=== PATIENT | female | born 1985 | race Caucasian/White ===

== ENCOUNTER → 2016-12-28 | Outpatient (CLI) | payer OTHER ==
[2014-03-21 19:59] VITALS: BP 148/82
[~2016-12-28] MED LIST: HYDR200T PO; LEVO125T5 PO
--- NOTE | 2016-12-28 12:32 | KCIC ---
PROCEDURE MRI lumbar spine without contrast. HISTORY Low back pain for 2 weeks. No known injury. Pain and numbness left hip and thigh. TECHNIQUE Sagittal T1, sagittal T2, sagittal STIR, axial T1, and axial T2 sequences are provided. COMPARISON None. FINDINGS There is no malalignment. There is no marrow edema. There is no worrisome marrow lesion. There is disc desiccation from L3-L4 through L5-S1. Disc height is maintained. The conus medullaris is normal in signal intensity and in position. Subcutaneous edema is noted. The numbering system assumes 5 lumbar type vertebral bodies. Findings by individual level are as follows: L1-L2, L2-L3: There is no canal or foraminal compromise. L3-L4: There is a mild disc bulge with central annular fissure and shallow central protrusion. Protrusion measures about 11 millimeters at its base and 2 millimeters in height. There is mild facet and ligamentum flavum hypertrophy. There is no significant canal stenosis, midline AP diameter of the thecal sac 10 millimeters. There is no foraminal narrowing. L4-L5: There is a mild diffuse disc bulge and shallow central protrusion, 10 millimeters at its base and 2 millimeters in height. There is mild facet and ligamentum flavum hypertrophy. There is minimal right foraminal narrowing. Midline AP diameter of the thecal sac is 11 millimeters. L5-S1: There is a minimal disc bulge. There is a central/left central broad-based protrusion, 16 millimeters at its base and 4 millimeters in height. This minimally contacts the left S1 nerve root and minimally narrows the left lateral recess. There is facet hypertrophy. There is no foraminal compromise. IMPRESSION Mild degenerative disc disease with protrusions from L3-L4 through L5-S1. Mild facet hypertrophy also noted at these levels. There is no high-grade canal or foraminal compromise. Left lateral recess narrowing at L5-S1, could explain a left S1 radiculopathy. Electronically signed by: Ha Stephenson MD (Dec 28, 2016 12:30:32)
== END | disposition home or self-care (01) ==
LOC: KCIC MRI 09:54
PROVIDERS: ATTEND Nurse Practitioner Family
DX: M54.16 Radiculopathy, lumbar region (principal); M51.37 Other intervertebral disc degeneration, lumbosacral region; M51.36 Other intervertebral disc degeneration, lumbar region
CPT/HCPCS: 72148

== ENCOUNTER → 2017-01-09 | Outpatient (CLI) | payer OTHER ==
[2014-03-21 19:59] VITALS: BP 148/82
[~2017-01-09] MED LIST changes: +DIPH25CA58 PO; +HYDR-971 PO; +IBUP-1027 PO; +IOHEXOL 180 MG/ML 10 ML VIAL. ONE; +METH-37 PO; +PROP40TA PO; +methylPREDNISolone ACETATE 40 MG/ML VIAL. ONE; +methylPREDNISolone ACETATE 80 MG/ML VIAL. ONE
--- NOTE | 2017-01-10 08:06 | PAIN ---
DATE OF SERVICE: 01/09/2017 INITIAL CONSULTATION FOR PAIN CLINIC CHIEF COMPLAINT: Low back and left lower extremity pain. HISTORY OF PRESENT ILLNESS: This is a 31-year-old female who presents with a history of pain since 12/06/2016, came on suddenly, but not as a result of any specific injury or accident that she is aware of, significant pain across the low back into the left hip and gluteus into the left lateral and anterior thigh, posterior thigh on the left side radiating into the leg and into the lower leg occasionally, mostly into the thigh itself. The patient reports that it has been much worse with standing and walking. 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 The patient has had physical therapy since November to the present time, is still undergoing this, doing therapy at home as well as with the therapist, which has helped the pain, but only to a moderate extent. The patient reports she is taking Pickett, ibuprofen and Robaxin, all of which do help, but again only by 20-30% as well. The patient reports that the pain is stabbing and throbbing, is radiating to the left leg, changes during the day, worse with activity, standing and walking, better with sitting or lying down, but does awaken her from sleep at least twice a night, does not affect her bowel or bladder control, but does affect her ability to walk. She is not using any assistive devices. The patient rates her disability rating from 0-10, 10 being the worst, as a 5 with family and home responsibilities, 6 with recreation and social activity and sexual behavior, 7 with occupation and 3 with self-care and 2 with life support activities. The patient reports no loss of motor function in the lower extremities, but significant fatigability with activity, standing, even walking more than about 5 minutes. PAST MEDICAL HISTORY: Significant for hypertension, cigarette smoking, quit 2 months ago, previous half a pack a day history for 7 years, history of Berkley's thyroiditis, arthritis. PREVIOUS SURGERIES: Include cholecystectomy in 2011 and sinus surgeries x 3 in the past. CURRENT MEDICATIONS: Include diphenhydramine, propranolol, hydrocodone, Robaxin and ibuprofen. ALLERGIES: THE PATIENT IS ALLERGIC TO VANCOMYCIN AND ZOSYN, WHICH CAUSES CUTANEOUS PERIPHERAL FLUSHING. FAMILY HISTORY: Significant for hypertension, diabetes, arthritis, ankylosing spondylitis, gout, cancers and heart disease. 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 REVIEW OF SYSTEMS: Positive for those items mentioned in the history of present illness. All systems reviewed and otherwise negative. It is complete, full and well documented on the patient's chart. PHYSICAL EXAMINATION: VITAL SIGNS: Today, the patient's blood pressure is 144/100, pulse 87, respirations 16, temperature is 97.9 degrees Fahrenheit. Height is 5 feet 11 inches, weight is 263 pounds. GENERAL: The patient is awake, alert, oriented, appropriate, has a very pleasant demeanor. HEENT: Shows normocephalic, atraumatic. Extraocular movements are intact and symmetrical. Oral cavity, mucous membranes are moist and pink. Dentition is intact. NECK: Shows anterior throat supple without palpable lymphadenopathy noted. Swallow reflex is symmetrical. CHEST: Shows normal on inspection. Breath sounds clear to auscultation bilaterally. HEART: Shows S1 and S2 clear. No murmurs are auscultated. ABDOMEN: Obese, soft, nontender, nondistended. No palpable organomegaly is noted. No rebound or guarding demonstrated. MUSCULOSKELETAL: The patient's back shows spine grossly in the midline. Neck shows full rotational motion of the cervical spine without difficulty or tenderness including extension and flexion, normal appearing thoracic kyphosis and lumbar lordotic curvature. The patient has some tattooing in the low back. No other scars, bruises, lesions or rashes are noted. Lumbar paraspinous musculature shows symmetrical on inspection with palpation, is mildly tender to moderately tender in the inferior aspect of the lumbar paraspinous muscles, nontender in the upper distribution. Muscle girth is firm and normal on palpation, somewhat tense in the low lumbar distribution bilaterally. No tenderness over the spinous processes. No tenderness over the sacrum or sacroiliac regions. The patient shows good rotational motion of the lumbar spine, both laterally greater than 10 degrees right and left as well as extension greater than 10 degrees, forward flexion at 45 degrees without exacerbation of pain. Lower extremities show deep tendon reflexes at 2+ in the patellar, 1+ tendo-calcaneus tendons, are equal. Motor exam is strong with 5/5 dorsiflexion, extension, quadriceps and hamstring flexion. Peripheral pulses are 2+ in the posterior tibial and dorsalis pedis pulses. No peripheral edema is noted. No clubbing, no cyanosis. Lower extremities are warm and dry to touch, equal in color and appearance. The patient's straight leg raise is noted to be positive on the left, only mildly at about 45 degrees into the left posterior thigh and lateral thigh, which is relieved with knee flexion, right side is negative. Gaenslen's and John's maneuvers are grossly negative bilaterally. The patient is able to stand, stand on her toes without significant difficulty or loss of balance, walks with a normal appearing gait for short distance in the office not using any assistive devices such as canes or walkers to ambulate. IMPRESSION: 1. This is a 31-year-old female with approximate 1 month history of increasing pain in the low back, left lower extremity in a radicular fashion. 2. MRI scan of the lumbar spine showing mild degenerative disk disease with protrusions from L3-L4 through L5-S1 with lateral recess narrowing on the left at L5-S1 with contact to the S1 nerve root and minimal narrowing of the left lateral recess also at L4-L5 showing disk bulge and shallow central protrusion. 3. Hypertension. 4. Arthritis. PLAN: Options were discussed with the patient including conservative medical managements, physical therapy continuation and interventional techniques. She would like to pursue interventional techniques. We discussed a lumbar epidural steroid injection using description as well as anatomical models to describe the procedure. Risks were then discussed including, but not limited to bleeding, infection, possibility of epidural hematoma, subsequent neurological compromise, dural puncture, headaches, spinal cord and/or nerve damage, side effects of steroid medication and poor results regarding pain control. The patient understands and wishes to proceed. The patient will return to clinic in approximately 2 weeks for followup, was counseled as to return appointment, activity level and side effects to be aware of. DIAGNOSIS: Lumbar radiculopathy with lumbar degenerative disk disease. PROCEDURE: Lumbar epidural steroid injection in a translaminar approach at the L5-S1 level using C-arm fluoroscopic guidance under sterile prep and drape using local anesthetic. MEDICATIONS INJECTED: 120 mg Depo-Medrol plus 10 mL preservative-free normal saline and 2 mL Isovue for contrast. CONDITION AT DISCHARGE: Stable. The patient tolerated the procedure well, had no complications. AKSHAT GARNER MD DR: ARELI/francois JOB#: [id number] / [id number]
== END | disposition home or self-care (01) ==
LOC: PNCL 08:09
PROVIDERS: ATTEND Anesthesiology
DX: M51.16 Intervertebral disc disorders with radiculopathy, lumbar region (principal); M19.90 Unspecified osteoarthritis, unspecified site; I10 Essential (primary) hypertension
CPT/HCPCS: 62323; J1030; J1040

== ENCOUNTER → 2017-01-13 | Outpatient (CLI) | payer OTHER ==
[2014-03-21 19:59] VITALS: BP 148/82
[~2017-01-13] MED LIST changes: -IOHEXOL 180 MG/ML 10 ML VIAL. ONE; -methylPREDNISolone ACETATE 40 MG/ML VIAL. ONE; -methylPREDNISolone ACETATE 80 MG/ML VIAL. ONE
--- NOTE | 2017-01-18 08:17 | PATHOLOGY ---
CYTOPATHOLOGY REPORT CLINICAL HISTORY: R31.9-Hematuria. SPECIMEN(S) RECEIVED: A.Urine, NOS FINAL DIAGNOSIS: Urine, ThinPrep: - No malignant cells identified. - Few urothelial cells, numerous squamous epithelial cells, few inflammatory cells, and yeast/fungal organisms morphologically consistent with Mireya species identified. (JPM:mgr; d/t: 01/17/17) PATHOLOGIST: Phoenix Burnette M.D. REPORT ELECTRONICALLY SIGNED BY: Phoenix Burnette M.D. DATE/TIME: 01/18/2017 08:17 GROSS PATHOLOGY: A. Urine, NOS: The specimen is submitted fixed, labeled "Susie Rodríguez". Received by the Cytology Department is 50 mL of clear yellow fluid. One ThinPrep slide was prepared. (clt 01.16.2017) FRONT COUNTER CLERK(S): ROBBY Sams(ASCP), IAC INITIAL CPT CODE(S): A; 83998 Professional services performed by [facility] [place] [address] Technical services performed by [facility] at [address] [place] [address], [place] [address]. PATIENT: SUSIE RODRÍGUEZ /AGE: 6 1985 (Age: 31) SEX: F PATIENT #: [id number] ALT CASE #: SPECIMEN COLLECTION DATE: 01/13/2017 SPECIMEN RECEIVED DATE: 01/16/[address] [facility] [address] [place] [address], [address] [place] [address] PHONE: [phone] DIRECTOR: Trip Krishna M.D. * * * END OF REPORT * * *
== END | disposition home or self-care (01) ==
LOC: SPEC 16:05
PROVIDERS: ATTEND Urology
DX: N39.0 Urinary tract infection, site not specified (principal)
CPT/HCPCS: 87086

== ENCOUNTER → 2017-01-23 | Outpatient (CLI) | payer OTHER ==
[2014-03-21 19:59] VITALS: BP 148/82
[~2017-01-23] MED LIST changes: +IOHEXOL 180 MG/ML 10 ML VIAL. ONE; +methylPREDNISolone ACETATE 40 MG/ML VIAL. ONE; +methylPREDNISolone ACETATE 80 MG/ML VIAL. ONE
--- NOTE | 2017-01-24 11:48 | PN ---
DATE: 01/23/2017 PROGRESS NOTE FOR PAIN CLINIC DIAGNOSES: Lumbar radiculopathy, lumbar degenerative disease and lumbar spondylosis. HISTORY OF PRESENT ILLNESS: This patient is a 31-year-old female who returns for followup status post lumbar epidural steroid injection x 1. The patient reports about 50-60%, improvement overall in her low back and left lower extremity pain. The patient reports the pain is from 2 to 7 on a scale of 10; 7 with activity, walking, standing, but much better with sitting or lying down. She can increase her activity to moderate extent, it is better at night. The patient reports pain still on aching, burning sensation that is changed somewhat in the burning quality in the left leg for which is aching and sharp, has now less sharp but with some burning and radiating pain. The patient reports no new motor or sensory deficits, no new bowel or bladder incontinence or other complaints. PHYSICAL EXAMINATION: VITAL SIGNS: Blood pressure 133/90, pulse is 77, respirations are 16, temperature is 98.1 degrees Fahrenheit, height 5 foot 11 inches, weight is 264 pounds. GENERAL: The patient is awake, alert, orient, appropriate. Very pleasant demeanor. HEENT: Normocephalic, atraumatic. Extraocular movements are intact and symmetrical. Oral cavity shows mucous membranes moist and pink. Dentition is intact. NECK: Shows anterior throat supple without palpable lymphadenopathy noted. Swallow reflex is symmetrical. CHEST: Shows normal on inspection. Breath sounds are clear to auscultation bilaterally. HEART: Shows S1 and S2 clear. No murmurs are auscultated. ABDOMEN: Soft, obese, nontender, nondistended. No palpable organomegaly is noted. No rebound or guarding demonstrated. BACK: Shows spine grossly in the midline. Normal appearing thoracic kyphosis and lumbar lordotic curvature. Lumbar paraspinous musculature shows symmetry. Inspection with palpation shows some moderate tenderness with palpation but only in the lower lumbar distribution and only diffusely bilaterally, but symmetrical muscle girth is normal and firm without atrophy, hypertrophy. No tenderness with rotation and motion of her lumbar spine, both laterally as well as extension and flexion. No tenderness over the sacrum and sacroiliac regions. Her lower extremities show deep tendon reflexes at 2+ in the patellar and 1+ in the tendo calcaneus tendons. Motor exam is 5/5 dorsiflexion, extension, quadriceps, and hamstring flexion equal bilaterally. Options were discussed with the patient. The patient's old chart was reviewed and her current medication regimen updated. Current review of systems updated to date as well. We will proceed with a second lumbar epidural steroid injection today with fluoroscopic guidance. Risks were again discussed including, but not limited to bleeding, infection, possibility of epidural hematoma and subsequent neurological compromise, dural puncture, headaches and/or nerve damage, side effects of steroid medication and poor results regarding pain control. The patient understands and wishes to proceed. The patient will return to clinic in approximately 2 weeks for followup, was counseled on return appointment, activity level and side effects to be aware of. DIAGNOSES: Lumbar radiculopathy, lumbar degenerative disk disease, lumbar spondylosis. PROCEDURES: Lumbar epidural steroid injection in translaminar approach at the L5-S1 level using C-arm fluoroscopic guidance under sterile prep and drape using local anesthetic. MEDICATIONS INJECTED: 120 mg of Depo-Medrol plus 10 mL of preservative free normal saline and 2 mL Isovue for contrast. CONDITION AT DISCHARGE: Stable. The patient tolerated procedure well, had no complications. AKSHAT GARNER MD DR: ARELI/francois JOB#: [id number] / [id number]
== END | disposition home or self-care (01) ==
LOC: PNCL 12:39
PROVIDERS: ATTEND Anesthesiology
DX: M51.16 Intervertebral disc disorders with radiculopathy, lumbar region (principal); M47.26 Other spondylosis with radiculopathy, lumbar region
CPT/HCPCS: 62323; J1030; J1040

== ENCOUNTER 2017-02-20 06:45 | Day surgery (SDC) | payer OTHER ==
--- NOTE | 2017-02-19 12:13 | HP ---
ADMIT DATE: 02/20/2017 SURGICAL HISTORY AND PHYSICAL The patient is coming in this month on the for operation. This will be her H and P. CHIEF COMPLAINT: Hematuria and bladder lesion. HISTORY OF PRESENT ILLNESS: The patient is a very pleasant 31-year-old white female with history of microhematuria, who was found to have an area of patchy erythema in the dome of the bladder. The remainder of the urinary tract is within normal limits. I have discussed with the patient the options, alternatives, benefits, risks and possible complications of cystoscopy with bladder biopsy. The patient understands this and does wish to proceed ahead with operation. PAST MEDICAL HISTORY: Significant for Berkley's thyroiditis, polycystic ovary, left breast lump in the past, thyroid disease, vitamin D deficiency, insulin resistance, mixed hyperlipidemia, arthralgias, ____, migraine headaches, autoimmune thyroiditis. MEDICATIONS: Fioricet, Imitrex, Treximet, propranolol, gabapentin, thyroid, Excedrin p.r.n. ALLERGIES: THE PATIENT WITH ALLERGY TO ZOSYN AND VANCOMYCIN SHE HAD RED MAN SYNDROME. REVIEW OF SYSTEMS: The patient is feeling well. PHYSICAL EXAMINATION: GENERAL: The patient is a well-developed, well-nourished white female in no acute distress. HEENT: Normocephalic, atraumatic. CHEST: Clear to auscultation. CARDIOVASCULAR: Regular rate and rhythm. ABDOMEN: Soft, no CVA tenderness. EXTREMITIES: Without clubbing, cyanosis or edema. NEUROLOGIC: Grossly intact. ASSESSMENT: Bladder lesion and history of microhematuria. PLAN: I discussed with the patient the options, alternatives, benefits, risks and possible complications of cystoscopy with bladder biopsy. She understands this and does wish to proceed ahead with operation. We will, therefore, proceed accordingly on 02/20/2017. CHERYL SHAH MD DR: CHINTAN/francois JOB#: [id number] / [id number]
[~2017-02-20] VITALS: Ht 177.8 cm; Wt 119.9 kg
[~2017-02-20 06:45] MED LIST changes: -IOHEXOL 180 MG/ML 10 ML VIAL. ONE; +METF500T9 PO; +PHEN37.568 PO; +THYR60TA2 PO; -methylPREDNISolone ACETATE 40 MG/ML VIAL. ONE; -methylPREDNISolone ACETATE 80 MG/ML VIAL. ONE
[2017-02-20] MEDS ORDERED: HYDROmorphone 2 MG/ML VIAL IV PRN (07:00)
[2017-02-20] MEDS ORDERED: PROCHLORPERAZINE 10 MG/2 ML VIAL. IV PRN (07:00)
[2017-02-20] MEDS ORDERED: MORPHINE SULFATE 2 MG/ML DISP.SYRIN. IV PRN (07:00)
[2017-02-20] MEDS ORDERED: ONDANSETRON PF 4 MG/2 ML VIAL. IV PRN (07:00)
[2017-02-20] MEDS ORDERED: fentaNYL PF VIAL 100 MCG/2 ML VIAL IV PRN ×2 (07:00)
[2017-02-20] MEDS ORDERED: LIDOCAINE 1% 1 ML SYRINGE. ID PRN (07:00)
[2017-02-20] MEDS ORDERED: IV RINGERS,LACTATED 1000ML 1,000 ML IV SCH (07:00)
[2017-02-20] MEDS ORDERED: L-NO1TBD5 PO (07:05)
[2017-02-20 07:27] LABS: BASO # 0.1 x10^3/uL (0.0-0.2); BASO % 1 % (0-3); EOS % 4 % (0-3); HEMATOCRIT 39.2 % (36.0-47.0); HEMOGLOBIN 13.3 g/dL (12.0-15.5); LYMPH # 3.6 x10^3/uL (1.0-4.8); LYMPH % 44 % (24-48); MEAN CORPUSCULAR HEMOGLOBIN 30 pg (25-35); MEAN CORPUSCULAR HGB CONC 34 g/dL (31-37); MEAN CORPUSCULAR VOLUME 87 fL (79-100); MONO % 7 % (0-9); NEUT % 44 % (31-73); PLATELET COUNT 309 x10^3/uL (140-400); RED CELL DISTRIBUTION WIDTH 13.4 % (11.5-14.5); WHITE BLOOD COUNT 8.2 x10^3/uL (4.0-11.0)
[2017-02-20 07:27] LABS: NEG OBC UR NEG; POS OBC UR POS
[2017-02-20] MEDS ORDERED: LIDOCAINE 2% JELLY 6ML IN APPLICATOR. ONE (07:31)
[2017-02-20 07:42] LABS: CALCIUM 8.4 mg/dL (8.5-10.1); CREATININE 0.8 mg/dL (0.6-1.0); GFR 84.2; POTASSIUM 3.8 mmol/L (3.5-5.1)
[2017-02-20] MEDS ORDERED: LIDOCAINE 2% PF Vial for OR 5 ML VIAL. ONE (07:45)
[2017-02-20] MEDS ORDERED: fentaNYL PF VIAL 100 MCG/2 ML VIAL ONE (07:45)
[2017-02-20] MEDS ORDERED: PROPOFOL 20 ML IV ONE (07:45)
[2017-02-20] MEDS ORDERED: DEXAMETHASONE SOD PHOS 20 MG/5 ML VIAL. ONE (07:45)
[2017-02-20] MEDS ORDERED: ONDANSETRON PF 4 MG/2 ML VIAL. ONE (07:45)
[2017-02-20 07:46] LABS: ALBUMIN 3.2 g/dL (3.4-5.0); ALBUMIN/GLOBULIN RATIO 0.8 (1.0-1.7); TOTAL BILIRUBIN 0.3 mg/dL (0.2-1.0); TOTAL PROTEIN 7.2 g/dL (6.4-8.2)
[2017-02-20] MEDS ORDERED: SUCCINYLCHOLINE 200 MG/10 ML VIAL. ONE (07:48)
[2017-02-20] MEDS ORDERED: KETOROLAC 30 MG/ML INJ FOR OR. INJ ONE (08:24)
--- NOTE | 2017-02-20 08:52 | DISCH ---
DISCHARGE INSTRUCTIONS Condition on Discharge Condition on Discharge: Stable Activity After Discharge Activity Instructions for Disc: Avoid exertion Diet after Discharge Diet after Discharge: Regular Contacting the DR. after DC Call your doctor for: If your condition worsens Follow-Up Follow up with: Follow up Dr. Sinclair next week CHERYL SINCLAIR MD February 20, 2017 08:52
--- NOTE | 2017-02-20 08:54 | PDOC4 ---
Operative Note Operative Note pre-op dx-microhematuria procedure-cystoscopy, bladder biopsy surgeon-huong judd-general Pt. to PACU in stable condition CHERYL SHAH MD February 20, 2017 08:54
[2017-02-20] MEDS ORDERED: PHEN100T82 PO (09:15)
[2017-02-20] MEDS ORDERED: CIPR500T94 PO (09:16)
[2017-02-20] MEDS ORDERED: HYDROcodone/APAP 5/325MG 1 TAB TABLET ONE (09:28)
[2017-02-20] MEDS ORDERED: HYDROcodone/APAP 5/325MG 1 TAB TABLET PO PRN (09:30)
[2017-02-20 09:40] VITALS: BP 127/82
--- NOTE | 2017-02-20 10:27 | OP ---
DATE OF SURGERY: 02/20/2017 OPERATION: Cystoscopy with bladder biopsy. SURGEON: Cheryl Sinclair M.D. ANESTHESIA: General. PREOPERATIVE DIAGNOSIS: Microhematuria. POSTOPERATIVE DIAGNOSIS: Microhematuria. INDICATIONS: The patient is a very pleasant 31-year-old white female with history of microhematuria. The patient had CT urogram, which showed no upper tract stones or lesions. The patient had a cystoscopy, which showed just one area of erythema in the posterior dome of the bladder. No other lesions were noted. I discussed with the patient the options, alternatives, benefits, risks and possible complications of cystoscopy with possible bladder biopsy. She understands this and does wish to proceed with the operation. DESCRIPTION OF PROCEDURE: After obtaining informed consent, the patient was taken to the operating room. After an excellent general anesthetic, the patient was placed in a dorsal lithotomy position. The groin was prepped and draped in sterile fashion. The patient was preloaded with IV antibiotics. Panendoscopy and cystoscopy then performed with the 30 and 70-degree lens and the 21-Cambodian cystoscope sheath. Bladder was entered and inspected. Both ureteral orifices were identified and found to be grossly patent with clear efflux of urine. Bladder wall appeared smooth. There was just one mucosal lesion identified in the posterior wall of the bladder superior to the left hemitrigone measuring approximately 2 mm in diameter and just a reddish mucosal lesion, possibly consistent with just a mucosal hemangioma. No other lesions were identified in the bladder. Bladder washing was obtained and sent for cytologic analysis. Following this, the mucosal lesion in the left posterior wall of the bladder was then biopsied with the Wappler biopsy forceps and the biopsy is sent for pathologic analysis. The biopsy site was then lightly fulgurated with a fine tip Bugbee electrode under direct vision. Hemostasis was checked and found to be excellent. Bladder wall was completely intact at the end of the procedure. Both ureteral orifices were identified and intact at the end of the procedure. Following this, bladder was then drained, cystoscope withdrawn from the patient. The patient tolerated the procedure very well, was taken to recovery room in stable condition. CHERYL SINCLAIR MD DR: CHINTAN/francois JOB#: [id number] / [id number]
--- NOTE | 2017-02-21 13:44 | PATHOLOGY ---
CYTOPATHOLOGY REPORT CLINICAL HISTORY: Micro hematuria See also [id number] SPECIMEN(S) RECEIVED: A.Washing, Bladder FINAL DIAGNOSIS: Bladder washing, Thinprep: - No malignant cells identified. - Squamous epithelial cells and few reactive urothelial cells identified. (JPM:; d/t: 02/21/17) PATHOLOGIST: Phoenix Burnette M.D. REPORT ELECTRONICALLY SIGNED BY: Phoenix Burnette M.D. DATE/TIME: 02/21/2017 13:27 GROSS PATHOLOGY: A. Washing, Bladder: The specimen is submitted unfixed, labeled "Susie Rodríguez". Received by the Cytology Department is 40 mL of clear yellow fluid. One ThinPrep slide was prepared. (mm 02.20.2017) ORTHOPEDIC PHYSICIAN(S): ROBBY Michaels(ASCP) INITIAL CPT CODE(S): A; 51932 Professional services performed by [facility] [place] [address] Technical services performed by [facility] at [address] [place] [address], [address] [address]. PATIENT: SUSIE RODRÍGUEZ /AGE: 6 1985 (Age: 31) SEX: F PATIENT #: [id number] ALT CASE #: SPECIMEN COLLECTION DATE: 02/20/2017 SPECIMEN RECEIVED DATE: 02/20/[address] [facility] [address] [place] [address], [address] [place] [address] PHONE: [phone] DIRECTOR: Trip Krishna M.D. * * * END OF REPORT * * *
--- NOTE | 2017-02-21 13:49 | PATHOLOGY ---
PATHOLOGY REPORT * * * * * * * * FINAL DIAGNOSIS: Bladder biopsy: - Congestion, slight chronic inflammation, and focal reactive urothelial atypia. COMMENT: There is no evidence of malignancy. REPORT ELECTRONICALLY SIGNED BY: Phoenix Burnette M.D. DATE/TIME: 02/21/2017 13:33 * * * * * * * * GROSS PATHOLOGY: Received in formalin labeled "Susie Rodríguez, bladder biopsy," is a segment of finney soft tissue measuring 0.3 cm in maximum dimension. The specimen is submitted entirely in cassette A1. (CAA; 02/20/2017) INITIAL CPT CODE(S): A; 06068 Professional services performed [place] [address] Technical services performed by [facility] at [address] [place] [address], [place] [address]. SPECIMEN(S) RECEIVED: A.Bladder biopsy CLINICAL HISTORY: Microhematuria PATIENT: SUSIE RODRÍGUEZ /AGE: 6 1985 (Age: 31) PATIENT #: [id number] ALT CASE #: SPECIMEN COLLECTION DATE: 02/20/2017 SPECIMEN RECEIVED DATE: 02/20/2017 [facility] - [address] [place] [address] - PHONE: [phone] * * * END OF REPORT * * *
== END 2017-02-20 09:59 | disposition home or self-care (01) ==
LOC: SURG 06:45
PROVIDERS: ATTEND Urology
DX: N32.9 Bladder disorder, unspecified (principal); E78.00 Pure hypercholesterolemia, unspecified; E66.9 Obesity, unspecified; Z90.49 Acquired absence of other specified parts of digestive tract; Z86.14 Personal history of Methicillin resistant Staphylococcus aureus infection; Z87.39 Personal history of other diseases of the musculoskeletal system and connective tissue
CPT/HCPCS: 36415; 52204; 80053; 81025; 85027; J0330; J1100; J1956; J2405; J2704; J3010; J1885

== ENCOUNTER 2017-03-01 14:53 | Emergency (ER) | payer OTHER ==
[~2017-03-01] VITALS: Ht 177.8 cm; Wt 119.7 kg
[~2017-03-01 14:53] MED LIST changes: +CIPR500T94 PO; +L-NO1TBD5 PO; +PHEN100T82 PO; -PHEN37.568 PO; +PHEN37.598 PO
[2017-03-01] MEDS ORDERED: fentaNYL PF VIAL 100 MCG/2 ML VIAL IV ONE ×2 (15:30→19:15)
[2017-03-01] MEDS ORDERED: ONDANSETRON PF 4 MG/2 ML VIAL. IV ONE (15:30)
[2017-03-01] MEDS ORDERED: IOHEXOL 300 MG/ML 75 ML VIAL IV ONE (15:45)
[2017-03-01] MEDS ORDERED: CONTRAST GIVEN MC PRN (15:45)
--- NOTE | 2017-03-01 16:17 | PHYS DOC ---
Past Medical History Past Medical History: Arthritis, Hypothyroid, Other Additional Past Medical Histor: PCOS, MRSA in sinus Past Surgical History: Cholecystectomy, Other Additional Past Surgical Histo: sinus surgery, bladder biobsy and cystoscopy Alcohol Use: None Drug Use: None Adult General Chief Complaint Chief Complaint: ABDOMINAL PAIN HPI HPI Patient is a 31 year old female who presents with epigastric and left upper quadrant pain for the past 3 days. Patient states that she's been unable to keep any food down and has nauseous and vomiting multiple times over the past 3 days. Patient states she had her gallbladder removed. Patient denies any diarrhea. Patient denies any shortness of breath or chest pain. Patient denies any fevers. Pertinent exam findings: Positive tenderness to palpation the epigastric and left upper quadrant ED course: Patient was seen and examined in the emergency room a CBC, CMP, lipase, UA, urine , CT abdomen and pelvis were ordered 1800: Discussed abnormal lab results the patient in regards to her liver enzymes and the CT scan findings of a fatty liver and recommended she follow up with her doctor to have her liver enzymes repeated within the next week. Patient states she feels much better and would like to go home. Her nausea and vomiting have resolved. Patient understands the need to follow-up and have repeat blood work. Pertinent results: Elevated liver enzymes CT the abdomen and pelvis no acute abnormalities fatty infiltrate of the liver MDM: After reviewing the chart, CC/HPI/PMH, physical exam, [lab results], [ radiological results], do not believe the patient has intra-abdominal emergency warranting further workup and/or admission at this time. Discussed the abnormal CT findings in regards to the fatty liver and the elevated liver enzymes with the patient and recommended she follow up with her PCP for repeat liver enzymes and further evaluation the liver. Patient on reexamination states she feels much better and her nausea and vomiting have resolved. Patient went to go home. Patient is stable for discharge. Additional verbal discharge instructions were provided to the patient and that if symptoms get worse or any new symptoms arise that are worrisome to the patient she is to return to the emergency room immediately Review of Systems Review of Systems GEN: Denies fevers, chills, sweats HEENT: Denies blurred vision, sore throat CV: Denies chest pain RESP: Denies shortness of air, cough GI: n/v, positive epigastric and left upper quadrant pain NEURO: Denies confusion, dizziness MSK: Denies weakness, joint pain/swelling Current Medications Current Medications Current Medications Medications (Trade) Dose Ordered Sig/Lee Start Time Stop Time Status Last Admin Dose Admin Fentanyl Citrate (Fentanyl 2ml Vial) 50 mcg 1X ONCE 03/01/17 15:30 03/01/17 15:31 DC 03/01/17 15:47 50 MCG Info (Do NOT chart on this entry -- for MONITORING) 1 each PRN DAILY PRN 03/01/17 15:45 03/03/17 15:44 Iohexol (Omnipaque 300 Mg/ml) 75 ml 1X ONCE 03/01/17 15:45 03/01/17 15:46 DC 03/01/17 15:45 75 ML Ondansetron HCl (Zofran) 4 mg 1X ONCE 03/01/17 15:30 03/01/17 15:31 DC 03/01/17 15:44 4 MG Allergies Allergies Allergies Coded Allergies Type Severity Reaction Last Updated Verified piperacillin Allergy Intermediate 02/20/17 No tazobactam Allergy Intermediate 02/20/17 No vancomycin Allergy Intermediate 02/20/17 No Physical Exam Physical Exam GEN.: No apparent distress. Alert and oriented. HEENT: Head is normocephalic, atraumatic NECK: Supple. LUNGS: CTAB. HEART: RRR, S1, S2 present. Peripheral pulses intact ABDOMEN: Soft, positive tenderness to palpation epigastric and left upper quadrant. Positive bowel sounds. EXTREMITIES: Without any cyanosis. NEUROLOGIC: Normal speech, normal tone PSYCHIATRIC: Normal affect, normal mood. SKIN: No ulcerations Current Patient Data Vital Signs Vital Signs Date Time Temp Pulse Resp B/P (MAP) Pulse Ox O2 Delivery O2 Flow Rate FiO2 03/01/17 16:45 80 19 121/62 (81) 94 Room Air 03/01/17 15:16 98.4 98.4 Lab Values Laboratory Tests Test 03/01/17 15:05 03/01/17 15:53 03/01/17 16:10 Urine Collection Type Unknown Urine Color Bonnie Urine Clarity Clear Urine pH 5.5 Urine Specific [place] 1.025 Urine Protein 100 mg/dL (NEG-TRACE) Urine Glucose (UA) Negative mg/dL (NEG) Urine Ketones (Stick) Trace mg/dL (NEG) Urine Blood Large (NEG) Urine Nitrite Negative (NEG) Urine Bilirubin Negative (NEG) Urine Urobilinogen Dipstick 0.2 mg/dL (0.2 mg/dL) Urine Leukocyte Esterase Negative (NEG) Urine RBC Occ /HPF (0-2) Urine WBC 5-10 /HPF (0-4) Urine Squamous Epithelial Cells Few /LPF Urine Bacteria Few /HPF (0-FEW) Urine Mucus Mod /LPF Urine Yeast Present /HPF POC Urine HCG, Qualitative Hcg negative (Negative) White Blood Count 9.3 x10^3/uL (4.0-11.0) Red Blood Count 4.71 x10^6/uL (3.50-5.40) Hemoglobin 14.2 g/dL (12.0-15.5) Hematocrit 40.8 % (36.0-47.0) Mean Corpuscular Volume 87 fL (79-100) Mean Corpuscular Hemoglobin 30 pg (25-35) Mean Corpuscular Hemoglobin Concent 35 g/dL (31-37) Red Cell Distribution Width 13.3 % (11.5-14.5) Platelet Count 287 x10^3/uL (140-400) Neutrophils (%) (Auto) 56 % (31-73) Lymphocytes (%) (Auto) 36 % (24-48) Monocytes (%) (Auto) 6 % (0-9) Eosinophils (%) (Auto) 2 % (0-3) Basophils (%) (Auto) 1 % (0-3) Neutrophils # (Auto) 5.2 x10^3uL (1.8-7.7) Lymphocytes # (Auto) 3.3 x10^3/uL (1.0-4.8) Monocytes # (Auto) 0.5 x10^3/uL (0.0-1.1) Eosinophils # (Auto) 0.1 x10^3/uL (0.0-0.7) Basophils # (Auto) 0.1 x10^3/uL (0.0-0.2) Sodium Level 140 mmol/L (136-145) Potassium Level 3.6 mmol/L (3.5-5.1) Chloride Level 104 mmol/L (98-107) Carbon Dioxide Level 22 mmol/L (21-32) Anion Gap 14 (6-14) Blood Urea Nitrogen 7 mg/dL (7-20) Creatinine 0.8 mg/dL (0.6-1.0) Estimated GFR (Cockcroft-Gault) 84.2 BUN/Creatinine Ratio 9 (6-20) Glucose Level 87 mg/dL (70-99) Calcium Level 9.1 mg/dL (8.5-10.1) Total Bilirubin 0.5 mg/dL (0.2-1.0) Aspartate Amino Transferase (AST) 134 U/L (15-37) H Alanine Aminotransferase (ALT) 120 U/L (14-59) H Alkaline Phosphatase 76 U/L (46-116) Total Protein 7.8 g/dL (6.4-8.2) Albumin 3.7 g/dL (3.4-5.0) Albumin/Globulin Ratio 0.9 (1.0-1.7) L Lipase 121 U/L (73-393) Laboratory Tests 03/01/17 16:10 Laboratory Tests 03/01/17 16:10 EKG EKG [] Radiology/Procedures Radiology/Procedures CT the abdomen and pelvis: IMPRESSION: 1. No evidence of bowel obstruction or appendicitis. 2. Low attenuation of the liver. Nonspecific but frequently secondary to fatty infiltration. [] Course & Med Decision Making Course & Med Decision Making Pertinent Labs and Imaging studies reviewed. (See chart for details) [] Dragon Disclaimer Dragon Disclaimer This electronic medical record was generated, in whole or in part, using a voice recognition dictation system. Departure Departure Impression: Primary Impression: Nausea and vomiting Additional Impressions: Abdominal pain Transaminitis Disposition: 01 HOME, SELF-CARE Condition: IMPROVED Referrals: RODYD SANTIAGO APRN (PCP) Patient Instructions: Nausea and Vomiting, [id number] Additional Instructions: Please follow up with her family doctor within next one to 2 days and have repeat liver enzymes done within the next week and have your liver further evaluated for fatty infiltration Scripts Ondansetron (ZOFRAN ODT) 4 Mg Tab.rapdis 1 TAB SL Q8HRS, #10 TAB Prov: KENNETH POLANCO DO 03/01/17 Problem Qualifiers Primary Impression: Nausea and vomiting Vomiting type: unspecified Vomiting Intractability: unspecified Qualified Codes: R11.2 - Nausea with vomiting, unspecified Additional Impressions: Abdominal pain Abdominal location: epigastric Qualified Codes: R10.13 - Epigastric pain KENNETH POLANCO DO March 01, 2017 16:16
[2017-03-01 16:18] LABS: BASO # 0.1 x10^3/uL (0.0-0.2); BASO % 1 % (0-3); EOS % 2 % (0-3); HEMATOCRIT 40.8 % (36.0-47.0); HEMOGLOBIN 14.2 g/dL (12.0-15.5); LYMPH # 3.3 x10^3/uL (1.0-4.8); LYMPH % 36 % (24-48); MEAN CORPUSCULAR HEMOGLOBIN 30 pg (25-35); MEAN CORPUSCULAR HGB CONC 35 g/dL (31-37); MEAN CORPUSCULAR VOLUME 87 fL (79-100); MONO % 6 % (0-9); NEUT % 56 % (31-73); PLATELET COUNT 287 x10^3/uL (140-400); RED BLOOD COUNT 4.71 x10^6/uL (3.50-5.40); RED CELL DISTRIBUTION WIDTH 13.3 % (11.5-14.5); WHITE BLOOD COUNT 9.3 x10^3/uL (4.0-11.0)
[2017-03-01 16:37] LABS: CALCIUM 9.1 mg/dL (8.5-10.1); CREATININE 0.8 mg/dL (0.6-1.0); GFR 84.2; POTASSIUM 3.6 mmol/L (3.5-5.1)
[2017-03-01 16:49] LABS: ALBUMIN 3.7 g/dL (3.4-5.0); ALBUMIN/GLOBULIN RATIO 0.9 (1.0-1.7); TOTAL BILIRUBIN 0.5 mg/dL (0.2-1.0); TOTAL PROTEIN 7.8 g/dL (6.4-8.2)
[2017-03-01 17:12] LABS: BILIRUBIN,URINE NEGATIVE (NEG); GLUCOSE,URINE NEGATIVE (NEG); NITRITE,URINE NEGATIVE (NEG); PH,URINE 5.5; PROTEIN,URINE 100 mg/dL (NEG-TRACE); UROBILINOGEN,URINE 0.2 mg/dL (0.2 mg/dL)
--- NOTE | 2017-03-01 17:35 | RAD ---
INDICATION: sharp upper abd pains x 3 days, [id number] 75ml, no priors COMPARISON: None. TECHNIQUE: Axial CT images were obtained through the abdomen and pelvis with intravenous contrast. One or more of the following individualized dose reduction techniques were utilized for this examination: 1. Automated exposure control; 2. Adjustment of the mA and/or kV according to patient size; 3. Use of iterative reconstruction technique. FINDINGS: Abdomen: Chest Base: Partially imaged without gross abnormality. Vessels: Mild calcific atherosclerosis. Liver/Biliary: Low-attenuation throughout. Postcholecystectomy changes. Pancreas: No peripancreatic edema. Spleen: Normal. Kidneys/Adrenal: No hydronephrosis. GI: No free air. No bowel dilation to suggest obstruction. The appendix is unremarkable Pelvis: Bladder: Largely decompressed IMPRESSION: 1. No evidence of bowel obstruction or appendicitis. 2. Low attenuation of the liver. Nonspecific but frequently secondary to fatty infiltration. Electronically signed by: Kwabena Jeffries MD (03/01/2017 5:32 PM)
[2017-03-01 17:41] LABS: BACTERIA,URINE FEW /HPF (0-FEW); RBC,URINE OCC /HPF (0-2)
[2017-03-01 17:42] LABS: SQUAMOUS EPITHELIAL CELL,UR FEW /LPF; YEAST,URINE PRESENT /HPF
[2017-03-01] MEDS ORDERED: ONDA4TAB10 SL (18:04)
[2017-03-01 19:25] VITALS: BP 142/94
== END 2017-03-01 19:28 | disposition home or self-care (01) ==
LOC: ER 14:53
DX: R10.12 Left upper quadrant pain (principal); R10.13 Epigastric pain; R11.2 Nausea with vomiting, unspecified; R74.0 Nonspecific elevation of levels of transaminase and lactic acid dehydrogenase [LDH]; E03.9 Hypothyroidism, unspecified; M19.90 Unspecified osteoarthritis, unspecified site; Z90.49 Acquired absence of other specified parts of digestive tract; E28.2 Polycystic ovarian syndrome; Z86.14 Personal history of Methicillin resistant Staphylococcus aureus infection; Z88.1 Allergy status to other antibiotic agents; Z88.0 Allergy status to penicillin; Z88.8 Allergy status to other drugs, medicaments and biological substances
CPT/HCPCS: 36415; 74177; 80053; 81001; 81025; 83690; 85027; 87086; 96374; 96375; 96376; 99285; J2405; J3010; Q9967

== ENCOUNTER → 2017-03-24 | Day surgery (SDC) | payer OTHER ==
[~2017-03-24] MED LIST changes: +IV RINGERS,LACTATED 1000ML 1,000 ML IV SCH; +LIDOCAINE 2% PF Vial for OR 5 ML VIAL. ONE; +ONDA4TAB10 SL; +PROPOFOL 20 ML IV ONE
[2017-03-24 07:39] LABS: NEG OBC UR NEG; POS OBC UR POS
[2017-03-24 08:30] VITALS: BP 133/95
--- NOTE | 2017-03-27 13:36 | PATHOLOGY ---
PATHOLOGY REPORT * * * * * * * * FINAL DIAGNOSIS: Esophageal biopsies, distal esophagus: - Segments of hyperplastic squamous esophageal mucosa and esophagogastric mucosa showing focal acute and chronic inflammation, consistent with reflux esophagitis. COMMENT: Sections of the distal esophageal biopsy reveal segments of hyperplastic squamous esophageal mucosa and esophagogastric mucosa showing focal acute and chronic inflammation with admixed eosinophils. The findings are consistent with reflux esophagitis. There is no evidence of Contreras's change, dysplasia, or malignancy. (JPM:cherry; d/t: 03/27/2017) REPORT ELECTRONICALLY SIGNED BY: Phoenix Burnette M.D. DATE/TIME: 03/27/2017 13:35 * * * * * * * * GROSS PATHOLOGY: Received in formalin labeled "Susie Rodríguez, distal esophageal biopsies," are multiple segments of finney soft tissue measuring 0.1 up to 0.3 cm in maximum dimension. The specimen is submitted entirely in cassette A1. (SHA; 03/24/17) INITIAL CPT CODE(S): A; 30516 Professional services performed [place] [facility] [place] [address] Technical services performed by [facility] at [address] [place] [address] [address] [address]. SPECIMEN(S) RECEIVED: A.Distal esophageal biopsy CLINICAL HISTORY: Abdominal pain; reflux esophagitis, r/o Contreras's PATIENT: SUSIE RODRÍGUEZ /AGE: 6 1985 (Age: 31) PATIENT #: [id number] ALT CASE #: SPECIMEN COLLECTION DATE: 03/24/2017 SPECIMEN RECEIVED DATE: 03/24/2017 [facility] - [address] [place] [address] - PHONE: [phone] * * * END OF REPORT * * *
== END | disposition home or self-care (01) ==
LOC: ENDOS 07:05
PROVIDERS: ATTEND Internal Medicine Gastroenterology
DX: K21.0 Gastro-esophageal reflux disease with esophagitis (principal); K29.50 Unspecified chronic gastritis without bleeding; F41.9 Anxiety disorder, unspecified; M19.90 Unspecified osteoarthritis, unspecified site; E03.9 Hypothyroidism, unspecified; Z83.3 Family history of diabetes mellitus; Z82.49 Family history of ischemic heart disease and other diseases of the circulatory system; Z72.89 Other problems related to lifestyle; Z87.891 Personal history of nicotine dependence; Z90.49 Acquired absence of other specified parts of digestive tract; E78.00 Pure hypercholesterolemia, unspecified; Z86.69 Personal history of other diseases of the nervous system and sense organs; Z86.39 Personal history of other endocrine, nutritional and metabolic disease; E66.9 Obesity, unspecified; Z68.30 Body mass index [BMI] 30.0-30.9, adult; Z87.39 Personal history of other diseases of the musculoskeletal system and connective tissue; Z86.14 Personal history of Methicillin resistant Staphylococcus aureus infection; Z88.1 Allergy status to other antibiotic agents
CPT/HCPCS: 43239; 81025; 88305; J2704

== ENCOUNTER → 2017-04-25 | Day surgery (SDC) | payer OTHER ==
[~2017-04-25] MED LIST changes: +HYDROmorphone 2 MG/ML VIAL IV PRN; +LIDOCAINE 1% 1 ML SYRINGE. ID PRN; +MORPHINE SULFATE 2 MG/ML DISP.SYRIN. IV PRN; +ONDANSETRON PF 4 MG/2 ML VIAL. IV PRN; +PROCHLORPERAZINE 10 MG/2 ML VIAL. IV PRN; -PROPOFOL 20 ML IV ONE; +PROPOFOL 40 ML IV ONE; +fentaNYL PF VIAL 100 MCG/2 ML VIAL IV PRN
[2017-04-25 16:39] VITALS: BP 170/79
[2017-04-26 06:13] LABS: NEG OBC UR NEG; POS OBC UR POS
--- NOTE | 2017-04-27 16:28 | PATHOLOGY ---
PATHOLOGY REPORT * * * * * * * * FINAL DIAGNOSIS: Colonic mucosa, random colon biopsies: - No significant pathologic abnormalities. COMMENT: Sections of the random colon biopsy reveal multiple segments of colonic mucosa containing multiple mucosal-associated lymphoid aggregates. There is no evidence of a chronic destructive colitis, lymphocytic colitis, or collagenous colitis. (JPM:[facility]; 04/27/2017) REPORT ELECTRONICALLY SIGNED BY: Phoenix Burnette M.D. DATE/TIME: 04/27/2017 16:27 * * * * * * * * GROSS PATHOLOGY: Received in formalin labeled "Susie Rodríguez, random colon biopsies," are multiple segments of finney soft tissue measuring from 0.1 up to 0.3 cm in maximum dimension. The specimen is submitted entirely in cassette A1. (JPM; 04/26/17) INITIAL CPT CODE(S): A; 88845 Professional services [place] [address] Technical services performed by [facility] at [address] [place] [address]. SPECIMEN(S) RECEIVED: A.Random colon biopsies CLINICAL HISTORY: Diarrhea, chronic diarrhea PATIENT: SUSIE RODRÍGUEZ /AGE: 6 1985 (Age: 32) PATIENT #: [id number] ALT CASE #: SPECIMEN COLLECTION DATE: 04/25/2017 SPECIMEN RECEIVED DATE: 04/26/2017 [facility] - [address] [place] [address] - PHONE: [phone] * * * END OF REPORT * * *
== END | disposition home or self-care (01) ==
LOC: ENDOS 15:31
PROVIDERS: ATTEND Internal Medicine Gastroenterology
DX: K64.0 First degree hemorrhoids (principal); Z86.69 Personal history of other diseases of the nervous system and sense organs; E78.00 Pure hypercholesterolemia, unspecified; Z90.49 Acquired absence of other specified parts of digestive tract; E66.9 Obesity, unspecified; Z68.31 Body mass index [BMI] 31.0-31.9, adult; Z87.39 Personal history of other diseases of the musculoskeletal system and connective tissue; Z86.39 Personal history of other endocrine, nutritional and metabolic disease
CPT/HCPCS: 45380; 81025; J2001; J2704

== ENCOUNTER → 2017-07-20 | Outpatient (CLI) | payer OTHER ==
[2017-04-25 16:39] VITALS: BP 170/79
[~2017-07-20] MED LIST changes: -HYDROmorphone 2 MG/ML VIAL IV PRN; +IOHEXOL 180 MG/ML 10 ML VIAL. ONE; -IV RINGERS,LACTATED 1000ML 1,000 ML IV SCH; -LIDOCAINE 1% 1 ML SYRINGE. ID PRN; -LIDOCAINE 2% PF Vial for OR 5 ML VIAL. ONE; -MORPHINE SULFATE 2 MG/ML DISP.SYRIN. IV PRN; -ONDANSETRON PF 4 MG/2 ML VIAL. IV PRN; -PROCHLORPERAZINE 10 MG/2 ML VIAL. IV PRN; -PROPOFOL 40 ML IV ONE; -fentaNYL PF VIAL 100 MCG/2 ML VIAL IV PRN; +methylPREDNISolone ACETATE 40 MG/ML VIAL. ONE; +methylPREDNISolone ACETATE 80 MG/ML VIAL. ONE
--- NOTE | 2017-07-20 15:49 | PAIN ---
DATE OF SERVICE: 07/20/2017 DIAGNOSES: Lumbar radiculopathy with lumbar degenerative disk disease and lumbar spondylosis. HISTORY OF PRESENT ILLNESS: This is a 32-year-old female who returns for followup status post lumbar epidural steroid injections x 2, last seen 01/23/2017. The patient did very well after the injection with approximately 75% improvement. Pain returning now in the low back and the bilateral hips and lower extremities, again worse on the left side with some radiating pain in the posterior gluteus and posterior thigh, also into the right side, occasionally into the right groin as well as across the low back. The patient reports it is becoming more constant aching type pain that can be shooting and stabbing in the left leg. It is a 7 on a scale of 10 at its worse, 5 on average and 4 on a scale 10 today, which is at least. The patient reports it does not awaken her from sleep at night. She has been sleeping well, much better with sitting or lying down, worse with standing, walking, changing positions. The patient reports no new motor or sensory deficits, no new bowel or bladder incontinence or other complaints. PHYSICAL EXAMINATION: VITAL SIGNS: The patient's blood pressure 144/108, pulse 80, respirations 16, temperature is 98.3 degrees Fahrenheit, height is 5 feet 11 inches, weight is 261 pounds. GENERAL: The patient is awake, alert, oriented, appropriate, very pleasant demeanor. HEENT: Head shows normocephalic, atraumatic. Extraocular movements are intact and symmetrical. Oral cavity, mucous membranes are moist and pink. Dentition is intact. NECK: Shows anterior throat supple without palpable lymphadenopathy noted. Swallow reflex is symmetrical. CHEST: Shows normal on inspection. Breath sounds clear to auscultation bilaterally. HEART: Shows S1 and S2 clear. No murmurs auscultated. ABDOMEN: Soft, nontender, nondistended. No palpable organomegaly is noted. No rebound or guarding demonstrated. BACK: Shows spine grossly midline. Lumbar paraspinous musculature shows some moderate tenderness with palpation, but normal in appearance, normal lordotic curvature. There is some tattooing noted as per previous exam. No radiation of pain, but moderately tender diffusely throughout the middle and lower distribution of paraspinous muscles. No tenderness over the sacrum or sacroiliac regions. The patient has full rotational motion of lumbar spine, both laterally as well as extension and flexion without significant pain reported. EXTREMITIES: Lower extremities show deep tendon reflexes 2+ in the patellar and 1+ tendo calcaneus tendons are equal. Motor exam is strong with 5/5 dorsiflexion, extension, quadriceps and hamstring flexion and symmetrical. Peripheral pulses are 1+ posterior tibial bilaterally. No peripheral edema is noted. Options were discussed with the patient and the patient's old chart was reviewed as her current medication regimen updated. Current review of systems updated today as well. We will proceed with the third in the series of lumbar epidural steroid injection with fluoroscopic guidance. Risks were again discussed including, but not limited to bleeding, infection, possibility of epidural hematoma, subsequent neurologic compromise, dural puncture, headaches, spinal cord and/or nerve damage, side effects of steroid medication and poor results regarding pain control. The patient understands and wishes to proceed. The patient to return to clinic in approximately 2 weeks for followup. She was counseled on return appointment, activity level and side effects to be aware of. DIAGNOSES: Lumbar radiculopathy with lumbar degenerative disk disease, lumbar spondylosis. PROCEDURES: Lumbar epidural steroid injection, translaminar approach at the L5-S1 level using C-arm fluoroscopic guidance under sterile prep and drape using local anesthetic. Medications injected total 120 mg Depo-Medrol, plus 10 mL preservative free normal saline, 2 mL of Isovue contrast. CONDITION AT DISCHARGE: Stable. The patient tolerated procedure well, had no complications. AKSHAT GARNER MD DR: ARELI/francois JOB#: [id number] / [id number]
== END | disposition home or self-care (01) ==
LOC: PNCL 10:21
PROVIDERS: ATTEND Anesthesiology
DX: M51.16 Intervertebral disc disorders with radiculopathy, lumbar region (principal); M47.26 Other spondylosis with radiculopathy, lumbar region; E78.00 Pure hypercholesterolemia, unspecified; E66.9 Obesity, unspecified; F17.200 Nicotine dependence, unspecified, uncomplicated; Z86.14 Personal history of Methicillin resistant Staphylococcus aureus infection; Z86.69 Personal history of other diseases of the nervous system and sense organs; Z87.39 Personal history of other diseases of the musculoskeletal system and connective tissue; Z90.49 Acquired absence of other specified parts of digestive tract; Z86.39 Personal history of other endocrine, nutritional and metabolic disease; Z88.1 Allergy status to other antibiotic agents
CPT/HCPCS: 62323; J1030; J1040

== ENCOUNTER → 2017-08-17 | Outpatient (CLI) | payer OTHER ==
[2017-04-25 16:39] VITALS: BP 170/79
--- NOTE | 2017-08-17 19:55 | PAIN ---
DATE OF SERVICE: 08/17/2017 DIAGNOSES: Lumbar radiculopathy with lumbar degenerative disk disease and lumbar spondylosis. HISTORY OF PRESENT ILLNESS: The patient is a 32-year-old female who returns for followup status post lumbar epidural steroid injection x 1 with about 50% improvement. The patient reports the pain has moved out of her leg to some extent and is down more in the low back itself. The patient reports tingling and aching in the low back, is a 7 on a scale of 10 at its worst, 4 on average and a 2 at its least and is a 2 this morning. The patient reports it is worse with walking and standing, changing positions, better with sitting down or lying down. It does not awaken her from sleep at night. She sleeps about 6 hours at a time on average without any difficulty with this. The patient reports mostly with walking and standing it is noticeable; however, she has been increasing her activities with greater ease and comfort. Since her last injection, the pain has not been significant returning and is again about 50% improved from the last injection on 07/20/2017. PHYSICAL EXAMINATION: VITAL SIGNS: Today's blood pressure 141/102, pulse 73, respirations are 20, temperature is 98.0 degrees Fahrenheit. Height is 5 feet 11 inches, weight is 261 pounds. GENERAL: The patient is awake, alert, oriented, appropriate, very pleasant demeanor. HEENT: Head shows normocephalic, atraumatic. Extraocular movements are intact and symmetrical. Oral cavity shows mucous membranes moist and pink. Dentition is intact. NECK: Shows anterior throat supple without palpable lymphadenopathy noted. Swallow reflex is symmetrical. CHEST: Shows normal on inspection. Breath sounds are clear to auscultation bilaterally. HEART: Shows S1 and S2 clear. No murmurs auscultated. ABDOMEN: Obese, soft, nontender, nondistended. No palpable organomegaly. There is no rebound or guarding demonstrated. BACK: Shows spine grossly in the midline, slight exaggeration of thoracic kyphosis and mild flattening of lumbar lordotic curvature. Some tattooing is noted in the lumbar distribution, but no previous scars. Lumbar paraspinous musculature shows symmetrical on inspection, with palpation shows some moderate tenderness bilaterally, but only diffusely in the middle and lower distribution, but without radiation. No tenderness over the sacrum or sacroiliac regions. The patient shows good rotation and motion of the lumbar spine, both laterally as well as extension and flexion without difficulty. EXTREMITIES: Lower extremities show deep tendon reflexes 2+ in the patellar, 1+ tendo-calcaneus tendons are equal. Motor exam is strong with dorsiflexion, extension, quadriceps and hamstring flexion, symmetrical and equal at 5/5 bilaterally. Peripheral pulses are 1+ posterior tibia. No peripheral edema is noted. Options were discussed with the patient. The patient's old chart was reviewed as her current medication regimen updated. Current review of systems updated today as well. We will proceed with the second in this series of lumbar epidural steroid injections using fluoroscopic guidance. Risks were again discussed including, but not limited to bleeding, infection, possibility of epidural hematoma, subsequent neurologic compromise, dural puncture headaches, spinal cord and/or nerve damage, side effects of steroid medication and poor results regarding pain control. The patient understands and wishes to proceed. The patient will return to the clinic in approximately 2 weeks for followup, was counseled on return appointment, activity level and side effects to be aware of. DIAGNOSES: Lumbar radiculopathy with lumbar degenerative disk disease, lumbar spondylosis. PROCEDURE: Lumbar epidural steroid injection in translaminar approach at the L5-S1 level using C-arm fluoroscopic guidance under sterile prep and drape using local anesthetic. MEDICATION INJECTED: A total of 120 mg Depo-Medrol plus 10 mL of preservative-free normal saline and 2 mL of Isovue for contrast. CONDITION AT DISCHARGE: Stable. The patient tolerated the procedure well, had no complications. AKSHAT GARNER MD DR: ARELI/francois JOB#: [id number] / [id number]
== END | disposition home or self-care (01) ==
LOC: PNCL 10:34
PROVIDERS: ATTEND Anesthesiology
DX: M51.16 Intervertebral disc disorders with radiculopathy, lumbar region (principal); M47.26 Other spondylosis with radiculopathy, lumbar region; Z88.1 Allergy status to other antibiotic agents; F17.200 Nicotine dependence, unspecified, uncomplicated; E78.00 Pure hypercholesterolemia, unspecified; Z86.14 Personal history of Methicillin resistant Staphylococcus aureus infection; E66.9 Obesity, unspecified; Z90.49 Acquired absence of other specified parts of digestive tract; Z87.39 Personal history of other diseases of the musculoskeletal system and connective tissue; Z86.69 Personal history of other diseases of the nervous system and sense organs; Z86.39 Personal history of other endocrine, nutritional and metabolic disease
CPT/HCPCS: 62323; J1030; J1040

== ENCOUNTER → 2018-01-24 | Outpatient (CLI) | payer OTHER ==
[~2018-01-24] MED LIST changes: -CIPR500T94 PO; -DIPH25CA58 PO; -HYDR-971 PO; -HYDR200T PO; -IBUP-1027 PO; +IOHEXOL 180 MG/ML 10 ML VIAL.; -IOHEXOL 180 MG/ML 10 ML VIAL. ONE; -L-NO1TBD5 PO; -LEVO125T5 PO; -METF500T9 PO; -METH-37 PO; -ONDA4TAB10 SL; -PHEN100T82 PO; -PHEN37.598 PO; -PROP40TA PO; -THYR60TA2 PO; +methylPREDNISolone ACETATE 40 MG/ML VIAL.; -methylPREDNISolone ACETATE 40 MG/ML VIAL. ONE; +methylPREDNISolone ACETATE 80 MG/ML VIAL.; -methylPREDNISolone ACETATE 80 MG/ML VIAL. ONE
== END | disposition home or self-care (01) ==
LOC: PNCL 08:17
DX: M51.16 Intervertebral disc disorders with radiculopathy, lumbar region (principal); M47.26 Other spondylosis with radiculopathy, lumbar region
CPT/HCPCS: 62323; J1030; J1040; Q9965

== ENCOUNTER → 2018-02-08 | Outpatient (CLI) | payer OTHER | LOC: PNCL 08:35 | DX: M51.16 Intervertebral disc disorders with radiculopathy, lumbar region (principal); M47.26 Other spondylosis with radiculopathy, lumbar region | CPT/HCPCS: 62323; J1030; J1040; Q9965 ==

== ENCOUNTER → 2018-02-19 | Outpatient (CLI) | payer OTHER | END | disposition home or self-care (01) | LOC: KCIC MRI 12:13 | DX: M51.16 Intervertebral disc disorders with radiculopathy, lumbar region (principal); M71.38 Other bursal cyst, other site; M41.86 Other forms of scoliosis, lumbar region; E06.3 Autoimmune thyroiditis; Z98.890 Other specified postprocedural states; E78.00 Pure hypercholesterolemia, unspecified; Z90.49 Acquired absence of other specified parts of digestive tract; E66.9 Obesity, unspecified; E28.2 Polycystic ovarian syndrome; Z86.14 Personal history of Methicillin resistant Staphylococcus aureus infection; Z88.1 Allergy status to other antibiotic agents | CPT/HCPCS: 72148 ==

== ENCOUNTER → 2018-03-01 | Outpatient (CLI) | payer OTHER | END | disposition home or self-care (01) | LOC: PNCL 09:34 | DX: M51.16 Intervertebral disc disorders with radiculopathy, lumbar region (principal); M47.896 Other spondylosis, lumbar region | CPT/HCPCS: 99212 ==

== ENCOUNTER → 2018-10-23 | Outpatient (CLI) | payer OTHER ==
[2017-04-25 16:39] VITALS: BP 170/79
[~2018-10-23] MED LIST changes: +CIPR500T94 PO; +DIPH25CA58 PO; +HYDR-3164 PO; +HYDR200T71 PO; +IBUP-1027 PO; -IOHEXOL 180 MG/ML 10 ML VIAL.; +L-NO1TBD5 PO; +LEVO125T5 PO; +METF500T9 PO; +METH-37 PO; +ONDA4TAB10 SL; +PHEN100T82 PO; +PHEN37.598 PO; +PROP40TA PO; +THYR60TA2 PO; -methylPREDNISolone ACETATE 40 MG/ML VIAL.; -methylPREDNISolone ACETATE 80 MG/ML VIAL.
--- NOTE | 2018-10-23 13:39 | KCIC ---
MRI Lumbar Spine without contrast History: Lumbar radiculopathy, low back pain into the left hip for 2 weeks Technique: Multiplanar, multi sequential noncontrast MR imaging was performed of the lumbar spine. Comparison: February 19, 2018 Findings: Lumbar vertebral body stature and AP alignment are overall maintained. There is again mild degenerative disc disease at L4-5, mild disc desiccation L3-4 and L5-S1. There are again posterior annular tears L3-4 to L5-S1. Conus terminates at L1. L3-L4: There is again minimal disc osteophyte complex. There is mild prominence of posterior epidural fat and buckling of the ligamentum flavum. Neural foramina and spinal canal are overall adequate. L4-L5: There is more prominent large posterior broad protrusion now measuring about 18 mm transverse by 11 mm CC by 7 mm AP. There is mild buckling of the ligamentum flavum. There is increased moderate to severe spinal stenosis with limited preserved subarachnoid space, lateral recess stenosis bilaterally with contact of the descending L5 nerve roots. Neural foramina are adequate. L5-S1: There is minimal posterior protrusion as seen previously without significant impingement of the descending S1 nerve roots or spinal stenosis. Neural foramina are adequate. There is mild facet degenerative change. Impression: 1. There is a more prominent large broad posterior protrusion at L4-5 with increased moderate to severe spinal stenosis including lateral recess stenosis and contact of the descending L5 nerve roots. There is again mild degenerative disc disease at L4-5, mild disc desiccation L3-4 and L5-S1. Electronically signed by: Greg Ragland MD (10/23/2018 1:35 PM) [id number]
== END | disposition home or self-care (01) ==
LOC: KCIC MRI 12:26
PROVIDERS: ATTEND Registered Nurse
DX: M51.36 Other intervertebral disc degeneration, lumbar region (principal); M48.061 Spinal stenosis, lumbar region without neurogenic claudication; M51.26 Other intervertebral disc displacement, lumbar region; M25.78 Osteophyte, vertebrae
CPT/HCPCS: 72148

== ENCOUNTER 2018-11-09 13:18 | Inpatient (IN) | payer OTHER ==
[~2018-11-09] VITALS: Ht 177.8 cm; Wt 115.2 kg
[2018-11-09 14:58] VITALS: BP 153/96
--- NOTE | 2018-11-09 15:50 | NUR ---
Pt arrived from [facility], with severe back pain. Pt stable at this time. Alert x4. Will continue to monitor.
[2018-11-09] MEDS ORDERED: PNV1TABL25 PO (16:10)
[2018-11-09] MEDS ORDERED: LISI-130 PO (16:10)
[2018-11-09] MEDS ORDERED: METF500T9 PO (16:10)
[2018-11-09] MEDS ORDERED: METH-37 PO (16:10)
[2018-11-09] MEDS ORDERED: HYDR-2765 PO (16:10)
[2018-11-09] MEDS ORDERED: VARE1TAB21 PO (16:10)
[2018-11-09] MEDS ORDERED: DICL50TA4 PO (16:10)
[2018-11-09] MEDS ORDERED: SIMV10TA3 PO (16:10)
[2018-11-09] MEDS ORDERED: DEXTROSE 50% 25 GM / 50ML DISP.SYRIN. IV PRN (16:30)
[2018-11-09] MEDS ORDERED: MAGNESIUM HYDROXIDE 2,400 MG/30 ML ORAL.SUSP. PO PRN (16:30)
[2018-11-09] MEDS ORDERED: PROCHLORPERAZINE 10 MG/2 ML VIAL. IV PRN (16:30)
[2018-11-09] MEDS: metFORMIN 500 MG TABLET PO SCH (16:39)
--- NOTE | 2018-11-09 16:39 | PDOC1 ---
History and Physical Date of Admission Date of Admission DATE: 11/09/18 TIME: 16:29 Identification/Chief Complaint Chief Complaint back pain Problems: (1) Back pain Source Source: Patient History of Present Illness History of Present Illness 33 year old CF with hx of Lumbar Radiculopathy with degenerative disc dz, lumbar Spondylosis who presents with acute on chronic back back since 3 weeks with associated spasms, numbness and tingling in LEs bilaterally and numbness in perianal region. denies any incontinence. Is scheduled to see Dr. Jones on Monday for inital visit. patient sent from [place] ED. no imaging done in ER. patient states no relief with muscle relaxers, pain meds at home. can ambulate but very gingerly. unable to lay flat or sit bc of the pain. given acute worsening of pain she came for further evaluation. patient takes pre- vitamins but states not . LMP 2 weeks ago Past Medical History Past Medical History Hashimotos, PCOS, HTN, HLD Family History Family History denies Social History Smoke: No ALCOHOL: none Drugs: None Current Medications Current Medications Current Medications Ondansetron HCl (Zofran) 4 mg PRN Q6HRS PRN IV NAUSEA/VOMITING; Start 11/09/18 at 16:30 Prochlorperazine Edisylate (Compazine) 10 mg PRN Q6HRS PRN IV NAUSEA/VOMITING; Start 11/09/18 at 16:30 Zolpidem Tartrate (Ambien) 5 mg PRN QHS PRN PO INSOMNIA, MAY REPEAT IN 1HR; Start 11/09/18 at 16:30 Morphine Sulfate (Morphine Sulfate) 1 mg PRN Q1HR PRN IV PAIN; Start 11/09/18 at 16:30 Oxycodone/ Acetaminophen (Percocet 5/325) 1 tab PRN Q4HRS PRN PO MILD PAIN, 1ST CHOICE; Start 11/09/18 at 16:30 Senna/Docusate Sodium (Senna Plus) 1 tab BID PO ; Start 11/09/18 at 21:00 Magnesium Hydroxide (Milk Of Magnesia) 2,400 mg PRN Q12HR PRN PO CONSTIPATION; Start 11/09/18 at 16:30 Heparin Sodium (Porcine) (Heparin Sodium) 5,000 unit Q8HRS SQ ; Start 11/09/18 at 17:00 Acetaminophen/ Hydrocodone Bitart (Lortab 7.5/325) 1 tab PRN Q6HRS PRN PO PAIN ; Start 11/09/18 at 16:30; Status UNV Methocarbamol (Robaxin) 1,000 mg BID PO ; Start 11/09/18 at 21:00; Status UNV Non-Formulary Medication (Metformin Hcl (Metformin Hcl Er)) 500 mg BIDWMEALS PO ; Start 11/09/18 at 17:00; Status UNV Non-Formulary Medication (Pnv Cmb#95/ Ferrous Fumarate/ Fa ( Tablet)) 1 tab DAILY PO ; Start 11/10/18 at 09:00; Status UNV Non-Formulary Medication (Varenicline Tartrate (Chantix)) 1 mg BID PO ; Start at 21:00; Status UNV Active Scripts Active Reported Chantix (Varenicline Tartrate) 1 Mg Tablet 1 Mg PO BID Robaxin (Methocarbamol) 500 Mg Tablet 2 Tab PO BID Hydrocodone-Apap 7.5-325 (Hydrocodone Bit/Acetaminophen) 1 Tab Tablet 1-2 Tab PO PRN Q6HRS PRN Diclofenac Sodium 50 Mg Tablet.dr 1 Tab PO BID Tablet (Pnv Cmb#95/Ferrous Fumarate/Fa) 1 Each Tablet 1 Tab PO DAILY Metformin Hcl Er (Metformin Hcl) 500 Mg Tab.er.24h 500 Mg PO BIDWMEALS Simvastatin 10 Mg Tablet 1 Tab PO QHS Lisinopril 40 Mg Tablet 1 Tab PO DAILY Allergies Allergies: Coded Allergies: piperacillin (Verified Allergy, Intermediate, 04/25/17) tazobactam (Verified Allergy, Intermediate, 04/25/17) vancomycin (Verified Allergy, Intermediate, 04/25/17) ROS Review of System CONSTITUTIONAL: No fever or chills EYES: No recent changes SKIN: No rash or itching CARDIOVASCULAR: No chest pain, syncope, palpitations, or edema RESPIRATORY: No SOB or cough GASTROINTESTINAL: No nausea, vomiting or abdominal pain NEUROLOGICAL: No headaches or weakness ENDOCRINE: No cold or heat intolerance GENITOURINARY: No urgency or frequency of urination MUSCULOSKELETAL: No back pain or joint pain LYMPHATICS: No enlarged lymph nodes PSYCHIATRIC: No anxiety or depression Physical Exam Physical Exam GENERAL: No apparent distress. Alert and oriented. HEENT: Head normocephalic, atraumatic. NECK: Supple LUNGS: Clear to auscultation. HEART: RRR, S1, S2 present, pulses intact ABDOMEN: Soft, positive bowel sounds. EXTREMITIES: No cyanosis or edema. NEUROLOGIC: Normal speech, normal tone PSYCHIATRIC: Normal affect, normal mood. SKIN: No ulceration. Vitals Vitals Vital Signs Date Time Temp Pulse Resp B/P (MAP) Pulse Ox O2 Delivery O2 Flow Rate FiO2 11/09/18 15:51 Room Air VTE Prophylaxis Ordered VTE Prophylaxis Devices: Yes VTE Pharmacological Prophylaxi: Yes Assessment/Plan Assessment/Plan ASSESSMENT Low Back Pain with lumbar Radiculopathy HTN DM-2, not on insulin therapy Hx of PCOS Hx of Hashimotos Thyroiditis HLD PLAN admit to medical floor bed check urine preg test prior to imaging MRI lumbar spine IV morphine continue muscle relaxers continue home meds check BMP and CBC continue home statin therapy depending on MRI results, will start steroids Neurosx consult full code dvt ppx: heparin Problem Qualifiers (1) Back pain: Back pain location: low back pain Chronicity: acute Back pain laterality: unspecified Sciatica presence: without sciatica Qualified Codes: M54.5 - Low back pain EDUAR MANZANARES MD Nov 09, 2018 16:39
[2018-11-09] MEDS: PRENATAL MULTIVITAMIN TABLET. PO SCH (16:50)
[2018-11-09] MEDS: MORPHINE SULFATE 4 MG/ML VIAL. IV PRN ×4 (16:54→22:54)
[2018-11-09] MEDS: HYDROcodone/APAP 7.5/325MG 1 TAB TABLET PO PRN ×2 (16:55→22:56)
[2018-11-09] MEDS: HEPARIN for SUB-Q USE 5,000 UNIT/ML VIAL. SQ SCH ×2 (16:59→23:04)
[2018-11-09] MEDS ORDERED: INSULIN LISPRO 300 UNITS/3 ML INSULN.PEN. SQ SCH (17:00)
[2018-11-09] MEDS ORDERED: GADOBUTROL 10 MMOL/10 ML VIAL IV ONE (18:45)
[2018-11-09 19:00] VITALS: BP 135/84
[2018-11-09 19:21] LABS: BILIRUBIN,URINE NEGATIVE (NEG); CLARITY,URINE CLEAR; COLOR,URINE YELLOW; NITRITE,URINE NEGATIVE (NEG); PROTEIN,URINE NEGATIVE (NEG-TRACE); UROBILINOGEN,URINE 0.2 mg/dL (0.2 mg/dL)
[2018-11-09 19:30] LABS: BACTERIA,URINE MODERATE /HPF (0-FEW); RBC,URINE OCC /HPF (0-2); SQUAMOUS EPITHELIAL CELL,UR MOD /LPF
[2018-11-09] MEDS: oxyCODONE/APAP 5/325 1 TAB TABLET PO PRN (20:06)
[2018-11-09] MEDS: METHOCARBAMOL 500 MG TABLET PO SCH (21:21)
[2018-11-09] MEDS: SENNOSIDES/DOCUSATE 8.6/50MG TABLET. PO SCH (21:21)
[2018-11-09] MEDS: VARENICLINE 0.5 MG TABLET. PO SCH (21:21)
[2018-11-09 23:00] VITALS: BP 116/79
--- NOTE | 2018-11-09 23:17 | RAD ---
EXAM: MRI LUMBAR SPINE WITH AND WITHOUT CONTRAST. HISTORY: Left hip and lower extremity pain and numbness. TECHNIQUE: Magnetic resonance images of the lumbar spine were obtained before and after the intravenous administration of 10 mL Gadavist. COMPARISON: 10/23/2018. FINDINGS: Alignment is normal. No fractures are identified. Degenerative disc disease is mild from L3 through S1. The conus is at T12-L1 and appears normal. There are no enhancing parenchymal lesions. At L3-4, there is a central annular tear and small protrusion at L3-4. There is mild facet and ligamentum flavum hypertrophy. There is no stenosis. At L4-5, there is a large central disc extrusion. Central canal stenosis is moderate to severe. It measures 11 mm anteroposteriorly. The thecal sac is mostly effaced. There is no neural foraminal stenosis. At L5-S1, there is a small central protrusion. There is no stenosis. There is a central annular tear. IMPRESSION: 1. A large central disc extrusion at L4-5 results in moderate to severe central canal stenosis and effacement of the thecal sac. 2. Small central protrusions at L3-4 and L5-S1 do not result in stenosis. Electronically signed by: Dominik Landeros MD (11/09/2018 11:12 PM) [id number]
[2018-11-09] MEDS ORDERED: HYDROmorphone 2 MG/ML VIAL IV ONE (23:45)
[2018-11-10] MEDS: oxyCODONE/APAP 5/325 1 TAB TABLET PO PRN ×4 (01:40→19:54)
[2018-11-10] MEDS: ZOLPIDEM 5 MG TABLET. PO PRN (01:44)
[2018-11-10 03:00] VITALS: BP 112/62
[2018-11-10] MEDS: MORPHINE SULFATE 4 MG/ML VIAL. IV PRN ×4 (03:43→11:16)
[2018-11-10] MEDS: HYDROcodone/APAP 7.5/325MG 1 TAB TABLET PO PRN ×3 (04:46→17:09)
[2018-11-10 04:48] LABS: BASO # 0.1 x10^3/uL (0.0-0.2); BASO % 1 % (0-3); EOS # 0.4 x10^3/uL (0.0-0.7); EOS % 4 % (0-3); HEMATOCRIT 37.6 % (36.0-47.0); HEMOGLOBIN 12.7 g/dL (12.0-15.5); LYMPH # 3.6 x10^3/uL (1.0-4.8); LYMPH % 40 % (24-48); MEAN CORPUSCULAR HEMOGLOBIN 30 pg (25-35); MEAN CORPUSCULAR HGB CONC 34 g/dL (31-37); MEAN CORPUSCULAR VOLUME 88 fL (79-100); MONO # 0.6 x10^3/uL (0.0-1.1); MONO % 6 % (0-9); NEUT # 4.4 x10^3uL (1.8-7.7); NEUT % 49 % (31-73); PLATELET COUNT 334 x10^3/uL (140-400); RED BLOOD COUNT 4.29 x10^6/uL (3.50-5.40); RED CELL DISTRIBUTION WIDTH 13.9 % (11.5-14.5); WHITE BLOOD COUNT 8.9 x10^3/uL (4.0-11.0)
[2018-11-10] MEDS: HEPARIN for SUB-Q USE 5,000 UNIT/ML VIAL. SQ SCH ×3 (06:00→22:28)
[2018-11-10 07:00] VITALS: BP 122/71
[2018-11-10] MEDS: metFORMIN 500 MG TABLET PO SCH (07:32)
[2018-11-10] MEDS: PRENATAL MULTIVITAMIN TABLET. PO SCH (07:32)
[2018-11-10] MEDS: VARENICLINE 0.5 MG TABLET. PO SCH ×2 (07:32→19:53)
[2018-11-10] MEDS: METHOCARBAMOL 500 MG TABLET PO SCH ×2 (10:08→19:53)
[2018-11-10] MEDS: SENNOSIDES/DOCUSATE 8.6/50MG TABLET. PO SCH ×2 (10:08→19:53)
--- NOTE | 2018-11-10 10:22 | PDOC ---
PROGRESS NOTES Chief Complaint Chief Complaint brief hpi: 33 year old CF with hx of Lumbar Radiculopathy with degenerative disc dz, lumbar Spondylosis who presents with acute on chronic back back since 3 weeks with associated spasms, numbness and tingling in LEs bilaterally and numbness in perianal region. denies any incontinence. Is scheduled to see Dr. Jones on Monday for inital visit. patient sent from [place] ED. no imaging done in ER. patient states no relief with muscle relaxers, pain meds at home. can ambulate but very gingerly. unable to lay flat or sit bc of the pain. given acute worsening of pain she came for further evaluation. patient takes pre-lesvia vitamins but states not . LMP 2 weeks ago pain control very challenging. requiring IV morphine, dilaudid with minimal improvement. asking for benadryl due to itching. neuro sx has been consulted. awaiting input. History of Present Illness History of Present Illness ASSESSMENT Low Back Pain with lumbar Radiculopathy with large central disc extrusion at L4- 5 results in moderate to severe central canal stenosis and effacement of the thecal sac. HTN Hx of PCOS Hx of Hashimotos Thyroiditis HLD PLAN MRI lumbar spine: 1. A large central disc extrusion at L4-5 results in moderate to severe central canal stenosis and effacement of the thecal sac. 2. Small central protrusions at L3-4 and L5-S1 do not result in stenosis. IV morphine and dilaudid for pain control continue muscle relaxers continue home meds CBC stable continue home statin therapy Neurosx consulted full code dvt ppx: heparin Vitals Vitals Vital Signs Date Time Temp Pulse Resp B/P (MAP) Pulse Ox O2 Delivery O2 Flow Rate FiO2 11/10/18 10:09 Room Air 11/10/18 08:36 96 11/10/18 07:09 20 11/10/18 07:00 97.9 71 122/71 (88) 97.9 Physical Exam Physical Exam GENERAL: in pain HEENT: Head normocephalic, atraumatic. NECK: Supple LUNGS: Clear to auscultation. HEART: RRR, S1, S2 present, pulses intact ABDOMEN: Soft, positive bowel sounds. EXTREMITIES: No cyanosis or edema. NEUROLOGIC: Normal speech, normal tone PSYCHIATRIC: Normal affect, normal mood. SKIN: No ulceration. Labs LABS Laboratory Tests Test 11/09/18 19:13 11/10/18 03:30 Urine Collection Type Unknown Urine Color Yellow Urine Clarity Clear Urine pH 6.0 Urine Specific [place] 1.015 Urine Protein Negative mg/dL (NEG-TRACE) Urine Glucose (UA) Negative mg/dL (NEG) Urine Ketones (Stick) Trace mg/dL (NEG) Urine Blood Trace (NEG) Urine Nitrite Negative (NEG) Urine Bilirubin Negative (NEG) Urine Urobilinogen Dipstick 0.2 mg/dL (0.2 mg/dL) Urine Leukocyte Esterase Trace (NEG) Urine RBC Occ /HPF (0-2) Urine WBC 1-4 /HPF (0-4) Urine Squamous Epithelial Cells Mod /LPF Urine Bacteria Moderate /HPF (0-FEW) Urine Mucus Slight /LPF White Blood Count 8.9 x10^3/uL (4.0-11.0) Red Blood Count 4.29 x10^6/uL (3.50-5.40) Hemoglobin 12.7 g/dL (12.0-15.5) Hematocrit 37.6 % (36.0-47.0) Mean Corpuscular Volume 88 fL (79-100) Mean Corpuscular Hemoglobin 30 pg (25-35) Mean Corpuscular Hemoglobin Concent 34 g/dL (31-37) Red Cell Distribution Width 13.9 % (11.5-14.5) Platelet Count 334 x10^3/uL (140-400) Neutrophils (%) (Auto) 49 % (31-73) Lymphocytes (%) (Auto) 40 % (24-48) Monocytes (%) (Auto) 6 % (0-9) Eosinophils (%) (Auto) 4 % (0-3) Basophils (%) (Auto) 1 % (0-3) Neutrophils # (Auto) 4.4 x10^3uL (1.8-7.7) Lymphocytes # (Auto) 3.6 x10^3/uL (1.0-4.8) Monocytes # (Auto) 0.6 x10^3/uL (0.0-1.1) Eosinophils # (Auto) 0.4 x10^3/uL (0.0-0.7) Basophils # (Auto) 0.1 x10^3/uL (0.0-0.2) Comment Review of Relevant I have reviewed the following items jeff (where applicable) has been applied. Labs Laboratory Tests Test 11/09/18 19:13 11/10/18 03:30 Urine Collection Type Unknown Urine Color Yellow Urine Clarity Clear Urine pH 6.0 Urine Specific [place] 1.015 Urine Protein Negative mg/dL (NEG-TRACE) Urine Glucose (UA) Negative mg/dL (NEG) Urine Ketones (Stick) Trace mg/dL (NEG) Urine Blood Trace (NEG) Urine Nitrite Negative (NEG) Urine Bilirubin Negative (NEG) Urine Urobilinogen Dipstick 0.2 mg/dL (0.2 mg/dL) Urine Leukocyte Esterase Trace (NEG) Urine RBC Occ /HPF (0-2) Urine WBC 1-4 /HPF (0-4) Urine Squamous Epithelial Cells Mod /LPF Urine Bacteria Moderate /HPF (0-FEW) Urine Mucus Slight /LPF White Blood Count 8.9 x10^3/uL (4.0-11.0) Red Blood Count 4.29 x10^6/uL (3.50-5.40) Hemoglobin 12.7 g/dL (12.0-15.5) Hematocrit 37.6 % (36.0-47.0) Mean Corpuscular Volume 88 fL (79-100) Mean Corpuscular Hemoglobin 30 pg (25-35) Mean Corpuscular Hemoglobin Concent 34 g/dL (31-37) Red Cell Distribution Width 13.9 % (11.5-14.5) Platelet Count 334 x10^3/uL (140-400) Neutrophils (%) (Auto) 49 % (31-73) Lymphocytes (%) (Auto) 40 % (24-48) Monocytes (%) (Auto) 6 % (0-9) Eosinophils (%) (Auto) 4 % (0-3) Basophils (%) (Auto) 1 % (0-3) Neutrophils # (Auto) 4.4 x10^3uL (1.8-7.7) Lymphocytes # (Auto) 3.6 x10^3/uL (1.0-4.8) Monocytes # (Auto) 0.6 x10^3/uL (0.0-1.1) Eosinophils # (Auto) 0.4 x10^3/uL (0.0-0.7) Basophils # (Auto) 0.1 x10^3/uL (0.0-0.2) Laboratory Tests Test 11/09/18 19:13 11/10/18 03:30 Urine Collection Type Unknown Urine Color Yellow Urine Clarity Clear Urine pH 6.0 Urine Specific [place] 1.015 Urine Protein Negative mg/dL (NEG-TRACE) Urine Glucose (UA) Negative mg/dL (NEG) Urine Ketones (Stick) Trace mg/dL (NEG) Urine Blood Trace (NEG) Urine Nitrite Negative (NEG) Urine Bilirubin Negative (NEG) Urine Urobilinogen Dipstick 0.2 mg/dL (0.2 mg/dL) Urine Leukocyte Esterase Trace (NEG) Urine RBC Occ /HPF (0-2) Urine WBC 1-4 /HPF (0-4) Urine Squamous Epithelial Cells Mod /LPF Urine Bacteria Moderate /HPF (0-FEW) Urine Mucus Slight /LPF White Blood Count 8.9 x10^3/uL (4.0-11.0) Red Blood Count 4.29 x10^6/uL (3.50-5.40) Hemoglobin 12.7 g/dL (12.0-15.5) Hematocrit 37.6 % (36.0-47.0) Mean Corpuscular Volume 88 fL (79-100) Mean Corpuscular Hemoglobin 30 pg (25-35) Mean Corpuscular Hemoglobin Concent 34 g/dL (31-37) Red Cell Distribution Width 13.9 % (11.5-14.5) Platelet Count 334 x10^3/uL (140-400) Neutrophils (%) (Auto) 49 % (31-73) Lymphocytes (%) (Auto) 40 % (24-48) Monocytes (%) (Auto) 6 % (0-9) Eosinophils (%) (Auto) 4 % (0-3) Basophils (%) (Auto) 1 % (0-3) Neutrophils # (Auto) 4.4 x10^3uL (1.8-7.7) Lymphocytes # (Auto) 3.6 x10^3/uL (1.0-4.8) Monocytes # (Auto) 0.6 x10^3/uL (0.0-1.1) Eosinophils # (Auto) 0.4 x10^3/uL (0.0-0.7) Basophils # (Auto) 0.1 x10^3/uL (0.0-0.2) Medications Current Medications Ondansetron HCl (Zofran) 4 mg PRN Q6HRS PRN IV NAUSEA/VOMITING; Start 11/09/18 at 16:30 Prochlorperazine Edisylate (Compazine) 10 mg PRN Q6HRS PRN IV NAUSEA/VOMITING; Start 11/09/18 at 16:30 Zolpidem Tartrate (Ambien) 5 mg PRN QHS PRN PO INSOMNIA, MAY REPEAT IN 1HR Last administered on 11/10/18at 01:44; Start 11/09/18 at 16:30 Morphine Sulfate (Morphine Sulfate) 1 mg PRN Q1HR PRN IV PAIN Last administered on 11/09/18 21:19; Start 11/09/18 at 16:30; Stop 11/09/18 at 21:23; Status DC Oxycodone/ Acetaminophen (Percocet 5/325) 1 tab PRN Q4HRS PRN PO MILD PAIN, 1ST CHOICE Last administered on 11/10/18 06:09; Start 11/09/18 at 16:30 Senna/Docusate Sodium (Senna Plus) 1 tab BID PO Last administered on 11/10/18 10:08; Start 11/09/18 at 21:00 Magnesium Hydroxide (Milk Of Magnesia) 2,400 mg PRN Q12HR PRN PO CONSTIPATION; Start 11/09/18 at 16:30 Heparin Sodium (Porcine) (Heparin Sodium) 5,000 unit Q8HRS SQ Last administered on 11/09/18 23:04; Start 11/09/18 at 17:00 Acetaminophen/ Hydrocodone Bitart (Lortab 7.5/325) 1 tab PRN Q6HRS PRN PO MODERAETE PAIN Last administered on 11/10/18 04:46; Start 11/09/18 at 16:30 Methocarbamol (Robaxin) 1,000 mg BID PO Last administered on 11/10/18 10:08; Start 11/09/18 at 21:00 Metformin HCl (Glucophage) 500 mg BIDWMEALS PO ; Start 11/09/18 at 17:00 Multivit/ Folic Acid/Iron (Multivitamin ) 1 tab DAILY PO ; Start 11/09/18 at 17:00 Varenicline (Chantix) 1 mg BID PO Last administered on 11/09/18at 21:21; Start at 21:00 Insulin Human Lispro (HumaLOG) 0-5 UNITS TIDWMEALS SQ ; Start 11/09/18 at 17:00; Stop 11/09/18 at 18:26; Status DC Dextrose (Dextrose 50%-Water Syringe) 12.5 gm PRN Q15MIN PRN IV SEE COMMENTS; Start 11/09/18 at 16:30 Gadobutrol (Gadavist) 10 mmol 1X ONCE IV Last administered on 11/09/18at 19:02; Start 11/09/18 at 18:45; Stop 11/09/18 at 18:46; Status DC Morphine Sulfate (Morphine Sulfate) 2 mg PRN Q1HR PRN IV PAIN Last administered on 11/10/18at 08:36; Start 11/09/18 at 21:30 Hydromorphone HCl (Dilaudid) 2 mg 1X ONCE IV Last administered on 11/09/18at 23: 56; Start 11/09/18 at 23:45; Stop 11/09/18 at 23:46; Status DC Hydromorphone HCl (Dilaudid) 2 mg PRN Q4HRS PRN IV PAIN; Start 11/10/18 at 08:30 Diphenhydramine HCl (Benadryl) 25 mg PRN Q8HRS PRN PO ITCHING; Start 11/10/18 at 09:15 Active Scripts Active Reported Chantix (Varenicline Tartrate) 1 Mg Tablet 1 Mg PO BID Robaxin (Methocarbamol) 500 Mg Tablet 2 Tab PO BID Hydrocodone-Apap 7.5-325 (Hydrocodone Bit/Acetaminophen) 1 Tab Tablet 1-2 Tab PO PRN Q6HRS PRN Diclofenac Sodium 50 Mg Tablet.dr 1 Tab PO BID Tablet (Pnv Cmb#95/Ferrous Fumarate/Fa) 1 Each Tablet 1 Tab PO DAILY Metformin Hcl Er (Metformin Hcl) 500 Mg Tab.er.24h 500 Mg PO BIDWMEALS Simvastatin 10 Mg Tablet 1 Tab PO QHS Lisinopril 40 Mg Tablet 1 Tab PO DAILY Vitals/I & O Vital Sign - Last 24 Hours 11/09/18 11/09/18 11/09/18 11/09/18 14:58 15:51 16:54 16:55 Temp 97.9 97.9 Pulse 85 Resp 16 B/P (MAP) 153/96 (115) Pulse Ox 98 O2 Delivery Room Air Room Air Room Air Room Air 11/09/18 11/09/18 11/09/18 11/09/18 18:20 18:57 19:00 20:06 Temp 97.8 97.8 Pulse 96 Resp 18 20 B/P (MAP) 135/84 (101) Pulse Ox 98 98 95 O2 Delivery Room Air Room Air Room Air 11/09/18 11/09/18 11/09/18 11/09/18 20:11 21:19 21:49 22:54 Resp 20 20 20 O2 Delivery Room Air Room Air Room Air Room Air 11/09/18 11/09/18 11/09/18 11/10/18 22:56 23:00 23:56 00:26 Temp 97.8 97.8 Pulse 68 Resp 20 18 20 18 B/P (MAP) 116/79 (91) Pulse Ox 97 O2 Delivery Room Air Room Air Room Air Room Air 11/10/18 11/10/18 11/10/18 11/10/18 01:40 03:00 03:43 04:46 Temp 97.6 97.6 Pulse 86 Resp 20 18 20 20 B/P (MAP) 112/62 (79) Pulse Ox 96 O2 Delivery Room Air Room Air Room Air Room Air 11/10/18 11/10/18 11/10/18 11/10/18 05:46 06:09 06:10 06:40 Resp 20 20 20 20 O2 Delivery Room Air Room Air Room Air 11/10/18 11/10/18 11/10/18 11/10/18 07:00 07:09 08:36 10:09 Temp 97.9 97.9 Pulse 71 Resp 18 20 B/P (MAP) 122/71 (88) Pulse Ox 96 96 O2 Delivery Room Air Room Air Room Air Room Air Intake and Output 11/09/18 11/09/18 11/10/18 15:01 23:01 07:01 Intake Total 650 ml Output Total 400 ml Balance 250 ml EDUAR MANZANARES MD Nov 10, 2018 10:22
[2018-11-10 11:00] VITALS: BP 143/90
--- NOTE | 2018-11-10 13:31 | PDOC ---
Provider Note Provider Note Patient seen and examined c/o back pain and left > right leg pain HÉCTOR in the past with Dr. Boyce pain worsening the last few months had transient numbness in perineum, improved no bowel or bladder issues currently large HNP, worse when compared to previous study in October will consult Dr. Adames and Dr. Boyce medrol dose pack SCDS will likely need surgery next week full consult to follow JHONATHAN ALMONTE MD Nov 10, 2018 13:31
[2018-11-10] MEDS: diphenhydrAMINE HCL 25 MG CAPSULE PO PRN ×2 (13:50→22:18)
[2018-11-10] MEDS: HYDROmorphone 2 MG/ML VIAL IV PRN ×3 (13:52→22:18)
[2018-11-10] MEDS: methylPREDNISolone 4 MG TABLET. PO SCH ×4 (13:55→19:53)
[2018-11-10] MEDS: ONDANSETRON PF 4 MG/2 ML VIAL. IV PRN (13:55)
[2018-11-10 15:00] VITALS: BP 110/62
[2018-11-10 19:00] VITALS: BP 127/85
[2018-11-10 23:00] VITALS: BP 139/79
[2018-11-11] MEDS: ZOLPIDEM 5 MG TABLET. PO PRN (00:01)
[2018-11-11 03:00] VITALS: BP 150/97
[2018-11-11] MEDS: HYDROmorphone 2 MG/ML VIAL IV PRN ×5 (03:14→22:01)
[2018-11-11] MEDS: oxyCODONE/APAP 5/325 1 TAB TABLET PO PRN ×5 (03:14→23:06)
[2018-11-11 05:50] LABS: CREATININE 0.7 mg/dL (0.6-1.0)
[2018-11-11] MEDS: HEPARIN for SUB-Q USE 5,000 UNIT/ML VIAL. SQ SCH (06:12)
[2018-11-11 07:00] VITALS: BP 109/54
[2018-11-11] MEDS: PRENATAL MULTIVITAMIN TABLET. PO SCH (09:01)
[2018-11-11] MEDS: METHOCARBAMOL 500 MG TABLET PO SCH ×2 (09:01→21:07)
[2018-11-11] MEDS: methylPREDNISolone 4 MG TABLET. PO SCH ×3 (09:02→17:38)
[2018-11-11] MEDS: VARENICLINE 0.5 MG TABLET. PO SCH ×2 (10:39→21:08)
[2018-11-11] MEDS: SENNOSIDES/DOCUSATE 8.6/50MG TABLET. PO SCH ×2 (10:40→21:07)
[2018-11-11] MEDS: diphenhydrAMINE HCL 25 MG CAPSULE PO PRN (10:40)
[2018-11-11 11:00] VITALS: BP 131/80
--- NOTE | 2018-11-11 11:13 | PDOC ---
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 denies any incontinence. Is scheduled to see Dr. Jones on Monday for inital visit. patient sent from [place] ED. no imaging done in ER. patient states no relief with muscle relaxers, pain meds at home. can ambulate but very gingerly. unable to lay flat or sit bc of the pain. given acute worsening of pain she came for further evaluation. patient takes pre-lesvia vitamins but states not . LMP 2 weeks ago At L4-5, there is a large central disc extrusion. Central canal stenosis is moderate to severe. It measures 11 mm anteroposteriorly. pain control very challenging. requiring IV morphine, dilaudid with minimal improvement. asking for benadryl due to itching. neuro sx has been consulted. OR tomorrow with microdiscectomy L4-5 History of Present Illness History of Present Illness ASSESSMENT Low Back Pain with lumbar Radiculopathy with large central disc extrusion at L4- 5 results in moderate to severe central canal stenosis and effacement of the thecal sac. HTN Hx of PCOS Hx of Hashimotos Thyroiditis HLD PLAN MRI lumbar spine: 1. A large central disc extrusion at L4-5 results in moderate to severe central canal stenosis and effacement of the thecal sac. 2. Small central protrusions at L3-4 and L5-S1 do not result in stenosis. IV morphine and dilaudid for pain control continue muscle relaxers continue home meds CBC stable continue home statin therapy Neurosx consulted full code dvt ppx: heparin Vitals Vitals Vital Signs Date Time Temp Pulse Resp B/P (MAP) Pulse Ox O2 Delivery O2 Flow Rate FiO2 11/11/18 10:22 Room Air 11/11/18 07:00 97.9 81 16 109/54 (72) 96 97.9 Physical Exam Physical Exam GENERAL: in pain HEENT: Head normocephalic, atraumatic. NECK: Supple LUNGS: Clear to auscultation. HEART: RRR, S1, S2 present, pulses intact ABDOMEN: Soft, positive bowel sounds. EXTREMITIES: No cyanosis or edema. NEUROLOGIC: Normal speech, normal tone PSYCHIATRIC: Normal affect, normal mood. SKIN: No ulceration. General: Oriented X3, Cooperative, moderate distress Heart: Regular rate, No murmurs Abdomen: Normal bowel sounds, Soft Extremities: No cyanosis Skin: No significant lesion Labs LABS PATIENT: LUIS RODRÍGUEZ ACCOUNT: [id number] : 1985 LOCATION: [address] [place] [address] AGE: 33 SEX: F EXAM STATUS: ADM IN ORD. PHYSICIAN: EDUAR MANZANARES MD REASON: back pain, LEFT HIP & LEG PAIN - NUMBNESS, X 3 WEEKS, NKI, 10ml GADAVIST PROCEDURE: LUMBAR SPINE WO/W CONTRAST EXAM: MRI LUMBAR SPINE WITH AND WITHOUT CONTRAST. HISTORY: Left hip and lower extremity pain and numbness. TECHNIQUE: Magnetic resonance images of the lumbar spine were obtained before and after the intravenous administration of 10 mL Gadavist. COMPARISON: 10/23/2018. FINDINGS: Alignment is normal. No fractures are identified. Degenerative disc disease is mild from L3 through S1. The conus is at T12-L1 and appears normal. There are no enhancing parenchymal lesions. At L3-4, there is a central annular tear and small protrusion at L3-4. There is mild facet and ligamentum flavum hypertrophy. There is no stenosis. At L4-5, there is a large central disc extrusion. Central canal stenosis is moderate to severe. It measures 11 mm anteroposteriorly. The thecal sac is mostly effaced. There is no neural foraminal stenosis. At L5-S1, there is a small central protrusion. There is no stenosis. There is a central annular tear. IMPRESSION: 1. A large central disc extrusion at L4-5 results in moderate to severe central canal stenosis and effacement of the thecal sac. 2. Small central protrusions at L3-4 and L5-S1 do not result in stenosis. Electronically signed by: Dominik Landeros MD (11/09/2018 11:12 PM) [facility] Laboratory Tests Test 11/11/18 04:30 Sodium Level 138 mmol/L (136-145) Potassium Level 4.0 mmol/L (3.5-5.1) Chloride Level 102 mmol/L (98-107) Carbon Dioxide Level 25 mmol/L (21-32) Anion Gap 11 (6-14) Blood Urea Nitrogen 9 mg/dL (7-20) Creatinine 0.7 mg/dL (0.6-1.0) Estimated GFR (Cockcroft-Gault) 97.0 Glucose Level 126 mg/dL (70-99) Calcium Level 10.0 mg/dL (8.5-10.1) Comment Review of Relevant I have reviewed the following items jeff (where applicable) has been applied. Labs Laboratory Tests Test 11/09/18 19:13 11/10/18 03:30 11/11/18 04:30 Urine Collection Type Unknown Urine Color Yellow Urine Clarity Clear Urine pH 6.0 Urine Specific [place] 1.015 Urine Protein Negative mg/dL (NEG-TRACE) Urine Glucose (UA) Negative mg/dL (NEG) Urine Ketones (Stick) Trace mg/dL (NEG) Urine Blood Trace (NEG) Urine Nitrite Negative (NEG) Urine Bilirubin Negative (NEG) Urine Urobilinogen Dipstick 0.2 mg/dL (0.2 mg/dL) Urine Leukocyte Esterase Trace (NEG) Urine RBC Occ /HPF (0-2) Urine WBC 1-4 /HPF (0-4) Urine Squamous Epithelial Cells Mod /LPF Urine Bacteria Moderate /HPF (0-FEW) Urine Mucus Slight /LPF White Blood Count 8.9 x10^3/uL (4.0-11.0) Red Blood Count 4.29 x10^6/uL (3.50-5.40) Hemoglobin 12.7 g/dL (12.0-15.5) Hematocrit 37.6 % (36.0-47.0) Mean Corpuscular Volume 88 fL (79-100) Mean Corpuscular Hemoglobin 30 pg (25-35) Mean Corpuscular Hemoglobin Concent 34 g/dL (31-37) Red Cell Distribution Width 13.9 % (11.5-14.5) Platelet Count 334 x10^3/uL (140-400) Neutrophils (%) (Auto) 49 % (31-73) Lymphocytes (%) (Auto) 40 % (24-48) Monocytes (%) (Auto) 6 % (0-9) Eosinophils (%) (Auto) 4 % (0-3) Basophils (%) (Auto) 1 % (0-3) Neutrophils # (Auto) 4.4 x10^3uL (1.8-7.7) Lymphocytes # (Auto) 3.6 x10^3/uL (1.0-4.8) Monocytes # (Auto) 0.6 x10^3/uL (0.0-1.1) Eosinophils # (Auto) 0.4 x10^3/uL (0.0-0.7) Basophils # (Auto) 0.1 x10^3/uL (0.0-0.2) Sodium Level 138 mmol/L (136-145) Potassium Level 4.0 mmol/L (3.5-5.1) Chloride Level 102 mmol/L (98-107) Carbon Dioxide Level 25 mmol/L (21-32) Anion Gap 11 (6-14) Blood Urea Nitrogen 9 mg/dL (7-20) Creatinine 0.7 mg/dL (0.6-1.0) Estimated GFR (Cockcroft-Gault) 97.0 Glucose Level 126 mg/dL (70-99) Calcium Level 10.0 mg/dL (8.5-10.1) Laboratory Tests Test 11/11/18 04:30 Sodium Level 138 mmol/L (136-145) Potassium Level 4.0 mmol/L (3.5-5.1) Chloride Level 102 mmol/L (98-107) Carbon Dioxide Level 25 mmol/L (21-32) Anion Gap 11 (6-14) Blood Urea Nitrogen 9 mg/dL (7-20) Creatinine 0.7 mg/dL (0.6-1.0) Estimated GFR (Cockcroft-Gault) 97.0 Glucose Level 126 mg/dL (70-99) Calcium Level 10.0 mg/dL (8.5-10.1) Medications Current Medications Ondansetron HCl (Zofran) 4 mg PRN Q6HRS PRN IV NAUSEA/VOMITING Last administered on 11/10/18at 13:55; Start 11/09/18 at 16:30 Prochlorperazine Edisylate (Compazine) 10 mg PRN Q6HRS PRN IV NAUSEA/VOMITING; Start 11/09/18 at 16:30 Zolpidem Tartrate (Ambien) 5 mg PRN QHS PRN PO INSOMNIA, MAY REPEAT IN 1HR Last administered on 11/11/18at 00:01; Start 11/09/18 at 16:30 Morphine Sulfate (Morphine Sulfate) 1 mg PRN Q1HR PRN IV PAIN Last administered on 11/09/18 21:19; Start 11/09/18 at 16:30; Stop 11/09/18 at 21:23; Status DC Oxycodone/ Acetaminophen (Percocet 5/325) 1 tab PRN Q4HRS PRN PO MILD PAIN, 1ST CHOICE Last administered on 11/11/18 09:02; Start 11/09/18 at 16:30 Senna/Docusate Sodium (Senna Plus) 1 tab BID PO Last administered on 11/11/18 10:40; Start 11/09/18 at 21:00 Magnesium Hydroxide (Milk Of Magnesia) 2,400 mg PRN Q12HR PRN PO CONSTIPATION; Start 11/09/18 at 16:30 Heparin Sodium (Porcine) (Heparin Sodium) 5,000 unit Q8HRS SQ Last administered on 11/11/18 06:12; Start 11/09/18 at 17:00 Acetaminophen/ Hydrocodone Bitart (Lortab 7.5/325) 1 tab PRN Q6HRS PRN PO MODERAETE PAIN Last administered on 11/11/18 00:00; Start 11/09/18 at 16:30 Methocarbamol (Robaxin) 1,000 mg BID PO Last administered on 11/11/18 09:01; Start 11/09/18 at 21:00 Metformin HCl (Glucophage) 500 mg BIDWMEALS PO ; Start 11/09/18 at 17:00; Stop at 16:48; Status DC Multivit/ Folic Acid/Iron (Multivitamin ) 1 tab DAILY PO Last administered on 11/11/18 09:01; Start 11/09/18 at 17:00 Varenicline (Chantix) 1 mg BID PO Last administered on 11/11/18 10:39; Start 11/09/18 at 21:00 Insulin Human Lispro (HumaLOG) 0-5 UNITS TIDWMEALS SQ ; Start 11/09/18 at 17:00; Stop 11/09/18 at 18:26; Status DC Dextrose (Dextrose 50%-Water Syringe) 12.5 gm PRN Q15MIN PRN IV SEE COMMENTS; Start 11/09/18 at 16:30 Gadobutrol (Gadavist) 10 mmol 1X ONCE IV Last administered on 11/09/18at 19:02; Start 11/09/18 at 18:45; Stop 11/09/18 at 18:46; Status DC Morphine Sulfate (Morphine Sulfate) 2 mg PRN Q1HR PRN IV PAIN Last administered on 11/10/18at 11:16; Start 11/09/18 at 21:30; Stop 11/10/18 at 16:46; Status DC Hydromorphone HCl (Dilaudid) 2 mg 1X ONCE IV Last administered on 11/09/18at 23: 56; Start 11/09/18 at 23:45; Stop 11/09/18 at 23:46; Status DC Hydromorphone HCl (Dilaudid) 2 mg PRN Q4HRS PRN IV PAIN Last administered on 07/20at 09:01; Start 11/10/18 at 08:30 Diphenhydramine HCl (Benadryl) 25 mg PRN Q8HRS PRN PO ITCHING Last administered on 11/11/18at 10:40; Start 11/10/18 at 09:15 Methylprednisolone (Medrol) 8 mg BID PO Last administered on 11/10/18at 19:53; Start 11/10/18 at 14:00; Stop 11/10/18 at 21:01; Status DC Methylprednisolone (Medrol) 4 mg BIDPCLD PO Last administered on 11/10/18at 17:08 ; Start 11/10/18 at 14:00; Stop 11/10/18 at 17:31; Status DC Methylprednisolone (Medrol) 4 mg TIDPC PO Last administered on 11/11/18at 09:02 ; Start 11/11/18 at 08:30; Stop 11/11/18 at 17:31 Methylprednisolone (Medrol) 8 mg QHS PO ; Start 11/11/18 at 21:00; Stop at 21:01 Methylprednisolone (Medrol) 4 mg QIDAFTMEAL PO ; Start 11/12/18 at 09:00; Stop 11/12/18 at 21:01 Methylprednisolone (Medrol) 4 mg TID PO ; Start 11/13/18 at 09:00; Stop at 21:01 Methylprednisolone (Medrol) 4 mg BID PO ; Start 11/14/18 at 09:00; Stop at 21:01 Methylprednisolone (Medrol) 4 mg DAILY PO ; Start 11/15/18 at 09:00; Stop at 09:01 Active Scripts Active Reported Chantix (Varenicline Tartrate) 1 Mg Tablet 1 Mg PO BID Robaxin (Methocarbamol) 500 Mg Tablet 2 Tab PO BID Hydrocodone-Apap 7.5-325 (Hydrocodone Bit/Acetaminophen) 1 Tab Tablet 1-2 Tab PO PRN Q6HRS PRN Diclofenac Sodium 50 Mg Tablet.dr 1 Tab PO BID Tablet (Pnv Cmb#95/Ferrous Fumarate/Fa) 1 Each Tablet 1 Tab PO DAILY Metformin Hcl Er (Metformin Hcl) 500 Mg Tab.er.24h 500 Mg PO BIDWMEALS Simvastatin 10 Mg Tablet 1 Tab PO QHS Lisinopril 40 Mg Tablet 1 Tab PO DAILY Vitals/I & O Vital Sign - Last 24 Hours 11/10/18 11/10/18 11/10/18 11/10/18 11:14 11:16 13:52 14:00 O2 Delivery Room Air Room Air Room Air Room Air 11/10/18 11/10/18 11/10/18 11/10/18 15:00 15:00 17:09 18:07 Temp 98.0 98.0 Pulse 70 Resp 17 B/P (MAP) 110/62 (78) Pulse Ox 95 O2 Delivery Room Air Room Air Room Air Room Air 11/10/18 11/10/18 11/10/18 11/10/18 19:00 19:54 20:00 22:18 Temp 97.8 97.8 Pulse 74 Resp 18 B/P (MAP) 127/85 (99) Pulse Ox 95 95 95 O2 Delivery Room Air Room Air Room Air Room Air 11/10/18 11/10/18 11/11/18 11/11/18 22:48 23:00 00:00 01:00 Temp 97.9 97.9 Pulse 91 Resp 18 B/P (MAP) 139/79 (99) Pulse Ox 95 94 94 94 O2 Delivery Room Air Room Air Room Air 11/11/18 11/11/18 11/11/18 11/11/18 03:00 03:14 03:14 04:04 Temp 97.3 97.3 Pulse 86 Resp 18 B/P (MAP) 150/97 (114) Pulse Ox 94 94 94 94 O2 Delivery Room Air Room Air Room Air 11/11/18 11/11/18 11/11/18 11/11/18 07:00 09:01 09:02 10:21 Temp 97.9 97.9 Pulse 81 Resp 16 B/P (MAP) 109/54 (72) Pulse Ox 96 O2 Delivery Room Air Room Air Room Air Room Air 11/11/18 10:22 O2 Delivery Room Air Intake and Output 11/10/18 11/10/18 11/11/18 15:01 23:01 07:01 Intake Total 250 ml Balance 250 ml CRISTAL CABA MD Nov 11, 2018 11:13
--- NOTE | 2018-11-11 11:44 | PDOC ---
PROGRESS NOTES Subjective Subjective continues with back and bilateral leg pain Objective Objective Vital Signs Date Time Temp Pulse Resp B/P (MAP) Pulse Ox O2 Delivery O2 Flow Rate FiO2 11/11/18 10:22 Room Air 11/11/18 07:00 97.9 81 16 109/54 (72) 96 97.9 Intake and Output 11/11/18 07:01 Intake Total 250 ml Balance 250 ml Intake Oral 250 ml # Voids 2 Physical Exam General: Alert, Oriented X3, Cooperative Neuro: Other (strength 5/5 in BLE) Plan Plan of Care plan for OR tomorrow with microdiscectomy L4-5 discussed surgery technique and risks all questions were answered Comment Review of Relevant I have reviewed the following items jeff (where applicable) has been applied. Labs Laboratory Tests Test 11/09/18 19:13 11/10/18 03:30 11/11/18 04:30 Urine Collection Type Unknown Urine Color Yellow Urine Clarity Clear Urine pH 6.0 Urine Specific [place] 1.015 Urine Protein Negative mg/dL (NEG-TRACE) Urine Glucose (UA) Negative mg/dL (NEG) Urine Ketones (Stick) Trace mg/dL (NEG) Urine Blood Trace (NEG) Urine Nitrite Negative (NEG) Urine Bilirubin Negative (NEG) Urine Urobilinogen Dipstick 0.2 mg/dL (0.2 mg/dL) Urine Leukocyte Esterase Trace (NEG) Urine RBC Occ /HPF (0-2) Urine WBC 1-4 /HPF (0-4) Urine Squamous Epithelial Cells Mod /LPF Urine Bacteria Moderate /HPF (0-FEW) Urine Mucus Slight /LPF White Blood Count 8.9 x10^3/uL (4.0-11.0) Red Blood Count 4.29 x10^6/uL (3.50-5.40) Hemoglobin 12.7 g/dL (12.0-15.5) Hematocrit 37.6 % (36.0-47.0) Mean Corpuscular Volume 88 fL (79-100) Mean Corpuscular Hemoglobin 30 pg (25-35) Mean Corpuscular Hemoglobin Concent 34 g/dL (31-37) Red Cell Distribution Width 13.9 % (11.5-14.5) Platelet Count 334 x10^3/uL (140-400) Neutrophils (%) (Auto) 49 % (31-73) Lymphocytes (%) (Auto) 40 % (24-48) Monocytes (%) (Auto) 6 % (0-9) Eosinophils (%) (Auto) 4 % (0-3) Basophils (%) (Auto) 1 % (0-3) Neutrophils # (Auto) 4.4 x10^3uL (1.8-7.7) Lymphocytes # (Auto) 3.6 x10^3/uL (1.0-4.8) Monocytes # (Auto) 0.6 x10^3/uL (0.0-1.1) Eosinophils # (Auto) 0.4 x10^3/uL (0.0-0.7) Basophils # (Auto) 0.1 x10^3/uL (0.0-0.2) Sodium Level 138 mmol/L (136-145) Potassium Level 4.0 mmol/L (3.5-5.1) Chloride Level 102 mmol/L (98-107) Carbon Dioxide Level 25 mmol/L (21-32) Anion Gap 11 (6-14) Blood Urea Nitrogen 9 mg/dL (7-20) Creatinine 0.7 mg/dL (0.6-1.0) Estimated GFR (Cockcroft-Gault) 97.0 Glucose Level 126 mg/dL (70-99) Calcium Level 10.0 mg/dL (8.5-10.1) Laboratory Tests Test 11/11/18 04:30 Sodium Level 138 mmol/L (136-145) Potassium Level 4.0 mmol/L (3.5-5.1) Chloride Level 102 mmol/L (98-107) Carbon Dioxide Level 25 mmol/L (21-32) Anion Gap 11 (6-14) Blood Urea Nitrogen 9 mg/dL (7-20) Creatinine 0.7 mg/dL (0.6-1.0) Estimated GFR (Cockcroft-Gault) 97.0 Glucose Level 126 mg/dL (70-99) Calcium Level 10.0 mg/dL (8.5-10.1) Medications Current Medications Ondansetron HCl (Zofran) 4 mg PRN Q6HRS PRN IV NAUSEA/VOMITING Last administered on 11/10/18at 13:55; Start 11/09/18 at 16:30 Prochlorperazine Edisylate (Compazine) 10 mg PRN Q6HRS PRN IV NAUSEA/VOMITING; Start 11/09/18 at 16:30 Zolpidem Tartrate (Ambien) 5 mg PRN QHS PRN PO INSOMNIA, MAY REPEAT IN 1HR Last administered on 11/11/18at 00:01; Start 11/09/18 at 16:30 Morphine Sulfate (Morphine Sulfate) 1 mg PRN Q1HR PRN IV PAIN Last administered on 11/09/18 21:19; Start 11/09/18 at 16:30; Stop 11/09/18 at 21:23; Status DC Oxycodone/ Acetaminophen (Percocet 5/325) 1 tab PRN Q4HRS PRN PO MILD PAIN, 1ST CHOICE Last administered on 11/11/18 09:02; Start 11/09/18 at 16:30 Senna/Docusate Sodium (Senna Plus) 1 tab BID PO Last administered on 11/11/18 10:40; Start 11/09/18 at 21:00 Magnesium Hydroxide (Milk Of Magnesia) 2,400 mg PRN Q12HR PRN PO CONSTIPATION; Start 11/09/18 at 16:30 Heparin Sodium (Porcine) (Heparin Sodium) 5,000 unit Q8HRS SQ Last administered on 11/11/18 06:12; Start 11/09/18 at 17:00 Acetaminophen/ Hydrocodone Bitart (Lortab 7.5/325) 1 tab PRN Q6HRS PRN PO MODERAETE PAIN Last administered on 11/11/18 00:00; Start 11/09/18 at 16:30 Methocarbamol (Robaxin) 1,000 mg BID PO Last administered on 11/11/18 09:01; Start 11/09/18 at 21:00 Metformin HCl (Glucophage) 500 mg BIDWMEALS PO ; Start 11/09/18 at 17:00; Stop at 16:48; Status DC Multivit/ Folic Acid/Iron (Multivitamin ) 1 tab DAILY PO Last administered on 11/11/18 09:01; Start 11/09/18 at 17:00 Varenicline (Chantix) 1 mg BID PO Last administered on 11/11/18 10:39; Start 11/09/18 at 21:00 Insulin Human Lispro (HumaLOG) 0-5 UNITS TIDWMEALS SQ ; Start 11/09/18 at 17:00; Stop 11/09/18 at 18:26; Status DC Dextrose (Dextrose 50%-Water Syringe) 12.5 gm PRN Q15MIN PRN IV SEE COMMENTS; Start 11/09/18 at 16:30 Gadobutrol (Gadavist) 10 mmol 1X ONCE IV Last administered on 11/09/18at 19:02; Start 11/09/18 at 18:45; Stop 11/09/18 at 18:46; Status DC Morphine Sulfate (Morphine Sulfate) 2 mg PRN Q1HR PRN IV PAIN Last administered on 11/10/18at 11:16; Start 11/09/18 at 21:30; Stop 11/10/18 at 16:46; Status DC Hydromorphone HCl (Dilaudid) 2 mg 1X ONCE IV Last administered on 11/09/18at 23: 56; Start 11/09/18 at 23:45; Stop 11/09/18 at 23:46; Status DC Hydromorphone HCl (Dilaudid) 2 mg PRN Q4HRS PRN IV PAIN Last administered on 09:01; Start 11/10/18 at 08:30 Diphenhydramine HCl (Benadryl) 25 mg PRN Q8HRS PRN PO ITCHING Last administered on 11/11/18at 10:40; Start 11/10/18 at 09:15 Methylprednisolone (Medrol) 8 mg BID PO Last administered on 11/10/18 19:53; Start 11/10/18 at 14:00; Stop 11/10/18 at 21:01; Status DC Methylprednisolone (Medrol) 4 mg BIDPCLD PO Last administered on 11/10/18at 17:08 ; Start 11/10/18 at 14:00; Stop 11/10/18 at 17:31; Status DC Methylprednisolone (Medrol) 4 mg TIDPC PO Last administered on 11/11/18 09:02 ; Start 11/11/18 at 08:30; Stop 11/11/18 at 17:31 Methylprednisolone (Medrol) 8 mg QHS PO ; Start 11/11/18 at 21:00; Stop at 21:01 Methylprednisolone (Medrol) 4 mg QIDAFTMEAL PO ; Start 11/12/18 at 09:00; Stop 11/12/18 at 21:01 Methylprednisolone (Medrol) 4 mg TID PO ; Start 11/13/18 at 09:00; Stop at 21:01 Methylprednisolone (Medrol) 4 mg BID PO ; Start 11/14/18 at 09:00; Stop at 21:01 Methylprednisolone (Medrol) 4 mg DAILY PO ; Start 11/15/18 at 09:00; Stop at 09:01 Active Scripts Active Reported Chantix (Varenicline Tartrate) 1 Mg Tablet 1 Mg PO BID Robaxin (Methocarbamol) 500 Mg Tablet 2 Tab PO BID Hydrocodone-Apap 7.5-325 (Hydrocodone Bit/Acetaminophen) 1 Tab Tablet 1-2 Tab PO PRN Q6HRS PRN Diclofenac Sodium 50 Mg Tablet.dr 1 Tab PO BID Tablet (Pnv Cmb#95/Ferrous Fumarate/Fa) 1 Each Tablet 1 Tab PO DAILY Metformin Hcl Er (Metformin Hcl) 500 Mg Tab.er.24h 500 Mg PO BIDWMEALS Simvastatin 10 Mg Tablet 1 Tab PO QHS Lisinopril 40 Mg Tablet 1 Tab PO DAILY Vitals/I & O Vital Sign - Last 24 Hours 11/10/18 11/10/18 11/10/18 11/10/18 13:52 14:00 15:00 15:00 Temp 98.0 98.0 Pulse 70 Resp 17 B/P (MAP) 110/62 (78) Pulse Ox 95 O2 Delivery Room Air Room Air Room Air Room Air 11/10/18 11/10/18 11/10/18 11/10/18 17:09 18:07 19:00 19:54 Temp 97.8 97.8 Pulse 74 Resp 18 B/P (MAP) 127/85 (99) Pulse Ox 95 95 O2 Delivery Room Air Room Air Room Air Room Air 11/10/18 11/10/18 11/10/18 11/10/18 20:00 22:18 22:48 23:00 Temp 97.9 97.9 Pulse 91 Resp 18 B/P (MAP) 139/79 (99) Pulse Ox 95 95 94 O2 Delivery Room Air Room Air Room Air 11/11/18 11/11/18 11/11/18 11/11/18 00:00 01:00 03:00 03:14 Temp 97.3 97.3 Pulse 86 Resp 18 B/P (MAP) 150/97 (114) Pulse Ox 94 94 94 94 O2 Delivery Room Air Room Air Room Air Room Air 11/11/18 11/11/18 11/11/18 11/11/18 03:14 04:04 07:00 09:01 Temp 97.9 97.9 Pulse 81 Resp 16 B/P (MAP) 109/54 (72) Pulse Ox 94 94 96 O2 Delivery Room Air Room Air Room Air 11/11/18 11/11/18 11/11/18 09:02 10:21 10:22 O2 Delivery Room Air Room Air Room Air Intake and Output 11/10/18 11/10/18 11/11/18 15:01 23:01 07:01 Intake Total 250 ml Balance 250 ml JHONATHAN ALMONTE MD Nov 11, 2018 11:44
[2018-11-11] MEDS: HYDROcodone/APAP 7.5/325MG 1 TAB TABLET PO PRN ×3 (12:05→21:08)
[2018-11-11 15:00] VITALS: BP 131/74
[2018-11-11] MEDS: LIDOCAINE (700MG/PATCH) PATCH. TD SCH (16:44)
[2018-11-11] MEDS ORDERED: HYDROmorphone 2 MG/ML VIAL IV ONE (17:00)
[2018-11-11] MEDS ORDERED: diphenhydrAMINE ORAL ELIXIR 12.5 MG/5 ML ML PO PRN (17:15)
[2018-11-11 17:40] LABS: U PREG PATIENT NEGATIVE (NEG)
[2018-11-11 19:00] VITALS: BP 143/85
[2018-11-11] MEDS: KETOROLAC 30 MG/ML VIAL. IV PRN (20:05)
[2018-11-11] MEDS ORDERED: methylPREDNISolone 4 MG TABLET. PO SCH (21:00)
[2018-11-11] MEDS: PATCH REMOVAL. MC SCH (21:00)
[2018-11-11] MEDS: TEMAZEPAM 15 MG CAPSULE PO PRN (21:08)
[2018-11-11 23:00] VITALS: BP 145/86
[2018-11-12] VITALS (8 sets, daily range): BP systolic 98–136; BP diastolic 50–90
[2018-11-12] MEDS: HYDROmorphone 2 MG/ML VIAL IV PRN ×4 (02:08→17:24)
[2018-11-12] MEDS: HYDROcodone/APAP 7.5/325MG 1 TAB TABLET PO PRN ×2 (03:02→09:34)
[2018-11-12] MEDS: oxyCODONE/APAP 5/325 1 TAB TABLET PO PRN ×2 (04:00→18:15)
[2018-11-12 05:03] LABS: BASO # 0.1 x10^3/uL (0.0-0.2); BASO % 1 % (0-3); EOS # 0.1 x10^3/uL (0.0-0.7); EOS % 1 % (0-3); HEMATOCRIT 38.6 % (36.0-47.0); HEMOGLOBIN 12.8 g/dL (12.0-15.5); LYMPH % 36 % (24-48); MEAN CORPUSCULAR HEMOGLOBIN 29 pg (25-35); MEAN CORPUSCULAR HGB CONC 33 g/dL (31-37); MEAN CORPUSCULAR VOLUME 89 fL (79-100); MONO # 0.8 x10^3/uL (0.0-1.1); MONO % 7 % (0-9); NEUT # 6.2 x10^3uL (1.8-7.7); NEUT % 56 % (31-73); PLATELET COUNT 380 x10^3/uL (140-400); RED BLOOD COUNT 4.37 x10^6/uL (3.50-5.40); RED CELL DISTRIBUTION WIDTH 14.1 % (11.5-14.5); WHITE BLOOD COUNT 11.1 x10^3/uL (4.0-11.0)
[2018-11-12 05:23] LABS: ALBUMIN 3.6 g/dL (3.4-5.0); ALBUMIN/GLOBULIN RATIO 0.9 (1.0-1.7); CALCIUM 9.2 mg/dL (8.5-10.1); CREATININE 0.8 mg/dL (0.6-1.0); GFR 83.1; POTASSIUM 4.6 mmol/L (3.5-5.1); TOTAL BILIRUBIN 0.2 mg/dL (0.2-1.0); TOTAL PROTEIN 7.5 g/dL (6.4-8.2)
[2018-11-12] MEDS ORDERED: CLINDAMYCIN 900MG PREMIX 50 ML IV PRN (06:00)
[2018-11-12] MEDS ORDERED: GELATIN SPONGE SIZE 100. ONE (07:26)
[2018-11-12] MEDS ORDERED: BUPIVAC MPF-EPI 0.5%-1:200000 30 ML VIAL. ONE (07:26)
[2018-11-12] MEDS ORDERED: THROMBIN TOPICAL 20,000 UNIT SPRAY.SYRN KIT TP ONE (07:26)
[2018-11-12] MEDS ORDERED: KETOROLAC 60 MG/2 ML INJ FOR OR. ONE (07:26)
[2018-11-12] MEDS: KETOROLAC 30 MG/ML VIAL. IV PRN ×2 (07:46→16:37)
[2018-11-12] MEDS ORDERED: BACITRACIN 50,000 UNIT in IV NORMAL SALINE 1000ML BAG 1,000 ML IRR ONE (08:00)
[2018-11-12] MEDS: methylPREDNISolone 4 MG TABLET. PO SCH ×3 (09:00→18:15)
[2018-11-12] MEDS: LIDOCAINE (700MG/PATCH) PATCH. TD SCH (09:00)
[2018-11-12] MEDS: METHOCARBAMOL 500 MG TABLET PO SCH ×2 (09:00→20:10)
[2018-11-12] MEDS: VARENICLINE 0.5 MG TABLET. PO SCH (09:00)
[2018-11-12] MEDS: PRENATAL MULTIVITAMIN TABLET. PO SCH (09:00)
[2018-11-12] MEDS: SENNOSIDES/DOCUSATE 8.6/50MG TABLET. PO SCH (09:00)
--- NOTE | 2018-11-12 09:48 | PDOC ---
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 denies any incontinence. Is scheduled to see Dr. Jones on Monday for inital visit. patient sent from [place] ED. no imaging done in ER. patient states no relief with muscle relaxers, pain meds at home. can ambulate but very gingerly. unable to lay flat or sit bc of the pain. given acute worsening of pain she came for further evaluation. patient takes pre-lesvia vitamins but states not . LMP 2 weeks ago At L4-5, there is a large central disc extrusion. Central canal stenosis is moderate to severe. It measures 11 mm anteroposteriorly. pain control very challenging. requiring IV morphine, dilaudid with minimal improvement. asking for benadryl due to itching. neuro sx has been consulted. OR tomorrow with microdiscectomy L4-5 History of Present Illness History of Present Illness ASSESSMENT Low Back Pain with lumbar Radiculopathy with large central disc extrusion at L4- 5 results in moderate to severe central canal stenosis and effacement of the thecal sac. HTN Hx of PCOS Hx of Hashimotos Thyroiditis HLD PLAN MRI lumbar spine: 1. A large central disc extrusion at L4-5 results in moderate to severe central canal stenosis and effacement of the thecal sac. 2. Small central protrusions at L3-4 and L5-S1 do not result in stenosis. IV morphine and dilaudid for pain control continue muscle relaxers continue home meds CBC stable continue home statin therapy Neurosx consulted full code dvt ppx: heparin Vitals Vitals Vital Signs Date Time Temp Pulse Resp B/P (MAP) Pulse Ox O2 Delivery O2 Flow Rate FiO2 11/12/18 09:34 Room Air 11/12/18 07:36 99 11/12/18 07:00 97.6 83 18 126/81 (96) 97.6 Physical Exam Physical Exam GENERAL: in pain HEENT: Head normocephalic, atraumatic. NECK: Supple LUNGS: Clear to auscultation. HEART: RRR, S1, S2 present, pulses intact ABDOMEN: Soft, positive bowel sounds. EXTREMITIES: No cyanosis or edema. NEUROLOGIC: Normal speech, normal tone PSYCHIATRIC: Normal affect, normal mood. SKIN: No ulceration. General: Oriented X3, Cooperative, moderate distress Heart: Regular rate, No murmurs Abdomen: Normal bowel sounds, Soft Extremities: No cyanosis Skin: No significant lesion Labs LABS Laboratory Tests Test 11/11/18 17:00 11/12/18 04:05 Urine Test Negative (NEG) White Blood Count 11.1 x10^3/uL (4.0-11.0) Red Blood Count 4.37 x10^6/uL (3.50-5.40) Hemoglobin 12.8 g/dL (12.0-15.5) Hematocrit 38.6 % (36.0-47.0) Mean Corpuscular Volume 89 fL (79-100) Mean Corpuscular Hemoglobin 29 pg (25-35) Mean Corpuscular Hemoglobin Concent 33 g/dL (31-37) Red Cell Distribution Width 14.1 % (11.5-14.5) Platelet Count 380 x10^3/uL (140-400) Neutrophils (%) (Auto) 56 % (31-73) Lymphocytes (%) (Auto) 36 % (24-48) Monocytes (%) (Auto) 7 % (0-9) Eosinophils (%) (Auto) 1 % (0-3) Basophils (%) (Auto) 1 % (0-3) Neutrophils # (Auto) 6.2 x10^3uL (1.8-7.7) Lymphocytes # (Auto) 4.0 x10^3/uL (1.0-4.8) Monocytes # (Auto) 0.8 x10^3/uL (0.0-1.1) Eosinophils # (Auto) 0.1 x10^3/uL (0.0-0.7) Basophils # (Auto) 0.1 x10^3/uL (0.0-0.2) Sodium Level 138 mmol/L (136-145) Potassium Level 4.6 mmol/L (3.5-5.1) Chloride Level 102 mmol/L (98-107) Carbon Dioxide Level 24 mmol/L (21-32) Anion Gap 12 (6-14) Blood Urea Nitrogen 8 mg/dL (7-20) Creatinine 0.8 mg/dL (0.6-1.0) Estimated GFR (Cockcroft-Gault) 83.1 BUN/Creatinine Ratio 10 (6-20) Glucose Level 144 mg/dL (70-99) Calcium Level 9.2 mg/dL (8.5-10.1) Total Bilirubin 0.2 mg/dL (0.2-1.0) Aspartate Amino Transf (AST/SGOT) 33 U/L (15-37) Alanine Aminotransferase (ALT/SGPT) 103 U/L (14-59) Alkaline Phosphatase 55 U/L (46-116) Total Protein 7.5 g/dL (6.4-8.2) Albumin 3.6 g/dL (3.4-5.0) Albumin/Globulin Ratio 0.9 (1.0-1.7) Comment Review of Relevant I have reviewed the following items jeff (where applicable) has been applied. Labs Laboratory Tests Test 11/11/18 04:30 11/11/18 17:00 11/12/18 04:05 Sodium Level 138 mmol/L (136-145) 138 mmol/L (136-145) Potassium Level 4.0 mmol/L (3.5-5.1) 4.6 mmol/L (3.5-5.1) Chloride Level 102 mmol/L (98-107) 102 mmol/L (98-107) Carbon Dioxide Level 25 mmol/L (21-32) 24 mmol/L (21-32) Anion Gap 11 (6-14) 12 (6-14) Blood Urea Nitrogen 9 mg/dL (7-20) 8 mg/dL (7-20) Creatinine 0.7 mg/dL (0.6-1.0) 0.8 mg/dL (0.6-1.0) Estimated GFR (Cockcroft-Gault) 97.0 83.1 Glucose Level 126 mg/dL (70-99) 144 mg/dL (70-99) Calcium Level 10.0 mg/dL (8.5-10.1) 9.2 mg/dL (8.5-10.1) Urine Test Negative (NEG) White Blood Count 11.1 x10^3/uL (4.0-11.0) Red Blood Count 4.37 x10^6/uL (3.50-5.40) Hemoglobin 12.8 g/dL (12.0-15.5) Hematocrit 38.6 % (36.0-47.0) Mean Corpuscular Volume 89 fL (79-100) Mean Corpuscular Hemoglobin 29 pg (25-35) Mean Corpuscular Hemoglobin Concent 33 g/dL (31-37) Red Cell Distribution Width 14.1 % (11.5-14.5) Platelet Count 380 x10^3/uL (140-400) Neutrophils (%) (Auto) 56 % (31-73) Lymphocytes (%) (Auto) 36 % (24-48) Monocytes (%) (Auto) 7 % (0-9) Eosinophils (%) (Auto) 1 % (0-3) Basophils (%) (Auto) 1 % (0-3) Neutrophils # (Auto) 6.2 x10^3uL (1.8-7.7) Lymphocytes # (Auto) 4.0 x10^3/uL (1.0-4.8) Monocytes # (Auto) 0.8 x10^3/uL (0.0-1.1) Eosinophils # (Auto) 0.1 x10^3/uL (0.0-0.7) Basophils # (Auto) 0.1 x10^3/uL (0.0-0.2) BUN/Creatinine Ratio 10 (6-20) Total Bilirubin 0.2 mg/dL (0.2-1.0) Aspartate Amino Transf (AST/SGOT) 33 U/L (15-37) Alanine Aminotransferase (ALT/SGPT) 103 U/L (14-59) Alkaline Phosphatase 55 U/L (46-116) Total Protein 7.5 g/dL (6.4-8.2) Albumin 3.6 g/dL (3.4-5.0) Albumin/Globulin Ratio 0.9 (1.0-1.7) Laboratory Tests Test 11/11/18 17:00 11/12/18 04:05 Urine Test Negative (NEG) White Blood Count 11.1 x10^3/uL (4.0-11.0) Red Blood Count 4.37 x10^6/uL (3.50-5.40) Hemoglobin 12.8 g/dL (12.0-15.5) Hematocrit 38.6 % (36.0-47.0) Mean Corpuscular Volume 89 fL (79-100) Mean Corpuscular Hemoglobin 29 pg (25-35) Mean Corpuscular Hemoglobin Concent 33 g/dL (31-37) Red Cell Distribution Width 14.1 % (11.5-14.5) Platelet Count 380 x10^3/uL (140-400) Neutrophils (%) (Auto) 56 % (31-73) Lymphocytes (%) (Auto) 36 % (24-48) Monocytes (%) (Auto) 7 % (0-9) Eosinophils (%) (Auto) 1 % (0-3) Basophils (%) (Auto) 1 % (0-3) Neutrophils # (Auto) 6.2 x10^3uL (1.8-7.7) Lymphocytes # (Auto) 4.0 x10^3/uL (1.0-4.8) Monocytes # (Auto) 0.8 x10^3/uL (0.0-1.1) Eosinophils # (Auto) 0.1 x10^3/uL (0.0-0.7) Basophils # (Auto) 0.1 x10^3/uL (0.0-0.2) Sodium Level 138 mmol/L (136-145) Potassium Level 4.6 mmol/L (3.5-5.1) Chloride Level 102 mmol/L (98-107) Carbon Dioxide Level 24 mmol/L (21-32) Anion Gap 12 (6-14) Blood Urea Nitrogen 8 mg/dL (7-20) Creatinine 0.8 mg/dL (0.6-1.0) Estimated GFR (Cockcroft-Gault) 83.1 BUN/Creatinine Ratio 10 (6-20) Glucose Level 144 mg/dL (70-99) Calcium Level 9.2 mg/dL (8.5-10.1) Total Bilirubin 0.2 mg/dL (0.2-1.0) Aspartate Amino Transf (AST/SGOT) 33 U/L (15-37) Alanine Aminotransferase (ALT/SGPT) 103 U/L (14-59) Alkaline Phosphatase 55 U/L (46-116) Total Protein 7.5 g/dL (6.4-8.2) Albumin 3.6 g/dL (3.4-5.0) Albumin/Globulin Ratio 0.9 (1.0-1.7) Microbiology 11/09/18 Urine Culture - Final, Complete 11/09/18 Urine Culture Result 1 (MARIPOSA) - Final, Complete Medications Current Medications Ondansetron HCl (Zofran) 4 mg PRN Q6HRS PRN IV NAUSEA/VOMITING Last administered on 11/10/18 13:55; Start 11/09/18 at 16:30 Prochlorperazine Edisylate (Compazine) 10 mg PRN Q6HRS PRN IV NAUSEA/VOMITING 2ND CHOICE; Start 11/09/18 at 16:30 Zolpidem Tartrate (Ambien) 5 mg PRN QHS PRN PO INSOMNIA, MAY REPEAT IN 1HR Last administered on 11/11/18 00:01; Start 11/09/18 at 16:30 Morphine Sulfate (Morphine Sulfate) 1 mg PRN Q1HR PRN IV PAIN Last administered on 11/09/18 21:19; Start 11/09/18 at 16:30; Stop 11/09/18 at 21:23; Status DC Oxycodone/ Acetaminophen (Percocet 5/325) 1 tab PRN Q4HRS PRN PO MILD PAIN, 1ST CHOICE Last administered on 11/12/18 04:00; Start 11/09/18 at 16:30 Senna/Docusate Sodium (Senna Plus) 1 tab BID PO Last administered on 11/11/18 21:07; Start 11/09/18 at 21:00 Magnesium Hydroxide (Milk Of Magnesia) 2,400 mg PRN Q12HR PRN PO CONSTIPATION; Start 11/09/18 at 16:30 Heparin Sodium (Porcine) (Heparin Sodium) 5,000 unit Q8HRS SQ Last administered on 11/11/18 06:12; Start 11/09/18 at 17:00; Stop 11/11/18 at 11:45 ; Status DC Acetaminophen/ Hydrocodone Bitart (Lortab 7.5/325) 1 tab PRN Q6HRS PRN PO MODERAETE PAIN Last administered on 11/12/18 09:34; Start 11/09/18 at 16:30 Methocarbamol (Robaxin) 1,000 mg BID PO Last administered on 11/11/18 21:07; Start 11/09/18 at 21:00 Metformin HCl (Glucophage) 500 mg BIDWMEALS PO ; Start 11/09/18 at 17:00; Stop at 16:48; Status DC Multivit/ Folic Acid/Iron (Multivitamin ) 1 tab DAILY PO Last administered on 11/11/18at 09:01; Start 11/09/18 at 17:00 Varenicline (Chantix) 1 mg BID PO Last administered on 11/11/18at 21:08; Start 11/09/18 at 21:00 Insulin Human Lispro (HumaLOG) 0-5 UNITS TIDWMEALS SQ ; Start 11/09/18 at 17:00; Stop 11/09/18 at 18:26; Status DC Dextrose (Dextrose 50%-Water Syringe) 12.5 gm PRN Q15MIN PRN IV SEE COMMENTS; Start 11/09/18 at 16:30 Gadobutrol (Gadavist) 10 mmol 1X ONCE IV Last administered on 11/09/18at 19:02; Start 11/09/18 at 18:45; Stop 11/09/18 at 18:46; Status DC Morphine Sulfate (Morphine Sulfate) 2 mg PRN Q1HR PRN IV PAIN Last administered on 11/10/18at 11:16; Start 11/09/18 at 21:30; Stop 11/10/18 at 16:46; Status DC Hydromorphone HCl (Dilaudid) 2 mg 1X ONCE IV Last administered on 11/09/18at 23: 56; Start 11/09/18 at 23:45; Stop 11/09/18 at 23:46; Status DC Hydromorphone HCl (Dilaudid) 2 mg PRN Q4HRS PRN IV PAIN Last administered on 08/20at 06:14; Start 11/10/18 at 08:30 Diphenhydramine HCl (Benadryl) 25 mg PRN Q8HRS PRN PO ITCHING Last administered on 11/11/18at 10:40; Start 11/10/18 at 09:15; Stop 11/11/18 at 17:14 ; Status DC Methylprednisolone (Medrol) 8 mg BID PO Last administered on 11/10/18at 19:53; Start 11/10/18 at 14:00; Stop 11/10/18 at 21:01; Status DC Methylprednisolone (Medrol) 4 mg BIDPCLD PO Last administered on 11/10/18at 17:08 ; Start 11/10/18 at 14:00; Stop 11/10/18 at 17:31; Status DC Methylprednisolone (Medrol) 4 mg TIDPC PO Last administered on 11/11/18at 17:38 ; Start 11/11/18 at 08:30; Stop 11/11/18 at 17:31; Status DC Methylprednisolone (Medrol) 8 mg QHS PO Last administered on 11/11/18at 21:07; Start 11/11/18 at 21:00; Stop 11/11/18 at 21:01; Status DC Methylprednisolone (Medrol) 4 mg QIDAFTMEAL PO ; Start 11/12/18 at 09:00; Stop 11/12/18 at 21:01 Methylprednisolone (Medrol) 4 mg TID PO ; Start 11/13/18 at 09:00; Stop at 21:01 Methylprednisolone (Medrol) 4 mg BID PO ; Start 11/14/18 at 09:00; Stop at 21:01 Methylprednisolone (Medrol) 4 mg DAILY PO ; Start 11/15/18 at 09:00; Stop at 09:01 Clindamycin Phosphate 50 ml @ 100 mls/hr 1X PREOP IV ; Start 11/12/18 at 11:45 ; Stop 11/12/18 at 18:00; Status UNV Clindamycin Phosphate 50 ml @ 100 mls/hr 1X PREOP PRN IV PRIOR TO PROCEDURE; Start 11/12/18 at 06:00; Stop 11/12/18 at 18:00 Lidocaine (Lidoderm) 1 patch DAILY TD Last administered on 11/11/18at 16:44; Start 11/11/18 at 16:30 Miscellaneous (Lidoderm Patch Removal) 1 ea QHS MC Last administered on at 21:00; Start 11/11/18 at 21:00 Ketorolac Tromethamine (Toradol 30mg Vial) 30 mg Q8HRS PRN IV PAIN Last administered on 11/12/18at 07:46; Start 11/11/18 at 16:15; Stop 11/16/18 at 16:14 Hydromorphone HCl (Dilaudid) 1 mg 1X ONCE IV Last administered on 11/11/18at 17 :37; Start 11/11/18 at 17:00; Stop 11/11/18 at 17:01; Status DC Diphenhydramine HCl (Benadryl Oral Elixir) 37.5 mg PRN Q8HRS PRN PO ITCHING Last administered on 11/11/18at 21:07; Start 11/11/18 at 17:15 Temazepam (Restoril) 15 mg PRN QHS PRN PO INSOMNIA Last administered on at 21:08; Start 11/11/18 at 19:30 Bacitracin 31593 unit/Sodium Chloride 1,000 ml @ 1,000 mls/hr 1X ONCE IRR ; Start 11/12/18 at 08:00; Stop 11/12/18 at 08:59; Status DC Gelatin (Gelfoam Size 100) 1 each STK-MED ONCE .ROUTE ; Start 11/12/18 at 07:26 ; Stop 11/12/18 at 07:28; Status DC Bupivacaine HCl/ Epinephrine Bitart (Sensorcain-Mpf Epi 0.5%-1:857059) 30 ml STK -MED ONCE .ROUTE ; Start 11/12/18 at 07:26; Stop 11/12/18 at 07:28; Status DC Ketorolac Tromethamine (Toradol For Or Only) 60 mg STK-MED ONCE .ROUTE ; Start 11/12/18 at 07:26; Stop 11/12/18 at 07:28; Status DC Thrombin 20,000 unit STK-MED ONCE TP ; Start 11/12/18 at 07:26; Stop 11/12/18 at 07:28; Status DC Active Scripts Active Reported Chantix (Varenicline Tartrate) 1 Mg Tablet 1 Mg PO BID Robaxin (Methocarbamol) 500 Mg Tablet 2 Tab PO BID Hydrocodone-Apap 7.5-325 (Hydrocodone Bit/Acetaminophen) 1 Tab Tablet 1-2 Tab PO PRN Q6HRS PRN Diclofenac Sodium 50 Mg Tablet.dr 1 Tab PO BID Tablet (Pnv Cmb#95/Ferrous Fumarate/Fa) 1 Each Tablet 1 Tab PO DAILY Metformin Hcl Er (Metformin Hcl) 500 Mg Tab.er.24h 500 Mg PO BIDWMEALS Simvastatin 10 Mg Tablet 1 Tab PO QHS Lisinopril 40 Mg Tablet 1 Tab PO DAILY Vitals/I & O Vital Sign - Last 24 Hours 11/11/18 11/11/18 11/11/18 11/11/18 11:00 12:05 13:23 13:24 Temp 98.1 98.1 Pulse 86 Resp 18 B/P (MAP) 131/80 (97) Pulse Ox 96 O2 Delivery Room Air Room Air Room Air Room Air 11/11/18 11/11/18 11/11/18 11/11/18 15:00 16:44 16:54 17:37 Temp 97.7 97.7 Pulse 76 Resp 18 B/P (MAP) 131/74 (93) Pulse Ox 97 97 O2 Delivery Room Air Room Air Room Air Room Air 11/11/18 11/11/18 11/11/18 11/11/18 17:54 19:00 20:00 21:08 Temp 97.8 97.8 Pulse 69 Resp 18 B/P (MAP) 143/85 (104) Pulse Ox 96 96 O2 Delivery Room Air Room Air Room Air Room Air 11/11/18 11/11/18 11/11/18 11/12/18 22:01 23:00 23:06 02:08 Temp 97.8 97.8 Pulse 86 Resp 18 B/P (MAP) 145/86 (105) Pulse Ox 96 96 96 96 O2 Delivery Room Air Room Air Room Air Room Air 11/12/18 11/12/18 11/12/18 11/12/18 02:56 03:02 04:00 04:02 Temp 98.1 98.1 Pulse 98 Resp 18 B/P (MAP) 128/61 (83) Pulse Ox 99 99 99 99 O2 Delivery Room Air Room Air Room Air Room Air 11/12/18 11/12/18 11/12/18 11/12/18 05:00 07:00 07:36 09:34 Temp 97.6 97.6 Pulse 83 Resp 18 B/P (MAP) 126/81 (96) Pulse Ox 99 96 99 O2 Delivery Room Air Room Air Room Air Room Air CRISTAL CABA MD Nov 12, 2018 09:48
[2018-11-12] MEDS ORDERED: ROCURONIUM 50 MG/5 ML VIAL. ONE (10:20)
[2018-11-12] MEDS ORDERED: REMIFENTANIL 2 MG VIAL. IV ONE (10:21)
[2018-11-12] MEDS ORDERED: MIDAZOLAM HCL/PF 2 MG/2 ML VIAL. ONE ×2 (10:21→15:41)
[2018-11-12] MEDS ORDERED: fentaNYL PF VIAL 250 MCG/5 ML VIAL ONE (10:21)
[2018-11-12] MEDS ORDERED: PROPOFOL 50 ML IV ONE ×2 (10:22→14:12)
[2018-11-12] MEDS ORDERED: DEXAMETHASONE SOD PHOS 20 MG/5 ML VIAL. ONE (10:22)
[2018-11-12] MEDS ORDERED: ONDANSETRON PF 4 MG/2 ML VIAL. ONE (10:22)
[2018-11-12] MEDS ORDERED: PHENYLEPHRINE 10 MG/ML VIAL. ONE ×2 (10:22)
[2018-11-12] MEDS ORDERED: PROPOFOL 20 ML IV ONE (10:22)
[2018-11-12] MEDS ORDERED: LIDOCAINE 2% PF 5 ML VIAL. ONE (10:22)
[2018-11-12] MEDS ORDERED: CLINDAMYCIN 600MG PREMIX 50 ML IV SCH (11:45)
[2018-11-12] MEDS: ASCORBIC ACID 500 MG TABLET PO SCH (12:00)
--- NOTE | 2018-11-12 12:08 | NUR ---
SW following for discharge planning. Discussed with RN, pt is from home. Pt is having surgery today. SW will continue to follow for discharge planning.
[2018-11-12] MEDS ORDERED: REMIFENTANIL 1 MG VIAL. IV ONE (14:34)
[2018-11-12] MEDS ORDERED: fentaNYL PF VIAL 100 MCG/2 ML VIAL ONE ×2 (15:31→15:35)
[2018-11-12] MEDS ORDERED: KETAMINE HCL IN NACL, ISO-OSM 50 MG/5 ML SYRINGE ONE (15:38)
[2018-11-12] MEDS ORDERED: DESFLURANE > 120 MINUTES IH ONE (15:48)
[2018-11-12] MEDS ORDERED: MORPHINE SULFATE 4 MG/ML VIAL. ONE (15:55)
--- NOTE | 2018-11-12 15:55 | OP ---
DATE OF SURGERY: 11/12/2018 PREOPERATIVE DIAGNOSES: Severe lumbar spinal stenosis with severe radiculopathy, L4-L5 from a large central disc herniation. POSTOPERATIVE DIAGNOSES: Severe lumbar spinal stenosis with severe radiculopathy, L4-L5 from a large central disc herniation. OPERATION PERFORMED: Lumbar laminectomy at L4-L5 with bilateral lumbar microdecompression/microdiscectomy. The operation was done with EMG monitoring, fluoroscopy and microscopic dissection. SURGEON: Tomi Almonte M.D. NUTRITION DIRECTOR: JONH Holland assisted with surgery. She assisted with the exposure, the laminectomy, the microdecompression, discectomy as well as the closure. OPERATIVE INDICATIONS: The patient is a pleasant 33-year-old woman who developed intractable back and left greater than right leg pain. She was found to have a very large central disc. She also had some previous bladder problems as well as previous numbness in the perineal region, which had improved during her hospitalization. Because of the large disc and the severe stenosis, I recommended surgery to decompress the dura as well as remove the large central disc herniation. I did discuss with her the risk of this type of operation including persistence or worsening of her bowel and bladder function, problems with potential numbness in the future and problems with possible chronic back pain, which could require further surgery. I discussed the technique of the operation and the expected postoperative course. She understood and she wished to go ahead. DESCRIPTION OF PROCEDURE: Following general endotracheal anesthesia, the patient was positioned prone on the [place] table. Lumbar region was prepped and draped in standard fashion. DEEPIKA hose and AV impulse boots were applied for DVT prophylaxis. The microscope was draped. Fluoroscopy was draped and brought into the field. Monitoring was established. Clindamycin 900 mg was given preoperatively. Midline incision was made directly over the L4-L5 interspace using fluoroscopic guidance. Dissection was carried down to skin and subcutaneous tissue and the paraspinal muscles were reflected and a Burnette retractor with long blades was placed. I exposed the spinous process and the lamina of L4 and L5 and then I brought in the microscope. Using the high speed air drill, I burred down a very generous hemilaminotomy on the left side and then worked medially and with rongeurs trimmed the spinous processes and created a laminectomy. I went to the right side and performed again a very generous hemilaminotomy on the right and combination of the two created a large bilateral laminectomy. I did free up the ligamentum flavum and peeled this away and then on the left side beginning, I used a blunt hook to develop a plane between the dura and the underlying ligament and reflected gently the dural contents medially. I did perform a generous partial foraminotomy on the left prior to this maneuver. I then incised the large posterior bulging disc laterally and then gently began to tease back and remove multiple disc fragments. As I worked, the region became very well decompressed. There was some chronic disc bulging, which was partly calcified, but the large compressive posterior disc herniation had been removed. I explored carefully, I assured myself the area was very well decompressed and then I went to the right side in a similar fashion reflected the dura medially. This side was already significantly decompressed compared to the MRI scan, but I did incise the ligament and annulus and I performed discectomy with pituitary rongeurs and as I worked there was further decompression. Following this, then I explored carefully, assured myself there were no retained fragments. I went back to the left and again assured myself that there were no fragments, I irrigated copiously with antibiotic solution. I worked methodically to obtain hemostasis and after this, then I removed the retractor, placed the subcutaneous retractors using Aleksandra Gelpi's and again irrigated. I closed the muscle layer and the fascial layer, followed by the subcutaneous tissue in layers and the skin with a 4-0 subcuticular stitch. I felt the surgery went very well and the patient was awakened uneventfully. I was quite pleased with the surgery. TOMI ALMONTE MD DR: BREANNE/francois JOB#: [id number] / [id number] HERB
[2018-11-12] MEDS ORDERED: HYDROmorphone 2 MG/ML VIAL IV PRN (16:00)
[2018-11-12] MEDS ORDERED: diphenhydrAMINE 50 MG/ML VIAL IV PRN ×2 (16:00)
[2018-11-12] MEDS ORDERED: PROCHLORPERAZINE 10 MG/2 ML VIAL. IV PRN ×3 (16:00)
[2018-11-12] MEDS ORDERED: fentaNYL PF VIAL 100 MCG/2 ML VIAL IV PRN ×2 (16:00)
[2018-11-12] MEDS ORDERED: ONDANSETRON PF 4 MG/2 ML VIAL. IV PRN ×3 (16:00)
[2018-11-12] MEDS ORDERED: MORPHINE SULFATE 4 MG/ML VIAL. IV PRN (16:00)
[2018-11-12] MEDS: MORPHINE SULFATE 4 MG/ML VIAL. IV PRN ×2 (16:41→16:54)
[2018-11-12] MEDS: IV RINGERS,LACTATED 1000ML 1,000 ML IV SCH (17:31)
--- NOTE | 2018-11-12 20:19 | CONS ---
DATE OF CONSULTATION: 11/12/2018 ATTENDING PHYSICIAN: Dr. Ignacio. The patient was seen at the request of Dr. Cuellar for rehab evaluation. 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 The patient with chronic lower back pain from degenerative disk disease with associated lumbar spondylosis admitted on 11/09/2018 with [id number] back pain for about 3 weeks with associated back muscle spasm, numbness and tingling in her lower extremities bilaterally and numbness in the perianal region without any incontinence, but admits to some constipation. The patient was seen in the Emergency Room at [facility]. No relief with muscle relaxant and pain medication at home. The patient is unable to lie flat or sit because of pain. The patient with history of Berkley's disease, hypertension, hyperlipidemia. She had MRI scan of her lumbar vertebrae done since this admission, which revealed a large central disk extrusion at L4-L5 resulting in moderate to severe central canal stenosis and effacement of the thecal sac, small central protrusion at L3-L4 and L5-S1 without any stenosis. The patient is scheduled for lumbar decompression laminectomy to be done this afternoon. ALLERGIES: THE PATIENT IS KNOWN ALLERGIC TO PIPERACILLIN, TAZOBACTAM AND VANCOMYCIN. PHYSICAL EXAMINATION: Today revealed young female patient in no acute distress. She is alert, oriented to time, place, person and circumstance and follows commands appropriately, moves all 4 extremities voluntarily where she had 5/5 grade muscle strength with relatively increased weakness in left big toe dorsiflexion where she had only 4+/5 grade muscle strength. Deep tendon reflexes are 1-2+ and symmetrical and she had equal perception of touch and pinprick sensation bilaterally. She is independent with bed mobility and transfers. She had pain free range of motion of both lower extremity joints. She had some tenderness to palpation over lumbar paraspinal muscles. Her skin is intact at this time. No significant lumbar paraspinal muscle spasm was noted at this time. ASSESSMENT: Young female with a herniated disk at L4-L5 with some degree of spinal stenosis with left lumbar radiculitis and obesity. RECOMMENDATIONS: Agree with the plans for surgery as she has been dealing with this pain so long and she had gone through Medrol Dosepak without any lasting help, to consider lumbar corset for use while up. We will see how she does postop tomorrow to make plans for continued rehab program. Dr. Cuellar, I appreciate asking me to participate in the care of this interesting patient. I will be glad to follow her with you as needed for her rehabilitation. KODY PEREYRA MD DR: JARED/francois JOB#: [id number] / [id number]
--- NOTE | 2018-11-13 01:29 | CONS ---
DATE OF CONSULTATION: 11/10/2018 REASON FOR CONSULTATION: Back and bilateral leg pain. HISTORY OF PRESENT ILLNESS: The patient is a pleasant 33-year-old woman who is scheduled to see me next week in the office who developed markedly increased back pain and left greater than right leg pain to the point that she was unable to obtain relief with pain medications and muscle relaxers at home. She was admitted for further evaluation and treatment. In speaking with the patient, the pain in her leg tends to radiate in the lateral thighs and lateral legs, to the dorsum of her left foot. On the right side the pain is mainly in the hip and proximal lateral thigh. Standing and walking markedly increase her pain. She gets some relief with lying down. She has noted recently, prior to admission, some perineal and vaginal numbness as well as difficulty with urination. She said that since her admission those problems had improved and that pain was the major factor. PAST MEDICAL HISTORY: Berkley thyroiditis, PCOS, hypertension, HLD. SOCIAL HISTORY: She does not smoke or use alcohol or use drugs. MEDICATIONS: Available and on the chart, see the MRAD. They are noncontributory. ALLERGIES: SHE IS ALLERGIC TO PIPERACILLIN, TAZOBACTAM AND VANCOMYCIN. REVIEW OF SYSTEMS: A 12 points was performed and was negative other than outlined above. PHYSICAL EXAMINATION: GENERAL: She is supine in bed, head of bed is elevated about 20 degrees. She is pleasant, alert, cooperative, a good historian. NEUROLOGIC: Her strength was 5/5 in upper and lower extremities bilaterally. On sensory examination, she was intact to light touch except for subjective decrease in the left lateral leg and foot. Straight leg raising on the right side was negative, straight leg raise on the left with simple straightening of her leg and dorsiflexing her foot for strength testing caused significant radicular symptoms, which would radiate into the left leg. BACK: Examination of the lumbar spine, there is diffuse tenderness throughout the lower lumbar spine, which is moderate. Paraspinal muscle bulk and strength I felt were normal. There is no ecchymosis. EXTREMITIES: There was full range of motion of her lower extremities bilaterally. IMAGING: I reviewed a lumbar MRI scan and compared it to one done a few weeks ago. On that MRI there is a large posterior central disc herniation at L4-L5 with significant stenosis. When compared to the previous scan done a few weeks earlier and to my eye the stenosis has worsened very slightly, although that is not reported. IMPRESSION: Severe lumbar spinal stenosis with at least past bladder difficulty and perineal numbness with severe radiculopathy. RECOMMENDATIONS: I would like to start some steroids and get Rehab Medicine involved. Based on the severity of her symptoms, I think there is little option but to consider lumbar surgery. I did discuss this with her and explained that the surgery for this problem requires a big exposure and bigger approach to safely remove the large central disc and that not infrequently patients with central disc herniations, although their leg pain can be controlled, can have problems with chronic back pain in postoperative period. I outlined the operation, I outlined the risks including injury to the nerves for bowel and bladder function. I explained the technique in detail. I spoke about the postoperative course. JHONATHAN ALMONTE MD DR: BREANNE/francois JOB#: [id number] / [id number] HERB
[2018-11-13 03:00] VITALS: BP 101/54
[2018-11-13] MEDS: HYDROcodone/APAP 7.5/325MG 1 TAB TABLET PO PRN ×2 (03:47→11:06)
--- NOTE | 2018-11-13 03:49 | NUR ---
[facility] down till 0220. Lortab 7.5 given po for c/o "back stiffness."
--- NOTE | 2018-11-13 05:00 | NUR ---
"Lortab didn't help at all." Dilaudid given IVP. Assisted to BSC, moves slowly and painfully. Small amount bloody drainage present to incision dressing. Fresh cold gel pack applied.
[2018-11-13] MEDS: HYDROmorphone 2 MG/ML VIAL IV PRN ×3 (05:04→23:48)
[2018-11-13 07:15] VITALS: BP 132/75
[2018-11-13] MEDS: PATCH REMOVAL. MC SCH ×2 (08:01→20:39)
[2018-11-13] MEDS: VARENICLINE 0.5 MG TABLET. PO SCH ×3 (08:02→20:31)
[2018-11-13] MEDS: IV RINGERS,LACTATED 1000ML 1,000 ML IV SCH ×2 (08:02→08:10)
[2018-11-13] MEDS: SENNOSIDES/DOCUSATE 8.6/50MG TABLET. PO SCH ×3 (08:02→20:30)
[2018-11-13] MEDS: methylPREDNISolone 4 MG TABLET. PO SCH ×4 (08:02→20:30)
[2018-11-13] MEDS: KETOROLAC 30 MG/ML VIAL. IV PRN ×2 (08:03→18:16)
[2018-11-13] MEDS: oxyCODONE/APAP 5/325 1 TAB TABLET PO PRN (08:04)
[2018-11-13] MEDS: ASCORBIC ACID 500 MG TABLET PO SCH (08:04)
[2018-11-13] MEDS: METHOCARBAMOL 500 MG TABLET PO SCH ×2 (08:04→20:31)
[2018-11-13] MEDS: PRENATAL MULTIVITAMIN TABLET. PO SCH (08:05)
--- NOTE | 2018-11-13 08:11 | NUR ---
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 See paper documentation.
[2018-11-13] MEDS: LIDOCAINE (700MG/PATCH) PATCH. TD SCH (09:46)
[2018-11-13] MEDS: BISACODYL 5 MG TABLET.DR. PO PRN (09:48)
--- NOTE | 2018-11-13 09:55 | PDOC ---
PROGRESS NOTES Subjective Subjective She admits easing of radiating pain to left lower extremity but admits soreness in her low back and constipation persists. Objective Objective Vital Signs Date Time Temp Pulse Resp B/P (MAP) Pulse Ox O2 Delivery O2 Flow Rate FiO2 11/13/18 09:47 Room Air 11/13/18 07:15 97.8 71 20 132/75 (94) 96 97.8 11/13/18 03:00 2.0 Intake and Output 11/13/18 07:00 Intake Total 2050 ml Output Total 30 ml Balance 2020 ml IV Total 2050 ml Estimated Blood Loss 30 ml # Voids 3 Physical Exam Physical Exam She is supine in bed and in no acute distress and she is getting up to use commode and continues with relative weakness of left big toe dorsiflexion. Plan Plan of Long-Term when her constipation is relieved and pain under control,hopefully tomorrow. Comment Review of Relevant I have reviewed the following items jeff (where applicable) has been applied. Labs Laboratory Tests Test 11/11/18 17:00 11/12/18 04:05 Urine Test Negative (NEG) White Blood Count 11.1 x10^3/uL (4.0-11.0) Red Blood Count 4.37 x10^6/uL (3.50-5.40) Hemoglobin 12.8 g/dL (12.0-15.5) Hematocrit 38.6 % (36.0-47.0) Mean Corpuscular Volume 89 fL (79-100) Mean Corpuscular Hemoglobin 29 pg (25-35) Mean Corpuscular Hemoglobin Concent 33 g/dL (31-37) Red Cell Distribution Width 14.1 % (11.5-14.5) Platelet Count 380 x10^3/uL (140-400) Neutrophils (%) (Auto) 56 % (31-73) Lymphocytes (%) (Auto) 36 % (24-48) Monocytes (%) (Auto) 7 % (0-9) Eosinophils (%) (Auto) 1 % (0-3) Basophils (%) (Auto) 1 % (0-3) Neutrophils # (Auto) 6.2 x10^3uL (1.8-7.7) Lymphocytes # (Auto) 4.0 x10^3/uL (1.0-4.8) Monocytes # (Auto) 0.8 x10^3/uL (0.0-1.1) Eosinophils # (Auto) 0.1 x10^3/uL (0.0-0.7) Basophils # (Auto) 0.1 x10^3/uL (0.0-0.2) Sodium Level 138 mmol/L (136-145) Potassium Level 4.6 mmol/L (3.5-5.1) Chloride Level 102 mmol/L (98-107) Carbon Dioxide Level 24 mmol/L (21-32) Anion Gap 12 (6-14) Blood Urea Nitrogen 8 mg/dL (7-20) Creatinine 0.8 mg/dL (0.6-1.0) Estimated GFR (Cockcroft-Gault) 83.1 BUN/Creatinine Ratio 10 (6-20) Glucose Level 144 mg/dL (70-99) Calcium Level 9.2 mg/dL (8.5-10.1) Total Bilirubin 0.2 mg/dL (0.2-1.0) Aspartate Amino Transf (AST/SGOT) 33 U/L (15-37) Alanine Aminotransferase (ALT/SGPT) 103 U/L (14-59) Alkaline Phosphatase 55 U/L (46-116) Total Protein 7.5 g/dL (6.4-8.2) Albumin 3.6 g/dL (3.4-5.0) Albumin/Globulin Ratio 0.9 (1.0-1.7) Microbiology 11/09/18 Urine Culture - Final, Complete 11/09/18 Urine Culture Result 1 (MARIPOSA) - Final, Complete Medications Current Medications Ondansetron HCl (Zofran) 4 mg PRN Q6HRS PRN IV NAUSEA/VOMITING Last administered on 11/10/18at 13:55; Start 11/09/18 at 16:30 Prochlorperazine Edisylate (Compazine) 10 mg PRN Q6HRS PRN IV NAUSEA/VOMITING 2ND CHOICE; Start 11/09/18 at 16:30 Zolpidem Tartrate (Ambien) 5 mg PRN QHS PRN PO INSOMNIA, MAY REPEAT IN 1HR Last administered on 11/11/18at 00:01; Start 11/09/18 at 16:30 Morphine Sulfate (Morphine Sulfate) 1 mg PRN Q1HR PRN IV PAIN Last administered on 11/09/18 21:19; Start 11/09/18 at 16:30; Stop 11/09/18 at 21:23; Status DC Oxycodone/ Acetaminophen (Percocet 5/325) 1 tab PRN Q4HRS PRN PO MILD PAIN, 1ST CHOICE Last administered on 11/13/18 08:04; Start 11/09/18 at 16:30 Senna/Docusate Sodium (Senna Plus) 1 tab BID PO Last administered on 11/13/18 08:03; Start 11/09/18 at 21:00 Magnesium Hydroxide (Milk Of Magnesia) 2,400 mg PRN Q12HR PRN PO CONSTIPATION ( 1st Choice); Start 11/09/18 at 16:30 Heparin Sodium (Porcine) (Heparin Sodium) 5,000 unit Q8HRS SQ Last administered on 11/11/18 06:12; Start 11/09/18 at 17:00; Stop 11/11/18 at 11:45 ; Status DC Acetaminophen/ Hydrocodone Bitart (Lortab 7.5/325) 1 tab PRN Q6HRS PRN PO MODERAETE PAIN Last administered on 11/13/18 03:47; Start 11/09/18 at 16:30 Methocarbamol (Robaxin) 1,000 mg BID PO Last administered on 11/13/18 08:04; Start 11/09/18 at 21:00 Metformin HCl (Glucophage) 500 mg BIDWMEALS PO ; Start 11/09/18 at 17:00; Stop at 16:48; Status DC Multivit/ Folic Acid/Iron (Multivitamin ) 1 tab DAILY PO Last administered on 11/13/18 08:05; Start 11/09/18 at 17:00 Varenicline (Chantix) 1 mg BID PO Last administered on 11/13/18 08:04; Start 11/09/18 at 21:00 Insulin Human Lispro (HumaLOG) 0-5 UNITS TIDWMEALS SQ ; Start 11/09/18 at 17:00; Stop 11/09/18 at 18:26; Status DC Dextrose (Dextrose 50%-Water Syringe) 12.5 gm PRN Q15MIN PRN IV SEE COMMENTS; Start 11/09/18 at 16:30 Gadobutrol (Gadavist) 10 mmol 1X ONCE IV Last administered on 11/09/18 19:02; Start 11/09/18 at 18:45; Stop 11/09/18 at 18:46; Status DC Morphine Sulfate (Morphine Sulfate) 2 mg PRN Q1HR PRN IV PAIN Last administered on 11/10/18 11:16; Start 11/09/18 at 21:30; Stop 11/10/18 at 16:46; Status DC Hydromorphone HCl (Dilaudid) 2 mg 1X ONCE IV Last administered on 11/09/18 23: 56; Start 11/09/18 at 23:45; Stop 11/09/18 at 23:46; Status DC Hydromorphone HCl (Dilaudid) 2 mg PRN Q4HRS PRN IV PAIN Last administered on 05:04; Start 11/10/18 at 08:30 Diphenhydramine HCl (Benadryl) 25 mg PRN Q8HRS PRN PO ITCHING Last administered on 11/11/18 10:40; Start 11/10/18 at 09:15; Stop 11/11/18 at 17:14 ; Status DC Methylprednisolone (Medrol) 8 mg BID PO Last administered on 11/10/18 19:53; Start 11/10/18 at 14:00; Stop 11/10/18 at 21:01; Status DC Methylprednisolone (Medrol) 4 mg BIDPCLD PO Last administered on 11/10/18 17:08 ; Start 11/10/18 at 14:00; Stop 11/10/18 at 17:31; Status DC Methylprednisolone (Medrol) 4 mg TIDPC PO Last administered on 11/11/18 17:38 ; Start 11/11/18 at 08:30; Stop 11/11/18 at 17:31; Status DC Methylprednisolone (Medrol) 8 mg QHS PO Last administered on 11/11/18 21:07; Start 11/11/18 at 21:00; Stop 11/11/18 at 21:01; Status DC Methylprednisolone (Medrol) 4 mg QIDAFTMEAL PO Last administered on 11/12/18 18:15; Start 11/12/18 at 09:00; Stop 11/12/18 at 21:01; Status DC Methylprednisolone (Medrol) 4 mg TID PO Last administered on 11/13/18at 08:04; Start 11/13/18 at 09:00; Stop 11/13/18 at 21:01 Methylprednisolone (Medrol) 4 mg BID PO ; Start 11/14/18 at 09:00; Stop at 21:01 Methylprednisolone (Medrol) 4 mg DAILY PO ; Start 11/15/18 at 09:00; Stop at 09:01 Clindamycin Phosphate 50 ml @ 100 mls/hr 1X PREOP IV ; Start 11/12/18 at 11:45 ; Stop 11/12/18 at 18:00; Status UNV Clindamycin Phosphate 50 ml @ 100 mls/hr 1X PREOP PRN IV PRIOR TO PROCEDURE Last administered on 11/12/18at 12:16; Start 11/12/18 at 06:00; Stop 11/12/18 at 18:00; Status DC Lidocaine (Lidoderm) 1 patch DAILY TD Last administered on 11/11/18at 16:44; Start 11/11/18 at 16:30 Miscellaneous (Lidoderm Patch Removal) 1 ea QHS MC Last administered on at 21:00; Start 11/11/18 at 21:00 Ketorolac Tromethamine (Toradol 30mg Vial) 30 mg Q8HRS PRN IV PAIN Last administered on 11/13/18at 08:03; Start 11/11/18 at 16:15; Stop 11/16/18 at 16:14 Hydromorphone HCl (Dilaudid) 1 mg 1X ONCE IV Last administered on 11/11/18at 17 :37; Start 11/11/18 at 17:00; Stop 11/11/18 at 17:01; Status DC Diphenhydramine HCl (Benadryl Oral Elixir) 37.5 mg PRN Q8HRS PRN PO ITCHING Last administered on 11/11/18at 21:07; Start 11/11/18 at 17:15 Temazepam (Restoril) 15 mg PRN QHS PRN PO INSOMNIA Last administered on at 21:08; Start 11/11/18 at 19:30 Bacitracin 75740 unit/Sodium Chloride 1,000 ml @ 1,000 mls/hr 1X ONCE IRR Last administered on 11/12/18 12:38; Start 11/12/18 at 08:00; Stop 11/12/18 at 08:59; Status DC Gelatin (Gelfoam Size 100) 1 each STK-MED ONCE .ROUTE Last administered on 12:38; Start 11/12/18 at 07:26; Stop 11/12/18 at 07:28; Status DC Bupivacaine HCl/ Epinephrine Bitart (Sensorcain-Mpf Epi 0.5%-1:330021) 30 ml STK -MED ONCE .ROUTE Last administered on 11/12/18 12:38; Start 11/12/18 at 07:26 ; Stop 11/12/18 at 07:28; Status DC Ketorolac Tromethamine (Toradol For Or Only) 60 mg STK-MED ONCE .ROUTE Last administered on 11/12/18 12:38; Start 11/12/18 at 07:26; Stop 11/12/18 at 07:28 ; Status DC Thrombin 20,000 unit STK-MED ONCE TP Last administered on 11/12/18 12:38; Start 11/12/18 at 07:26; Stop 11/12/18 at 07:28; Status DC Rocuronium Dorset (Zemuron) 50 mg STK-MED ONCE .ROUTE ; Start 11/12/18 at 10:20 ; Stop 11/12/18 at 10:23; Status DC Remifentanil HCl (Ultiva) 2 mg STK-MED ONCE IV ; Start 11/12/18 at 10:21; Stop 11/12/18 at 10:23; Status DC Midazolam HCl (Versed) 2 mg STK-MED ONCE .ROUTE ; Start 11/12/18 at 10:21; Stop 11/12/18 at 10:23; Status DC Fentanyl Citrate (Fentanyl 5ml Vial) 250 mcg STK-MED ONCE .ROUTE ; Start at 10:21; Stop 11/12/18 at 10:23; Status DC Dexamethasone Sodium Phosphate (Decadron) 20 mg STK-MED ONCE .ROUTE ; Start 08/20 at 10:22; Stop 11/12/18 at 10:24; Status DC Ondansetron HCl (Zofran) 4 mg STK-MED ONCE .ROUTE ; Start 11/12/18 at 10:22; Stop 11/12/18 at 10:24; Status DC Phenylephrine HCl (Ubaldo-Synephrine Inj) 10 mg STK-MED ONCE .ROUTE ; Start at 10:22; Stop 11/12/18 at 10:24; Status DC Phenylephrine HCl (Ubaldo-Synephrine Inj) 10 mg STK-MED ONCE .ROUTE ; Start at 10:22; Stop 11/12/18 at 10:24; Status DC Propofol 20 ml @ As Directed STK-MED ONCE IV ; Start 11/12/18 at 10:22; Stop 08/20 at 10:25; Status DC Propofol 50 ml @ As Directed STK-MED ONCE IV ; Start 11/12/18 at 10:22; Stop 08/20 at 10:25; Status DC Lidocaine HCl (Lidocaine Pf 2% Vial) 5 ml STK-MED ONCE .ROUTE ; Start 11/12/18 at 10:22; Stop 11/12/18 at 10:25; Status DC Ascorbic Acid (Vitamin C) 500 mg DAILY PO Last administered on 11/13/18at 08:04 ; Start 11/12/18 at 12:00 Bisacodyl (Dulcolax Tab) 5 mg PRN DAILY PRN PO CONSTIPATION (2nd Choice); Start 11/12/18 at 11:30 Propofol 50 ml @ As Directed STK-MED ONCE IV ; Start 11/12/18 at 14:12; Stop 08/20 at 14:14; Status DC Remifentanil HCl (Ultiva) 1 mg STK-MED ONCE IV ; Start 11/12/18 at 14:34; Stop 11/12/18 at 14:36; Status DC Fentanyl Citrate (Fentanyl 2ml Vial) 100 mcg STK-MED ONCE .ROUTE ; Start at 15:31; Stop 11/12/18 at 15:33; Status DC Fentanyl Citrate (Fentanyl 2ml Vial) 100 mcg STK-MED ONCE .ROUTE ; Start at 15:35; Stop 11/12/18 at 15:37; Status DC Ketamine HCl (Ketamine) 50 mg STK-MED ONCE .ROUTE ; Start 11/12/18 at 15:38; Stop 11/12/18 at 15:40; Status DC Midazolam HCl (Versed) 2 mg STK-MED ONCE .ROUTE ; Start 11/12/18 at 15:41; Stop 11/12/18 at 15:43; Status DC Desflurane (Suprane) 90 ml STK-MED ONCE IH ; Start 11/12/18 at 15:48; Stop 11/12 at 15:49; Status DC Fentanyl Citrate (Fentanyl 2ml Vial) 25 mcg PRN Q5MIN PRN IV MILD PAIN; Start 11/12/18 at 16:00; Stop 11/12/18 at 20:00; Status DC Fentanyl Citrate (Fentanyl 2ml Vial) 50 mcg PRN Q5MIN PRN IV MODERATE TO SEVERE PAIN; Start 11/12/18 at 16:00; Stop 11/12/18 at 20:00; Status DC Morphine Sulfate (Morphine Sulfate) 2 mg PRN Q10MIN PRN IV MILD PAIN Last administered on 11/12/18at 16:54; Start 11/12/18 at 16:00; Stop 11/12/18 at 20:00 ; Status DC Morphine Sulfate (Morphine Sulfate) 4 mg PRN Q10MIN PRN IV Moderate to Severe Pain; Start 11/12/18 at 16:00; Stop 11/12/18 at 20:00; Status DC Hydromorphone HCl (Dilaudid) 0.5 mg PRN Q10MIN PRN IV Moderate to severe pain; Start 11/12/18 at 16:00; Stop 11/12/18 at 20:00; Status DC Ondansetron HCl (Zofran) 4 mg PRN Q6HRS PRN IV Nausea, 1st Choice; Start at 16:00; Stop 11/12/18 at 20:00; Status DC Diphenhydramine HCl (Benadryl) 12.5 mg PRN Q4HRS PRN IV Nausea/Vomiting, 1st Choice; Start 11/12/18 at 16:00; Stop 11/13/18 at 15:59; Status UNV Prochlorperazine Edisylate (Compazine) 5 mg PRN Q6HRS PRN IV Nausea/Vomiting, 1st Choice Last administered on 11/12/18at 16:53; Start 11/12/18 at 16:00; Stop 11/12/18 at 20:00; Status DC Ondansetron HCl (Zofran) 4 mg PRN Q6HRS PRN IV Nausea, 2nd Choice; Start at 16:00; Stop 11/13/18 at 15:59; Status UNV Diphenhydramine HCl (Benadryl) 12.5 mg PRN Q4HRS PRN IV Nausea/Vomiting, 2nd Choice; Start 11/12/18 at 16:00; Stop 11/12/18 at 20:00; Status DC Prochlorperazine Edisylate (Compazine) 5 mg PRN Q6HRS PRN IV Nausea/Vomiting, 2nd Choice; Start 11/12/18 at 16:00; Stop 11/13/18 at 15:59; Status UNV Ondansetron HCl (Zofran) 4 mg PRN Q6HRS PRN IV Nausea, 3rd Choice; Start at 16:00; Stop 11/13/18 at 15:59; Status UNV Prochlorperazine Edisylate (Compazine) 5 mg PRN Q6HRS PRN IV Nausea/Vomiting, 3rd Choice; Start 11/12/18 at 16:00; Stop 11/13/18 at 15:59; Status UNV Morphine Sulfate (Morphine Sulfate) 4 mg STK-MED ONCE .ROUTE ; Start 11/12/18 at 15:55; Stop 11/12/18 at 15:57; Status DC Ringer's Solution 1,000 ml @ 100 mls/hr Q10H IV Last administered on at 17:31; Start 11/12/18 at 12:00 Active Scripts Active Reported Chantix (Varenicline Tartrate) 1 Mg Tablet 1 Mg PO BID Robaxin (Methocarbamol) 500 Mg Tablet 2 Tab PO BID Hydrocodone-Apap 7.5-325 (Hydrocodone Bit/Acetaminophen) 1 Tab Tablet 1-2 Tab PO PRN Q6HRS PRN Diclofenac Sodium 50 Mg Tablet.dr 1 Tab PO BID Tablet (Pnv Cmb#95/Ferrous Fumarate/Fa) 1 Each Tablet 1 Tab PO DAILY Metformin Hcl Er (Metformin Hcl) 500 Mg Tab.er.24h 500 Mg PO BIDWMEALS Simvastatin 10 Mg Tablet 1 Tab PO QHS Lisinopril 40 Mg Tablet 1 Tab PO DAILY Vitals/I & O Vital Sign - Last 24 Hours 11/12/18 11/12/18 11/12/18 11/12/18 10:40 10:48 10:50 11:28 Temp 98.0 98.2 98.0 98.2 Pulse 95 82 Resp 16 17 B/P (MAP) 136/90 (105) 119/80 Pulse Ox 96 98 O2 Delivery Room Air Room Air Room Air Room Air 11/12/18 11/12/18 11/12/18 11/12/18 15:26 15:30 15:42 15:57 Temp 98.2 98.2 98.2 98.2 98.2 98.2 Pulse 113 92 76 Resp 16 17 17 B/P (MAP) 152/77 155/84 139/80 Pulse Ox 100 100 100 O2 Delivery Room Air Mask Simple Mask Simple Mask O2 Flow Rate 10 10 10 10 11/12/18 11/12/18 11/12/18 11/12/18 16:12 16:27 16:41 16:42 Temp 98.2 98.2 98.2 98.2 98.2 98.2 Pulse 76 80 86 Resp 16 18 20 18 B/P (MAP) 128/68 132/73 126/81 Pulse Ox 100 100 98 98 O2 Delivery Simple Mask Nasal Cannula Nasal Cannula Simple Mask O2 Flow Rate 10 3 3.0 3.0 11/12/18 11/12/18 11/12/18 11/12/18 16:54 16:57 17:12 17:24 Temp 98.2 98.2 98.2 98.2 Pulse 74 70 Resp 19 18 B/P (MAP) 105/52 106/49 Pulse Ox 98 97 98 97 O2 Delivery Room Air Nasal Cannula Simple Mask Nasal Cannula O2 Flow Rate 3.0 3.0 3.0 2.0 11/12/18 11/12/18 11/12/18 11/12/18 17:27 17:45 18:00 18:15 Temp 98.2 98.2 Pulse 68 95 80 Resp 18 18 18 B/P (MAP) 98/51 98/50 (66) 108/65 (79) Pulse Ox 97 98 98 O2 Delivery Nasal Cannula Nasal Cannula Nasal Cannula Nasal Cannula O2 Flow Rate 2.0 2.0 2.0 3.0 11/12/18 11/12/18 11/12/1819 18:15 18:30 18:31 19:00 Temp 97.6 97.6 Pulse 73 70 90 Resp 18 18 18 B/P (MAP) 121/61 (81) 110/58 (75) 129/76 (93) Pulse Ox 99 98 98 O2 Delivery Nasal Cannula Nasal Cannula Nasal Cannula O2 Flow Rate 2.0 2.0 3.0 2.0 11/13/18 11/13/18 11/13/18 11/13/18 03:00 03:47 05:04 07:15 Temp 98.0 97.8 98.0 97.8 Pulse 75 71 Resp 18 20 24 20 B/P (MAP) 101/54 (70) 132/75 (94) Pulse Ox 96 96 O2 Delivery Nasal Cannula Room Air Room Air O2 Flow Rate 2.0 11/13/18 11/13/18 11/13/18 11/13/18 08:00 08:04 08:10 09:47 O2 Delivery Room Air Room Air Room Air Room Air Intake and Output 11/12/18 11/12/18 11/13/18 15:00 23:00 07:00 Intake Total 2050 ml Output Total 30 ml Balance 2020 ml KODY PEREYRA MD Nov 13, 2018 09:55
--- NOTE | 2018-11-13 10:18 | PDOC ---
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 denies any incontinence. Is scheduled to see Dr. Jones on Monday for inital visit. patient sent from [place] ED. no imaging done in ER. patient states no relief with muscle relaxers, pain meds at home. can ambulate but very gingerly. unable to lay flat or sit bc of the pain. given acute worsening of pain she came for further evaluation. patient takes pre-lesvia vitamins but states not . LMP 2 weeks ago At L4-5, there is a large central disc extrusion. Central canal stenosis is moderate to severe. It measures 11 mm anteroposteriorly. pain control very challenging. requiring IV morphine, dilaudid with minimal improvement. asking for benadryl due to itching. neuro sx has been consulted. 11/12 microdiscectomy L4-5 DATE OF SURGERY: 11/12/2018 PREOPERATIVE DIAGNOSES: Severe lumbar spinal stenosis with severe radiculopathy, L4-L5 from a large central disk herniation. POSTOPERATIVE DIAGNOSES: Severe lumbar spinal stenosis with severe radiculopathy, L4-L5 from a large central disk herniation. OPERATION PERFORMED: Lumbar laminectomy at L4-L5 with bilateral lumbar microdecompression/microdiskectomy. The operation was done with EMG monitoring, fluoroscopy and microscopic dissection. History of Present Illness History of Present Illness ASSESSMENT Low Back Pain with lumbar Radiculopathy with large central disc extrusion at L4- 5 results in moderate to severe central canal stenosis and effacement of the thecal sac. HTN Hx of PCOS Hx of Hashimotos Thyroiditis HLD PLAN MRI lumbar spine: 1. A large central disc extrusion at L4-5 results in moderate to severe central canal stenosis and effacement of the thecal sac. 2. Small central protrusions at L3-4 and L5-S1 do not result in stenosis. IV morphine and dilaudid for pain control continue muscle relaxers continue home meds CBC stable continue home statin therapy Neurosx consulted full code dvt ppx: heparin Vitals Vitals Vital Signs Date Time Temp Pulse Resp B/P (MAP) Pulse Ox O2 Delivery O2 Flow Rate FiO2 11/13/18 09:48 Room Air 11/13/18 07:15 97.8 71 20 132/75 (94) 96 97.8 11/13/18 03:00 2.0 Physical Exam Physical Exam GENERAL: in pain HEENT: Head normocephalic, atraumatic. NECK: Supple LUNGS: Clear to auscultation. HEART: RRR, S1, S2 present, pulses intact ABDOMEN: Soft, positive bowel sounds. EXTREMITIES: No cyanosis or edema. NEUROLOGIC: Normal speech, normal tone PSYCHIATRIC: Normal affect, normal mood. SKIN: No ulceration. General: Alert, Oriented X3, Cooperative, No acute distress, moderate distress Heart: Regular rate, Normal S1, Normal S2, No murmurs Lungs: Clear Abdomen: Normal bowel sounds, Soft, No tenderness Extremities: No clubbing, No cyanosis, No edema Skin: No significant lesion Comment Review of Relevant I have reviewed the following items jeff (where applicable) has been applied. Labs Laboratory Tests Test 11/11/18 17:00 11/12/18 04:05 Urine Test Negative (NEG) White Blood Count 11.1 x10^3/uL (4.0-11.0) Red Blood Count 4.37 x10^6/uL (3.50-5.40) Hemoglobin 12.8 g/dL (12.0-15.5) Hematocrit 38.6 % (36.0-47.0) Mean Corpuscular Volume 89 fL (79-100) Mean Corpuscular Hemoglobin 29 pg (25-35) Mean Corpuscular Hemoglobin Concent 33 g/dL (31-37) Red Cell Distribution Width 14.1 % (11.5-14.5) Platelet Count 380 x10^3/uL (140-400) Neutrophils (%) (Auto) 56 % (31-73) Lymphocytes (%) (Auto) 36 % (24-48) Monocytes (%) (Auto) 7 % (0-9) Eosinophils (%) (Auto) 1 % (0-3) Basophils (%) (Auto) 1 % (0-3) Neutrophils # (Auto) 6.2 x10^3uL (1.8-7.7) Lymphocytes # (Auto) 4.0 x10^3/uL (1.0-4.8) Monocytes # (Auto) 0.8 x10^3/uL (0.0-1.1) Eosinophils # (Auto) 0.1 x10^3/uL (0.0-0.7) Basophils # (Auto) 0.1 x10^3/uL (0.0-0.2) Sodium Level 138 mmol/L (136-145) Potassium Level 4.6 mmol/L (3.5-5.1) Chloride Level 102 mmol/L (98-107) Carbon Dioxide Level 24 mmol/L (21-32) Anion Gap 12 (6-14) Blood Urea Nitrogen 8 mg/dL (7-20) Creatinine 0.8 mg/dL (0.6-1.0) Estimated GFR (Cockcroft-Gault) 83.1 BUN/Creatinine Ratio 10 (6-20) Glucose Level 144 mg/dL (70-99) Calcium Level 9.2 mg/dL (8.5-10.1) Total Bilirubin 0.2 mg/dL (0.2-1.0) Aspartate Amino Transf (AST/SGOT) 33 U/L (15-37) Alanine Aminotransferase (ALT/SGPT) 103 U/L (14-59) Alkaline Phosphatase 55 U/L (46-116) Total Protein 7.5 g/dL (6.4-8.2) Albumin 3.6 g/dL (3.4-5.0) Albumin/Globulin Ratio 0.9 (1.0-1.7) Microbiology 11/09/18 Urine Culture - Final, Complete 11/09/18 Urine Culture Result 1 (MARIPOSA) - Final, Complete Medications Current Medications Ondansetron HCl (Zofran) 4 mg PRN Q6HRS PRN IV NAUSEA/VOMITING Last administered on 11/10/18at 13:55; Start 11/09/18 at 16:30 Prochlorperazine Edisylate (Compazine) 10 mg PRN Q6HRS PRN IV NAUSEA/VOMITING 2ND CHOICE; Start 11/09/18 at 16:30 Zolpidem Tartrate (Ambien) 5 mg PRN QHS PRN PO INSOMNIA, MAY REPEAT IN 1HR Last administered on 11/11/18at 00:01; Start 11/09/18 at 16:30 Morphine Sulfate (Morphine Sulfate) 1 mg PRN Q1HR PRN IV PAIN Last administered on 11/09/18at 21:19; Start 11/09/18 at 16:30; Stop 11/09/18 at 21:23; Status DC Oxycodone/ Acetaminophen (Percocet 5/325) 1 tab PRN Q4HRS PRN PO MILD PAIN, 1ST CHOICE Last administered on 11/13/18 08:04; Start 11/09/18 at 16:30 Senna/Docusate Sodium (Senna Plus) 1 tab BID PO Last administered on 11/13/18 08:03; Start 11/09/18 at 21:00 Magnesium Hydroxide (Milk Of Magnesia) 2,400 mg PRN Q12HR PRN PO CONSTIPATION ( 1st Choice); Start 11/09/18 at 16:30 Heparin Sodium (Porcine) (Heparin Sodium) 5,000 unit Q8HRS SQ Last administered on 11/11/18 06:12; Start 11/09/18 at 17:00; Stop 11/11/18 at 11:45 ; Status DC Acetaminophen/ Hydrocodone Bitart (Lortab 7.5/325) 1 tab PRN Q6HRS PRN PO MODERAETE PAIN Last administered on 11/13/18 03:47; Start 11/09/18 at 16:30 Methocarbamol (Robaxin) 1,000 mg BID PO Last administered on 11/13/18 08:04; Start 11/09/18 at 21:00 Metformin HCl (Glucophage) 500 mg BIDWMEALS PO ; Start 11/09/18 at 17:00; Stop at 16:48; Status DC Multivit/ Folic Acid/Iron (Multivitamin ) 1 tab DAILY PO Last administered on 11/13/18 08:05; Start 11/09/18 at 17:00 Varenicline (Chantix) 1 mg BID PO Last administered on 11/13/18 08:04; Start 11/09/18 at 21:00 Insulin Human Lispro (HumaLOG) 0-5 UNITS TIDWMEALS SQ ; Start 11/09/18 at 17:00; Stop 11/09/18 at 18:26; Status DC Dextrose (Dextrose 50%-Water Syringe) 12.5 gm PRN Q15MIN PRN IV SEE COMMENTS; Start 11/09/18 at 16:30 Gadobutrol (Gadavist) 10 mmol 1X ONCE IV Last administered on 11/09/18 19:02; Start 11/09/18 at 18:45; Stop 11/09/18 at 18:46; Status DC Morphine Sulfate (Morphine Sulfate) 2 mg PRN Q1HR PRN IV PAIN Last administered on 11/10/18 11:16; Start 11/09/18 at 21:30; Stop 11/10/18 at 16:46; Status DC Hydromorphone HCl (Dilaudid) 2 mg 1X ONCE IV Last administered on 11/09/18 23: 56; Start 11/09/18 at 23:45; Stop 11/09/18 at 23:46; Status DC Hydromorphone HCl (Dilaudid) 2 mg PRN Q4HRS PRN IV PAIN Last administered on 09:48; Start 11/10/18 at 08:30 Diphenhydramine HCl (Benadryl) 25 mg PRN Q8HRS PRN PO ITCHING Last administered on 11/11/18 10:40; Start 11/10/18 at 09:15; Stop 11/11/18 at 17:14 ; Status DC Methylprednisolone (Medrol) 8 mg BID PO Last administered on 11/10/18 19:53; Start 11/10/18 at 14:00; Stop 11/10/18 at 21:01; Status DC Methylprednisolone (Medrol) 4 mg BIDPCLD PO Last administered on 11/10/18 17:08 ; Start 11/10/18 at 14:00; Stop 11/10/18 at 17:31; Status DC Methylprednisolone (Medrol) 4 mg TIDPC PO Last administered on 11/11/18 17:38 ; Start 11/11/18 at 08:30; Stop 11/11/18 at 17:31; Status DC Methylprednisolone (Medrol) 8 mg QHS PO Last administered on 11/11/18 21:07; Start 11/11/18 at 21:00; Stop 11/11/18 at 21:01; Status DC Methylprednisolone (Medrol) 4 mg QIDAFTMEAL PO Last administered on 11/12/18 18:15; Start 11/12/18 at 09:00; Stop 11/12/18 at 21:01; Status DC Methylprednisolone (Medrol) 4 mg TID PO Last administered on 11/13/18 08:04; Start 11/13/18 at 09:00; Stop 11/13/18 at 21:01 Methylprednisolone (Medrol) 4 mg BID PO ; Start 11/14/18 at 09:00; Stop at 21:01 Methylprednisolone (Medrol) 4 mg DAILY PO ; Start 11/15/18 at 09:00; Stop at 09:01 Clindamycin Phosphate 50 ml @ 100 mls/hr 1X PREOP IV ; Start 11/12/18 at 11:45 ; Stop 11/12/18 at 18:00; Status UNV Clindamycin Phosphate 50 ml @ 100 mls/hr 1X PREOP PRN IV PRIOR TO PROCEDURE Last administered on 11/12/18 12:16; Start 11/12/18 at 06:00; Stop 11/12/18 at 18:00; Status DC Lidocaine (Lidoderm) 1 patch DAILY TD Last administered on 11/11/18 16:44; Start 11/11/18 at 16:30 Miscellaneous (Lidoderm Patch Removal) 1 ea QHS MC Last administered on 21:00; Start 11/11/18 at 21:00 Ketorolac Tromethamine (Toradol 30mg Vial) 30 mg Q8HRS PRN IV PAIN Last administered on 11/13/18 08:03; Start 11/11/18 at 16:15; Stop 11/16/18 at 16:14 Hydromorphone HCl (Dilaudid) 1 mg 1X ONCE IV Last administered on 11/11/18at 17 :37; Start 11/11/18 at 17:00; Stop 11/11/18 at 17:01; Status DC Diphenhydramine HCl (Benadryl Oral Elixir) 37.5 mg PRN Q8HRS PRN PO ITCHING Last administered on 11/11/18 21:07; Start 11/11/18 at 17:15 Temazepam (Restoril) 15 mg PRN QHS PRN PO INSOMNIA Last administered on 21:08; Start 11/11/18 at 19:30 Bacitracin 38724 unit/Sodium Chloride 1,000 ml @ 1,000 mls/hr 1X ONCE IRR Last administered on 11/12/18 12:38; Start 11/12/18 at 08:00; Stop 11/12/18 at 08:59; Status DC Gelatin (Gelfoam Size 100) 1 each STK-MED ONCE .ROUTE Last administered on 12:38; Start 11/12/18 at 07:26; Stop 11/12/18 at 07:28; Status DC Bupivacaine HCl/ Epinephrine Bitart (Sensorcain-Mpf Epi 0.5%-[id number]) 30 ml STK -MED ONCE .ROUTE Last administered on 11/12/18 12:38; Start 11/12/18 at 07:26 ; Stop 11/12/18 at 07:28; Status DC Ketorolac Tromethamine (Toradol For Or Only) 60 mg STK-MED ONCE .ROUTE Last administered on 11/12/18 12:38; Start 11/12/18 at 07:26; Stop 11/12/18 at 07:28 ; Status DC Thrombin 20,000 unit STK-MED ONCE TP Last administered on 11/12/18 12:38; Start 11/12/18 at 07:26; Stop 11/12/18 at 07:28; Status DC Rocuronium [place] (Zemuron) 50 mg STK-MED ONCE .ROUTE ; Start 11/12/18 at 10:20 ; Stop 11/12/18 at 10:23; Status DC Remifentanil HCl (Ultiva) 2 mg STK-MED ONCE IV ; Start 11/12/18 at 10:21; Stop 11/12/18 at 10:23; Status DC Midazolam HCl (Versed) 2 mg STK-MED ONCE .ROUTE ; Start 11/12/18 at 10:21; Stop 11/12/18 at 10:23; Status DC Fentanyl Citrate (Fentanyl 5ml Vial) 250 mcg STK-MED ONCE .ROUTE ; Start at 10:21; Stop 11/12/18 at 10:23; Status DC Dexamethasone Sodium Phosphate (Decadron) 20 mg STK-MED ONCE .ROUTE ; Start 08/20 at 10:22; Stop 11/12/18 at 10:24; Status DC Ondansetron HCl (Zofran) 4 mg STK-MED ONCE .ROUTE ; Start 11/12/18 at 10:22; Stop 11/12/18 at 10:24; Status DC Phenylephrine HCl (Ubaldo-Synephrine Inj) 10 mg STK-MED ONCE .ROUTE ; Start at 10:22; Stop 11/12/18 at 10:24; Status DC Phenylephrine HCl (Ubaldo-Synephrine Inj) 10 mg STK-MED ONCE .ROUTE ; Start at 10:22; Stop 11/12/18 at 10:24; Status DC Propofol 20 ml @ As Directed STK-MED ONCE IV ; Start 11/12/18 at 10:22; Stop 08/20 at 10:25; Status DC Propofol 50 ml @ As Directed STK-MED ONCE IV ; Start 11/12/18 at 10:22; Stop 08/20 at 10:25; Status DC Lidocaine HCl (Lidocaine Pf 2% Vial) 5 ml STK-MED ONCE .ROUTE ; Start 11/12/18 at 10:22; Stop 11/12/18 at 10:25; Status DC Ascorbic Acid (Vitamin C) 500 mg DAILY PO Last administered on 11/13/18at 08:04 ; Start 11/12/18 at 12:00 Bisacodyl (Dulcolax Tab) 5 mg PRN DAILY PRN PO CONSTIPATION (2nd Choice) Last administered on 11/13/18at 09:48; Start 11/12/18 at 11:30 Propofol 50 ml @ As Directed STK-MED ONCE IV ; Start 11/12/18 at 14:12; Stop 08/20 at 14:14; Status DC Remifentanil HCl (Ultiva) 1 mg STK-MED ONCE IV ; Start 11/12/18 at 14:34; Stop 11/12/18 at 14:36; Status DC Fentanyl Citrate (Fentanyl 2ml Vial) 100 mcg STK-MED ONCE .ROUTE ; Start at 15:31; Stop 11/12/18 at 15:33; Status DC Fentanyl Citrate (Fentanyl 2ml Vial) 100 mcg STK-MED ONCE .ROUTE ; Start at 15:35; Stop 11/12/18 at 15:37; Status DC Ketamine HCl (Ketamine) 50 mg STK-MED ONCE .ROUTE ; Start 11/12/18 at 15:38; Stop 11/12/18 at 15:40; Status DC Midazolam HCl (Versed) 2 mg STK-MED ONCE .ROUTE ; Start 11/12/18 at 15:41; Stop 11/12/18 at 15:43; Status DC Desflurane (Suprane) 90 ml STK-MED ONCE IH ; Start 11/12/18 at 15:48; Stop 11/12 at 15:49; Status DC Fentanyl Citrate (Fentanyl 2ml Vial) 25 mcg PRN Q5MIN PRN IV MILD PAIN; Start 11/12/18 at 16:00; Stop 11/12/18 at 20:00; Status DC Fentanyl Citrate (Fentanyl 2ml Vial) 50 mcg PRN Q5MIN PRN IV MODERATE TO SEVERE PAIN; Start 11/12/18 at 16:00; Stop 11/12/18 at 20:00; Status DC Morphine Sulfate (Morphine Sulfate) 2 mg PRN Q10MIN PRN IV MILD PAIN Last administered on 11/12/18at 16:54; Start 11/12/18 at 16:00; Stop 11/12/18 at 20:00 ; Status DC Morphine Sulfate (Morphine Sulfate) 4 mg PRN Q10MIN PRN IV Moderate to Severe Pain; Start 11/12/18 at 16:00; Stop 11/12/18 at 20:00; Status DC Hydromorphone HCl (Dilaudid) 0.5 mg PRN Q10MIN PRN IV Moderate to severe pain; Start 11/12/18 at 16:00; Stop 11/12/18 at 20:00; Status DC Ondansetron HCl (Zofran) 4 mg PRN Q6HRS PRN IV Nausea, 1st Choice; Start at 16:00; Stop 11/12/18 at 20:00; Status DC Diphenhydramine HCl (Benadryl) 12.5 mg PRN Q4HRS PRN IV Nausea/Vomiting, 1st Choice; Start 11/12/18 at 16:00; Stop 11/13/18 at 15:59; Status UNV Prochlorperazine Edisylate (Compazine) 5 mg PRN Q6HRS PRN IV Nausea/Vomiting, 1st Choice Last administered on 11/12/18at 16:53; Start 11/12/18 at 16:00; Stop 11/12/18 at 20:00; Status DC Ondansetron HCl (Zofran) 4 mg PRN Q6HRS PRN IV Nausea, 2nd Choice; Start at 16:00; Stop 11/13/18 at 15:59; Status UNV Diphenhydramine HCl (Benadryl) 12.5 mg PRN Q4HRS PRN IV Nausea/Vomiting, 2nd Choice; Start 11/12/18 at 16:00; Stop 11/12/18 at 20:00; Status DC Prochlorperazine Edisylate (Compazine) 5 mg PRN Q6HRS PRN IV Nausea/Vomiting, 2nd Choice; Start 11/12/18 at 16:00; Stop 11/13/18 at 15:59; Status UNV Ondansetron HCl (Zofran) 4 mg PRN Q6HRS PRN IV Nausea, 3rd Choice; Start at 16:00; Stop 11/13/18 at 15:59; Status UNV Prochlorperazine Edisylate (Compazine) 5 mg PRN Q6HRS PRN IV Nausea/Vomiting, 3rd Choice; Start 11/12/18 at 16:00; Stop 11/13/18 at 15:59; Status UNV Morphine Sulfate (Morphine Sulfate) 4 mg STK-MED ONCE .ROUTE ; Start 11/12/18 at 15:55; Stop 11/12/18 at 15:57; Status DC Ringer's Solution 1,000 ml @ 100 mls/hr Q10H IV Last administered on at 17:31; Start 11/12/18 at 12:00 Active Scripts Active Reported Chantix (Varenicline Tartrate) 1 Mg Tablet 1 Mg PO BID Robaxin (Methocarbamol) 500 Mg Tablet 2 Tab PO BID Hydrocodone-Apap 7.5-325 (Hydrocodone Bit/Acetaminophen) 1 Tab Tablet 1-2 Tab PO PRN Q6HRS PRN Diclofenac Sodium 50 Mg Tablet.dr 1 Tab PO BID Tablet (Pnv Cmb#95/Ferrous Fumarate/Fa) 1 Each Tablet 1 Tab PO DAILY Metformin Hcl Er (Metformin Hcl) 500 Mg Tab.er.24h 500 Mg PO BIDWMEALS Simvastatin 10 Mg Tablet 1 Tab PO QHS Lisinopril 40 Mg Tablet 1 Tab PO DAILY Vitals/I & O Vital Sign - Last 24 Hours 11/12/18 11/12/18 11/12/18 11/12/18 10:40 10:48 10:50 11:28 Temp 98.0 98.2 98.0 98.2 Pulse 95 82 Resp 16 17 B/P (MAP) 136/90 (105) 119/80 Pulse Ox 96 98 O2 Delivery Room Air Room Air Room Air Room Air 11/12/18 11/12/18 11/12/18 11/12/18 15:26 15:30 15:42 15:57 Temp 98.2 98.2 98.2 98.2 98.2 98.2 Pulse 113 92 76 Resp 16 17 17 B/P (MAP) 152/77 155/84 139/80 Pulse Ox 100 100 100 O2 Delivery Room Air Mask Simple Mask Simple Mask O2 Flow Rate 10 10 10 10 11/12/18 11/12/18 11/12/18 11/12/18 16:12 16:27 16:41 16:42 Temp 98.2 98.2 98.2 98.2 98.2 98.2 Pulse 76 80 86 Resp 16 18 20 18 B/P (MAP) 128/68 132/73 126/81 Pulse Ox 100 100 98 98 O2 Delivery Simple Mask Nasal Cannula Nasal Cannula Simple Mask O2 Flow Rate 10 3 3.0 3.0 11/12/18 11/12/18 11/12/18 11/12/18 16:54 16:57 17:12 17:24 Temp 98.2 98.2 98.2 98.2 Pulse 74 70 Resp 19 18 B/P (MAP) 105/52 106/49 Pulse Ox 98 97 98 97 O2 Delivery Room Air Nasal Cannula Simple Mask Nasal Cannula O2 Flow Rate 3.0 3.0 3.0 2.0 11/12/18 11/12/18 11/12/18 11/12/18 17:27 17:45 18:00 18:15 Temp 98.2 98.2 Pulse 68 95 80 Resp 18 18 18 B/P (MAP) 98/51 98/50 (66) 108/65 (79) Pulse Ox 97 98 98 O2 Delivery Nasal Cannula Nasal Cannula Nasal Cannula Nasal Cannula O2 Flow Rate 2.0 2.0 2.0 3.0 11/12/18 11/12/18 11/12/1811/12/19 18:15 18:30 18:31 19:00 Temp 97.6 97.6 Pulse 73 70 90 Resp 18 18 18 B/P (MAP) 121/61 (81) 110/58 (75) 129/76 (93) Pulse Ox 99 98 98 O2 Delivery Nasal Cannula Nasal Cannula Nasal Cannula O2 Flow Rate 2.0 2.0 3.0 2.0 11/13/18 11/13/18 11/13/18 11/13/18 03:00 03:47 05:04 07:15 Temp 98.0 97.8 98.0 97.8 Pulse 75 71 Resp 18 20 24 20 B/P (MAP) 101/54 (70) 132/75 (94) Pulse Ox 96 96 O2 Delivery Nasal Cannula Room Air Room Air O2 Flow Rate 2.0 11/13/18 11/13/18 11/13/18 11/13/18 08:00 08:04 08:10 09:47 O2 Delivery Room Air Room Air Room Air Room Air 11/13/18 09:48 O2 Delivery Room Air Intake and Output 11/12/18 11/12/18 11/13/18 15:00 23:00 07:00 Intake Total 2050 ml Output Total 30 ml Balance 2020 ml CRISTAL CABA MD Nov 13, 2018 10:18
[2018-11-13 11:12] VITALS: BP 110/57
[2018-11-13] MEDS ORDERED: oxyCODONE/APAP 7.5/325 1 TAB TABLET PO PRN (12:00)
--- NOTE | 2018-11-13 12:26 | NUR ---
SW following for discharge planning. Discussed with RN, RN advised possible discharge tomorrow. SW waiting on PT/OT for recommendations. SW will continue to follow.
[2018-11-13] MEDS: oxyCODONE/APAP 7.5/325 1 TAB TABLET PO PRN ×2 (12:38→16:19)
--- NOTE | 2018-11-13 13:20 | PDOC ---
PROGRESS NOTES Subjective Subjective POD #1 S/P laminectomy / microdiscectomy L4-5 leg pain has resolved c/o back/ incisional pain but improving now that she is up in chair Objective Objective Vital Signs Date Time Temp Pulse Resp B/P (MAP) Pulse Ox O2 Delivery O2 Flow Rate FiO2 11/13/18 12:38 Room Air 11/13/18 11:12 97.9 72 20 110/57 (74) 97 97.9 11/13/18 03:00 2.0 Intake and Output 11/13/18 06:59 Intake Total 2050 ml Output Total 30 ml Balance 2020 ml IV Total 2050 ml Estimated Blood Loss 30 ml # Voids 3 Physical Exam General: Alert, Oriented X3, Cooperative, No acute distress MUSCULOSKELETAL: Other (SCHMITT) Neuro: Normal speech Skin: Other (Dressing C,D,I, flat) Plan Plan of Care encouraged PO pain medication avoid IV Dilaudid encouraged increased activity as tolerated PT likely dc home tomorrow Comment Review of Relevant I have reviewed the following items jeff (where applicable) has been applied. Labs Laboratory Tests Test 11/11/18 17:00 11/12/18 04:05 Urine Test Negative (NEG) White Blood Count 11.1 x10^3/uL (4.0-11.0) Red Blood Count 4.37 x10^6/uL (3.50-5.40) Hemoglobin 12.8 g/dL (12.0-15.5) Hematocrit 38.6 % (36.0-47.0) Mean Corpuscular Volume 89 fL (79-100) Mean Corpuscular Hemoglobin 29 pg (25-35) Mean Corpuscular Hemoglobin Concent 33 g/dL (31-37) Red Cell Distribution Width 14.1 % (11.5-14.5) Platelet Count 380 x10^3/uL (140-400) Neutrophils (%) (Auto) 56 % (31-73) Lymphocytes (%) (Auto) 36 % (24-48) Monocytes (%) (Auto) 7 % (0-9) Eosinophils (%) (Auto) 1 % (0-3) Basophils (%) (Auto) 1 % (0-3) Neutrophils # (Auto) 6.2 x10^3uL (1.8-7.7) Lymphocytes # (Auto) 4.0 x10^3/uL (1.0-4.8) Monocytes # (Auto) 0.8 x10^3/uL (0.0-1.1) Eosinophils # (Auto) 0.1 x10^3/uL (0.0-0.7) Basophils # (Auto) 0.1 x10^3/uL (0.0-0.2) Sodium Level 138 mmol/L (136-145) Potassium Level 4.6 mmol/L (3.5-5.1) Chloride Level 102 mmol/L (98-107) Carbon Dioxide Level 24 mmol/L (21-32) Anion Gap 12 (6-14) Blood Urea Nitrogen 8 mg/dL (7-20) Creatinine 0.8 mg/dL (0.6-1.0) Estimated GFR (Cockcroft-Gault) 83.1 BUN/Creatinine Ratio 10 (6-20) Glucose Level 144 mg/dL (70-99) Calcium Level 9.2 mg/dL (8.5-10.1) Total Bilirubin 0.2 mg/dL (0.2-1.0) Aspartate Amino Transf (AST/SGOT) 33 U/L (15-37) Alanine Aminotransferase (ALT/SGPT) 103 U/L (14-59) Alkaline Phosphatase 55 U/L (46-116) Total Protein 7.5 g/dL (6.4-8.2) Albumin 3.6 g/dL (3.4-5.0) Albumin/Globulin Ratio 0.9 (1.0-1.7) Microbiology 11/09/18 Urine Culture - Final, Complete 11/09/18 Urine Culture Result 1 (MARIPOSA) - Final, Complete Medications Current Medications Ondansetron HCl (Zofran) 4 mg PRN Q6HRS PRN IV NAUSEA/VOMITING Last administered on 11/10/18at 13:55; Start 11/09/18 at 16:30 Prochlorperazine Edisylate (Compazine) 10 mg PRN Q6HRS PRN IV NAUSEA/VOMITING 2ND CHOICE; Start 11/09/18 at 16:30 Zolpidem Tartrate (Ambien) 5 mg PRN QHS PRN PO INSOMNIA, MAY REPEAT IN 1HR Last administered on 11/11/18at 00:01; Start 11/09/18 at 16:30 Morphine Sulfate (Morphine Sulfate) 1 mg PRN Q1HR PRN IV PAIN Last administered on 11/09/18 21:19; Start 11/09/18 at 16:30; Stop 11/09/18 at 21:23; Status DC Oxycodone/ Acetaminophen (Percocet 5/325) 1 tab PRN Q4HRS PRN PO MILD PAIN, 1ST CHOICE Last administered on 11/13/18 08:04; Start 11/09/18 at 16:30; Stop at 11:56; Status DC Senna/Docusate Sodium (Senna Plus) 1 tab BID PO Last administered on 11/13/18 08:03; Start 11/09/18 at 21:00 Magnesium Hydroxide (Milk Of Magnesia) 2,400 mg PRN Q12HR PRN PO CONSTIPATION ( 1st Choice); Start 11/09/18 at 16:30 Heparin Sodium (Porcine) (Heparin Sodium) 5,000 unit Q8HRS SQ Last administered on 11/11/18 06:12; Start 11/09/18 at 17:00; Stop 11/11/18 at 11:45 ; Status DC Acetaminophen/ Hydrocodone Bitart (Lortab 7.5/325) 1 tab PRN Q6HRS PRN PO MODERAETE PAIN Last administered on 11/13/18 11:06; Start 11/09/18 at 16:30; Stop 11/13/18 at 11:56; Status DC Methocarbamol (Robaxin) 1,000 mg BID PO Last administered on 11/13/18 08:04; Start 11/09/18 at 21:00 Metformin HCl (Glucophage) 500 mg BIDWMEALS PO ; Start 11/09/18 at 17:00; Stop at 16:48; Status DC Multivit/ Folic Acid/Iron (Multivitamin ) 1 tab DAILY PO Last administered on 11/13/18 08:05; Start 11/09/18 at 17:00 Varenicline (Chantix) 1 mg BID PO Last administered on 11/13/18 08:04; Start 11/09/18 at 21:00 Insulin Human Lispro (HumaLOG) 0-5 UNITS TIDWMEALS SQ ; Start 11/09/18 at 17:00; Stop 11/09/18 at 18:26; Status DC Dextrose (Dextrose 50%-Water Syringe) 12.5 gm PRN Q15MIN PRN IV SEE COMMENTS; Start 11/09/18 at 16:30 Gadobutrol (Gadavist) 10 mmol 1X ONCE IV Last administered on 11/09/18at 19:02; Start 11/09/18 at 18:45; Stop 11/09/18 at 18:46; Status DC Morphine Sulfate (Morphine Sulfate) 2 mg PRN Q1HR PRN IV PAIN Last administered on 11/10/18 11:16; Start 11/09/18 at 21:30; Stop 11/10/18 at 16:46; Status DC Hydromorphone HCl (Dilaudid) 2 mg 1X ONCE IV Last administered on 11/09/18 23: 56; Start 11/09/18 at 23:45; Stop 11/09/18 at 23:46; Status DC Hydromorphone HCl (Dilaudid) 2 mg PRN Q4HRS PRN IV PAIN Last administered on 09:48; Start 11/10/18 at 08:30 Diphenhydramine HCl (Benadryl) 25 mg PRN Q8HRS PRN PO ITCHING Last administered on 11/11/18 10:40; Start 11/10/18 at 09:15; Stop 11/11/18 at 17:14 ; Status DC Methylprednisolone (Medrol) 8 mg BID PO Last administered on 11/10/18 19:53; Start 11/10/18 at 14:00; Stop 11/10/18 at 21:01; Status DC Methylprednisolone (Medrol) 4 mg BIDPCLD PO Last administered on 11/10/18 17:08 ; Start 11/10/18 at 14:00; Stop 11/10/18 at 17:31; Status DC Methylprednisolone (Medrol) 4 mg TIDPC PO Last administered on 11/11/18 17:38 ; Start 11/11/18 at 08:30; Stop 11/11/18 at 17:31; Status DC Methylprednisolone (Medrol) 8 mg QHS PO Last administered on 11/11/18 21:07; Start 11/11/18 at 21:00; Stop 11/11/18 at 21:01; Status DC Methylprednisolone (Medrol) 4 mg QIDAFTMEAL PO Last administered on 11/12/18at 18:15; Start 11/12/18 at 09:00; Stop 11/12/18 at 21:01; Status DC Methylprednisolone (Medrol) 4 mg TID PO Last administered on 11/13/18at 08:04; Start 11/13/18 at 09:00; Stop 11/13/18 at 21:01 Methylprednisolone (Medrol) 4 mg BID PO ; Start 11/14/18 at 09:00; Stop at 21:01 Methylprednisolone (Medrol) 4 mg DAILY PO ; Start 11/15/18 at 09:00; Stop at 09:01 Clindamycin Phosphate 50 ml @ 100 mls/hr 1X PREOP IV ; Start 11/12/18 at 11:45 ; Stop 11/12/18 at 18:00; Status UNV Clindamycin Phosphate 50 ml @ 100 mls/hr 1X PREOP PRN IV PRIOR TO PROCEDURE Last administered on 11/12/18at 12:16; Start 11/12/18 at 06:00; Stop 11/12/18 at 18:00; Status DC Lidocaine (Lidoderm) 1 patch DAILY TD Last administered on 11/11/18at 16:44; Start 11/11/18 at 16:30 Miscellaneous (Lidoderm Patch Removal) 1 ea QHS MC Last administered on at 21:00; Start 11/11/18 at 21:00 Ketorolac Tromethamine (Toradol 30mg Vial) 30 mg Q8HRS PRN IV PAIN Last administered on 11/13/18at 08:03; Start 11/11/18 at 16:15; Stop 11/16/18 at 16:14 Hydromorphone HCl (Dilaudid) 1 mg 1X ONCE IV Last administered on 11/11/18at 17 :37; Start 11/11/18 at 17:00; Stop 11/11/18 at 17:01; Status DC Diphenhydramine HCl (Benadryl Oral Elixir) 37.5 mg PRN Q8HRS PRN PO ITCHING Last administered on 11/11/18at 21:07; Start 11/11/18 at 17:15 Temazepam (Restoril) 15 mg PRN QHS PRN PO INSOMNIA Last administered on at 21:08; Start 11/11/18 at 19:30 Bacitracin 44184 unit/Sodium Chloride 1,000 ml @ 1,000 mls/hr 1X ONCE IRR Last administered on 11/12/18at 12:38; Start 11/12/18 at 08:00; Stop 11/12/18 at 08:59; Status DC Gelatin (Gelfoam Size 100) 1 each STK-MED ONCE .ROUTE Last administered on 12:38; Start 11/12/18 at 07:26; Stop 11/12/18 at 07:28; Status DC Bupivacaine HCl/ Epinephrine Bitart (Sensorcain-Mpf Epi 0.5%-[id number]) 30 ml STK -MED ONCE .ROUTE Last administered on 11/12/18 12:38; Start 11/12/18 at 07:26 ; Stop 11/12/18 at 07:28; Status DC Ketorolac Tromethamine (Toradol For Or Only) 60 mg STK-MED ONCE .ROUTE Last administered on 11/12/18 12:38; Start 11/12/18 at 07:26; Stop 11/12/18 at 07:28 ; Status DC Thrombin 20,000 unit STK-MED ONCE TP Last administered on 11/12/18 12:38; Start 11/12/18 at 07:26; Stop 11/12/18 at 07:28; Status DC Rocuronium Harmon (Zemuron) 50 mg STK-MED ONCE .ROUTE ; Start 11/12/18 at 10:20 ; Stop 11/12/18 at 10:23; Status DC Remifentanil HCl (Ultiva) 2 mg STK-MED ONCE IV ; Start 11/12/18 at 10:21; Stop 11/12/18 at 10:23; Status DC Midazolam HCl (Versed) 2 mg STK-MED ONCE .ROUTE ; Start 11/12/18 at 10:21; Stop 11/12/18 at 10:23; Status DC Fentanyl Citrate (Fentanyl 5ml Vial) 250 mcg STK-MED ONCE .ROUTE ; Start at 10:21; Stop 11/12/18 at 10:23; Status DC Dexamethasone Sodium Phosphate (Decadron) 20 mg STK-MED ONCE .ROUTE ; Start 08/20 at 10:22; Stop 11/12/18 at 10:24; Status DC Ondansetron HCl (Zofran) 4 mg STK-MED ONCE .ROUTE ; Start 11/12/18 at 10:22; Stop 11/12/18 at 10:24; Status DC Phenylephrine HCl (Ubaldo-Synephrine Inj) 10 mg STK-MED ONCE .ROUTE ; Start at 10:22; Stop 11/12/18 at 10:24; Status DC Phenylephrine HCl (Ubaldo-Synephrine Inj) 10 mg STK-MED ONCE .ROUTE ; Start at 10:22; Stop 11/12/18 at 10:24; Status DC Propofol 20 ml @ As Directed STK-MED ONCE IV ; Start 11/12/18 at 10:22; Stop 08/20 at 10:25; Status DC Propofol 50 ml @ As Directed STK-MED ONCE IV ; Start 11/12/18 at 10:22; Stop 08/20 at 10:25; Status DC Lidocaine HCl (Lidocaine Pf 2% Vial) 5 ml STK-MED ONCE .ROUTE ; Start 11/12/18 at 10:22; Stop 11/12/18 at 10:25; Status DC Ascorbic Acid (Vitamin C) 500 mg DAILY PO Last administered on 11/13/18at 08:04 ; Start 11/12/18 at 12:00 Bisacodyl (Dulcolax Tab) 5 mg PRN DAILY PRN PO CONSTIPATION (2nd Choice) Last administered on 11/13/18at 09:48; Start 11/12/18 at 11:30 Propofol 50 ml @ As Directed STK-MED ONCE IV ; Start 11/12/18 at 14:12; Stop 08/20 at 14:14; Status DC Remifentanil HCl (Ultiva) 1 mg STK-MED ONCE IV ; Start 11/12/18 at 14:34; Stop 11/12/18 at 14:36; Status DC Fentanyl Citrate (Fentanyl 2ml Vial) 100 mcg STK-MED ONCE .ROUTE ; Start at 15:31; Stop 11/12/18 at 15:33; Status DC Fentanyl Citrate (Fentanyl 2ml Vial) 100 mcg STK-MED ONCE .ROUTE ; Start at 15:35; Stop 11/12/18 at 15:37; Status DC Ketamine HCl (Ketamine) 50 mg STK-MED ONCE .ROUTE ; Start 11/12/18 at 15:38; Stop 11/12/18 at 15:40; Status DC Midazolam HCl (Versed) 2 mg STK-MED ONCE .ROUTE ; Start 11/12/18 at 15:41; Stop 11/12/18 at 15:43; Status DC Desflurane (Suprane) 90 ml STK-MED ONCE IH ; Start 11/12/18 at 15:48; Stop 11/12 at 15:49; Status DC Fentanyl Citrate (Fentanyl 2ml Vial) 25 mcg PRN Q5MIN PRN IV MILD PAIN; Start 11/12/18 at 16:00; Stop 11/12/18 at 20:00; Status DC Fentanyl Citrate (Fentanyl 2ml Vial) 50 mcg PRN Q5MIN PRN IV MODERATE TO SEVERE PAIN; Start 11/12/18 at 16:00; Stop 11/12/18 at 20:00; Status DC Morphine Sulfate (Morphine Sulfate) 2 mg PRN Q10MIN PRN IV MILD PAIN Last administered on 11/12/18at 16:54; Start 11/12/18 at 16:00; Stop 11/12/18 at 20:00 ; Status DC Morphine Sulfate (Morphine Sulfate) 4 mg PRN Q10MIN PRN IV Moderate to Severe Pain; Start 11/12/18 at 16:00; Stop 11/12/18 at 20:00; Status DC Hydromorphone HCl (Dilaudid) 0.5 mg PRN Q10MIN PRN IV Moderate to severe pain; Start 11/12/18 at 16:00; Stop 11/12/18 at 20:00; Status DC Ondansetron HCl (Zofran) 4 mg PRN Q6HRS PRN IV Nausea, 1st Choice; Start at 16:00; Stop 11/12/18 at 20:00; Status DC Diphenhydramine HCl (Benadryl) 12.5 mg PRN Q4HRS PRN IV Nausea/Vomiting, 1st Choice; Start 11/12/18 at 16:00; Stop 11/13/18 at 15:59; Status UNV Prochlorperazine Edisylate (Compazine) 5 mg PRN Q6HRS PRN IV Nausea/Vomiting, 1st Choice Last administered on 11/12/18at 16:53; Start 11/12/18 at 16:00; Stop 11/12/18 at 20:00; Status DC Ondansetron HCl (Zofran) 4 mg PRN Q6HRS PRN IV Nausea, 2nd Choice; Start at 16:00; Stop 11/13/18 at 15:59; Status UNV Diphenhydramine HCl (Benadryl) 12.5 mg PRN Q4HRS PRN IV Nausea/Vomiting, 2nd Choice; Start 11/12/18 at 16:00; Stop 11/12/18 at 20:00; Status DC Prochlorperazine Edisylate (Compazine) 5 mg PRN Q6HRS PRN IV Nausea/Vomiting, 2nd Choice; Start 11/12/18 at 16:00; Stop 11/13/18 at 15:59; Status UNV Ondansetron HCl (Zofran) 4 mg PRN Q6HRS PRN IV Nausea, 3rd Choice; Start at 16:00; Stop 11/13/18 at 15:59; Status UNV Prochlorperazine Edisylate (Compazine) 5 mg PRN Q6HRS PRN IV Nausea/Vomiting, 3rd Choice; Start 11/12/18 at 16:00; Stop 11/13/18 at 15:59; Status UNV Morphine Sulfate (Morphine Sulfate) 4 mg STK-MED ONCE .ROUTE ; Start 11/12/18 at 15:55; Stop 11/12/18 at 15:57; Status DC Ringer's Solution 1,000 ml @ 100 mls/hr Q10H IV Last administered on at 17:31; Start 11/12/18 at 12:00; Stop 11/13/18 at 11:31; Status DC Oxycodone/ Acetaminophen (Percocet 7.5/ 325) 1 tab PRN Q4HRS PRN PO MODERATE PAIN; Start 11/13/18 at 12:00 Oxycodone/ Acetaminophen (Percocet 7.5/ 325) 2 tab PRN Q4HRS PRN PO SEVERE PAIN Last administered on 11/13/18at 12:38; Start 11/13/18 at 12:00 Active Scripts Active Reported Chantix (Varenicline Tartrate) 1 Mg Tablet 1 Mg PO BID Robaxin (Methocarbamol) 500 Mg Tablet 2 Tab PO BID Hydrocodone-Apap 7.5-325 (Hydrocodone Bit/Acetaminophen) 1 Tab Tablet 1-2 Tab PO PRN Q6HRS PRN Diclofenac Sodium 50 Mg Tablet.dr 1 Tab PO BID Tablet (Pnv Cmb#95/Ferrous Fumarate/Fa) 1 Each Tablet 1 Tab PO DAILY Metformin Hcl Er (Metformin Hcl) 500 Mg Tab.er.24h 500 Mg PO BIDWMEALS Simvastatin 10 Mg Tablet 1 Tab PO QHS Lisinopril 40 Mg Tablet 1 Tab PO DAILY Vitals/I & O Vital Sign - Last 24 Hours 11/12/18 11/12/18 11/12/18 11/12/18 15:26 15:30 15:42 15:57 Temp 98.2 98.2 98.2 98.2 98.2 98.2 Pulse 113 92 76 Resp 16 17 17 B/P (MAP) 152/77 155/84 139/80 Pulse Ox 100 100 100 O2 Delivery Room Air Mask Simple Mask Simple Mask O2 Flow Rate 10 10 10 10 11/12/18 11/12/18 11/12/18 11/12/18 16:12 16:27 16:41 16:42 Temp 98.2 98.2 98.2 98.2 98.2 98.2 Pulse 76 80 86 Resp 16 18 18 B/P (MAP) 128/68 132/73 126/81 Pulse Ox 100 100 98 98 O2 Delivery Simple Mask Nasal Cannula Nasal Cannula Simple Mask O2 Flow Rate 10 3 3.0 3.0 11/12/18 11/12/18 11/12/18 11/12/18 16:54 16:57 17:12 17:24 Temp 98.2 98.2 98.2 98.2 Pulse 74 70 Resp 18 B/P (MAP) 105/52 106/49 Pulse Ox 98 97 98 97 O2 Delivery Room Air Nasal Cannula Simple Mask Nasal Cannula O2 Flow Rate 3.0 3.0 3.0 2.0 11/12/18 11/12/18 11/12/18 11/12/18 17:27 17:45 18:00 18:15 Temp 98.2 98.2 Pulse 68 95 80 Resp 18 18 18 B/P (MAP) 98/51 98/50 (66) 108/65 (79) Pulse Ox 97 98 98 O2 Delivery Nasal Cannula Nasal Cannula Nasal Cannula Nasal Cannula O2 Flow Rate 2.0 2.0 2.0 3.0 11/12/18 11/12/18 11/12/18 11/12/18 18:15 18:30 18:31 19:00 Temp 97.6 97.6 Pulse 73 70 90 Resp 18 18 18 B/P (MAP) 121/61 (81) 110/58 (75) 129/76 (93) Pulse Ox 99 98 98 O2 Delivery Nasal Cannula Nasal Cannula Nasal Cannula O2 Flow Rate 2.0 2.0 3.0 2.0 11/13/18 11/13/18 11/13/18 11/13/18 03:00 03:47 05:04 07:15 Temp 98.0 97.8 98.0 97.8 Pulse 75 71 Resp 18 20 24 20 B/P (MAP) 101/54 (70) 132/75 (94) Pulse Ox 96 96 O2 Delivery Nasal Cannula Room Air Room Air O2 Flow Rate 2.0 11/13/18 11/13/18 11/13/18 11/13/18 08:00 08:04 09:47 09:48 O2 Delivery Room Air Room Air Room Air Room Air 11/13/18 11/13/18 11/13/18 11/13/18 11:06 11:12 11:12 12:38 Temp 97.9 97.9 Pulse 72 Resp 20 B/P (MAP) 110/57 (74) Pulse Ox 97 O2 Delivery Room Air Room Air Room Air Room Air Intake and Output 11/12/18 11/12/18 11/13/18 14:59 22:59 06:59 Intake Total 2050 ml Output Total 30 ml Balance 2020 ml MESFIN LEVINE APRN Nov 13, 2018 13:20
[2018-11-13 14:55] VITALS: BP 127/67
[2018-11-13 19:00] VITALS: BP 144/67
--- NOTE | 2018-11-13 20:40 | NUR ---
Patient not wearing Lidoderm patch, refused this am. medicated for back pain rating 8/10. Also c/o "numbness in left groin/pubic area."
[2018-11-13] MEDS: TEMAZEPAM 15 MG CAPSULE PO PRN (22:32)
[2018-11-13 23:00] VITALS: BP 144/58
[2018-11-14] VITALS (8 sets, daily range): BP systolic 118–156; BP diastolic 50–87
[2018-11-14] MEDS: oxyCODONE/APAP 7.5/325 1 TAB TABLET PO PRN ×5 (00:25→20:25)
[2018-11-14] MEDS: KETOROLAC 30 MG/ML VIAL. IV PRN ×3 (02:00→18:27)
--- NOTE | 2018-11-14 02:45 | NUR ---
Tearful, anxious and not resting. Dr. Gooden ordered Ativan per patient request.
[2018-11-14] MEDS: LORazepam 1 MG TABLET PO PRN (02:50)
[2018-11-14 04:16] LABS: BASO # 0.1 x10^3/uL (0.0-0.2); BASO % 1 % (0-3); EOS # 0.1 x10^3/uL (0.0-0.7); EOS % 1 % (0-3); HEMATOCRIT 34.2 % (36.0-47.0); HEMOGLOBIN 11.4 g/dL (12.0-15.5); LYMPH # 4.4 x10^3/uL (1.0-4.8); LYMPH % 32 % (24-48); MEAN CORPUSCULAR HEMOGLOBIN 29 pg (25-35); MEAN CORPUSCULAR HGB CONC 33 g/dL (31-37); MEAN CORPUSCULAR VOLUME 88 fL (79-100); MONO # 1.1 x10^3/uL (0.0-1.1); MONO % 8 % (0-9); NEUT # 7.8 x10^3uL (1.8-7.7); NEUT % 58 % (31-73); PLATELET COUNT 301 x10^3/uL (140-400); RED BLOOD COUNT 3.88 x10^6/uL (3.50-5.40); RED CELL DISTRIBUTION WIDTH 13.9 % (11.5-14.5); WHITE BLOOD COUNT 13.4 x10^3/uL (4.0-11.0)
[2018-11-14 04:32] LABS: CALCIUM 9.3 mg/dL (8.5-10.1); CREATININE 0.7 mg/dL (0.6-1.0); POTASSIUM 3.4 mmol/L (3.5-5.1)
[2018-11-14] MEDS: HYDROmorphone 2 MG/ML VIAL IV PRN (08:06)
[2018-11-14] MEDS: methylPREDNISolone 4 MG TABLET. PO SCH ×2 (08:07→20:26)
[2018-11-14] MEDS: SENNOSIDES/DOCUSATE 8.6/50MG TABLET. PO SCH ×2 (08:07→20:25)
[2018-11-14] MEDS: METHOCARBAMOL 500 MG TABLET PO SCH ×2 (08:07→20:25)
[2018-11-14] MEDS: PRENATAL MULTIVITAMIN TABLET. PO SCH (08:07)
[2018-11-14] MEDS: ASCORBIC ACID 500 MG TABLET PO SCH (08:08)
--- NOTE | 2018-11-14 09:30 | NUR ---
Pt call this nurse c/o nausea, episode of emesis noted about 200cc of undigested food noted, no medications noted in the content. Zofran given, will continue to monitor.
[2018-11-14] MEDS: ONDANSETRON PF 4 MG/2 ML VIAL. IV PRN (09:34)
[2018-11-14] MEDS: LIDOCAINE (700MG/PATCH) PATCH. TD SCH (09:37)
--- NOTE | 2018-11-14 09:50 | NUR ---
SW following. Discussed with RN. RN advised pt has been having a lot of pain and has been feeling down and teary. Pt has mental health medications PRN at home, which have been ordered here at [facility]. SW will continue to follow.
[2018-11-14] MEDS: BISACODYL 5 MG TABLET.DR. PO PRN (10:23)
[2018-11-14] MEDS: VARENICLINE 0.5 MG TABLET. PO SCH ×2 (10:23→20:24)
[2018-11-14] MEDS: MORPHINE ER 30 MG TABLET.ER PO SCH ×2 (10:26→20:25)
--- NOTE | 2018-11-14 10:32 | PDOC ---
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 denies any incontinence. Is scheduled to see Dr. Jones on Monday for inital visit. patient sent from [place] [facility] ED. no imaging done in ER. patient states no relief with muscle relaxers, pain meds at home. can ambulate but very gingerly. unable to lay flat or sit bc of the pain. given acute worsening of pain she came for further evaluation. patient takes pre-lesvia vitamins but states not . LMP 2 weeks ago At L4-5, there is a large central disc extrusion. Central canal stenosis is moderate to severe. It measures 11 mm anteroposteriorly. pain control very challenging. requiring IV morphine, dilaudid with minimal improvement. asking for benadryl due to itching. neuro sx has been consulted. 11/12 microdiscectomy L4-5 DATE OF SURGERY: 11/12/2018 PREOPERATIVE DIAGNOSES: Severe lumbar spinal stenosis with severe radiculopathy, L4-L5 from a large central disk herniation. POSTOPERATIVE DIAGNOSES: Severe lumbar spinal stenosis with severe radiculopathy, L4-L5 from a large central disk herniation. OPERATION PERFORMED: Lumbar laminectomy at L4-L5 with bilateral lumbar microdecompression/microdiskectomy. The operation was done with EMG monitoring, fluoroscopy and microscopic dissection. History of Present Illness History of Present Illness ASSESSMENT Low Back Pain with lumbar Radiculopathy with large central disc extrusion at L4- 5 results in moderate to severe central canal stenosis and effacement of the thecal sac. HTN Hx of PCOS Hx of Hashimotos Thyroiditis HLD PLAN MRI lumbar spine: , large central disc extrusion at L4-5 results in moderate to severe central canal stenosis and effacement of the thecal sac. 2. Small central protrusions at L3-4 and L5-S1 do not result in stenosis. IV morphine and dilaudid for pain control continue muscle relaxers continue home meds CBC stable continue home statin therapy Neurosx OK WITH D/C full code dvt ppx: heparin Vitals Vitals Vital Signs Date Time Temp Pulse Resp B/P (MAP) Pulse Ox O2 Delivery O2 Flow Rate FiO2 11/14/18 10:26 Room Air 11/14/18 07:00 98.1 113 18 121/68 (85) 98 98.1 Physical Exam Physical Exam GENERAL: in pain HEENT: Head normocephalic, atraumatic. NECK: Supple LUNGS: Clear to auscultation. HEART: RRR, S1, S2 present, pulses intact ABDOMEN: Soft, positive bowel sounds. EXTREMITIES: No cyanosis or edema. NEUROLOGIC: Normal speech, normal tone PSYCHIATRIC: Normal affect, normal mood. SKIN: No ulceration. General: Alert, Oriented X3, Cooperative, No acute distress Heart: Regular rate, Normal S1, Normal S2, No murmurs Lungs: Clear Abdomen: Normal bowel sounds, Soft, No tenderness Extremities: No clubbing, No cyanosis, No edema Skin: Other (Dressing C,D,I, flat) Labs LABS Laboratory Tests Test 11/14/18 04:05 White Blood Count 13.4 x10^3/uL (4.0-11.0) Red Blood Count 3.88 x10^6/uL (3.50-5.40) Hemoglobin 11.4 g/dL (12.0-15.5) Hematocrit 34.2 % (36.0-47.0) Mean Corpuscular Volume 88 fL (79-100) Mean Corpuscular Hemoglobin 29 pg (25-35) Mean Corpuscular Hemoglobin Concent 33 g/dL (31-37) Red Cell Distribution Width 13.9 % (11.5-14.5) Platelet Count 301 x10^3/uL (140-400) Neutrophils (%) (Auto) 58 % (31-73) Lymphocytes (%) (Auto) 32 % (24-48) Monocytes (%) (Auto) 8 % (0-9) Eosinophils (%) (Auto) 1 % (0-3) Basophils (%) (Auto) 1 % (0-3) Neutrophils # (Auto) 7.8 x10^3uL (1.8-7.7) Lymphocytes # (Auto) 4.4 x10^3/uL (1.0-4.8) Monocytes # (Auto) 1.1 x10^3/uL (0.0-1.1) Eosinophils # (Auto) 0.1 x10^3/uL (0.0-0.7) Basophils # (Auto) 0.1 x10^3/uL (0.0-0.2) Sodium Level 140 mmol/L (136-145) Potassium Level 3.4 mmol/L (3.5-5.1) Chloride Level 104 mmol/L (98-107) Carbon Dioxide Level 26 mmol/L (21-32) Anion Gap 10 (6-14) Blood Urea Nitrogen 6 mg/dL (7-20) Creatinine 0.7 mg/dL (0.6-1.0) Estimated GFR (Cockcroft-Gault) 97.0 Glucose Level 134 mg/dL (70-99) Calcium Level 9.3 mg/dL (8.5-10.1) Assessment and Plan Assessmemt and Plan Goal 4 - Stairs Assistance Required * Supervision Goal 4 - Number of Stairs * 2-4 Goal 4 - Device on Stairs * Roller Walker * Rail on Right * Rail on Left Goal 5 * Pt demo understanding of lumbar surg restrictions. Treatment Plan * Therapeutic Exercise * Bed Mobility Training * Transfer training * Gait Training * Dynamic Balance Training Frequency of Treatment Expected * 12 visits/week Duration of Treatment Expected * 1 week Discharge Recommendations * Home with Assistance Discharge Recommendation - DME * Rolling Walker needed * in order to complete ADLs * and ambulation safely Comment Review of Relevant I have reviewed the following items jeff (where applicable) has been applied. Labs Laboratory Tests Test 11/14/18 04:05 White Blood Count 13.4 x10^3/uL (4.0-11.0) Red Blood Count 3.88 x10^6/uL (3.50-5.40) Hemoglobin 11.4 g/dL (12.0-15.5) Hematocrit 34.2 % (36.0-47.0) Mean Corpuscular Volume 88 fL (79-100) Mean Corpuscular Hemoglobin 29 pg (25-35) Mean Corpuscular Hemoglobin Concent 33 g/dL (31-37) Red Cell Distribution Width 13.9 % (11.5-14.5) Platelet Count 301 x10^3/uL (140-400) Neutrophils (%) (Auto) 58 % (31-73) Lymphocytes (%) (Auto) 32 % (24-48) Monocytes (%) (Auto) 8 % (0-9) Eosinophils (%) (Auto) 1 % (0-3) Basophils (%) (Auto) 1 % (0-3) Neutrophils # (Auto) 7.8 x10^3uL (1.8-7.7) Lymphocytes # (Auto) 4.4 x10^3/uL (1.0-4.8) Monocytes # (Auto) 1.1 x10^3/uL (0.0-1.1) Eosinophils # (Auto) 0.1 x10^3/uL (0.0-0.7) Basophils # (Auto) 0.1 x10^3/uL (0.0-0.2) Sodium Level 140 mmol/L (136-145) Potassium Level 3.4 mmol/L (3.5-5.1) Chloride Level 104 mmol/L (98-107) Carbon Dioxide Level 26 mmol/L (21-32) Anion Gap 10 (6-14) Blood Urea Nitrogen 6 mg/dL (7-20) Creatinine 0.7 mg/dL (0.6-1.0) Estimated GFR (Cockcroft-Gault) 97.0 Glucose Level 134 mg/dL (70-99) Calcium Level 9.3 mg/dL (8.5-10.1) Laboratory Tests Test 11/14/18 04:05 White Blood Count 13.4 x10^3/uL (4.0-11.0) Red Blood Count 3.88 x10^6/uL (3.50-5.40) Hemoglobin 11.4 g/dL (12.0-15.5) Hematocrit 34.2 % (36.0-47.0) Mean Corpuscular Volume 88 fL (79-100) Mean Corpuscular Hemoglobin 29 pg (25-35) Mean Corpuscular Hemoglobin Concent 33 g/dL (31-37) Red Cell Distribution Width 13.9 % (11.5-14.5) Platelet Count 301 x10^3/uL (140-400) Neutrophils (%) (Auto) 58 % (31-73) Lymphocytes (%) (Auto) 32 % (24-48) Monocytes (%) (Auto) 8 % (0-9) Eosinophils (%) (Auto) 1 % (0-3) Basophils (%) (Auto) 1 % (0-3) Neutrophils # (Auto) 7.8 x10^3uL (1.8-7.7) Lymphocytes # (Auto) 4.4 x10^3/uL (1.0-4.8) Monocytes # (Auto) 1.1 x10^3/uL (0.0-1.1) Eosinophils # (Auto) 0.1 x10^3/uL (0.0-0.7) Basophils # (Auto) 0.1 x10^3/uL (0.0-0.2) Sodium Level 140 mmol/L (136-145) Potassium Level 3.4 mmol/L (3.5-5.1) Chloride Level 104 mmol/L (98-107) Carbon Dioxide Level 26 mmol/L (21-32) Anion Gap 10 (6-14) Blood Urea Nitrogen 6 mg/dL (7-20) Creatinine 0.7 mg/dL (0.6-1.0) Estimated GFR (Cockcroft-Gault) 97.0 Glucose Level 134 mg/dL (70-99) Calcium Level 9.3 mg/dL (8.5-10.1) Microbiology 11/09/18 Urine Culture - Final, Complete 11/09/18 Urine Culture Result 1 (MARIPOSA) - Final, Complete Medications Current Medications Ondansetron HCl (Zofran) 4 mg PRN Q6HRS PRN IV NAUSEA/VOMITING Last administered on 11/14/18at 09:34; Start 11/09/18 at 16:30 Prochlorperazine Edisylate (Compazine) 10 mg PRN Q6HRS PRN IV NAUSEA/VOMITING 2ND CHOICE; Start 11/09/18 at 16:30 Zolpidem Tartrate (Ambien) 5 mg PRN QHS PRN PO INSOMNIA, MAY REPEAT IN 1HR Last administered on 11/11/18at 00:01; Start 11/09/18 at 16:30; Stop 11/13/18 at 19:54; Status DC Morphine Sulfate (Morphine Sulfate) 1 mg PRN Q1HR PRN IV PAIN Last administered on 11/09/18at 21:19; Start 11/09/18 at 16:30; Stop 11/09/18 at 21:23; Status DC Oxycodone/ Acetaminophen (Percocet 5/325) 1 tab PRN Q4HRS PRN PO MILD PAIN, 1ST CHOICE Last administered on 2/12/19at 08:04; Start 11/09/18 at 16:30; Stop at 11:56; Status DC Senna/Docusate Sodium (Senna Plus) 1 tab BID PO Last administered on 11/14/18 08:07; Start 11/09/18 at 21:00 Magnesium Hydroxide (Milk Of Magnesia) 2,400 mg PRN Q12HR PRN PO CONSTIPATION ( 1st Choice); Start 11/09/18 at 16:30 Heparin Sodium (Porcine) (Heparin Sodium) 5,000 unit Q8HRS SQ Last administered on 11/11/18 06:12; Start 11/09/18 at 17:00; Stop 11/11/18 at 11:45 ; Status DC Acetaminophen/ Hydrocodone Bitart (Lortab 7.5/325) 1 tab PRN Q6HRS PRN PO MODERAETE PAIN Last administered on 11/13/18 11:06; Start 11/09/18 at 16:30; Stop 11/13/18 at 11:56; Status DC Methocarbamol (Robaxin) 1,000 mg BID PO Last administered on 11/14/18 08:07; Start 11/09/18 at 21:00 Metformin HCl (Glucophage) 500 mg BIDWMEALS PO ; Start 11/09/18 at 17:00; Stop at 16:48; Status DC Multivit/ Folic Acid/Iron (Multivitamin ) 1 tab DAILY PO Last administered on 11/14/18 08:07; Start 11/09/18 at 17:00 Varenicline (Chantix) 1 mg BID PO Last administered on 11/14/18at 10:23; Start 11/09/18 at 21:00 Insulin Human Lispro (HumaLOG) 0-5 UNITS TIDWMEALS SQ ; Start 11/09/18 at 17:00; Stop 11/09/18 at 18:26; Status DC Dextrose (Dextrose 50%-Water Syringe) 12.5 gm PRN Q15MIN PRN IV SEE COMMENTS; Start 11/09/18 at 16:30 Gadobutrol (Gadavist) 10 mmol 1X ONCE IV Last administered on 11/09/18 19:02; Start 11/09/18 at 18:45; Stop 11/09/18 at 18:46; Status DC Morphine Sulfate (Morphine Sulfate) 2 mg PRN Q1HR PRN IV PAIN Last administered on 11/10/18 11:16; Start 11/09/18 at 21:30; Stop 11/10/18 at 16:46; Status DC Hydromorphone HCl (Dilaudid) 2 mg 1X ONCE IV Last administered on 11/09/18 23: 56; Start 11/09/18 at 23:45; Stop 11/09/18 at 23:46; Status DC Hydromorphone HCl (Dilaudid) 2 mg PRN Q4HRS PRN IV SEVERE PAIN Last administered on 11/14/18 08:06; Start 11/10/18 at 08:30 Diphenhydramine HCl (Benadryl) 25 mg PRN Q8HRS PRN PO ITCHING Last administered on 11/11/18 10:40; Start 11/10/18 at 09:15; Stop 11/11/18 at 17:14 ; Status DC Methylprednisolone (Medrol) 8 mg BID PO Last administered on 11/10/18 19:53; Start 11/10/18 at 14:00; Stop 11/10/18 at 21:01; Status DC Methylprednisolone (Medrol) 4 mg BIDPCLD PO Last administered on 11/10/18 17:08 ; Start 11/10/18 at 14:00; Stop 11/10/18 at 17:31; Status DC Methylprednisolone (Medrol) 4 mg TIDPC PO Last administered on 11/11/18 17:38 ; Start 11/11/18 at 08:30; Stop 11/11/18 at 17:31; Status DC Methylprednisolone (Medrol) 8 mg QHS PO Last administered on 11/11/18 21:07; Start 11/11/18 at 21:00; Stop 11/11/18 at 21:01; Status DC Methylprednisolone (Medrol) 4 mg QIDAFTMEAL PO Last administered on 11/12/18 18:15; Start 11/12/18 at 09:00; Stop 11/12/18 at 21:01; Status DC Methylprednisolone (Medrol) 4 mg TID PO Last administered on 11/13/18 20:30; Start 11/13/18 at 09:00; Stop 11/13/18 at 21:01; Status DC Methylprednisolone (Medrol) 4 mg BID PO Last administered on 11/14/18at 08:07; Start 11/14/18 at 09:00; Stop 11/14/18 at 21:01 Methylprednisolone (Medrol) 4 mg DAILY PO ; Start 11/15/18 at 09:00; Stop at 09:01 Clindamycin Phosphate 50 ml @ 100 mls/hr 1X PREOP IV ; Start 11/12/18 at 11:45 ; Stop 11/12/18 at 18:00; Status UNV Clindamycin Phosphate 50 ml @ 100 mls/hr 1X PREOP PRN IV PRIOR TO PROCEDURE Last administered on 11/12/18at 12:16; Start 11/12/18 at 06:00; Stop 11/12/18 at 18:00; Status DC Lidocaine (Lidoderm) 1 patch DAILY TD Last administered on 11/11/18at 16:44; Start 11/11/18 at 16:30 Miscellaneous (Lidoderm Patch Removal) 1 ea QHS MC Last administered on at 21:00; Start 11/11/18 at 21:00 Ketorolac Tromethamine (Toradol 30mg Vial) 30 mg Q8HRS PRN IV PAIN Last administered on 11/13/18 18:16; Start 11/11/18 at 16:15; Stop 11/13/18 at 19:55 ; Status DC Hydromorphone HCl (Dilaudid) 1 mg 1X ONCE IV Last administered on 11/11/18at 17 :37; Start 11/11/18 at 17:00; Stop 11/11/18 at 17:01; Status DC Diphenhydramine HCl (Benadryl Oral Elixir) 37.5 mg PRN Q8HRS PRN PO ITCHING Last administered on 11/11/18 21:07; Start 11/11/18 at 17:15 Temazepam (Restoril) 15 mg PRN QHS PRN PO INSOMNIA Last administered on at 22:32; Start 11/11/18 at 19:30 Bacitracin 14386 unit/Sodium Chloride 1,000 ml @ 1,000 mls/hr 1X ONCE IRR Last administered on 11/12/18at 12:38; Start 11/12/18 at 08:00; Stop 11/12/18 at 08:59; Status DC Gelatin (Gelfoam Size 100) 1 each STK-MED ONCE .ROUTE Last administered on 08/20at 12:38; Start 11/12/18 at 07:26; Stop 11/12/18 at 07:28; Status DC Bupivacaine HCl/ Epinephrine Bitart (Sensorcain-Mpf Epi 0.5%-1:[id number]) 30 ml STK -MED ONCE .ROUTE Last administered on 11/12/18at 12:38; Start 11/12/18 at 07:26 ; Stop 11/12/18 at 07:28; Status DC Ketorolac Tromethamine (Toradol For Or Only) 60 mg STK-MED ONCE .ROUTE Last administered on 11/12/18at 12:38; Start 11/12/18 at 07:26; Stop 11/12/18 at 07:28 ; Status DC Thrombin 20,000 unit STK-MED ONCE TP Last administered on 11/12/18 12:38; Start 11/12/18 at 07:26; Stop 11/12/18 at 07:28; Status DC Rocuronium [place] (Zemuron) 50 mg STK-MED ONCE .ROUTE ; Start 11/12/18 at 10:20 ; Stop 11/12/18 at 10:23; Status DC Remifentanil HCl (Ultiva) 2 mg STK-MED ONCE IV ; Start 11/12/18 at 10:21; Stop 11/12/18 at 10:23; Status DC Midazolam HCl (Versed) 2 mg STK-MED ONCE .ROUTE ; Start 11/12/18 at 10:21; Stop 11/12/18 at 10:23; Status DC Fentanyl Citrate (Fentanyl 5ml Vial) 250 mcg STK-MED ONCE .ROUTE ; Start at 10:21; Stop 11/12/18 at 10:23; Status DC Dexamethasone Sodium Phosphate (Decadron) 20 mg STK-MED ONCE .ROUTE ; Start 08/20 at 10:22; Stop 11/12/18 at 10:24; Status DC Ondansetron HCl (Zofran) 4 mg STK-MED ONCE .ROUTE ; Start 11/12/18 at 10:22; Stop 11/12/18 at 10:24; Status DC Phenylephrine HCl (Ubaldo-Synephrine Inj) 10 mg STK-MED ONCE .ROUTE ; Start at 10:22; Stop 11/12/18 at 10:24; Status DC Phenylephrine HCl (Ubaldo-Synephrine Inj) 10 mg STK-MED ONCE .ROUTE ; Start at 10:22; Stop 11/12/18 at 10:24; Status DC Propofol 20 ml @ As Directed STK-MED ONCE IV ; Start 11/12/18 at 10:22; Stop 08/20 at 10:25; Status DC Propofol 50 ml @ As Directed STK-MED ONCE IV ; Start 11/12/18 at 10:22; Stop 08/20 at 10:25; Status DC Lidocaine HCl (Lidocaine Pf 2% Vial) 5 ml STK-MED ONCE .ROUTE ; Start 11/12/18 at 10:22; Stop 11/12/18 at 10:25; Status DC Ascorbic Acid (Vitamin C) 500 mg DAILY PO Last administered on 11/14/18at 08:08 ; Start 11/12/18 at 12:00 Bisacodyl (Dulcolax Tab) 5 mg PRN DAILY PRN PO CONSTIPATION (2nd Choice) Last administered on 11/14/18at 10:23; Start 11/12/18 at 11:30 Propofol 50 ml @ As Directed STK-MED ONCE IV ; Start 11/12/18 at 14:12; Stop 08/20 at 14:14; Status DC Remifentanil HCl (Ultiva) 1 mg STK-MED ONCE IV ; Start 11/12/18 at 14:34; Stop 11/12/18 at 14:36; Status DC Fentanyl Citrate (Fentanyl 2ml Vial) 100 mcg STK-MED ONCE .ROUTE ; Start at 15:31; Stop 11/12/18 at 15:33; Status DC Fentanyl Citrate (Fentanyl 2ml Vial) 100 mcg STK-MED ONCE .ROUTE ; Start at 15:35; Stop 11/12/18 at 15:37; Status DC Ketamine HCl (Ketamine) 50 mg STK-MED ONCE .ROUTE ; Start 11/12/18 at 15:38; Stop 11/12/18 at 15:40; Status DC Midazolam HCl (Versed) 2 mg STK-MED ONCE .ROUTE ; Start 11/12/18 at 15:41; Stop 11/12/18 at 15:43; Status DC Desflurane (Suprane) 90 ml STK-MED ONCE IH ; Start 11/12/18 at 15:48; Stop 11/12 at 15:49; Status DC Fentanyl Citrate (Fentanyl 2ml Vial) 25 mcg PRN Q5MIN PRN IV MILD PAIN; Start 11/12/18 at 16:00; Stop 11/12/18 at 20:00; Status DC Fentanyl Citrate (Fentanyl 2ml Vial) 50 mcg PRN Q5MIN PRN IV MODERATE TO SEVERE PAIN; Start 11/12/18 at 16:00; Stop 11/12/18 at 20:00; Status DC Morphine Sulfate (Morphine Sulfate) 2 mg PRN Q10MIN PRN IV MILD PAIN Last administered on 11/12/18at 16:54; Start 11/12/18 at 16:00; Stop 11/12/18 at 20:00 ; Status DC Morphine Sulfate (Morphine Sulfate) 4 mg PRN Q10MIN PRN IV Moderate to Severe Pain; Start 11/12/18 at 16:00; Stop 11/12/18 at 20:00; Status DC Hydromorphone HCl (Dilaudid) 0.5 mg PRN Q10MIN PRN IV Moderate to severe pain; Start 11/12/18 at 16:00; Stop 11/12/18 at 20:00; Status DC Ondansetron HCl (Zofran) 4 mg PRN Q6HRS PRN IV Nausea, 1st Choice; Start at 16:00; Stop 11/12/18 at 20:00; Status DC Diphenhydramine HCl (Benadryl) 12.5 mg PRN Q4HRS PRN IV Nausea/Vomiting, 1st Choice; Start 11/12/18 at 16:00; Stop 11/13/18 at 15:59; Status UNV Prochlorperazine Edisylate (Compazine) 5 mg PRN Q6HRS PRN IV Nausea/Vomiting, 1st Choice Last administered on 11/12/18at 16:53; Start 11/12/18 at 16:00; Stop 11/12/18 at 20:00; Status DC Ondansetron HCl (Zofran) 4 mg PRN Q6HRS PRN IV Nausea, 2nd Choice; Start at 16:00; Stop 11/13/18 at 15:59; Status UNV Diphenhydramine HCl (Benadryl) 12.5 mg PRN Q4HRS PRN IV Nausea/Vomiting, 2nd Choice; Start 11/12/18 at 16:00; Stop 11/12/18 at 20:00; Status DC Prochlorperazine Edisylate (Compazine) 5 mg PRN Q6HRS PRN IV Nausea/Vomiting, 2nd Choice; Start 11/12/18 at 16:00; Stop 11/13/18 at 15:59; Status UNV Ondansetron HCl (Zofran) 4 mg PRN Q6HRS PRN IV Nausea, 3rd Choice; Start at 16:00; Stop 11/13/18 at 15:59; Status UNV Prochlorperazine Edisylate (Compazine) 5 mg PRN Q6HRS PRN IV Nausea/Vomiting, 3rd Choice; Start 11/12/18 at 16:00; Stop 11/13/18 at 15:59; Status UNV Morphine Sulfate (Morphine Sulfate) 4 mg STK-MED ONCE .ROUTE ; Start 11/12/18 at 15:55; Stop 11/12/18 at 15:57; Status DC Ringer's Solution 1,000 ml @ 100 mls/hr Q10H IV Last administered on at 17:31; Start 11/12/18 at 12:00; Stop 11/13/18 at 11:31; Status DC Oxycodone/ Acetaminophen (Percocet 7.5/ 325) 1 tab PRN Q4HRS PRN PO MODERATE PAIN Last administered on 11/13/18at 20:30; Start 11/13/18 at 12:00 Oxycodone/ Acetaminophen (Percocet 7.5/ 325) 2 tab PRN Q4HRS PRN PO SEVERE PAIN Last administered on 11/14/18at 07:37; Start 11/13/18 at 12:00 Ketorolac Tromethamine (Toradol 30mg Vial) 30 mg PRN Q8HRS PRN IV MODERATE PAIN Last administered on 11/14/18at 02:00; Start 11/13/18 at 20:00; Stop at 16:14 Lorazepam (Ativan) 1 mg PRN Q12HR PRN PO ANXIETY / AGITATION Last administered on 11/14/18at 02:50; Start 11/14/18 at 02:45 Morphine Sulfate (Ms Contin) 30 mg BID PO Last administered on 11/14/18at 10:26 ; Start 11/14/18 at 10:30 Active Scripts Active Reported Chantix (Varenicline Tartrate) 1 Mg Tablet 1 Mg PO BID Robaxin (Methocarbamol) 500 Mg Tablet 2 Tab PO BID Hydrocodone-Apap 7.5-325 (Hydrocodone Bit/Acetaminophen) 1 Tab Tablet 1-2 Tab PO PRN Q6HRS PRN Diclofenac Sodium 50 Mg Tablet.dr 1 Tab PO BID Tablet (Pnv Cmb#95/Ferrous Fumarate/Fa) 1 Each Tablet 1 Tab PO DAILY Metformin Hcl Er (Metformin Hcl) 500 Mg Tab.er.24h 500 Mg PO BIDWMEALS Simvastatin 10 Mg Tablet 1 Tab PO QHS Lisinopril 40 Mg Tablet 1 Tab PO DAILY Vitals/I & O Vital Sign - Last 24 Hours 11/13/18 11/13/18 11/13/18 11/13/18 11:06 11:12 12:38 14:55 Temp 97.9 98.0 97.9 98.0 Pulse 72 75 Resp 20 18 B/P (MAP) 110/57 (74) 127/67 (87) Pulse Ox 97 98 O2 Delivery Room Air Room Air Room Air Room Air 11/13/18 11/13/18 11/13/18 11/13/18 16:19 19:00 20:00 20:30 Temp 98.1 98.1 Pulse 67 Resp 18 20 B/P (MAP) 144/67 (92) Pulse Ox 91 O2 Delivery Room Air Room Air Room Air Nasal Cannula 11/13/18 11/13/18 11/13/18 11/14/18 21:51 23:00 23:48 00:25 Temp 98.1 98.1 Pulse 69 Resp 20 18 24 20 B/P (MAP) 144/58 (86) Pulse Ox 93 O2 Delivery Room Air Room Air 11/14/18 11/14/18 11/14/18 11/14/18 03:00 07:00 07:37 08:06 Temp 98.7 98.1 98.7 98.1 Pulse 70 113 Resp 18 18 B/P (MAP) 156/77 (103) 121/68 (85) Pulse Ox 94 98 O2 Delivery Room Air Room Air Room Air Room Air 11/14/18 11/14/18 11/14/18 09:35 09:36 10:26 O2 Delivery Room Air Room Air Room Air Intake and Output 11/13/18 11/13/18 11/14/18 14:59 22:59 06:59 Intake Total 630 ml 0 ml Balance 630 ml 0 ml CRISTAL CABA MD Nov 14, 2018 10:32
[2018-11-14] MEDS ORDERED: POTASSIUM CHLORIDE 20 MEQ TABLET.ER. PO ONE (11:30)
--- NOTE | 2018-11-14 12:30 | NUR ---
Pt started c/o nausea and chest pain and SOB at 1150, pt noted to be diaphoretic VS 147/87 HR 105 O2 sats 97%, RR 22. Dr. Gooden in unit at the time, orders for EKG, CXR and trop obtained. Compazine given at this time to help with nausea. Dr. Gooden and Priscilla DIRECTOR OF SOFTWARE ENGINEERING notified of results (all wnl). Pt states she is feeling better now, VS 118/67, HR 71 and O2 sats 94%. Pt instructed to report any changes to nursing staff, family at bedside. Will continue to monitor closely.
--- NOTE | 2018-11-14 12:45 | PDOC ---
PROGRESS NOTES Subjective Subjective She admits continued low back pain. Objective Objective Vital Signs Date Time Temp Pulse Resp B/P (MAP) Pulse Ox O2 Delivery O2 Flow Rate FiO2 11/14/18 11:27 Room Air 11/14/18 11:00 98.0 66 18 131/70 (90) 93 98.0 11/13/18 03:00 2.0 Intake and Output 11/14/18 07:00 Intake Total 630 ml Balance 630 ml Intake Oral 630 ml # Voids 5 Physical Exam Physical Exam She is alert,lying on her side and she is getting up with roller walker and walking with antalgic gait up to 110' with physical therapy and continues with painfully limited lumbar spine ROM with tenderness to palpation over lumbar area. No change noted with her neurological examiantion. Plan Plan of Care To add mscontin for better pain control and hopefully home in the next few days when her pain is under better control.She needs a roller walker for use at home. Comment Review of Relevant I have reviewed the following items jeff (where applicable) has been applied. Labs Laboratory Tests Test 11/14/18 04:05 White Blood Count 13.4 x10^3/uL (4.0-11.0) Red Blood Count 3.88 x10^6/uL (3.50-5.40) Hemoglobin 11.4 g/dL (12.0-15.5) Hematocrit 34.2 % (36.0-47.0) Mean Corpuscular Volume 88 fL (79-100) Mean Corpuscular Hemoglobin 29 pg (25-35) Mean Corpuscular Hemoglobin Concent 33 g/dL (31-37) Red Cell Distribution Width 13.9 % (11.5-14.5) Platelet Count 301 x10^3/uL (140-400) Neutrophils (%) (Auto) 58 % (31-73) Lymphocytes (%) (Auto) 32 % (24-48) Monocytes (%) (Auto) 8 % (0-9) Eosinophils (%) (Auto) 1 % (0-3) Basophils (%) (Auto) 1 % (0-3) Neutrophils # (Auto) 7.8 x10^3uL (1.8-7.7) Lymphocytes # (Auto) 4.4 x10^3/uL (1.0-4.8) Monocytes # (Auto) 1.1 x10^3/uL (0.0-1.1) Eosinophils # (Auto) 0.1 x10^3/uL (0.0-0.7) Basophils # (Auto) 0.1 x10^3/uL (0.0-0.2) Sodium Level 140 mmol/L (136-145) Potassium Level 3.4 mmol/L (3.5-5.1) Chloride Level 104 mmol/L (98-107) Carbon Dioxide Level 26 mmol/L (21-32) Anion Gap 10 (6-14) Blood Urea Nitrogen 6 mg/dL (7-20) Creatinine 0.7 mg/dL (0.6-1.0) Estimated GFR (Cockcroft-Gault) 97.0 Glucose Level 134 mg/dL (70-99) Calcium Level 9.3 mg/dL (8.5-10.1) Laboratory Tests Test 11/14/18 04:05 White Blood Count 13.4 x10^3/uL (4.0-11.0) Red Blood Count 3.88 x10^6/uL (3.50-5.40) Hemoglobin 11.4 g/dL (12.0-15.5) Hematocrit 34.2 % (36.0-47.0) Mean Corpuscular Volume 88 fL (79-100) Mean Corpuscular Hemoglobin 29 pg (25-35) Mean Corpuscular Hemoglobin Concent 33 g/dL (31-37) Red Cell Distribution Width 13.9 % (11.5-14.5) Platelet Count 301 x10^3/uL (140-400) Neutrophils (%) (Auto) 58 % (31-73) Lymphocytes (%) (Auto) 32 % (24-48) Monocytes (%) (Auto) 8 % (0-9) Eosinophils (%) (Auto) 1 % (0-3) Basophils (%) (Auto) 1 % (0-3) Neutrophils # (Auto) 7.8 x10^3uL (1.8-7.7) Lymphocytes # (Auto) 4.4 x10^3/uL (1.0-4.8) Monocytes # (Auto) 1.1 x10^3/uL (0.0-1.1) Eosinophils # (Auto) 0.1 x10^3/uL (0.0-0.7) Basophils # (Auto) 0.1 x10^3/uL (0.0-0.2) Sodium Level 140 mmol/L (136-145) Potassium Level 3.4 mmol/L (3.5-5.1) Chloride Level 104 mmol/L (98-107) Carbon Dioxide Level 26 mmol/L (21-32) Anion Gap 10 (6-14) Blood Urea Nitrogen 6 mg/dL (7-20) Creatinine 0.7 mg/dL (0.6-1.0) Estimated GFR (Cockcroft-Gault) 97.0 Glucose Level 134 mg/dL (70-99) Calcium Level 9.3 mg/dL (8.5-10.1) Microbiology 11/09/18 Urine Culture - Final, Complete 11/09/18 Urine Culture Result 1 (MARIPOSA) - Final, Complete Medications Current Medications Ondansetron HCl (Zofran) 4 mg PRN Q6HRS PRN IV NAUSEA/VOMITING Last administered on 11/14/18 09:34; Start 11/09/18 at 16:30 Prochlorperazine Edisylate (Compazine) 10 mg PRN Q6HRS PRN IV NAUSEA/VOMITING 2ND CHOICE Last administered on 11/14/18 12:00; Start 11/09/18 at 16:30 Zolpidem Tartrate (Ambien) 5 mg PRN QHS PRN PO INSOMNIA, MAY REPEAT IN 1HR Last administered on 11/11/18 00:01; Start 11/09/18 at 16:30; Stop 11/13/18 at 19:54; Status DC Morphine Sulfate (Morphine Sulfate) 1 mg PRN Q1HR PRN IV PAIN Last administered on 11/09/18 21:19; Start 11/09/18 at 16:30; Stop 11/09/18 at 21:23; Status DC Oxycodone/ Acetaminophen (Percocet 5/325) 1 tab PRN Q4HRS PRN PO MILD PAIN, 1ST CHOICE Last administered on 11/13/18 08:04; Start 11/09/18 at 16:30; Stop at 11:56; Status DC Senna/Docusate Sodium (Senna Plus) 1 tab BID PO Last administered on 11/14/18 08:07; Start 11/09/18 at 21:00 Magnesium Hydroxide (Milk Of Magnesia) 2,400 mg PRN Q12HR PRN PO CONSTIPATION ( 1st Choice); Start 11/09/18 at 16:30 Heparin Sodium (Porcine) (Heparin Sodium) 5,000 unit Q8HRS SQ Last administered on 11/11/18 06:12; Start 11/09/18 at 17:00; Stop 11/11/18 at 11:45 ; Status DC Acetaminophen/ Hydrocodone Bitart (Lortab 7.5/325) 1 tab PRN Q6HRS PRN PO MODERAETE PAIN Last administered on 11/13/18 11:06; Start 11/09/18 at 16:30; Stop 11/13/18 at 11:56; Status DC Methocarbamol (Robaxin) 1,000 mg BID PO Last administered on 11/14/18 08:07; Start 11/09/18 at 21:00 Metformin HCl (Glucophage) 500 mg BIDWMEALS PO ; Start 11/09/18 at 17:00; Stop at 16:48; Status DC Multivit/ Folic Acid/Iron (Multivitamin ) 1 tab DAILY PO Last administered on 11/14/18 08:07; Start 11/09/18 at 17:00 Varenicline (Chantix) 1 mg BID PO Last administered on 11/14/18 10:23; Start 11/09/18 at 21:00 Insulin Human Lispro (HumaLOG) 0-5 UNITS TIDWMEALS SQ ; Start 11/09/18 at 17:00; Stop 11/09/18 at 18:26; Status DC Dextrose (Dextrose 50%-Water Syringe) 12.5 gm PRN Q15MIN PRN IV SEE COMMENTS; Start 11/09/18 at 16:30 Gadobutrol (Gadavist) 10 mmol 1X ONCE IV Last administered on 11/09/18at 19:02; Start 11/09/18 at 18:45; Stop 11/09/18 at 18:46; Status DC Morphine Sulfate (Morphine Sulfate) 2 mg PRN Q1HR PRN IV PAIN Last administered on 11/10/18 11:16; Start 11/09/18 at 21:30; Stop 11/10/18 at 16:46; Status DC Hydromorphone HCl (Dilaudid) 2 mg 1X ONCE IV Last administered on 11/09/18 23: 56; Start 11/09/18 at 23:45; Stop 11/09/18 at 23:46; Status DC Hydromorphone HCl (Dilaudid) 2 mg PRN Q4HRS PRN IV SEVERE PAIN Last administered on 11/14/18 08:06; Start 11/10/18 at 08:30 Diphenhydramine HCl (Benadryl) 25 mg PRN Q8HRS PRN PO ITCHING Last administered on 11/11/18 10:40; Start 11/10/18 at 09:15; Stop 11/11/18 at 17:14 ; Status DC Methylprednisolone (Medrol) 8 mg BID PO Last administered on 11/10/18 19:53; Start 11/10/18 at 14:00; Stop 11/10/18 at 21:01; Status DC Methylprednisolone (Medrol) 4 mg BIDPCLD PO Last administered on 11/10/18 17:08 ; Start 11/10/18 at 14:00; Stop 11/10/18 at 17:31; Status DC Methylprednisolone (Medrol) 4 mg TIDPC PO Last administered on 11/11/18 17:38 ; Start 11/11/18 at 08:30; Stop 11/11/18 at 17:31; Status DC Methylprednisolone (Medrol) 8 mg QHS PO Last administered on 11/11/18 21:07; Start 11/11/18 at 21:00; Stop 11/11/18 at 21:01; Status DC Methylprednisolone (Medrol) 4 mg QIDAFTMEAL PO Last administered on 11/12/18at 18:15; Start 11/12/18 at 09:00; Stop 11/12/18 at 21:01; Status DC Methylprednisolone (Medrol) 4 mg TID PO Last administered on 11/13/18at 20:30; Start 11/13/18 at 09:00; Stop 11/13/18 at 21:01; Status DC Methylprednisolone (Medrol) 4 mg BID PO Last administered on 11/14/18at 08:07; Start 11/14/18 at 09:00; Stop 11/14/18 at 21:01 Methylprednisolone (Medrol) 4 mg DAILY PO ; Start 11/15/18 at 09:00; Stop at 09:01 Clindamycin Phosphate 50 ml @ 100 mls/hr 1X PREOP IV ; Start 11/12/18 at 11:45 ; Stop 11/12/18 at 18:00; Status UNV Clindamycin Phosphate 50 ml @ 100 mls/hr 1X PREOP PRN IV PRIOR TO PROCEDURE Last administered on 11/12/18 12:16; Start 11/12/18 at 06:00; Stop 11/12/18 at 18:00; Status DC Lidocaine (Lidoderm) 1 patch DAILY TD Last administered on 11/11/18at 16:44; Start 11/11/18 at 16:30 Miscellaneous (Lidoderm Patch Removal) 1 ea QHS MC Last administered on 21:00; Start 11/11/18 at 21:00 Ketorolac Tromethamine (Toradol 30mg Vial) 30 mg Q8HRS PRN IV PAIN Last administered on 11/13/18at 18:16; Start 11/11/18 at 16:15; Stop 11/13/18 at 19:55 ; Status DC Hydromorphone HCl (Dilaudid) 1 mg 1X ONCE IV Last administered on 11/11/18 17 :37; Start 11/11/18 at 17:00; Stop 11/11/18 at 17:01; Status DC Diphenhydramine HCl (Benadryl Oral Elixir) 37.5 mg PRN Q8HRS PRN PO ITCHING Last administered on 11/11/18at 21:07; Start 11/11/18 at 17:15 Temazepam (Restoril) 15 mg PRN QHS PRN PO INSOMNIA Last administered on 22:32; Start 11/11/18 at 19:30 Bacitracin 87057 unit/Sodium Chloride 1,000 ml @ 1,000 mls/hr 1X ONCE IRR Last administered on 11/12/18 12:38; Start 11/12/18 at 08:00; Stop 11/12/18 at 08:59; Status DC Gelatin (Gelfoam Size 100) 1 each STK-MED ONCE .ROUTE Last administered on 08/20at 12:38; Start 11/12/18 at 07:26; Stop 11/12/18 at 07:28; Status DC Bupivacaine HCl/ Epinephrine Bitart (Sensorcain-Mpf Epi 0.5%-1:[id number]) 30 ml STK -MED ONCE .ROUTE Last administered on 11/12/18at 12:38; Start 11/12/18 at 07:26 ; Stop 11/12/18 at 07:28; Status DC Ketorolac Tromethamine (Toradol For Or Only) 60 mg STK-MED ONCE .ROUTE Last administered on 11/12/18at 12:38; Start 11/12/18 at 07:26; Stop 11/12/18 at 07:28 ; Status DC Thrombin 20,000 unit STK-MED ONCE TP Last administered on 11/12/18at 12:38; Start 11/12/18 at 07:26; Stop 11/12/18 at 07:28; Status DC Rocuronium [place] (Zemuron) 50 mg STK-MED ONCE .ROUTE ; Start 11/12/18 at 10:20 ; Stop 11/12/18 at 10:23; Status DC Remifentanil HCl (Ultiva) 2 mg STK-MED ONCE IV ; Start 11/12/18 at 10:21; Stop 11/12/18 at 10:23; Status DC Midazolam HCl (Versed) 2 mg STK-MED ONCE .ROUTE ; Start 11/12/18 at 10:21; Stop 11/12/18 at 10:23; Status DC Fentanyl Citrate (Fentanyl 5ml Vial) 250 mcg STK-MED ONCE .ROUTE ; Start at 10:21; Stop 11/12/18 at 10:23; Status DC Dexamethasone Sodium Phosphate (Decadron) 20 mg STK-MED ONCE .ROUTE ; Start 08/20 at 10:22; Stop 11/12/18 at 10:24; Status DC Ondansetron HCl (Zofran) 4 mg STK-MED ONCE .ROUTE ; Start 11/12/18 at 10:22; Stop 11/12/18 at 10:24; Status DC Phenylephrine HCl (Ubaldo-Synephrine Inj) 10 mg STK-MED ONCE .ROUTE ; Start at 10:22; Stop 11/12/18 at 10:24; Status DC Phenylephrine HCl (Ubaldo-Synephrine Inj) 10 mg STK-MED ONCE .ROUTE ; Start at 10:22; Stop 11/12/18 at 10:24; Status DC Propofol 20 ml @ As Directed STK-MED ONCE IV ; Start 11/12/18 at 10:22; Stop 08/20 at 10:25; Status DC Propofol 50 ml @ As Directed STK-MED ONCE IV ; Start 11/12/18 at 10:22; Stop 08/20 at 10:25; Status DC Lidocaine HCl (Lidocaine Pf 2% Vial) 5 ml STK-MED ONCE .ROUTE ; Start 11/12/18 at 10:22; Stop 11/12/18 at 10:25; Status DC Ascorbic Acid (Vitamin C) 500 mg DAILY PO Last administered on 11/14/18at 08:08 ; Start 11/12/18 at 12:00 Bisacodyl (Dulcolax Tab) 5 mg PRN DAILY PRN PO CONSTIPATION (2nd Choice) Last administered on 11/14/18at 10:23; Start 11/12/18 at 11:30 Propofol 50 ml @ As Directed STK-MED ONCE IV ; Start 11/12/18 at 14:12; Stop 08/20 at 14:14; Status DC Remifentanil HCl (Ultiva) 1 mg STK-MED ONCE IV ; Start 11/12/18 at 14:34; Stop 11/12/18 at 14:36; Status DC Fentanyl Citrate (Fentanyl 2ml Vial) 100 mcg STK-MED ONCE .ROUTE ; Start at 15:31; Stop 11/12/18 at 15:33; Status DC Fentanyl Citrate (Fentanyl 2ml Vial) 100 mcg STK-MED ONCE .ROUTE ; Start at 15:35; Stop 11/12/18 at 15:37; Status DC Ketamine HCl (Ketamine) 50 mg STK-MED ONCE .ROUTE ; Start 11/12/18 at 15:38; Stop 11/12/18 at 15:40; Status DC Midazolam HCl (Versed) 2 mg STK-MED ONCE .ROUTE ; Start 11/12/18 at 15:41; Stop 11/12/18 at 15:43; Status DC Desflurane (Suprane) 90 ml STK-MED ONCE IH ; Start 11/12/18 at 15:48; Stop 11/12 at 15:49; Status DC Fentanyl Citrate (Fentanyl 2ml Vial) 25 mcg PRN Q5MIN PRN IV MILD PAIN; Start 11/12/18 at 16:00; Stop 11/12/18 at 20:00; Status DC Fentanyl Citrate (Fentanyl 2ml Vial) 50 mcg PRN Q5MIN PRN IV MODERATE TO SEVERE PAIN; Start 11/12/18 at 16:00; Stop 11/12/18 at 20:00; Status DC Morphine Sulfate (Morphine Sulfate) 2 mg PRN Q10MIN PRN IV MILD PAIN Last administered on 11/12/18at 16:54; Start 11/12/18 at 16:00; Stop 11/12/18 at 20:00 ; Status DC Morphine Sulfate (Morphine Sulfate) 4 mg PRN Q10MIN PRN IV Moderate to Severe Pain; Start 11/12/18 at 16:00; Stop 11/12/18 at 20:00; Status DC Hydromorphone HCl (Dilaudid) 0.5 mg PRN Q10MIN PRN IV Moderate to severe pain; Start 11/12/18 at 16:00; Stop 11/12/18 at 20:00; Status DC Ondansetron HCl (Zofran) 4 mg PRN Q6HRS PRN IV Nausea, 1st Choice; Start at 16:00; Stop 11/12/18 at 20:00; Status DC Diphenhydramine HCl (Benadryl) 12.5 mg PRN Q4HRS PRN IV Nausea/Vomiting, 1st Choice; Start 11/12/18 at 16:00; Stop 11/13/18 at 15:59; Status UNV Prochlorperazine Edisylate (Compazine) 5 mg PRN Q6HRS PRN IV Nausea/Vomiting, 1st Choice Last administered on 11/12/18at 16:53; Start 11/12/18 at 16:00; Stop 11/12/18 at 20:00; Status DC Ondansetron HCl (Zofran) 4 mg PRN Q6HRS PRN IV Nausea, 2nd Choice; Start at 16:00; Stop 11/13/18 at 15:59; Status UNV Diphenhydramine HCl (Benadryl) 12.5 mg PRN Q4HRS PRN IV Nausea/Vomiting, 2nd Choice; Start 11/12/18 at 16:00; Stop 11/12/18 at 20:00; Status DC Prochlorperazine Edisylate (Compazine) 5 mg PRN Q6HRS PRN IV Nausea/Vomiting, 2nd Choice; Start 11/12/18 at 16:00; Stop 11/13/18 at 15:59; Status UNV Ondansetron HCl (Zofran) 4 mg PRN Q6HRS PRN IV Nausea, 3rd Choice; Start at 16:00; Stop 11/13/18 at 15:59; Status UNV Prochlorperazine Edisylate (Compazine) 5 mg PRN Q6HRS PRN IV Nausea/Vomiting, 3rd Choice; Start 11/12/18 at 16:00; Stop 11/13/18 at 15:59; Status UNV Morphine Sulfate (Morphine Sulfate) 4 mg STK-MED ONCE .ROUTE ; Start 11/12/18 at 15:55; Stop 11/12/18 at 15:57; Status DC Ringer's Solution 1,000 ml @ 100 mls/hr Q10H IV Last administered on at 17:31; Start 11/12/18 at 12:00; Stop 11/13/18 at 11:31; Status DC Oxycodone/ Acetaminophen (Percocet 7.5/ 325) 1 tab PRN Q4HRS PRN PO MODERATE PAIN Last administered on 11/13/18at 20:30; Start 11/13/18 at 12:00 Oxycodone/ Acetaminophen (Percocet 7.5/ 325) 2 tab PRN Q4HRS PRN PO SEVERE PAIN Last administered on 11/14/18at 11:27; Start 11/13/18 at 12:00 Ketorolac Tromethamine (Toradol 30mg Vial) 30 mg PRN Q8HRS PRN IV MODERATE PAIN Last administered on 11/14/18at 10:35; Start 11/13/18 at 20:00; Stop at 16:14 Lorazepam (Ativan) 1 mg PRN Q12HR PRN PO ANXIETY / AGITATION Last administered on 11/14/18at 02:50; Start 11/14/18 at 02:45 Morphine Sulfate (Ms Contin) 30 mg BID PO Last administered on 11/14/18at 10:26 ; Start 11/14/18 at 10:30 Potassium Chloride (Klor-Con) 40 meq 1X ONCE PO ; Start 11/14/18 at 11:30; Stop 11/14/18 at 11:31; Status DC Active Scripts Active Reported Chantix (Varenicline Tartrate) 1 Mg Tablet 1 Mg PO BID Robaxin (Methocarbamol) 500 Mg Tablet 2 Tab PO BID Hydrocodone-Apap 7.5-325 (Hydrocodone Bit/Acetaminophen) 1 Tab Tablet 1-2 Tab PO PRN Q6HRS PRN Diclofenac Sodium 50 Mg Tablet.dr 1 Tab PO BID Tablet (Pnv Cmb#95/Ferrous Fumarate/Fa) 1 Each Tablet 1 Tab PO DAILY Metformin Hcl Er (Metformin Hcl) 500 Mg Tab.er.24h 500 Mg PO BIDWMEALS Simvastatin 10 Mg Tablet 1 Tab PO QHS Lisinopril 40 Mg Tablet 1 Tab PO DAILY Vitals/I & O Vital Sign - Last 24 Hours 11/13/18 11/13/18 11/13/18 11/13/18 14:55 16:19 19:00 20:00 Temp 98.0 98.1 98.0 98.1 Pulse 75 67 Resp 18 18 B/P (MAP) 127/67 (87) 144/67 (92) Pulse Ox 98 91 O2 Delivery Room Air Room Air Room Air Room Air 11/13/18 11/13/18 11/13/18 11/13/18 20:30 21:51 23:00 23:48 Temp 98.1 98.1 Pulse 69 Resp 20 20 18 24 B/P (MAP) 144/58 (86) Pulse Ox 93 O2 Delivery Nasal Cannula Room Air Room Air 11/14/18 11/14/18 11/14/18 11/14/18 00:25 03:00 07:00 07:37 Temp 98.7 98.1 98.7 98.1 Pulse 70 113 Resp 20 18 18 B/P (MAP) 156/77 (103) 121/68 (85) Pulse Ox 94 98 O2 Delivery Room Air Room Air Room Air 11/14/18 11/14/18 11/14/18 11/14/18 08:06 09:35 09:36 10:26 O2 Delivery Room Air Room Air Room Air Room Air 11/14/18 11/14/18 11:00 11:27 Temp 98.0 98.0 Pulse 66 Resp 18 B/P (MAP) 131/70 (90) Pulse Ox 93 O2 Delivery Room Air Room Air Intake and Output 11/13/18 11/13/18 11/14/18 15:00 23:00 07:00 Intake Total 630 ml 0 ml Balance 630 ml 0 ml KODY PEREYRA MD Nov 14, 2018 12:45
--- NOTE | 2018-11-14 13:31 | RAD ---
EXAM: CHEST 1 VIEW History: Chest pain COMPARISON: 06/21/2012 TECHNIQUE: Single portable radiograph of the chest FINDINGS: The cardiac silhouette is unremarkable. The lungs are clear bilaterally. The costophrenic sulci are clear and well demarcated. IMPRESSION: No radiographic evidence of an acute cardiopulmonary process. Electronically signed by: Carson Domínguez MD (11/14/2018 1:28 PM) [place] [id number]
--- NOTE | 2018-11-14 14:45 | EKG ---
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
--- NOTE | 2018-11-14 16:01 | PDOC ---
PROGRESS NOTES Subjective Subjective POD #2 patient seen at 1300 increased pain overnight in her lower back Objective Objective Vital Signs Date Time Temp Pulse Resp B/P (MAP) Pulse Ox O2 Delivery O2 Flow Rate FiO2 11/14/18 15:00 98.9 84 18 134/81 (98) 95 Room Air 98.9 11/13/18 03:00 2.0 Intake and Output 11/14/18 07:00 Intake Total 630 ml Balance 630 ml Intake Oral 630 ml # Voids 5 Physical Exam General: Alert, Oriented X3, Cooperative Neuro: Normal speech, Other (strength 5/5 in BLE) Skin: Other (dressing with minimal SS drainge, flat) Plan Plan of Care encouraged increased activity as tolerated SCDs when in bed MS contin added per Dr. Adames Comment Review of Relevant I have reviewed the following items jeff (where applicable) has been applied. Labs Laboratory Tests Test 11/14/18 04:05 White Blood Count 13.4 x10^3/uL (4.0-11.0) Red Blood Count 3.88 x10^6/uL (3.50-5.40) Hemoglobin 11.4 g/dL (12.0-15.5) Hematocrit 34.2 % (36.0-47.0) Mean Corpuscular Volume 88 fL (79-100) Mean Corpuscular Hemoglobin 29 pg (25-35) Mean Corpuscular Hemoglobin Concent 33 g/dL (31-37) Red Cell Distribution Width 13.9 % (11.5-14.5) Platelet Count 301 x10^3/uL (140-400) Neutrophils (%) (Auto) 58 % (31-73) Lymphocytes (%) (Auto) 32 % (24-48) Monocytes (%) (Auto) 8 % (0-9) Eosinophils (%) (Auto) 1 % (0-3) Basophils (%) (Auto) 1 % (0-3) Neutrophils # (Auto) 7.8 x10^3uL (1.8-7.7) Lymphocytes # (Auto) 4.4 x10^3/uL (1.0-4.8) Monocytes # (Auto) 1.1 x10^3/uL (0.0-1.1) Eosinophils # (Auto) 0.1 x10^3/uL (0.0-0.7) Basophils # (Auto) 0.1 x10^3/uL (0.0-0.2) Sodium Level 140 mmol/L (136-145) Potassium Level 3.4 mmol/L (3.5-5.1) Chloride Level 104 mmol/L (98-107) Carbon Dioxide Level 26 mmol/L (21-32) Anion Gap 10 (6-14) Blood Urea Nitrogen 6 mg/dL (7-20) Creatinine 0.7 mg/dL (0.6-1.0) Estimated GFR (Cockcroft-Gault) 97.0 Glucose Level 134 mg/dL (70-99) Calcium Level 9.3 mg/dL (8.5-10.1) Troponin I Quantitative < 0.017 ng/mL (0.000-0.055) Laboratory Tests Test 11/14/18 04:05 White Blood Count 13.4 x10^3/uL (4.0-11.0) Red Blood Count 3.88 x10^6/uL (3.50-5.40) Hemoglobin 11.4 g/dL (12.0-15.5) Hematocrit 34.2 % (36.0-47.0) Mean Corpuscular Volume 88 fL (79-100) Mean Corpuscular Hemoglobin 29 pg (25-35) Mean Corpuscular Hemoglobin Concent 33 g/dL (31-37) Red Cell Distribution Width 13.9 % (11.5-14.5) Platelet Count 301 x10^3/uL (140-400) Neutrophils (%) (Auto) 58 % (31-73) Lymphocytes (%) (Auto) 32 % (24-48) Monocytes (%) (Auto) 8 % (0-9) Eosinophils (%) (Auto) 1 % (0-3) Basophils (%) (Auto) 1 % (0-3) Neutrophils # (Auto) 7.8 x10^3uL (1.8-7.7) Lymphocytes # (Auto) 4.4 x10^3/uL (1.0-4.8) Monocytes # (Auto) 1.1 x10^3/uL (0.0-1.1) Eosinophils # (Auto) 0.1 x10^3/uL (0.0-0.7) Basophils # (Auto) 0.1 x10^3/uL (0.0-0.2) Sodium Level 140 mmol/L (136-145) Potassium Level 3.4 mmol/L (3.5-5.1) Chloride Level 104 mmol/L (98-107) Carbon Dioxide Level 26 mmol/L (21-32) Anion Gap 10 (6-14) Blood Urea Nitrogen 6 mg/dL (7-20) Creatinine 0.7 mg/dL (0.6-1.0) Estimated GFR (Cockcroft-Gault) 97.0 Glucose Level 134 mg/dL (70-99) Calcium Level 9.3 mg/dL (8.5-10.1) Troponin I Quantitative < 0.017 ng/mL (0.000-0.055) Microbiology 11/09/18 Urine Culture - Final, Complete 11/09/18 Urine Culture Result 1 (MARIPOSA) - Final, Complete Medications Current Medications Ondansetron HCl (Zofran) 4 mg PRN Q6HRS PRN IV NAUSEA/VOMITING Last administered on 11/14/18 09:34; Start 11/09/18 at 16:30 Prochlorperazine Edisylate (Compazine) 10 mg PRN Q6HRS PRN IV NAUSEA/VOMITING 2ND CHOICE Last administered on 11/14/18 12:00; Start 11/09/18 at 16:30 Zolpidem Tartrate (Ambien) 5 mg PRN QHS PRN PO INSOMNIA, MAY REPEAT IN 1HR Last administered on 11/11/18 00:01; Start 11/09/18 at 16:30; Stop 11/13/18 at 19:54; Status DC Morphine Sulfate (Morphine Sulfate) 1 mg PRN Q1HR PRN IV PAIN Last administered on 11/09/18 21:19; Start 11/09/18 at 16:30; Stop 11/09/18 at 21:23; Status DC Oxycodone/ Acetaminophen (Percocet 5/325) 1 tab PRN Q4HRS PRN PO MILD PAIN, 1ST CHOICE Last administered on 11/13/18 08:04; Start 11/09/18 at 16:30; Stop at 11:56; Status DC Senna/Docusate Sodium (Senna Plus) 1 tab BID PO Last administered on 2/13/19at 08:07; Start 11/09/18 at 21:00 Magnesium Hydroxide (Milk Of Magnesia) 2,400 mg PRN Q12HR PRN PO CONSTIPATION ( 1st Choice); Start 11/09/18 at 16:30 Heparin Sodium (Porcine) (Heparin Sodium) 5,000 unit Q8HRS SQ Last administered on 11/11/18 06:12; Start 11/09/18 at 17:00; Stop 11/11/18 at 11:45 ; Status DC Acetaminophen/ Hydrocodone Bitart (Lortab 7.5/325) 1 tab PRN Q6HRS PRN PO MODERAETE PAIN Last administered on 11/13/18 11:06; Start 11/09/18 at 16:30; Stop 11/13/18 at 11:56; Status DC Methocarbamol (Robaxin) 1,000 mg BID PO Last administered on 11/14/18 08:07; Start 11/09/18 at 21:00 Metformin HCl (Glucophage) 500 mg BIDWMEALS PO ; Start 11/09/18 at 17:00; Stop at 16:48; Status DC Multivit/ Folic Acid/Iron (Multivitamin ) 1 tab DAILY PO Last administered on 11/14/18 08:07; Start 11/09/18 at 17:00 Varenicline (Chantix) 1 mg BID PO Last administered on 11/14/18 10:23; Start 11/09/18 at 21:00 Insulin Human Lispro (HumaLOG) 0-5 UNITS TIDWMEALS SQ ; Start 11/09/18 at 17:00; Stop 11/09/18 at 18:26; Status DC Dextrose (Dextrose 50%-Water Syringe) 12.5 gm PRN Q15MIN PRN IV SEE COMMENTS; Start 11/09/18 at 16:30 Gadobutrol (Gadavist) 10 mmol 1X ONCE IV Last administered on 11/09/18 19:02; Start 11/09/18 at 18:45; Stop 11/09/18 at 18:46; Status DC Morphine Sulfate (Morphine Sulfate) 2 mg PRN Q1HR PRN IV PAIN Last administered on 11/10/18 11:16; Start 11/09/18 at 21:30; Stop 11/10/18 at 16:46; Status DC Hydromorphone HCl (Dilaudid) 2 mg 1X ONCE IV Last administered on 11/09/18at 23: 56; Start 11/09/18 at 23:45; Stop 11/09/18 at 23:46; Status DC Hydromorphone HCl (Dilaudid) 2 mg PRN Q4HRS PRN IV SEVERE PAIN Last administered on 11/14/18at 08:06; Start 11/10/18 at 08:30 Diphenhydramine HCl (Benadryl) 25 mg PRN Q8HRS PRN PO ITCHING Last administered on 11/11/18 10:40; Start 11/10/18 at 09:15; Stop 11/11/18 at 17:14 ; Status DC Methylprednisolone (Medrol) 8 mg BID PO Last administered on 11/10/18 19:53; Start 11/10/18 at 14:00; Stop 11/10/18 at 21:01; Status DC Methylprednisolone (Medrol) 4 mg BIDPCLD PO Last administered on 11/10/18at 17:08 ; Start 11/10/18 at 14:00; Stop 11/10/18 at 17:31; Status DC Methylprednisolone (Medrol) 4 mg TIDPC PO Last administered on 11/11/18at 17:38 ; Start 11/11/18 at 08:30; Stop 11/11/18 at 17:31; Status DC Methylprednisolone (Medrol) 8 mg QHS PO Last administered on 11/11/18 21:07; Start 11/11/18 at 21:00; Stop 11/11/18 at 21:01; Status DC Methylprednisolone (Medrol) 4 mg QIDAFTMEAL PO Last administered on 11/12/18at 18:15; Start 11/12/18 at 09:00; Stop 11/12/18 at 21:01; Status DC Methylprednisolone (Medrol) 4 mg TID PO Last administered on 11/13/18at 20:30; Start 11/13/18 at 09:00; Stop 11/13/18 at 21:01; Status DC Methylprednisolone (Medrol) 4 mg BID PO Last administered on 11/14/18 08:07; Start 11/14/18 at 09:00; Stop 11/14/18 at 21:01 Methylprednisolone (Medrol) 4 mg DAILY PO ; Start 11/15/18 at 09:00; Stop at 09:01 Clindamycin Phosphate 50 ml @ 100 mls/hr 1X PREOP IV ; Start 11/12/18 at 11:45 ; Stop 11/12/18 at 18:00; Status UNV Clindamycin Phosphate 50 ml @ 100 mls/hr 1X PREOP PRN IV PRIOR TO PROCEDURE Last administered on 11/12/18at 12:16; Start 11/12/18 at 06:00; Stop 11/12/18 at 18:00; Status DC Lidocaine (Lidoderm) 1 patch DAILY TD Last administered on 11/11/18at 16:44; Start 11/11/18 at 16:30 Miscellaneous (Lidoderm Patch Removal) 1 ea QHS MC Last administered on 21:00; Start 11/11/18 at 21:00 Ketorolac Tromethamine (Toradol 30mg Vial) 30 mg Q8HRS PRN IV PAIN Last administered on 11/13/18at 18:16; Start 11/11/18 at 16:15; Stop 11/13/18 at 19:55 ; Status DC Hydromorphone HCl (Dilaudid) 1 mg 1X ONCE IV Last administered on 11/11/18at 17 :37; Start 11/11/18 at 17:00; Stop 11/11/18 at 17:01; Status DC Diphenhydramine HCl (Benadryl Oral Elixir) 37.5 mg PRN Q8HRS PRN PO ITCHING Last administered on 11/11/18at 21:07; Start 11/11/18 at 17:15 Temazepam (Restoril) 15 mg PRN QHS PRN PO INSOMNIA Last administered on 22:32; Start 11/11/18 at 19:30 Bacitracin 68666 unit/Sodium Chloride 1,000 ml @ 1,000 mls/hr 1X ONCE IRR Last administered on 11/12/18 12:38; Start 11/12/18 at 08:00; Stop 11/12/18 at 08:59; Status DC Gelatin (Gelfoam Size 100) 1 each STK-MED ONCE .ROUTE Last administered on 08/20at 12:38; Start 11/12/18 at 07:26; Stop 11/12/18 at 07:28; Status DC Bupivacaine HCl/ Epinephrine Bitart (Sensorcain-Mpf Epi 0.5%-1:[id number]) 30 ml STK -MED ONCE .ROUTE Last administered on 11/12/18at 12:38; Start 11/12/18 at 07:26 ; Stop 11/12/18 at 07:28; Status DC Ketorolac Tromethamine (Toradol For Or Only) 60 mg STK-MED ONCE .ROUTE Last administered on 11/12/18at 12:38; Start 11/12/18 at 07:26; Stop 11/12/18 at 07:28 ; Status DC Thrombin 20,000 unit STK-MED ONCE TP Last administered on 11/12/18at 12:38; Start 11/12/18 at 07:26; Stop 11/12/18 at 07:28; Status DC Rocuronium Fowler (Zemuron) 50 mg STK-MED ONCE .ROUTE ; Start 11/12/18 at 10:20 ; Stop 11/12/18 at 10:23; Status DC Remifentanil HCl (Ultiva) 2 mg STK-MED ONCE IV ; Start 11/12/18 at 10:21; Stop 11/12/18 at 10:23; Status DC Midazolam HCl (Versed) 2 mg STK-MED ONCE .ROUTE ; Start 11/12/18 at 10:21; Stop 11/12/18 at 10:23; Status DC Fentanyl Citrate (Fentanyl 5ml Vial) 250 mcg STK-MED ONCE .ROUTE ; Start at 10:21; Stop 11/12/18 at 10:23; Status DC Dexamethasone Sodium Phosphate (Decadron) 20 mg STK-MED ONCE .ROUTE ; Start 08/20 at 10:22; Stop 11/12/18 at 10:24; Status DC Ondansetron HCl (Zofran) 4 mg STK-MED ONCE .ROUTE ; Start 11/12/18 at 10:22; Stop 11/12/18 at 10:24; Status DC Phenylephrine HCl (Ubaldo-Synephrine Inj) 10 mg STK-MED ONCE .ROUTE ; Start at 10:22; Stop 11/12/18 at 10:24; Status DC Phenylephrine HCl (Ubaldo-Synephrine Inj) 10 mg STK-MED ONCE .ROUTE ; Start at 10:22; Stop 11/12/18 at 10:24; Status DC Propofol 20 ml @ As Directed STK-MED ONCE IV ; Start 11/12/18 at 10:22; Stop 08/20 at 10:25; Status DC Propofol 50 ml @ As Directed STK-MED ONCE IV ; Start 11/12/18 at 10:22; Stop 08/20 at 10:25; Status DC Lidocaine HCl (Lidocaine Pf 2% Vial) 5 ml STK-MED ONCE .ROUTE ; Start 11/12/18 at 10:22; Stop 11/12/18 at 10:25; Status DC Ascorbic Acid (Vitamin C) 500 mg DAILY PO Last administered on 11/14/18at 08:08 ; Start 11/12/18 at 12:00 Bisacodyl (Dulcolax Tab) 5 mg PRN DAILY PRN PO CONSTIPATION (2nd Choice) Last administered on 11/14/18at 10:23; Start 11/12/18 at 11:30 Propofol 50 ml @ As Directed STK-MED ONCE IV ; Start 11/12/18 at 14:12; Stop 08/20 at 14:14; Status DC Remifentanil HCl (Ultiva) 1 mg STK-MED ONCE IV ; Start 11/12/18 at 14:34; Stop 11/12/18 at 14:36; Status DC Fentanyl Citrate (Fentanyl 2ml Vial) 100 mcg STK-MED ONCE .ROUTE ; Start at 15:31; Stop 11/12/18 at 15:33; Status DC Fentanyl Citrate (Fentanyl 2ml Vial) 100 mcg STK-MED ONCE .ROUTE ; Start at 15:35; Stop 11/12/18 at 15:37; Status DC Ketamine HCl (Ketamine) 50 mg STK-MED ONCE .ROUTE ; Start 11/12/18 at 15:38; Stop 11/12/18 at 15:40; Status DC Midazolam HCl (Versed) 2 mg STK-MED ONCE .ROUTE ; Start 11/12/18 at 15:41; Stop 11/12/18 at 15:43; Status DC Desflurane (Suprane) 90 ml STK-MED ONCE IH ; Start 11/12/18 at 15:48; Stop 11/12 at 15:49; Status DC Fentanyl Citrate (Fentanyl 2ml Vial) 25 mcg PRN Q5MIN PRN IV MILD PAIN; Start 11/12/18 at 16:00; Stop 11/12/18 at 20:00; Status DC Fentanyl Citrate (Fentanyl 2ml Vial) 50 mcg PRN Q5MIN PRN IV MODERATE TO SEVERE PAIN; Start 11/12/18 at 16:00; Stop 11/12/18 at 20:00; Status DC Morphine Sulfate (Morphine Sulfate) 2 mg PRN Q10MIN PRN IV MILD PAIN Last administered on 11/12/18at 16:54; Start 11/12/18 at 16:00; Stop 11/12/18 at 20:00 ; Status DC Morphine Sulfate (Morphine Sulfate) 4 mg PRN Q10MIN PRN IV Moderate to Severe Pain; Start 11/12/18 at 16:00; Stop 11/12/18 at 20:00; Status DC Hydromorphone HCl (Dilaudid) 0.5 mg PRN Q10MIN PRN IV Moderate to severe pain; Start 11/12/18 at 16:00; Stop 11/12/18 at 20:00; Status DC Ondansetron HCl (Zofran) 4 mg PRN Q6HRS PRN IV Nausea, 1st Choice; Start at 16:00; Stop 11/12/18 at 20:00; Status DC Diphenhydramine HCl (Benadryl) 12.5 mg PRN Q4HRS PRN IV Nausea/Vomiting, 1st Choice; Start 11/12/18 at 16:00; Stop 11/13/18 at 15:59; Status UNV Prochlorperazine Edisylate (Compazine) 5 mg PRN Q6HRS PRN IV Nausea/Vomiting, 1st Choice Last administered on 11/12/18at 16:53; Start 11/12/18 at 16:00; Stop 11/12/18 at 20:00; Status DC Ondansetron HCl (Zofran) 4 mg PRN Q6HRS PRN IV Nausea, 2nd Choice; Start at 16:00; Stop 11/13/18 at 15:59; Status UNV Diphenhydramine HCl (Benadryl) 12.5 mg PRN Q4HRS PRN IV Nausea/Vomiting, 2nd Choice; Start 11/12/18 at 16:00; Stop 11/12/18 at 20:00; Status DC Prochlorperazine Edisylate (Compazine) 5 mg PRN Q6HRS PRN IV Nausea/Vomiting, 2nd Choice; Start 11/12/18 at 16:00; Stop 11/13/18 at 15:59; Status UNV Ondansetron HCl (Zofran) 4 mg PRN Q6HRS PRN IV Nausea, 3rd Choice; Start at 16:00; Stop 11/13/18 at 15:59; Status UNV Prochlorperazine Edisylate (Compazine) 5 mg PRN Q6HRS PRN IV Nausea/Vomiting, 3rd Choice; Start 11/12/18 at 16:00; Stop 11/13/18 at 15:59; Status UNV Morphine Sulfate (Morphine Sulfate) 4 mg STK-MED ONCE .ROUTE ; Start 11/12/18 at 15:55; Stop 11/12/18 at 15:57; Status DC Ringer's Solution 1,000 ml @ 100 mls/hr Q10H IV Last administered on at 17:31; Start 11/12/18 at 12:00; Stop 11/13/18 at 11:31; Status DC Oxycodone/ Acetaminophen (Percocet 7.5/ 325) 1 tab PRN Q4HRS PRN PO MODERATE PAIN Last administered on 11/13/18at 20:30; Start 11/13/18 at 12:00 Oxycodone/ Acetaminophen (Percocet 7.5/ 325) 2 tab PRN Q4HRS PRN PO SEVERE PAIN Last administered on 11/14/18at 11:27; Start 11/13/18 at 12:00 Ketorolac Tromethamine (Toradol 30mg Vial) 30 mg PRN Q8HRS PRN IV MODERATE PAIN Last administered on 11/14/18at 10:35; Start 11/13/18 at 20:00; Stop at 16:14 Lorazepam (Ativan) 1 mg PRN Q12HR PRN PO ANXIETY / AGITATION Last administered on 11/14/18at 02:50; Start 11/14/18 at 02:45 Morphine Sulfate (Ms Contin) 30 mg BID PO Last administered on 11/14/18at 10:26 ; Start 11/14/18 at 10:30 Potassium Chloride (Klor-Con) 40 meq 1X ONCE PO Last administered on at 13:18; Start 11/14/18 at 11:30; Stop 11/14/18 at 11:31; Status DC Active Scripts Active Reported Chantix (Varenicline Tartrate) 1 Mg Tablet 1 Mg PO BID Robaxin (Methocarbamol) 500 Mg Tablet 2 Tab PO BID Hydrocodone-Apap 7.5-325 (Hydrocodone Bit/Acetaminophen) 1 Tab Tablet 1-2 Tab PO PRN Q6HRS PRN Diclofenac Sodium 50 Mg Tablet.dr 1 Tab PO BID Tablet (Pnv Cmb#95/Ferrous Fumarate/Fa) 1 Each Tablet 1 Tab PO DAILY Metformin Hcl Er (Metformin Hcl) 500 Mg Tab.er.24h 500 Mg PO BIDWMEALS Simvastatin 10 Mg Tablet 1 Tab PO QHS Lisinopril 40 Mg Tablet 1 Tab PO DAILY Vitals/I & O Vital Sign - Last 24 Hours 11/13/18 11/13/18 11/13/18 11/13/18 16:19 19:00 20:00 20:30 Temp 98.1 98.1 Pulse 67 Resp 18 20 B/P (MAP) 144/67 (92) Pulse Ox 91 O2 Delivery Room Air Room Air Room Air Nasal Cannula 11/13/18 11/13/18 11/13/18 11/14/18 21:51 23:00 23:48 00:25 Temp 98.1 98.1 Pulse 69 Resp 20 18 24 20 B/P (MAP) 144/58 (86) Pulse Ox 93 O2 Delivery Room Air Room Air 11/14/18 11/14/18 11/14/18 11/14/18 03:00 07:00 07:37 07:45 Temp 98.7 98.1 98.7 98.1 Pulse 70 113 Resp 18 18 B/P (MAP) 156/77 (103) 121/68 (85) Pulse Ox 94 98 O2 Delivery Room Air Room Air Room Air Room Air 11/14/18 11/14/18 11/14/18 11/14/18 08:06 09:35 10:26 11:00 Temp 98.0 98.0 Pulse 66 Resp 18 B/P (MAP) 131/70 (90) Pulse Ox 93 O2 Delivery Room Air Room Air Room Air Room Air 11/14/18 11/14/18 11/14/18 11/14/18 11:27 11:50 12:35 12:47 Pulse 105 71 Resp 22 16 B/P (MAP) 147/87 (107) 118/67 (84) Pulse Ox 95 94 O2 Delivery Room Air Room Air Room Air Room Air 11/14/18 11/14/18 14:52 15:00 Temp 98.9 98.9 Pulse 84 Resp 18 B/P (MAP) 134/81 (98) Pulse Ox 95 O2 Delivery Room Air Room Air Intake and Output 11/13/18 11/13/18 11/14/18 15:00 23:00 07:00 Intake Total 630 ml 0 ml Balance 630 ml 0 ml MESFIN LEVINE APRN Nov 14, 2018 16:00
[2018-11-14] MEDS: PATCH REMOVAL. MC SCH (20:26)
[2018-11-14] MEDS: TEMAZEPAM 15 MG CAPSULE PO PRN (20:27)
[2018-11-15] MEDS: oxyCODONE/APAP 7.5/325 1 TAB TABLET PO PRN ×3 (00:29→09:32)
[2018-11-15] MEDS: LORazepam 1 MG TABLET PO PRN (00:31)
[2018-11-15 03:00] VITALS: BP 128/60
[2018-11-15 07:00] VITALS: BP 108/51
[2018-11-15] MEDS: METHOCARBAMOL 500 MG TABLET PO SCH (08:29)
[2018-11-15] MEDS: PRENATAL MULTIVITAMIN TABLET. PO SCH (08:30)
[2018-11-15] MEDS: LIDOCAINE (700MG/PATCH) PATCH. TD SCH (08:30)
[2018-11-15] MEDS: SENNOSIDES/DOCUSATE 8.6/50MG TABLET. PO SCH (08:30)
[2018-11-15] MEDS: VARENICLINE 0.5 MG TABLET. PO SCH (08:30)
[2018-11-15] MEDS: MORPHINE ER 30 MG TABLET.ER PO SCH (08:30)
[2018-11-15] MEDS: ASCORBIC ACID 500 MG TABLET PO SCH (08:30)
[2018-11-15] MEDS: BISACODYL 5 MG TABLET.DR. PO PRN (08:30)
[2018-11-15] MEDS ORDERED: methylPREDNISolone 4 MG TABLET. PO SCH (09:00)
--- NOTE | 2018-11-15 09:12 | NUR ---
IP: Pt's hx of mrsa was in 06/18/13 with + sinus infection with mrsa. Pt has been without reoccurrence. Recommend mrsa screen to [facility]. Contact precautions not needed at this time.
[2018-11-15] MEDS ORDERED: oxyCODONE IR 5 MG TABLET PO PRN ×2 (09:45)
--- NOTE | 2018-11-15 10:25 | PDOC ---
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 denies any incontinence. Is scheduled to see Dr. Jones on Monday for inital visit. patient sent from [facility]. no imaging done in ER. patient states no relief with muscle relaxers, pain meds at home. can ambulate but very gingerly. unable to lay flat or sit bc of the pain. given acute worsening of pain she came for further evaluation. patient takes pre-lesvia vitamins but states not . LMP 2 weeks ago ON MRI L/S At L4-5, there is a large central disc extrusion. Central canal stenosis is moderate to severe. It measures 11 mm anteroposteriorly. pain control very challenging. 11/12 microdiscectomy L4-5 11/14 PAIN UNCONTROLLED 11/15 HOME TODAY HOME HEALTH IF NEEDED DATE OF SURGERY: 11/12/2018 PREOPERATIVE DIAGNOSES: Severe lumbar spinal stenosis with severe radiculopathy, L4-L5 from a large central disk herniation. POSTOPERATIVE DIAGNOSES: Severe lumbar spinal stenosis with severe radiculopathy, L4-L5 from a large central disk herniation. OPERATION PERFORMED: Lumbar laminectomy at L4-L5 with bilateral lumbar microdecompression/microdiskectomy. The operation was done with EMG monitoring, fluoroscopy and microscopic dissection. History of Present Illness History of Present Illness ASSESSMENT Low Back Pain with lumbar Radiculopathy with large central disc extrusion at L4- 5 results in moderate to severe central canal stenosis and effacement of the thecal sac. HTN Hx of PCOS Hx of Hashimotos Thyroiditis HLD PLAN MRI lumbar spine: , large central disc extrusion at L4-5 results in moderate to severe central canal stenosis and effacement of the thecal sac. 2. Small central protrusions at L3-4 and L5-S1 do not result in stenosis. IV morphine and dilaudid for pain control continue muscle relaxers continue home meds CBC stable continue home statin therapy Neurosx OK WITH D/C full code dvt ppx: heparin Vitals Vitals Vital Signs Date Time Temp Pulse Resp B/P (MAP) Pulse Ox O2 Delivery O2 Flow Rate FiO2 11/15/18 09:32 Room Air 11/15/18 07:00 98.1 95 16 108/51 70 96 98.1 Physical Exam Physical Exam GENERAL: in pain HEENT: Head normocephalic, atraumatic. NECK: Supple LUNGS: Clear to auscultation. HEART: RRR, S1, S2 present, pulses intact ABDOMEN: Soft, positive bowel sounds. EXTREMITIES: No cyanosis or edema. NEUROLOGIC: Normal speech, normal tone PSYCHIATRIC: Normal affect, normal mood. SKIN: No ulceration. General: Alert, Oriented X3, Cooperative Heart: Regular rate, Normal S1, Normal S2, No murmurs Lungs: Clear Abdomen: Normal bowel sounds, Soft, No tenderness Extremities: No clubbing, No cyanosis, No edema Skin: Other (dressing with minimal SS drainge, flat) Comment Review of Relevant I have reviewed the following items jeff (where applicable) has been applied. Labs Laboratory Tests Test 11/14/18 04:05 White Blood Count 13.4 x10^3/uL (4.0-11.0) Red Blood Count 3.88 x10^6/uL (3.50-5.40) Hemoglobin 11.4 g/dL (12.0-15.5) Hematocrit 34.2 % (36.0-47.0) Mean Corpuscular Volume 88 fL (79-100) Mean Corpuscular Hemoglobin 29 pg (25-35) Mean Corpuscular Hemoglobin Concent 33 g/dL (31-37) Red Cell Distribution Width 13.9 % (11.5-14.5) Platelet Count 301 x10^3/uL (140-400) Neutrophils (%) (Auto) 58 % (31-73) Lymphocytes (%) (Auto) 32 % (24-48) Monocytes (%) (Auto) 8 % (0-9) Eosinophils (%) (Auto) 1 % (0-3) Basophils (%) (Auto) 1 % (0-3) Neutrophils # (Auto) 7.8 x10^3uL (1.8-7.7) Lymphocytes # (Auto) 4.4 x10^3/uL (1.0-4.8) Monocytes # (Auto) 1.1 x10^3/uL (0.0-1.1) Eosinophils # (Auto) 0.1 x10^3/uL (0.0-0.7) Basophils # (Auto) 0.1 x10^3/uL (0.0-0.2) Sodium Level 140 mmol/L (136-145) Potassium Level 3.4 mmol/L (3.5-5.1) Chloride Level 104 mmol/L (98-107) Carbon Dioxide Level 26 mmol/L (21-32) Anion Gap 10 (6-14) Blood Urea Nitrogen 6 mg/dL (7-20) Creatinine 0.7 mg/dL (0.6-1.0) Estimated GFR (Cockcroft-Gault) 97.0 Glucose Level 134 mg/dL (70-99) Calcium Level 9.3 mg/dL (8.5-10.1) Troponin I Quantitative < 0.017 ng/mL (0.000-0.055) Microbiology 11/09/18 Urine Culture - Final, Complete 11/09/18 Urine Culture Result 1 (MARIPOSA) - Final, Complete Medications Current Medications Ondansetron HCl (Zofran) 4 mg PRN Q6HRS PRN IV NAUSEA/VOMITING Last administered on 11/14/18at 09:34; Start 11/09/18 at 16:30 Prochlorperazine Edisylate (Compazine) 10 mg PRN Q6HRS PRN IV NAUSEA/VOMITING 2ND CHOICE Last administered on 11/14/18at 12:00; Start 11/09/18 at 16:30 Zolpidem Tartrate (Ambien) 5 mg PRN QHS PRN PO INSOMNIA, MAY REPEAT IN 1HR Last administered on 11/11/18at 00:01; Start 11/09/18 at 16:30; Stop 11/13/18 at 19:54; Status DC Morphine Sulfate (Morphine Sulfate) 1 mg PRN Q1HR PRN IV PAIN Last administered on 11/09/18at 21:19; Start 11/09/18 at 16:30; Stop 11/09/18 at 21:23; Status DC Oxycodone/ Acetaminophen (Percocet 5/325) 1 tab PRN Q4HRS PRN PO MILD PAIN, 1ST CHOICE Last administered on 11/13/18at 08:04; Start 11/09/18 at 16:30; Stop at 11:56; Status DC Senna/Docusate Sodium (Senna Plus) 1 tab BID PO Last administered on 11/15/18 08:30; Start 11/09/18 at 21:00 Magnesium Hydroxide (Milk Of Magnesia) 2,400 mg PRN Q12HR PRN PO CONSTIPATION ( 1st Choice); Start 11/09/18 at 16:30 Heparin Sodium (Porcine) (Heparin Sodium) 5,000 unit Q8HRS SQ Last administered on 11/11/18 06:12; Start 11/09/18 at 17:00; Stop 11/11/18 at 11:45 ; Status DC Acetaminophen/ Hydrocodone Bitart (Lortab 7.5/325) 1 tab PRN Q6HRS PRN PO MODERAETE PAIN Last administered on 11/13/18 11:06; Start 11/09/18 at 16:30; Stop 11/13/18 at 11:56; Status DC Methocarbamol (Robaxin) 1,000 mg BID PO Last administered on 11/15/18 08:29; Start 11/09/18 at 21:00 Metformin HCl (Glucophage) 500 mg BIDWMEALS PO ; Start 11/09/18 at 17:00; Stop at 16:48; Status DC Multivit/ Folic Acid/Iron (Multivitamin ) 1 tab DAILY PO Last administered on 11/15/18 08:30; Start 11/09/18 at 17:00 Varenicline (Chantix) 1 mg BID PO Last administered on 11/15/18 08:30; Start 11/09/18 at 21:00 Insulin Human Lispro (HumaLOG) 0-5 UNITS TIDWMEALS SQ ; Start 11/09/18 at 17:00; Stop 11/09/18 at 18:26; Status DC Dextrose (Dextrose 50%-Water Syringe) 12.5 gm PRN Q15MIN PRN IV SEE COMMENTS; Start 11/09/18 at 16:30 Gadobutrol (Gadavist) 10 mmol 1X ONCE IV Last administered on 11/09/18 19:02; Start 11/09/18 at 18:45; Stop 11/09/18 at 18:46; Status DC Morphine Sulfate (Morphine Sulfate) 2 mg PRN Q1HR PRN IV PAIN Last administered on 11/10/18 11:16; Start 11/09/18 at 21:30; Stop 11/10/18 at 16:46; Status DC Hydromorphone HCl (Dilaudid) 2 mg 1X ONCE IV Last administered on 11/09/18 23: 56; Start 11/09/18 at 23:45; Stop 11/09/18 at 23:46; Status DC Hydromorphone HCl (Dilaudid) 2 mg PRN Q4HRS PRN IV SEVERE PAIN Last administered on 11/14/18 08:06; Start 11/10/18 at 08:30 Diphenhydramine HCl (Benadryl) 25 mg PRN Q8HRS PRN PO ITCHING Last administered on 11/11/18 10:40; Start 11/10/18 at 09:15; Stop 11/11/18 at 17:14 ; Status DC Methylprednisolone (Medrol) 8 mg BID PO Last administered on 11/10/18 19:53; Start 11/10/18 at 14:00; Stop 11/10/18 at 21:01; Status DC Methylprednisolone (Medrol) 4 mg BIDPCLD PO Last administered on 11/10/18 17:08 ; Start 11/10/18 at 14:00; Stop 11/10/18 at 17:31; Status DC Methylprednisolone (Medrol) 4 mg TIDPC PO Last administered on 11/11/18 17:38 ; Start 11/11/18 at 08:30; Stop 11/11/18 at 17:31; Status DC Methylprednisolone (Medrol) 8 mg QHS PO Last administered on 11/11/18 21:07; Start 11/11/18 at 21:00; Stop 11/11/18 at 21:01; Status DC Methylprednisolone (Medrol) 4 mg QIDAFTMEAL PO Last administered on 11/12/18 18:15; Start 11/12/18 at 09:00; Stop 11/12/18 at 21:01; Status DC Methylprednisolone (Medrol) 4 mg TID PO Last administered on 11/13/18 20:30; Start 11/13/18 at 09:00; Stop 11/13/18 at 21:01; Status DC Methylprednisolone (Medrol) 4 mg BID PO Last administered on 11/14/18 20:26; Start 11/14/18 at 09:00; Stop 11/14/18 at 21:01; Status DC Methylprednisolone (Medrol) 4 mg DAILY PO Last administered on 11/15/18 08:30 ; Start 11/15/18 at 09:00; Stop 11/15/18 at 09:01; Status DC Clindamycin Phosphate 50 ml @ 100 mls/hr 1X PREOP IV ; Start 11/12/18 at 11:45 ; Stop 11/12/18 at 18:00; Status UNV Clindamycin Phosphate 50 ml @ 100 mls/hr 1X PREOP PRN IV PRIOR TO PROCEDURE Last administered on 11/12/18at 12:16; Start 11/12/18 at 06:00; Stop 11/12/18 at 18:00; Status DC Lidocaine (Lidoderm) 1 patch DAILY TD Last administered on 11/11/18 16:44; Start 11/11/18 at 16:30 Miscellaneous (Lidoderm Patch Removal) 1 ea QHS MC Last administered on 21:00; Start 11/11/18 at 21:00 Ketorolac Tromethamine (Toradol 30mg Vial) 30 mg Q8HRS PRN IV PAIN Last administered on 11/13/18 18:16; Start 11/11/18 at 16:15; Stop 11/13/18 at 19:55 ; Status DC Hydromorphone HCl (Dilaudid) 1 mg 1X ONCE IV Last administered on 11/11/18 17 :37; Start 11/11/18 at 17:00; Stop 11/11/18 at 17:01; Status DC Diphenhydramine HCl (Benadryl Oral Elixir) 37.5 mg PRN Q8HRS PRN PO ITCHING Last administered on 11/11/18 21:07; Start 11/11/18 at 17:15 Temazepam (Restoril) 15 mg PRN QHS PRN PO INSOMNIA Last administered on 20:27; Start 11/11/18 at 19:30 Bacitracin 35240 unit/Sodium Chloride 1,000 ml @ 1,000 mls/hr 1X ONCE IRR Last administered on 11/12/18 12:38; Start 11/12/18 at 08:00; Stop 11/12/18 at 08:59; Status DC Gelatin (Gelfoam Size 100) 1 each STK-MED ONCE .ROUTE Last administered on 08/20at 12:38; Start 11/12/18 at 07:26; Stop 11/12/18 at 07:28; Status DC Bupivacaine HCl/ Epinephrine Bitart (Sensorcain-Mpf Epi 0.5%-1:[id number]) 30 ml STK -MED ONCE .ROUTE Last administered on 11/12/18at 12:38; Start 11/12/18 at 07:26 ; Stop 11/12/18 at 07:28; Status DC Ketorolac Tromethamine (Toradol For Or Only) 60 mg STK-MED ONCE .ROUTE Last administered on 11/12/18at 12:38; Start 11/12/18 at 07:26; Stop 11/12/18 at 07:28 ; Status DC Thrombin 20,000 unit STK-MED ONCE TP Last administered on 11/12/18at 12:38; Start 11/12/18 at 07:26; Stop 11/12/18 at 07:28; Status DC Rocuronium Gilford (Zemuron) 50 mg STK-MED ONCE .ROUTE ; Start 11/12/18 at 10:20 ; Stop 11/12/18 at 10:23; Status DC Remifentanil HCl (Ultiva) 2 mg STK-MED ONCE IV ; Start 11/12/18 at 10:21; Stop 11/12/18 at 10:23; Status DC Midazolam HCl (Versed) 2 mg STK-MED ONCE .ROUTE ; Start 11/12/18 at 10:21; Stop 11/12/18 at 10:23; Status DC Fentanyl Citrate (Fentanyl 5ml Vial) 250 mcg STK-MED ONCE .ROUTE ; Start at 10:21; Stop 11/12/18 at 10:23; Status DC Dexamethasone Sodium Phosphate (Decadron) 20 mg STK-MED ONCE .ROUTE ; Start 08/20 at 10:22; Stop 11/12/18 at 10:24; Status DC Ondansetron HCl (Zofran) 4 mg STK-MED ONCE .ROUTE ; Start 11/12/18 at 10:22; Stop 11/12/18 at 10:24; Status DC Phenylephrine HCl (Ubaldo-Synephrine Inj) 10 mg STK-MED ONCE .ROUTE ; Start at 10:22; Stop 2/11/19 at 10:24; Status DC Phenylephrine HCl (Ubaldo-Synephrine Inj) 10 mg STK-MED ONCE .ROUTE ; Start at 10:22; Stop 11/12/18 at 10:24; Status DC Propofol 20 ml @ As Directed STK-MED ONCE IV ; Start 11/12/18 at 10:22; Stop 08/20 at 10:25; Status DC Propofol 50 ml @ As Directed STK-MED ONCE IV ; Start 11/12/18 at 10:22; Stop 08/20 at 10:25; Status DC Lidocaine HCl (Lidocaine Pf 2% Vial) 5 ml STK-MED ONCE .ROUTE ; Start 11/12/18 at 10:22; Stop 11/12/18 at 10:25; Status DC Ascorbic Acid (Vitamin C) 500 mg DAILY PO Last administered on 11/15/18at 08:30 ; Start 11/12/18 at 12:00 Bisacodyl (Dulcolax Tab) 5 mg PRN DAILY PRN PO CONSTIPATION (2nd Choice) Last administered on 11/15/18at 08:30; Start 11/12/18 at 11:30 Propofol 50 ml @ As Directed STK-MED ONCE IV ; Start 11/12/18 at 14:12; Stop 08/20 at 14:14; Status DC Remifentanil HCl (Ultiva) 1 mg STK-MED ONCE IV ; Start 11/12/18 at 14:34; Stop 11/12/18 at 14:36; Status DC Fentanyl Citrate (Fentanyl 2ml Vial) 100 mcg STK-MED ONCE .ROUTE ; Start at 15:31; Stop 11/12/18 at 15:33; Status DC Fentanyl Citrate (Fentanyl 2ml Vial) 100 mcg STK-MED ONCE .ROUTE ; Start at 15:35; Stop 11/12/18 at 15:37; Status DC Ketamine HCl (Ketamine) 50 mg STK-MED ONCE .ROUTE ; Start 11/12/18 at 15:38; Stop 11/12/18 at 15:40; Status DC Midazolam HCl (Versed) 2 mg STK-MED ONCE .ROUTE ; Start 11/12/18 at 15:41; Stop 11/12/18 at 15:43; Status DC Desflurane (Suprane) 90 ml STK-MED ONCE IH ; Start 11/12/18 at 15:48; Stop 11/12 at 15:49; Status DC Fentanyl Citrate (Fentanyl 2ml Vial) 25 mcg PRN Q5MIN PRN IV MILD PAIN; Start 11/12/18 at 16:00; Stop 11/12/18 at 20:00; Status DC Fentanyl Citrate (Fentanyl 2ml Vial) 50 mcg PRN Q5MIN PRN IV MODERATE TO SEVERE PAIN; Start 11/12/18 at 16:00; Stop 11/12/18 at 20:00; Status DC Morphine Sulfate (Morphine Sulfate) 2 mg PRN Q10MIN PRN IV MILD PAIN Last administered on 11/12/18at 16:54; Start 11/12/18 at 16:00; Stop 11/12/18 at 20:00 ; Status DC Morphine Sulfate (Morphine Sulfate) 4 mg PRN Q10MIN PRN IV Moderate to Severe Pain; Start 11/12/18 at 16:00; Stop 11/12/18 at 20:00; Status DC Hydromorphone HCl (Dilaudid) 0.5 mg PRN Q10MIN PRN IV Moderate to severe pain; Start 11/12/18 at 16:00; Stop 11/12/18 at 20:00; Status DC Ondansetron HCl (Zofran) 4 mg PRN Q6HRS PRN IV Nausea, 1st Choice; Start at 16:00; Stop 11/12/18 at 20:00; Status DC Diphenhydramine HCl (Benadryl) 12.5 mg PRN Q4HRS PRN IV Nausea/Vomiting, 1st Choice; Start 11/12/18 at 16:00; Stop 11/13/18 at 15:59; Status UNV Prochlorperazine Edisylate (Compazine) 5 mg PRN Q6HRS PRN IV Nausea/Vomiting, 1st Choice Last administered on 11/12/18at 16:53; Start 11/12/18 at 16:00; Stop 11/12/18 at 20:00; Status DC Ondansetron HCl (Zofran) 4 mg PRN Q6HRS PRN IV Nausea, 2nd Choice; Start at 16:00; Stop 11/13/18 at 15:59; Status UNV Diphenhydramine HCl (Benadryl) 12.5 mg PRN Q4HRS PRN IV Nausea/Vomiting, 2nd Choice; Start 11/12/18 at 16:00; Stop 11/12/18 at 20:00; Status DC Prochlorperazine Edisylate (Compazine) 5 mg PRN Q6HRS PRN IV Nausea/Vomiting, 2nd Choice; Start 11/12/18 at 16:00; Stop 11/13/18 at 15:59; Status UNV Ondansetron HCl (Zofran) 4 mg PRN Q6HRS PRN IV Nausea, 3rd Choice; Start at 16:00; Stop 11/13/18 at 15:59; Status UNV Prochlorperazine Edisylate (Compazine) 5 mg PRN Q6HRS PRN IV Nausea/Vomiting, 3rd Choice; Start 11/12/18 at 16:00; Stop 11/13/18 at 15:59; Status UNV Morphine Sulfate (Morphine Sulfate) 4 mg STK-MED ONCE .ROUTE ; Start 11/12/18 at 15:55; Stop 11/12/18 at 15:57; Status DC Ringer's Solution 1,000 ml @ 100 mls/hr Q10H IV Last administered on at 17:31; Start 11/12/18 at 12:00; Stop 11/13/18 at 11:31; Status DC Oxycodone/ Acetaminophen (Percocet 7.5/ 325) 1 tab PRN Q4HRS PRN PO MODERATE PAIN Last administered on 11/13/18at 20:30; Start 11/13/18 at 12:00; Stop at 09:38; Status DC Oxycodone/ Acetaminophen (Percocet 7.5/ 325) 2 tab PRN Q4HRS PRN PO SEVERE PAIN Last administered on 11/15/18at 09:32; Start 11/13/18 at 12:00; Stop at 09:38; Status DC Ketorolac Tromethamine (Toradol 30mg Vial) 30 mg PRN Q8HRS PRN IV MODERATE PAIN Last administered on 11/14/18at 18:27; Start 11/13/18 at 20:00; Stop at 16:14 Lorazepam (Ativan) 1 mg PRN Q12HR PRN PO ANXIETY / AGITATION Last administered on 11/15/18at 00:31; Start 11/14/18 at 02:45 Morphine Sulfate (Ms Contin) 30 mg BID PO Last administered on 11/15/18at 08:30 ; Start 11/14/18 at 10:30 Potassium Chloride (Klor-Con) 40 meq 1X ONCE PO Last administered on at 13:18; Start 11/14/18 at 11:30; Stop 11/14/18 at 11:31; Status DC Oxycodone HCl (Roxicodone) 10 mg PRN Q4HRS PRN PO PAIN; Start 11/15/18 at 09:45 ; Stop 11/15/18 at 09:45; Status DC Oxycodone HCl (Roxicodone) 20 mg PRN Q4HRS PRN PO PAIN; Start 11/15/18 at 09:45 Oxycodone HCl (Roxicodone) 10 mg PRN Q4HRS PRN PO PAIN; Start 11/15/18 at 09:45 Active Scripts Active Reported Chantix (Varenicline Tartrate) 1 Mg Tablet 1 Mg PO BID Robaxin (Methocarbamol) 500 Mg Tablet 2 Tab PO BID Hydrocodone-Apap 7.5-325 (Hydrocodone Bit/Acetaminophen) 1 Tab Tablet 1-2 Tab PO PRN Q6HRS PRN Diclofenac Sodium 50 Mg Tablet.dr 1 Tab PO BID Tablet (Pnv Cmb#95/Ferrous Fumarate/Fa) 1 Each Tablet 1 Tab PO DAILY Metformin Hcl Er (Metformin Hcl) 500 Mg Tab.er.24h 500 Mg PO BIDWMEALS Simvastatin 10 Mg Tablet 1 Tab PO QHS Lisinopril 40 Mg Tablet 1 Tab PO DAILY Vitals/I & O Vital Sign - Last 24 Hours 11/14/18 11/14/18 11/14/18 11/14/18 10:26 11:00 11:27 11:50 Temp 98.0 98.0 Pulse 66 105 Resp 18 22 B/P (MAP) 131/70 (90) 147/87 (107) Pulse Ox 93 95 O2 Delivery Room Air Room Air Room Air Room Air 2/1311/14/18 11/14/18 11/14/18 12:35 14:52 15:00 16:03 Temp 98.9 98.9 Pulse 71 84 Resp 16 18 B/P (MAP) 118/67 (84) 134/81 (98) Pulse Ox 94 95 O2 Delivery Room Air Room Air Room Air Room Air 11/14/18 11/14/18 11/14/18 11/14/18 18:52 19:00 20:05 23:00 Temp 99.1 97.9 99.1 97.9 Pulse 81 70 Resp 18 18 B/P (MAP) 156/50 (85) 136/69 (91) Pulse Ox 93 95 O2 Delivery Room Air Room Air Room Air Room Air 11/15/18 11/15/18 11/15/18 11/15/18 03:00 07:00 08:30 09:32 Temp 98.1 98.1 98.1 98.1 Pulse 78 95 Resp 18 16 B/P (MAP) 128/60 (82) 108/51 (70) Pulse Ox 95 96 O2 Delivery Room Air Room Air Room Air Room Air Intake and Output 11/14/18 11/14/18 11/15/18 15:00 23:00 07:00 Intake Total 700 ml 450 ml Balance 700 ml 450 ml CRISTAL CABA MD Nov 15, 2018 10:25
[2018-11-15 11:00] VITALS: BP 110/61
[2018-11-15] MEDS: KETOROLAC 30 MG/ML VIAL. IV PRN (13:54)
--- NOTE | 2018-11-15 13:54 | PDOC ---
PROGRESS NOTES Subjective Subjective She feels better with her back pain but still constipated. Objective Objective Vital Signs Date Time Temp Pulse Resp B/P (MAP) Pulse Ox O2 Delivery O2 Flow Rate FiO2 11/15/18 12:03 Room Air 11/15/18 11:00 97.8 86 18 110/61 (77) 96 97.8 11/13/18 03:00 2.0 Intake and Output 11/15/18 07:00 Intake Total 1150 ml Balance 1150 ml Intake Oral 1150 ml # Voids 3 Physical Exam Physical Exam She is sitting in bed and seems to be in no distress.She needs to use roller walker while up at least for the next few weeks. Plan Plan of [facility] today with out patient follow up. Comment Review of Relevant I have reviewed the following items jeff (where applicable) has been applied. Labs Laboratory Tests Test 11/14/18 04:05 White Blood Count 13.4 x10^3/uL (4.0-11.0) Red Blood Count 3.88 x10^6/uL (3.50-5.40) Hemoglobin 11.4 g/dL (12.0-15.5) Hematocrit 34.2 % (36.0-47.0) Mean Corpuscular Volume 88 fL (79-100) Mean Corpuscular Hemoglobin 29 pg (25-35) Mean Corpuscular Hemoglobin Concent 33 g/dL (31-37) Red Cell Distribution Width 13.9 % (11.5-14.5) Platelet Count 301 x10^3/uL (140-400) Neutrophils (%) (Auto) 58 % (31-73) Lymphocytes (%) (Auto) 32 % (24-48) Monocytes (%) (Auto) 8 % (0-9) Eosinophils (%) (Auto) 1 % (0-3) Basophils (%) (Auto) 1 % (0-3) Neutrophils # (Auto) 7.8 x10^3uL (1.8-7.7) Lymphocytes # (Auto) 4.4 x10^3/uL (1.0-4.8) Monocytes # (Auto) 1.1 x10^3/uL (0.0-1.1) Eosinophils # (Auto) 0.1 x10^3/uL (0.0-0.7) Basophils # (Auto) 0.1 x10^3/uL (0.0-0.2) Sodium Level 140 mmol/L (136-145) Potassium Level 3.4 mmol/L (3.5-5.1) Chloride Level 104 mmol/L (98-107) Carbon Dioxide Level 26 mmol/L (21-32) Anion Gap 10 (6-14) Blood Urea Nitrogen 6 mg/dL (7-20) Creatinine 0.7 mg/dL (0.6-1.0) Estimated GFR (Cockcroft-Gault) 97.0 Glucose Level 134 mg/dL (70-99) Calcium Level 9.3 mg/dL (8.5-10.1) Troponin I Quantitative < 0.017 ng/mL (0.000-0.055) Microbiology 11/09/18 Urine Culture - Final, Complete 11/09/18 Urine Culture Result 1 (MARIPOSA) - Final, Complete Medications Current Medications Ondansetron HCl (Zofran) 4 mg PRN Q6HRS PRN IV NAUSEA/VOMITING Last administered on 11/14/18 09:34; Start 11/09/18 at 16:30 Prochlorperazine Edisylate (Compazine) 10 mg PRN Q6HRS PRN IV NAUSEA/VOMITING 2ND CHOICE Last administered on 11/14/18 12:00; Start 11/09/18 at 16:30 Zolpidem Tartrate (Ambien) 5 mg PRN QHS PRN PO INSOMNIA, MAY REPEAT IN 1HR Last administered on 11/11/18 00:01; Start 11/09/18 at 16:30; Stop 11/13/18 at 19:54; Status DC Morphine Sulfate (Morphine Sulfate) 1 mg PRN Q1HR PRN IV PAIN Last administered on 11/09/18 21:19; Start 11/09/18 at 16:30; Stop 11/09/18 at 21:23; Status DC Oxycodone/ Acetaminophen (Percocet 5/325) 1 tab PRN Q4HRS PRN PO MILD PAIN, 1ST CHOICE Last administered on 11/13/18 08:04; Start 11/09/18 at 16:30; Stop at 11:56; Status DC Senna/Docusate Sodium (Senna Plus) 1 tab BID PO Last administered on 11/15/18 08:30; Start 11/09/18 at 21:00 Magnesium Hydroxide (Milk Of Magnesia) 2,400 mg PRN Q12HR PRN PO CONSTIPATION ( 1st Choice) Last administered on 11/15/18 12:00; Start 11/09/18 at 16:30 Heparin Sodium (Porcine) (Heparin Sodium) 5,000 unit Q8HRS SQ Last administered on 11/11/18 06:12; Start 11/09/18 at 17:00; Stop 11/11/18 at 11:45 ; Status DC Acetaminophen/ Hydrocodone Bitart (Lortab 7.5/325) 1 tab PRN Q6HRS PRN PO MODERAETE PAIN Last administered on 11/13/18 11:06; Start 11/09/18 at 16:30; Stop 11/13/18 at 11:56; Status DC Methocarbamol (Robaxin) 1,000 mg BID PO Last administered on 11/15/18 08:29; Start 11/09/18 at 21:00 Metformin HCl (Glucophage) 500 mg BIDWMEALS PO ; Start 11/09/18 at 17:00; Stop at 16:48; Status DC Multivit/ Folic Acid/Iron (Multivitamin ) 1 tab DAILY PO Last administered on 11/15/18 08:30; Start 11/09/18 at 17:00 Varenicline (Chantix) 1 mg BID PO Last administered on 11/15/18 08:30; Start 11/09/18 at 21:00 Insulin Human Lispro (HumaLOG) 0-5 UNITS TIDWMEALS SQ ; Start 11/09/18 at 17:00; Stop 11/09/18 at 18:26; Status DC Dextrose (Dextrose 50%-Water Syringe) 12.5 gm PRN Q15MIN PRN IV SEE COMMENTS; Start 11/09/18 at 16:30 Gadobutrol (Gadavist) 10 mmol 1X ONCE IV Last administered on 11/09/18 19:02; Start 11/09/18 at 18:45; Stop 11/09/18 at 18:46; Status DC Morphine Sulfate (Morphine Sulfate) 2 mg PRN Q1HR PRN IV PAIN Last administered on 11/10/18 11:16; Start 11/09/18 at 21:30; Stop 11/10/18 at 16:46; Status DC Hydromorphone HCl (Dilaudid) 2 mg 1X ONCE IV Last administered on 11/09/18at 23: 56; Start 11/09/18 at 23:45; Stop 11/09/18 at 23:46; Status DC Hydromorphone HCl (Dilaudid) 2 mg PRN Q4HRS PRN IV SEVERE PAIN Last administered on 11/14/18at 08:06; Start 11/10/18 at 08:30 Diphenhydramine HCl (Benadryl) 25 mg PRN Q8HRS PRN PO ITCHING Last administered on 11/11/18 10:40; Start 11/10/18 at 09:15; Stop 11/11/18 at 17:14 ; Status DC Methylprednisolone (Medrol) 8 mg BID PO Last administered on 11/10/18 19:53; Start 11/10/18 at 14:00; Stop 11/10/18 at 21:01; Status DC Methylprednisolone (Medrol) 4 mg BIDPCLD PO Last administered on 11/10/18 17:08 ; Start 11/10/18 at 14:00; Stop 11/10/18 at 17:31; Status DC Methylprednisolone (Medrol) 4 mg TIDPC PO Last administered on 11/11/18 17:38 ; Start 11/11/18 at 08:30; Stop 11/11/18 at 17:31; Status DC Methylprednisolone (Medrol) 8 mg QHS PO Last administered on 11/11/18 21:07; Start 11/11/18 at 21:00; Stop 11/11/18 at 21:01; Status DC Methylprednisolone (Medrol) 4 mg QIDAFTMEAL PO Last administered on 11/12/18 18:15; Start 11/12/18 at 09:00; Stop 11/12/18 at 21:01; Status DC Methylprednisolone (Medrol) 4 mg TID PO Last administered on 11/13/18at 20:30; Start 11/13/18 at 09:00; Stop 11/13/18 at 21:01; Status DC Methylprednisolone (Medrol) 4 mg BID PO Last administered on 11/14/18 20:26; Start 11/14/18 at 09:00; Stop 11/14/18 at 21:01; Status DC Methylprednisolone (Medrol) 4 mg DAILY PO Last administered on 11/15/18 08:30 ; Start 11/15/18 at 09:00; Stop 11/15/18 at 09:01; Status DC Clindamycin Phosphate 50 ml @ 100 mls/hr 1X PREOP IV ; Start 11/12/18 at 11:45 ; Stop 11/12/18 at 18:00; Status UNV Clindamycin Phosphate 50 ml @ 100 mls/hr 1X PREOP PRN IV PRIOR TO PROCEDURE Last administered on 11/12/18 12:16; Start 11/12/18 at 06:00; Stop 11/12/18 at 18:00; Status DC Lidocaine (Lidoderm) 1 patch DAILY TD Last administered on 11/11/18 16:44; Start 11/11/18 at 16:30 Miscellaneous (Lidoderm Patch Removal) 1 ea QHS MC Last administered on 21:00; Start 11/11/18 at 21:00 Ketorolac Tromethamine (Toradol 30mg Vial) 30 mg Q8HRS PRN IV PAIN Last administered on 11/13/18 18:16; Start 11/11/18 at 16:15; Stop 11/13/18 at 19:55 ; Status DC Hydromorphone HCl (Dilaudid) 1 mg 1X ONCE IV Last administered on 11/11/18 17 :37; Start 11/11/18 at 17:00; Stop 11/11/18 at 17:01; Status DC Diphenhydramine HCl (Benadryl Oral Elixir) 37.5 mg PRN Q8HRS PRN PO ITCHING Last administered on 11/11/18 21:07; Start 11/11/18 at 17:15 Temazepam (Restoril) 15 mg PRN QHS PRN PO INSOMNIA Last administered on 20:27; Start 11/11/18 at 19:30 Bacitracin 00383 unit/Sodium Chloride 1,000 ml @ 1,000 mls/hr 1X ONCE IRR Last administered on 11/12/18 12:38; Start 11/12/18 at 08:00; Stop 11/12/18 at 08:59; Status DC Gelatin (Gelfoam Size 100) 1 each STK-MED ONCE .ROUTE Last administered on 08/20at 12:38; Start 11/12/18 at 07:26; Stop 11/12/18 at 07:28; Status DC Bupivacaine HCl/ Epinephrine Bitart (Sensorcain-Mpf Epi 0.5%-1:510851) 30 ml STK -MED ONCE .ROUTE Last administered on 11/12/18at 12:38; Start 11/12/18 at 07:26 ; Stop 11/12/18 at 07:28; Status DC Ketorolac Tromethamine (Toradol For Or Only) 60 mg STK-MED ONCE .ROUTE Last administered on 11/12/18at 12:38; Start 11/12/18 at 07:26; Stop 11/12/18 at 07:28 ; Status DC Thrombin 20,000 unit STK-MED ONCE TP Last administered on 11/12/18at 12:38; Start 11/12/18 at 07:26; Stop 11/12/18 at 07:28; Status DC Rocuronium Huffman (Zemuron) 50 mg STK-MED ONCE .ROUTE ; Start 11/12/18 at 10:20 ; Stop 11/12/18 at 10:23; Status DC Remifentanil HCl (Ultiva) 2 mg STK-MED ONCE IV ; Start 11/12/18 at 10:21; Stop 11/12/18 at 10:23; Status DC Midazolam HCl (Versed) 2 mg STK-MED ONCE .ROUTE ; Start 11/12/18 at 10:21; Stop 11/12/18 at 10:23; Status DC Fentanyl Citrate (Fentanyl 5ml Vial) 250 mcg STK-MED ONCE .ROUTE ; Start at 10:21; Stop 11/12/18 at 10:23; Status DC Dexamethasone Sodium Phosphate (Decadron) 20 mg STK-MED ONCE .ROUTE ; Start 08/20 at 10:22; Stop 11/12/18 at 10:24; Status DC Ondansetron HCl (Zofran) 4 mg STK-MED ONCE .ROUTE ; Start 11/12/18 at 10:22; Stop 11/12/18 at 10:24; Status DC Phenylephrine HCl (Ubaldo-Synephrine Inj) 10 mg STK-MED ONCE .ROUTE ; Start at 10:22; Stop 11/12/18 at 10:24; Status DC Phenylephrine HCl (Ubaldo-Synephrine Inj) 10 mg STK-MED ONCE .ROUTE ; Start at 10:22; Stop 11/12/18 at 10:24; Status DC Propofol 20 ml @ As Directed STK-MED ONCE IV ; Start 11/12/18 at 10:22; Stop 08/20 at 10:25; Status DC Propofol 50 ml @ As Directed STK-MED ONCE IV ; Start 11/12/18 at 10:22; Stop 08/20 at 10:25; Status DC Lidocaine HCl (Lidocaine Pf 2% Vial) 5 ml STK-MED ONCE .ROUTE ; Start 11/12/18 at 10:22; Stop 11/12/18 at 10:25; Status DC Ascorbic Acid (Vitamin C) 500 mg DAILY PO Last administered on 11/15/18at 08:30 ; Start 11/12/18 at 12:00 Bisacodyl (Dulcolax Tab) 5 mg PRN DAILY PRN PO CONSTIPATION (2nd Choice) Last administered on 11/15/18at 08:30; Start 11/12/18 at 11:30 Propofol 50 ml @ As Directed STK-MED ONCE IV ; Start 11/12/18 at 14:12; Stop 08/20 at 14:14; Status DC Remifentanil HCl (Ultiva) 1 mg STK-MED ONCE IV ; Start 11/12/18 at 14:34; Stop 11/12/18 at 14:36; Status DC Fentanyl Citrate (Fentanyl 2ml Vial) 100 mcg STK-MED ONCE .ROUTE ; Start at 15:31; Stop 11/12/18 at 15:33; Status DC Fentanyl Citrate (Fentanyl 2ml Vial) 100 mcg STK-MED ONCE .ROUTE ; Start at 15:35; Stop 11/12/18 at 15:37; Status DC Ketamine HCl (Ketamine) 50 mg STK-MED ONCE .ROUTE ; Start 11/12/18 at 15:38; Stop 11/12/18 at 15:40; Status DC Midazolam HCl (Versed) 2 mg STK-MED ONCE .ROUTE ; Start 11/12/18 at 15:41; Stop 11/12/18 at 15:43; Status DC Desflurane (Suprane) 90 ml STK-MED ONCE IH ; Start 11/12/18 at 15:48; Stop 11/12 at 15:49; Status DC Fentanyl Citrate (Fentanyl 2ml Vial) 25 mcg PRN Q5MIN PRN IV MILD PAIN; Start 11/12/18 at 16:00; Stop 11/12/18 at 20:00; Status DC Fentanyl Citrate (Fentanyl 2ml Vial) 50 mcg PRN Q5MIN PRN IV MODERATE TO SEVERE PAIN; Start 11/12/18 at 16:00; Stop 11/12/18 at 20:00; Status DC Morphine Sulfate (Morphine Sulfate) 2 mg PRN Q10MIN PRN IV MILD PAIN Last administered on 11/12/18at 16:54; Start 11/12/18 at 16:00; Stop 11/12/18 at 20:00 ; Status DC Morphine Sulfate (Morphine Sulfate) 4 mg PRN Q10MIN PRN IV Moderate to Severe Pain; Start 11/12/18 at 16:00; Stop 11/12/18 at 20:00; Status DC Hydromorphone HCl (Dilaudid) 0.5 mg PRN Q10MIN PRN IV Moderate to severe pain; Start 11/12/18 at 16:00; Stop 11/12/18 at 20:00; Status DC Ondansetron HCl (Zofran) 4 mg PRN Q6HRS PRN IV Nausea, 1st Choice; Start at 16:00; Stop 11/12/18 at 20:00; Status DC Diphenhydramine HCl (Benadryl) 12.5 mg PRN Q4HRS PRN IV Nausea/Vomiting, 1st Choice; Start 11/12/18 at 16:00; Stop 11/13/18 at 15:59; Status UNV Prochlorperazine Edisylate (Compazine) 5 mg PRN Q6HRS PRN IV Nausea/Vomiting, 1st Choice Last administered on 11/12/18at 16:53; Start 11/12/18 at 16:00; Stop 11/12/18 at 20:00; Status DC Ondansetron HCl (Zofran) 4 mg PRN Q6HRS PRN IV Nausea, 2nd Choice; Start at 16:00; Stop 11/13/18 at 15:59; Status UNV Diphenhydramine HCl (Benadryl) 12.5 mg PRN Q4HRS PRN IV Nausea/Vomiting, 2nd Choice; Start 11/12/18 at 16:00; Stop 11/12/18 at 20:00; Status DC Prochlorperazine Edisylate (Compazine) 5 mg PRN Q6HRS PRN IV Nausea/Vomiting, 2nd Choice; Start 11/12/18 at 16:00; Stop 11/13/18 at 15:59; Status UNV Ondansetron HCl (Zofran) 4 mg PRN Q6HRS PRN IV Nausea, 3rd Choice; Start at 16:00; Stop 11/13/18 at 15:59; Status UNV Prochlorperazine Edisylate (Compazine) 5 mg PRN Q6HRS PRN IV Nausea/Vomiting, 3rd Choice; Start 11/12/18 at 16:00; Stop 11/13/18 at 15:59; Status UNV Morphine Sulfate (Morphine Sulfate) 4 mg STK-MED ONCE .ROUTE ; Start 11/12/18 at 15:55; Stop 11/12/18 at 15:57; Status DC Ringer's Solution 1,000 ml @ 100 mls/hr Q10H IV Last administered on at 17:31; Start 11/12/18 at 12:00; Stop 11/13/18 at 11:31; Status DC Oxycodone/ Acetaminophen (Percocet 7.5/ 325) 1 tab PRN Q4HRS PRN PO MODERATE PAIN Last administered on 11/13/18at 20:30; Start 11/13/18 at 12:00; Stop at 09:38; Status DC Oxycodone/ Acetaminophen (Percocet 7.5/ 325) 2 tab PRN Q4HRS PRN PO SEVERE PAIN Last administered on 11/15/18at 09:32; Start 11/13/18 at 12:00; Stop at 09:38; Status DC Ketorolac Tromethamine (Toradol 30mg Vial) 30 mg PRN Q8HRS PRN IV MODERATE PAIN Last administered on 11/14/18at 18:27; Start 11/13/18 at 20:00; Stop at 16:14 Lorazepam (Ativan) 1 mg PRN Q12HR PRN PO ANXIETY / AGITATION Last administered on 11/15/18at 00:31; Start 11/14/18 at 02:45 Morphine Sulfate (Ms Contin) 30 mg BID PO Last administered on 11/15/18at 08:30 ; Start 11/14/18 at 10:30 Potassium Chloride (Klor-Con) 40 meq 1X ONCE PO Last administered on at 13:18; Start 11/14/18 at 11:30; Stop 11/14/18 at 11:31; Status DC Oxycodone HCl (Roxicodone) 10 mg PRN Q4HRS PRN PO PAIN; Start 11/15/18 at 09:45 ; Stop 11/15/18 at 09:45; Status DC Oxycodone HCl (Roxicodone) 20 mg PRN Q4HRS PRN PO PAIN; Start 11/15/18 at 09:45 Oxycodone HCl (Roxicodone) 10 mg PRN Q4HRS PRN PO PAIN Last administered on at 12:03; Start 11/15/18 at 09:45 Active Scripts Active Reported Chantix (Varenicline Tartrate) 1 Mg Tablet 1 Mg PO BID Robaxin (Methocarbamol) 500 Mg Tablet 2 Tab PO BID Hydrocodone-Apap 7.5-325 (Hydrocodone Bit/Acetaminophen) 1 Tab Tablet 1-2 Tab PO PRN Q6HRS PRN Diclofenac Sodium 50 Mg Tablet.dr 1 Tab PO BID Tablet (Pnv Cmb#95/Ferrous Fumarate/Fa) 1 Each Tablet 1 Tab PO DAILY Metformin Hcl Er (Metformin Hcl) 500 Mg Tab.er.24h 500 Mg PO BIDWMEALS Simvastatin 10 Mg Tablet 1 Tab PO QHS Lisinopril 40 Mg Tablet 1 Tab PO DAILY Vitals/I & O Vital Sign - Last 24 Hours 11/14/18 11/14/18 11/14/18 11/14/18 15:00 16:03 18:52 19:00 Temp 98.9 99.1 98.9 99.1 Pulse 84 81 Resp 18 18 B/P (MAP) 134/81 (98) 156/50 (85) Pulse Ox 95 93 O2 Delivery Room Air Room Air Room Air Room Air 11/14/18 11/14/18 11/15/18 11/15/18 20:05 23:00 03:00 07:00 Temp 97.9 98.1 98.1 97.9 98.1 98.1 Pulse 70 78 95 Resp 18 18 16 B/P (MAP) 136/69 (91) 128/60 (82) 108/51 (70) Pulse Ox 95 95 96 O2 Delivery Room Air Room Air Room Air Room Air 11/15/18 11/15/18 11/15/18 11/15/18 08:20 08:30 09:32 11:00 Temp 97.8 97.8 Pulse 86 Resp 18 B/P (MAP) 110/61 (77) Pulse Ox 96 O2 Delivery Room Air Room Air Room Air Room Air 11/15/18 11/15/18 12:00 12:03 O2 Delivery Room Air Room Air Intake and Output 11/14/18 11/14/18 11/15/18 15:00 23:00 07:00 Intake Total 700 ml 450 ml Balance 700 ml 450 ml KODY PEREYRA MD Nov 15, 2018 13:54
[2018-11-15] MEDS: ONDANSETRON PF 4 MG/2 ML VIAL. IV PRN (13:57)
--- NOTE | 2018-11-15 14:15 | PDOC3 ---
Discharge Summary Date of Admission: Nov 09, 2018 Date of Discharge: Nov 15, 2018 Follow-Up: 3-5 days Admitting Diagnosis comment: DISCHARGE DIAGNOSIS Chief Complaint IMPRESSION 33 year old CF with hx of Lumbar Radiculopathy with degenerative disc dz, lumbar Spondylosis who presents with acute on chronic back back since 3 weeks with associated spasms, numbness and tingling in LEs bilaterally and numbness in perianal region. denies any incontinence. Is scheduled to see Dr. Jones on Monday for inital visit. patient sent from [facility]. no imaging done in ER. patient states no relief with muscle relaxers, pain meds at home. can ambulate but very gingerly. unable to lay flat or sit bc of the pain. given acute worsening of pain she came for further evaluation. patient takes pre-lesvia vitamins but states not . LMP 2 weeks ago ON MRI L/S At L4-5, there is a large central disc extrusion. Central canal stenosis is moderate to severe. It measures 11 mm anteroposteriorly. pain control very challenging. 11/12 microdiscectomy L4-5 11/14 PAIN UNCONTROLLED 11/15 HOME TODAY HOME HEALTH IF NEEDED DATE OF SURGERY: 11/12/2018 PREOPERATIVE DIAGNOSES: Severe lumbar spinal stenosis with severe radiculopathy, L4-L5 from a large central disk herniation. POSTOPERATIVE DIAGNOSES: Severe lumbar spinal stenosis with severe radiculopathy, L4-L5 from a large central disk herniation. OPERATION PERFORMED: Lumbar laminectomy at L4-L5 with bilateral lumbar microdecompression/microdiskectomy. The operation was done with EMG monitoring, fluoroscopy and microscopic dissection. History of Present Illness History of Present Illness ASSESSMENT Low Back Pain with lumbar Radiculopathy with large central disc extrusion at L4- 5 results in moderate to severe central canal stenosis and effacement of the thecal sac. HTN Hx of PCOS Hx of Hashimotos Thyroiditis HLD PLAN MRI lumbar spine: , large central disc extrusion at L4-5 results in moderate to severe central canal stenosis and effacement of the thecal sac. 2. Small central protrusions at L3-4 and L5-S1 do not result in stenosis. IV morphine and dilaudid for pain control continue muscle relaxers continue home meds CBC stable continue home statin therapy Neurosx OK WITH D/C full code dvt ppx: heparin Brief Hospital Course Ms. Mena is a 33 old [sex] who presented with [ INTRACTABLE LUMBAR RADICULOPATHY] CONDITION AT DISCHARGE: Improved Discharge Medications Current Medications Ondansetron HCl (Zofran) 4 mg PRN Q6HRS PRN IV NAUSEA/VOMITING Last administered on 11/15/18 13:57; Start 11/09/18 at 16:30 Prochlorperazine Edisylate (Compazine) 10 mg PRN Q6HRS PRN IV NAUSEA/VOMITING 2ND CHOICE Last administered on 11/14/18 12:00; Start 11/09/18 at 16:30 Zolpidem Tartrate (Ambien) 5 mg PRN QHS PRN PO INSOMNIA, MAY REPEAT IN 1HR Last administered on 11/11/18 00:01; Start 11/09/18 at 16:30; Stop 11/13/18 at 19:54; Status DC Morphine Sulfate (Morphine Sulfate) 1 mg PRN Q1HR PRN IV PAIN Last administered on 11/09/18 21:19; Start 11/09/18 at 16:30; Stop 11/09/18 at 21:23; Status DC Oxycodone/ Acetaminophen (Percocet 5/325) 1 tab PRN Q4HRS PRN PO MILD PAIN, 1ST CHOICE Last administered on 11/13/18 08:04; Start 11/09/18 at 16:30; Stop at 11:56; Status DC Senna/Docusate Sodium (Senna Plus) 1 tab BID PO Last administered on 11/15/18 08:30; Start 11/09/18 at 21:00 Magnesium Hydroxide (Milk Of Magnesia) 2,400 mg PRN Q12HR PRN PO CONSTIPATION ( 1st Choice) Last administered on 11/15/18 12:00; Start 11/09/18 at 16:30 Heparin Sodium (Porcine) (Heparin Sodium) 5,000 unit Q8HRS SQ Last administered on 11/11/18 06:12; Start 11/09/18 at 17:00; Stop 11/11/18 at 11:45 ; Status DC Acetaminophen/ Hydrocodone Bitart (Lortab 7.5/325) 1 tab PRN Q6HRS PRN PO MODERAETE PAIN Last administered on 11/13/18 11:06; Start 11/09/18 at 16:30; Stop 11/13/18 at 11:56; Status DC Methocarbamol (Robaxin) 1,000 mg BID PO Last administered on 11/15/18 08:29; Start 11/09/18 at 21:00 Metformin HCl (Glucophage) 500 mg BIDWMEALS PO ; Start 11/09/18 at 17:00; Stop at 16:48; Status DC Multivit/ Folic Acid/Iron (Multivitamin ) 1 tab DAILY PO Last administered on 11/15/18 08:30; Start 11/09/18 at 17:00 Varenicline (Chantix) 1 mg BID PO Last administered on 11/15/18 08:30; Start 11/09/18 at 21:00 Insulin Human Lispro (HumaLOG) 0-5 UNITS TIDWMEALS SQ ; Start 11/09/18 at 17:00; Stop 11/09/18 at 18:26; Status DC Dextrose (Dextrose 50%-Water Syringe) 12.5 gm PRN Q15MIN PRN IV SEE COMMENTS; Start 11/09/18 at 16:30 Gadobutrol (Gadavist) 10 mmol 1X ONCE IV Last administered on 11/09/18 19:02; Start 11/09/18 at 18:45; Stop 11/09/18 at 18:46; Status DC Morphine Sulfate (Morphine Sulfate) 2 mg PRN Q1HR PRN IV PAIN Last administered on 11/10/18 11:16; Start 11/09/18 at 21:30; Stop 11/10/18 at 16:46; Status DC Hydromorphone HCl (Dilaudid) 2 mg 1X ONCE IV Last administered on 11/09/18at 23: 56; Start 11/09/18 at 23:45; Stop 11/09/18 at 23:46; Status DC Hydromorphone HCl (Dilaudid) 2 mg PRN Q4HRS PRN IV SEVERE PAIN Last administered on 11/14/18 08:06; Start 11/10/18 at 08:30 Diphenhydramine HCl (Benadryl) 25 mg PRN Q8HRS PRN PO ITCHING Last administered on 2/10/19at 10:40; Start 11/10/18 at 09:15; Stop 11/11/18 at 17:14 ; Status DC Methylprednisolone (Medrol) 8 mg BID PO Last administered on 11/10/18 19:53; Start 11/10/18 at 14:00; Stop 11/10/18 at 21:01; Status DC Methylprednisolone (Medrol) 4 mg BIDPCLD PO Last administered on 11/10/18 17:08 ; Start 11/10/18 at 14:00; Stop 11/10/18 at 17:31; Status DC Methylprednisolone (Medrol) 4 mg TIDPC PO Last administered on 11/11/18at 17:38 ; Start 11/11/18 at 08:30; Stop 11/11/18 at 17:31; Status DC Methylprednisolone (Medrol) 8 mg QHS PO Last administered on 11/11/18 21:07; Start 11/11/18 at 21:00; Stop 11/11/18 at 21:01; Status DC Methylprednisolone (Medrol) 4 mg QIDAFTMEAL PO Last administered on 11/12/18at 18:15; Start 11/12/18 at 09:00; Stop 11/12/18 at 21:01; Status DC Methylprednisolone (Medrol) 4 mg TID PO Last administered on 11/13/18 20:30; Start 11/13/18 at 09:00; Stop 11/13/18 at 21:01; Status DC Methylprednisolone (Medrol) 4 mg BID PO Last administered on 11/14/18at 20:26; Start 11/14/18 at 09:00; Stop 11/14/18 at 21:01; Status DC Methylprednisolone (Medrol) 4 mg DAILY PO Last administered on 11/15/18at 08:30 ; Start 11/15/18 at 09:00; Stop 11/15/18 at 09:01; Status DC Clindamycin Phosphate 50 ml @ 100 mls/hr 1X PREOP IV ; Start 11/12/18 at 11:45 ; Stop 11/12/18 at 18:00; Status UNV Clindamycin Phosphate 50 ml @ 100 mls/hr 1X PREOP PRN IV PRIOR TO PROCEDURE Last administered on 11/12/18at 12:16; Start 11/12/18 at 06:00; Stop 11/12/18 at 18:00; Status DC Lidocaine (Lidoderm) 1 patch DAILY TD Last administered on 11/11/18 16:44; Start 11/11/18 at 16:30 Miscellaneous (Lidoderm Patch Removal) 1 ea QHS MC Last administered on 21:00; Start 11/11/18 at 21:00 Ketorolac Tromethamine (Toradol 30mg Vial) 30 mg Q8HRS PRN IV PAIN Last administered on 11/13/18 18:16; Start 11/11/18 at 16:15; Stop 11/13/18 at 19:55 ; Status DC Hydromorphone HCl (Dilaudid) 1 mg 1X ONCE IV Last administered on 11/11/18 17 :37; Start 11/11/18 at 17:00; Stop 11/11/18 at 17:01; Status DC Diphenhydramine HCl (Benadryl Oral Elixir) 37.5 mg PRN Q8HRS PRN PO ITCHING Last administered on 11/11/18 21:07; Start 11/11/18 at 17:15 Temazepam (Restoril) 15 mg PRN QHS PRN PO INSOMNIA Last administered on 20:27; Start 11/11/18 at 19:30 Bacitracin 20041 unit/Sodium Chloride 1,000 ml @ 1,000 mls/hr 1X ONCE IRR Last administered on 11/12/18 12:38; Start 11/12/18 at 08:00; Stop 11/12/18 at 08:59; Status DC Gelatin (Gelfoam Size 100) 1 each STK-MED ONCE .ROUTE Last administered on 12:38; Start 11/12/18 at 07:26; Stop 11/12/18 at 07:28; Status DC Bupivacaine HCl/ Epinephrine Bitart (Sensorcain-Mpf Epi 0.5%-1:[id number]) 30 ml STK -MED ONCE .ROUTE Last administered on 11/12/18 12:38; Start 11/12/18 at 07:26 ; Stop 11/12/18 at 07:28; Status DC Ketorolac Tromethamine (Toradol For Or Only) 60 mg STK-MED ONCE .ROUTE Last administered on 2/11/19at 12:38; Start 11/12/18 at 07:26; Stop 11/12/18 at 07:28 ; Status DC Thrombin 20,000 unit STK-MED ONCE TP Last administered on 11/12/18at 12:38; Start 11/12/18 at 07:26; Stop 11/12/18 at 07:28; Status DC Rocuronium [place] (Zemuron) 50 mg STK-MED ONCE .ROUTE ; Start 11/12/18 at 10:20 ; Stop 11/12/18 at 10:23; Status DC Remifentanil HCl (Ultiva) 2 mg STK-MED ONCE IV ; Start 11/12/18 at 10:21; Stop 11/12/18 at 10:23; Status DC Midazolam HCl (Versed) 2 mg STK-MED ONCE .ROUTE ; Start 11/12/18 at 10:21; Stop 11/12/18 at 10:23; Status DC Fentanyl Citrate (Fentanyl 5ml Vial) 250 mcg STK-MED ONCE .ROUTE ; Start at 10:21; Stop 11/12/18 at 10:23; Status DC Dexamethasone Sodium Phosphate (Decadron) 20 mg STK-MED ONCE .ROUTE ; Start 08/20 at 10:22; Stop 11/12/18 at 10:24; Status DC Ondansetron HCl (Zofran) 4 mg STK-MED ONCE .ROUTE ; Start 11/12/18 at 10:22; Stop 11/12/18 at 10:24; Status DC Phenylephrine HCl (Ubaldo-Synephrine Inj) 10 mg STK-MED ONCE .ROUTE ; Start at 10:22; Stop 11/12/18 at 10:24; Status DC Phenylephrine HCl (Ubaldo-Synephrine Inj) 10 mg STK-MED ONCE .ROUTE ; Start at 10:22; Stop 11/12/18 at 10:24; Status DC Propofol 20 ml @ As Directed STK-MED ONCE IV ; Start 11/12/18 at 10:22; Stop 08/20 at 10:25; Status DC Propofol 50 ml @ As Directed STK-MED ONCE IV ; Start 11/12/18 at 10:22; Stop 08/20 at 10:25; Status DC Lidocaine HCl (Lidocaine Pf 2% Vial) 5 ml STK-MED ONCE .ROUTE ; Start 11/12/18 at 10:22; Stop 11/12/18 at 10:25; Status DC Ascorbic Acid (Vitamin C) 500 mg DAILY PO Last administered on 11/15/18at 08:30 ; Start 11/12/18 at 12:00 Bisacodyl (Dulcolax Tab) 5 mg PRN DAILY PRN PO CONSTIPATION (2nd Choice) Last administered on 11/15/18at 08:30; Start 11/12/18 at 11:30 Propofol 50 ml @ As Directed STK-MED ONCE IV ; Start 11/12/18 at 14:12; Stop 08/20 at 14:14; Status DC Remifentanil HCl (Ultiva) 1 mg STK-MED ONCE IV ; Start 11/12/18 at 14:34; Stop 11/12/18 at 14:36; Status DC Fentanyl Citrate (Fentanyl 2ml Vial) 100 mcg STK-MED ONCE .ROUTE ; Start at 15:31; Stop 11/12/18 at 15:33; Status DC Fentanyl Citrate (Fentanyl 2ml Vial) 100 mcg STK-MED ONCE .ROUTE ; Start at 15:35; Stop 11/12/18 at 15:37; Status DC Ketamine HCl (Ketamine) 50 mg STK-MED ONCE .ROUTE ; Start 11/12/18 at 15:38; Stop 11/12/18 at 15:40; Status DC Midazolam HCl (Versed) 2 mg STK-MED ONCE .ROUTE ; Start 11/12/18 at 15:41; Stop 11/12/18 at 15:43; Status DC Desflurane (Suprane) 90 ml STK-MED ONCE IH ; Start 11/12/18 at 15:48; Stop 11/12 at 15:49; Status DC Fentanyl Citrate (Fentanyl 2ml Vial) 25 mcg PRN Q5MIN PRN IV MILD PAIN; Start 11/12/18 at 16:00; Stop 11/12/18 at 20:00; Status DC Fentanyl Citrate (Fentanyl 2ml Vial) 50 mcg PRN Q5MIN PRN IV MODERATE TO SEVERE PAIN; Start 11/12/18 at 16:00; Stop 11/12/18 at 20:00; Status DC Morphine Sulfate (Morphine Sulfate) 2 mg PRN Q10MIN PRN IV MILD PAIN Last administered on 11/12/18at 16:54; Start 11/12/18 at 16:00; Stop 11/12/18 at 20:00 ; Status DC Morphine Sulfate (Morphine Sulfate) 4 mg PRN Q10MIN PRN IV Moderate to Severe Pain; Start 11/12/18 at 16:00; Stop 11/12/18 at 20:00; Status DC Hydromorphone HCl (Dilaudid) 0.5 mg PRN Q10MIN PRN IV Moderate to severe pain; Start 11/12/18 at 16:00; Stop 11/12/18 at 20:00; Status DC Ondansetron HCl (Zofran) 4 mg PRN Q6HRS PRN IV Nausea, 1st Choice; Start at 16:00; Stop 11/12/18 at 20:00; Status DC Diphenhydramine HCl (Benadryl) 12.5 mg PRN Q4HRS PRN IV Nausea/Vomiting, 1st Choice; Start 11/12/18 at 16:00; Stop 11/13/18 at 15:59; Status UNV Prochlorperazine Edisylate (Compazine) 5 mg PRN Q6HRS PRN IV Nausea/Vomiting, 1st Choice Last administered on 11/12/18at 16:53; Start 11/12/18 at 16:00; Stop 11/12/18 at 20:00; Status DC Ondansetron HCl (Zofran) 4 mg PRN Q6HRS PRN IV Nausea, 2nd Choice; Start at 16:00; Stop 11/13/18 at 15:59; Status UNV Diphenhydramine HCl (Benadryl) 12.5 mg PRN Q4HRS PRN IV Nausea/Vomiting, 2nd Choice; Start 11/12/18 at 16:00; Stop 11/12/18 at 20:00; Status DC Prochlorperazine Edisylate (Compazine) 5 mg PRN Q6HRS PRN IV Nausea/Vomiting, 2nd Choice; Start 11/12/18 at 16:00; Stop 11/13/18 at 15:59; Status UNV Ondansetron HCl (Zofran) 4 mg PRN Q6HRS PRN IV Nausea, 3rd Choice; Start at 16:00; Stop 11/13/18 at 15:59; Status UNV Prochlorperazine Edisylate (Compazine) 5 mg PRN Q6HRS PRN IV Nausea/Vomiting, 3rd Choice; Start 11/12/18 at 16:00; Stop 11/13/18 at 15:59; Status UNV Morphine Sulfate (Morphine Sulfate) 4 mg STK-MED ONCE .ROUTE ; Start 11/12/18 at 15:55; Stop 11/12/18 at 15:57; Status DC Ringer's Solution 1,000 ml @ 100 mls/hr Q10H IV Last administered on at 17:31; Start 11/12/18 at 12:00; Stop 11/13/18 at 11:31; Status DC Oxycodone/ Acetaminophen (Percocet 7.5/ 325) 1 tab PRN Q4HRS PRN PO MODERATE PAIN Last administered on 11/13/18at 20:30; Start 11/13/18 at 12:00; Stop at 09:38; Status DC Oxycodone/ Acetaminophen (Percocet 7.5/ 325) 2 tab PRN Q4HRS PRN PO SEVERE PAIN Last administered on 11/15/18at 09:32; Start 11/13/18 at 12:00; Stop at 09:38; Status DC Ketorolac Tromethamine (Toradol 30mg Vial) 30 mg PRN Q8HRS PRN IV MODERATE PAIN Last administered on 11/15/18at 13:54; Start 11/13/18 at 20:00; Stop at 16:14 Lorazepam (Ativan) 1 mg PRN Q12HR PRN PO ANXIETY / AGITATION Last administered on 11/15/18at 00:31; Start 11/14/18 at 02:45 Morphine Sulfate (Ms Contin) 30 mg BID PO Last administered on 11/15/18at 08:30 ; Start 11/14/18 at 10:30 Potassium Chloride (Klor-Con) 40 meq 1X ONCE PO Last administered on at 13:18; Start 11/14/18 at 11:30; Stop 11/14/18 at 11:31; Status DC Oxycodone HCl (Roxicodone) 10 mg PRN Q4HRS PRN PO PAIN; Start 11/15/18 at 09:45 ; Stop 11/15/18 at 09:45; Status DC Oxycodone HCl (Roxicodone) 20 mg PRN Q4HRS PRN PO PAIN; Start 11/15/18 at 09:45 Oxycodone HCl (Roxicodone) 10 mg PRN Q4HRS PRN PO PAIN Last administered on at 12:03; Start 11/15/18 at 09:45 Active Scripts Active Reported Chantix (Varenicline Tartrate) 1 Mg Tablet 1 Mg PO BID Robaxin (Methocarbamol) 500 Mg Tablet 2 Tab PO BID Hydrocodone-Apap 7.5-325 (Hydrocodone Bit/Acetaminophen) 1 Tab Tablet 1-2 Tab PO PRN Q6HRS PRN Diclofenac Sodium 50 Mg Tablet.dr 1 Tab PO BID Tablet (Pnv Cmb#95/Ferrous Fumarate/Fa) 1 Each Tablet 1 Tab PO DAILY Metformin Hcl Er (Metformin Hcl) 500 Mg Tab.er.24h 500 Mg PO BIDWMEALS Simvastatin 10 Mg Tablet 1 Tab PO QHS Lisinopril 40 Mg Tablet 1 Tab PO DAILY Vital Signs Vital Signs Date Time Temp Pulse Resp B/P (MAP) Pulse Ox O2 Delivery O2 Flow Rate FiO2 11/15/18 13:57 96 Room Air 2.0 11/15/18 11:00 97.8 86 18 110/61 (77) 97.8 Labs Laboratory Tests Test 11/14/18 04:05 White Blood Count 13.4 x10^3/uL (4.0-11.0) Red Blood Count 3.88 x10^6/uL (3.50-5.40) Hemoglobin 11.4 g/dL (12.0-15.5) Hematocrit 34.2 % (36.0-47.0) Mean Corpuscular Volume 88 fL (79-100) Mean Corpuscular Hemoglobin 29 pg (25-35) Mean Corpuscular Hemoglobin Concent 33 g/dL (31-37) Red Cell Distribution Width 13.9 % (11.5-14.5) Platelet Count 301 x10^3/uL (140-400) Neutrophils (%) (Auto) 58 % (31-73) Lymphocytes (%) (Auto) 32 % (24-48) Monocytes (%) (Auto) 8 % (0-9) Eosinophils (%) (Auto) 1 % (0-3) Basophils (%) (Auto) 1 % (0-3) Neutrophils # (Auto) 7.8 x10^3uL (1.8-7.7) Lymphocytes # (Auto) 4.4 x10^3/uL (1.0-4.8) Monocytes # (Auto) 1.1 x10^3/uL (0.0-1.1) Eosinophils # (Auto) 0.1 x10^3/uL (0.0-0.7) Basophils # (Auto) 0.1 x10^3/uL (0.0-0.2) Sodium Level 140 mmol/L (136-145) Potassium Level 3.4 mmol/L (3.5-5.1) Chloride Level 104 mmol/L (98-107) Carbon Dioxide Level 26 mmol/L (21-32) Anion Gap 10 (6-14) Blood Urea Nitrogen 6 mg/dL (7-20) Creatinine 0.7 mg/dL (0.6-1.0) Estimated GFR (Cockcroft-Gault) 97.0 Glucose Level 134 mg/dL (70-99) Calcium Level 9.3 mg/dL (8.5-10.1) Troponin I Quantitative < 0.017 ng/mL (0.000-0.055) Allergies Allergies Coded Allergies Type Severity Reaction Last Updated Verified piperacillin Allergy Intermediate 04/25/17 Yes tazobactam Allergy Intermediate 04/25/17 Yes vancomycin Allergy Intermediate 04/25/17 Yes Disposition/Orders: D/C to Home w/ HH Patient Instructions D/C PLANNING 33 MIN CRISTAL CABA MD Nov 15, 2018 14:14
[2018-11-15] MEDS ORDERED: MORP30TA3 PO (14:17)
[2018-11-15] MEDS ORDERED: BISA5TAB4 PO (14:17)
[2018-11-15] MEDS ORDERED: SENN-22 PO (14:17)
[2018-11-15] MEDS ORDERED: OXYC5TAB4 PO (14:17)
--- NOTE | 2018-11-15 14:18 | DISCH ---
DISCHARGE WITH HOME HEALTH DISCHARGE INFORMATION: Condition on Discharge: Stable CODE STATUS: Code Status: Full HOME HEALTH: Face to Face: I certify this patient is under my care and that I, or a nurse practitioner or physician's contract assistant working with me, had a face to face encounter that meets the physician face to face encounter requirements with this patient on []. Medical Complications: DJD Physical Therapy For: Evalulation/Treatment Occupational Therapy For: Evaluation/Treatment Home Health Aide For: Self-care LAW EXAMINER For: Community Resources Pt Meets Homebound Status: Unsteady balance w/ amb, POST DISCHARGE ORDERS: Activity Instructions for Disc: Avoid exertion DIET AFTER DISCHARGE: Cardiac TREATMENT/EQUIPMENT ORDERS: Adaptive Equipment Issued: Front wheeled walker CERTIFICATION STATEMENT: Certification Statement: Certification Statement: Based on the above finding, I certify that this patient is confined to the home and needs intermittent long term care, physical therapy and/or speech therapy, or continues to need occupational therapy.~ This patient is under my care, and I have initiated the establishment of the plan of care.~ This patient will be followed by myself or a community physician who will periodically review the plan of care. Home Meds Reported Medications Varenicline Tartrate (CHANTIX) 1 Mg Tablet, 1 MG PO BID for per pt , TAB 11/09/18 Methocarbamol (ROBAXIN) 500 Mg Tablet, 2 TAB PO BID for muscle spasms, #60 TAB 11/09/18 Hydrocodone Bit/Acetaminophen (HYDROCODONE-APAP 7.5-325 ) 1 Tab Tablet, 1-2 TAB PO PRN Q6HRS PRN for PAIN, TAB 0 Refills 11/09/18 Diclofenac Sodium (DICLOFENAC SODIUM) 50 Mg Tablet.dr, 1 TAB PO BID for per list , #60 TAB 1 Refill 11/09/18 Pnv Cmb#95/Ferrous Fumarate/Fa ( TABLET) 1 Each Tablet, 1 TAB PO DAILY for vitamins , #90 TAB 3 Refills 11/09/18 Metformin Hcl (METFORMIN HCL ER) 500 Mg Tab.er.24h, 500 MG PO BIDWMEALS for DM, TAB 11/09/18 Simvastatin (SIMVASTATIN) 10 Mg Tablet, 1 TAB PO QHS for HLD, #30 TAB 5 Refills 11/09/18 Lisinopril (LISINOPRIL) 40 Mg Tablet, 1 TAB PO DAILY for HTN , #30 TAB 5 Refills 11/09/18 Discontinued Reported Medications Phenazopyridine Hcl (PYRIDIUM) 100 Mg Tablet, 100 MG PO TID, #30 TAB 02/20/17 I-[id number] Estr/Ethin Estra (SEASONIQUE 0.15-0.03-0.01 TAB) 1 Each Tbdspk.3mo , 1 TAB PO DAILY, #90 TAB 3 Refills 02/20/17 Phentermine Hcl (ADIPEX-P) 37.5 Mg Tablet, 37.5 MG PO DAILY, TAB 02/17/17 Thyroid,Pork (BIN PACKER THYROID) 60 Mg Tablet, 60 MG PO DAILY, TAB 02/17/17 Methocarbamol (ROBAXIN) 500 Mg Tablet, 500 MG PO QID PRN for MUSCLE SPASMS, TAB 01/09/17 Propranolol Hcl (PROPRANOLOL HCL) 40 Mg Tablet, 1 TAB PO BID, #60 TAB 5 Refills 01/09/17 CRISTAL CABA MD Nov 15, 2018 14:18
--- NOTE | 2018-11-15 14:55 | DISCH ---
DISCHARGE INSTRUCTIONS Condition on Discharge Condition on Discharge: Stable Activity After Discharge Activity Instructions for Disc: Activity as tolerated, Avoid exertion Bathing Instructions: Shower-keep dressing dry, No Tub Bath until see Lifting Instructions after Dis: No heavy lifting, No pulling or pushing, Add. restrict see below Exercise Instruction after Dis: Progress as tolerated Driving Instructions after Dis: Do not drive, No driving for 2 weeks Weight Bearing Status after Di: Other, see below Diet after Discharge Diet after Discharge: Regular Wound Incision Care Wound/Incision Care: Ice to area for comfort, Keep wound/cast CDI, Change dressing, May get incision wet, Reinforce dressing PRN Other wound/incision instructi: may remove dressing when dry Wound Care Equipment: Dressings Contacting the DRCristo after DC Call your doctor for: Concerns you may have Follow-Up Follow Up With: Dr. Cuellar's nurse in 2 weeks [phone] Treatment/Equipment after DC Adaptive Equipment Issued: Front wheeled JHONATHAN Tinajero MD Nov 15, 2018 14:55
[2018-11-15 15:00] VITALS: BP 134/88
--- NOTE | 2018-11-15 15:04 | PDOC ---
PROGRESS NOTES Subjective Subjective Sitting up in bed back pain improved today has been up ambulating in room and reyes Objective Objective Vital Signs Date Time Temp Pulse Resp B/P (MAP) Pulse Ox O2 Delivery O2 Flow Rate FiO2 11/15/18 13:57 96 Room Air 2.0 11/15/18 11:00 97.8 86 18 110/61 (77) 97.8 Intake and Output 11/15/18 07:00 Intake Total 1150 ml Balance 1150 ml Intake Oral 1150 ml # Voids 3 Physical Exam General: Alert, Oriented X3, Cooperative MUSCULOSKELETAL: Other (SCHMITT) Neuro: Normal speech, Other (Strength 5/5 in BLE) Skin: Other (Dressing C,D,I, flat) Plan Plan of Care dc home f/u 2 weeks Comment Review of Relevant I have reviewed the following items jeff (where applicable) has been applied. Labs Laboratory Tests Test 11/14/18 04:05 White Blood Count 13.4 x10^3/uL (4.0-11.0) Red Blood Count 3.88 x10^6/uL (3.50-5.40) Hemoglobin 11.4 g/dL (12.0-15.5) Hematocrit 34.2 % (36.0-47.0) Mean Corpuscular Volume 88 fL (79-100) Mean Corpuscular Hemoglobin 29 pg (25-35) Mean Corpuscular Hemoglobin Concent 33 g/dL (31-37) Red Cell Distribution Width 13.9 % (11.5-14.5) Platelet Count 301 x10^3/uL (140-400) Neutrophils (%) (Auto) 58 % (31-73) Lymphocytes (%) (Auto) 32 % (24-48) Monocytes (%) (Auto) 8 % (0-9) Eosinophils (%) (Auto) 1 % (0-3) Basophils (%) (Auto) 1 % (0-3) Neutrophils # (Auto) 7.8 x10^3uL (1.8-7.7) Lymphocytes # (Auto) 4.4 x10^3/uL (1.0-4.8) Monocytes # (Auto) 1.1 x10^3/uL (0.0-1.1) Eosinophils # (Auto) 0.1 x10^3/uL (0.0-0.7) Basophils # (Auto) 0.1 x10^3/uL (0.0-0.2) Sodium Level 140 mmol/L (136-145) Potassium Level 3.4 mmol/L (3.5-5.1) Chloride Level 104 mmol/L (98-107) Carbon Dioxide Level 26 mmol/L (21-32) Anion Gap 10 (6-14) Blood Urea Nitrogen 6 mg/dL (7-20) Creatinine 0.7 mg/dL (0.6-1.0) Estimated GFR (Cockcroft-Gault) 97.0 Glucose Level 134 mg/dL (70-99) Calcium Level 9.3 mg/dL (8.5-10.1) Troponin I Quantitative < 0.017 ng/mL (0.000-0.055) Microbiology 11/09/18 Urine Culture - Final, Complete 11/09/18 Urine Culture Result 1 (MARIPOSA) - Final, Complete Medications Current Medications Ondansetron HCl (Zofran) 4 mg PRN Q6HRS PRN IV NAUSEA/VOMITING Last administered on 11/15/18at 13:57; Start 11/09/18 at 16:30 Prochlorperazine Edisylate (Compazine) 10 mg PRN Q6HRS PRN IV NAUSEA/VOMITING 2ND CHOICE Last administered on 11/14/18at 12:00; Start 11/09/18 at 16:30 Zolpidem Tartrate (Ambien) 5 mg PRN QHS PRN PO INSOMNIA, MAY REPEAT IN 1HR Last administered on 11/11/18at 00:01; Start 11/09/18 at 16:30; Stop 11/13/18 at 19:54; Status DC Morphine Sulfate (Morphine Sulfate) 1 mg PRN Q1HR PRN IV PAIN Last administered on 11/09/18at 21:19; Start 11/09/18 at 16:30; Stop 11/09/18 at 21:23; Status DC Oxycodone/ Acetaminophen (Percocet 5/325) 1 tab PRN Q4HRS PRN PO MILD PAIN, 1ST CHOICE Last administered on 11/13/18at 08:04; Start 11/09/18 at 16:30; Stop at 11:56; Status DC Senna/Docusate Sodium (Senna Plus) 1 tab BID PO Last administered on 11/15/18 08:30; Start 11/09/18 at 21:00 Magnesium Hydroxide (Milk Of Magnesia) 2,400 mg PRN Q12HR PRN PO CONSTIPATION ( 1st Choice) Last administered on 11/15/18 12:00; Start 11/09/18 at 16:30 Heparin Sodium (Porcine) (Heparin Sodium) 5,000 unit Q8HRS SQ Last administered on 11/11/18 06:12; Start 11/09/18 at 17:00; Stop 11/11/18 at 11:45 ; Status DC Acetaminophen/ Hydrocodone Bitart (Lortab 7.5/325) 1 tab PRN Q6HRS PRN PO MODERAETE PAIN Last administered on 11/13/18 11:06; Start 11/09/18 at 16:30; Stop 11/13/18 at 11:56; Status DC Methocarbamol (Robaxin) 1,000 mg BID PO Last administered on 11/15/18 08:29; Start 11/09/18 at 21:00 Metformin HCl (Glucophage) 500 mg BIDWMEALS PO ; Start 11/09/18 at 17:00; Stop at 16:48; Status DC Multivit/ Folic Acid/Iron (Multivitamin ) 1 tab DAILY PO Last administered on 11/15/18 08:30; Start 11/09/18 at 17:00 Varenicline (Chantix) 1 mg BID PO Last administered on 11/15/18 08:30; Start 11/09/18 at 21:00 Insulin Human Lispro (HumaLOG) 0-5 UNITS TIDWMEALS SQ ; Start 11/09/18 at 17:00; Stop 11/09/18 at 18:26; Status DC Dextrose (Dextrose 50%-Water Syringe) 12.5 gm PRN Q15MIN PRN IV SEE COMMENTS; Start 11/09/18 at 16:30 Gadobutrol (Gadavist) 10 mmol 1X ONCE IV Last administered on 11/09/18 19:02; Start 11/09/18 at 18:45; Stop 11/09/18 at 18:46; Status DC Morphine Sulfate (Morphine Sulfate) 2 mg PRN Q1HR PRN IV PAIN Last administered on 2/9/19at 11:16; Start 11/09/18 at 21:30; Stop 11/10/18 at 16:46; Status DC Hydromorphone HCl (Dilaudid) 2 mg 1X ONCE IV Last administered on 11/09/18at 23: 56; Start 11/09/18 at 23:45; Stop 11/09/18 at 23:46; Status DC Hydromorphone HCl (Dilaudid) 2 mg PRN Q4HRS PRN IV SEVERE PAIN Last administered on 11/14/18at 08:06; Start 11/10/18 at 08:30 Diphenhydramine HCl (Benadryl) 25 mg PRN Q8HRS PRN PO ITCHING Last administered on 11/11/18 10:40; Start 11/10/18 at 09:15; Stop 11/11/18 at 17:14 ; Status DC Methylprednisolone (Medrol) 8 mg BID PO Last administered on 11/10/18at 19:53; Start 11/10/18 at 14:00; Stop 11/10/18 at 21:01; Status DC Methylprednisolone (Medrol) 4 mg BIDPCLD PO Last administered on 11/10/18 17:08 ; Start 11/10/18 at 14:00; Stop 11/10/18 at 17:31; Status DC Methylprednisolone (Medrol) 4 mg TIDPC PO Last administered on 11/11/18 17:38 ; Start 11/11/18 at 08:30; Stop 11/11/18 at 17:31; Status DC Methylprednisolone (Medrol) 8 mg QHS PO Last administered on 11/11/18 21:07; Start 11/11/18 at 21:00; Stop 11/11/18 at 21:01; Status DC Methylprednisolone (Medrol) 4 mg QIDAFTMEAL PO Last administered on 11/12/18 18:15; Start 11/12/18 at 09:00; Stop 11/12/18 at 21:01; Status DC Methylprednisolone (Medrol) 4 mg TID PO Last administered on 11/13/18 20:30; Start 11/13/18 at 09:00; Stop 11/13/18 at 21:01; Status DC Methylprednisolone (Medrol) 4 mg BID PO Last administered on 11/14/18 20:26; Start 11/14/18 at 09:00; Stop 11/14/18 at 21:01; Status DC Methylprednisolone (Medrol) 4 mg DAILY PO Last administered on 11/15/18at 08:30 ; Start 11/15/18 at 09:00; Stop 11/15/18 at 09:01; Status DC Clindamycin Phosphate 50 ml @ 100 mls/hr 1X PREOP IV ; Start 11/12/18 at 11:45 ; Stop 11/12/18 at 18:00; Status UNV Clindamycin Phosphate 50 ml @ 100 mls/hr 1X PREOP PRN IV PRIOR TO PROCEDURE Last administered on 11/12/18 12:16; Start 11/12/18 at 06:00; Stop 11/12/18 at 18:00; Status DC Lidocaine (Lidoderm) 1 patch DAILY TD Last administered on 11/11/18at 16:44; Start 11/11/18 at 16:30 Miscellaneous (Lidoderm Patch Removal) 1 ea QHS MC Last administered on 21:00; Start 11/11/18 at 21:00 Ketorolac Tromethamine (Toradol 30mg Vial) 30 mg Q8HRS PRN IV PAIN Last administered on 11/13/18 18:16; Start 11/11/18 at 16:15; Stop 11/13/18 at 19:55 ; Status DC Hydromorphone HCl (Dilaudid) 1 mg 1X ONCE IV Last administered on 11/11/18at 17 :37; Start 11/11/18 at 17:00; Stop 11/11/18 at 17:01; Status DC Diphenhydramine HCl (Benadryl Oral Elixir) 37.5 mg PRN Q8HRS PRN PO ITCHING Last administered on 11/11/18 21:07; Start 11/11/18 at 17:15 Temazepam (Restoril) 15 mg PRN QHS PRN PO INSOMNIA Last administered on 20:27; Start 11/11/18 at 19:30 Bacitracin 50636 unit/Sodium Chloride 1,000 ml @ 1,000 mls/hr 1X ONCE IRR Last administered on 11/12/18 12:38; Start 11/12/18 at 08:00; Stop 11/12/18 at 08:59; Status DC Gelatin (Gelfoam Size 100) 1 each STK-MED ONCE .ROUTE Last administered on 08/20at 12:38; Start 11/12/18 at 07:26; Stop 11/12/18 at 07:28; Status DC Bupivacaine HCl/ Epinephrine Bitart (Sensorcain-Mpf Epi 0.5%-1:[id number]) 30 ml STK -MED ONCE .ROUTE Last administered on 11/12/18at 12:38; Start 11/12/18 at 07:26 ; Stop 11/12/18 at 07:28; Status DC Ketorolac Tromethamine (Toradol For Or Only) 60 mg STK-MED ONCE .ROUTE Last administered on 11/12/18at 12:38; Start 11/12/18 at 07:26; Stop 11/12/18 at 07:28 ; Status DC Thrombin 20,000 unit STK-MED ONCE TP Last administered on 11/12/18at 12:38; Start 11/12/18 at 07:26; Stop 11/12/18 at 07:28; Status DC Rocuronium [place] (Zemuron) 50 mg STK-MED ONCE .ROUTE ; Start 11/12/18 at 10:20 ; Stop 11/12/18 at 10:23; Status DC Remifentanil HCl (Ultiva) 2 mg STK-MED ONCE IV ; Start 11/12/18 at 10:21; Stop 11/12/18 at 10:23; Status DC Midazolam HCl (Versed) 2 mg STK-MED ONCE .ROUTE ; Start 11/12/18 at 10:21; Stop 11/12/18 at 10:23; Status DC Fentanyl Citrate (Fentanyl 5ml Vial) 250 mcg STK-MED ONCE .ROUTE ; Start at 10:21; Stop 11/12/18 at 10:23; Status DC Dexamethasone Sodium Phosphate (Decadron) 20 mg STK-MED ONCE .ROUTE ; Start 08/20 at 10:22; Stop 11/12/18 at 10:24; Status DC Ondansetron HCl (Zofran) 4 mg STK-MED ONCE .ROUTE ; Start 11/12/18 at 10:22; Stop 11/12/18 at 10:24; Status DC Phenylephrine HCl (Ubaldo-Synephrine Inj) 10 mg STK-MED ONCE .ROUTE ; Start at 10:22; Stop 11/12/18 at 10:24; Status DC Phenylephrine HCl (Ubaldo-Synephrine Inj) 10 mg STK-MED ONCE .ROUTE ; Start at 10:22; Stop 11/12/18 at 10:24; Status DC Propofol 20 ml @ As Directed STK-MED ONCE IV ; Start 11/12/18 at 10:22; Stop 08/20 at 10:25; Status DC Propofol 50 ml @ As Directed STK-MED ONCE IV ; Start 11/12/18 at 10:22; Stop 08/20 at 10:25; Status DC Lidocaine HCl (Lidocaine Pf 2% Vial) 5 ml STK-MED ONCE .ROUTE ; Start 11/12/18 at 10:22; Stop 11/12/18 at 10:25; Status DC Ascorbic Acid (Vitamin C) 500 mg DAILY PO Last administered on 11/15/18at 08:30 ; Start 11/12/18 at 12:00 Bisacodyl (Dulcolax Tab) 5 mg PRN DAILY PRN PO CONSTIPATION (2nd Choice) Last administered on 11/15/18at 08:30; Start 11/12/18 at 11:30 Propofol 50 ml @ As Directed STK-MED ONCE IV ; Start 11/12/18 at 14:12; Stop 08/20 at 14:14; Status DC Remifentanil HCl (Ultiva) 1 mg STK-MED ONCE IV ; Start 11/12/18 at 14:34; Stop 11/12/18 at 14:36; Status DC Fentanyl Citrate (Fentanyl 2ml Vial) 100 mcg STK-MED ONCE .ROUTE ; Start at 15:31; Stop 11/12/18 at 15:33; Status DC Fentanyl Citrate (Fentanyl 2ml Vial) 100 mcg STK-MED ONCE .ROUTE ; Start at 15:35; Stop 11/12/18 at 15:37; Status DC Ketamine HCl (Ketamine) 50 mg STK-MED ONCE .ROUTE ; Start 11/12/18 at 15:38; Stop 11/12/18 at 15:40; Status DC Midazolam HCl (Versed) 2 mg STK-MED ONCE .ROUTE ; Start 11/12/18 at 15:41; Stop 11/12/18 at 15:43; Status DC Desflurane (Suprane) 90 ml STK-MED ONCE IH ; Start 11/12/18 at 15:48; Stop 11/12 at 15:49; Status DC Fentanyl Citrate (Fentanyl 2ml Vial) 25 mcg PRN Q5MIN PRN IV MILD PAIN; Start 11/12/18 at 16:00; Stop 11/12/18 at 20:00; Status DC Fentanyl Citrate (Fentanyl 2ml Vial) 50 mcg PRN Q5MIN PRN IV MODERATE TO SEVERE PAIN; Start 11/12/18 at 16:00; Stop 11/12/18 at 20:00; Status DC Morphine Sulfate (Morphine Sulfate) 2 mg PRN Q10MIN PRN IV MILD PAIN Last administered on 11/12/18at 16:54; Start 11/12/18 at 16:00; Stop 11/12/18 at 20:00 ; Status DC Morphine Sulfate (Morphine Sulfate) 4 mg PRN Q10MIN PRN IV Moderate to Severe Pain; Start 11/12/18 at 16:00; Stop 11/12/18 at 20:00; Status DC Hydromorphone HCl (Dilaudid) 0.5 mg PRN Q10MIN PRN IV Moderate to severe pain; Start 11/12/18 at 16:00; Stop 11/12/18 at 20:00; Status DC Ondansetron HCl (Zofran) 4 mg PRN Q6HRS PRN IV Nausea, 1st Choice; Start at 16:00; Stop 11/12/18 at 20:00; Status DC Diphenhydramine HCl (Benadryl) 12.5 mg PRN Q4HRS PRN IV Nausea/Vomiting, 1st Choice; Start 11/12/18 at 16:00; Stop 11/13/18 at 15:59; Status UNV Prochlorperazine Edisylate (Compazine) 5 mg PRN Q6HRS PRN IV Nausea/Vomiting, 1st Choice Last administered on 11/12/18at 16:53; Start 11/12/18 at 16:00; Stop 11/12/18 at 20:00; Status DC Ondansetron HCl (Zofran) 4 mg PRN Q6HRS PRN IV Nausea, 2nd Choice; Start at 16:00; Stop 11/13/18 at 15:59; Status UNV Diphenhydramine HCl (Benadryl) 12.5 mg PRN Q4HRS PRN IV Nausea/Vomiting, 2nd Choice; Start 11/12/18 at 16:00; Stop 11/12/18 at 20:00; Status DC Prochlorperazine Edisylate (Compazine) 5 mg PRN Q6HRS PRN IV Nausea/Vomiting, 2nd Choice; Start 11/12/18 at 16:00; Stop 11/13/18 at 15:59; Status UNV Ondansetron HCl (Zofran) 4 mg PRN Q6HRS PRN IV Nausea, 3rd Choice; Start at 16:00; Stop 11/13/18 at 15:59; Status UNV Prochlorperazine Edisylate (Compazine) 5 mg PRN Q6HRS PRN IV Nausea/Vomiting, 3rd Choice; Start 11/12/18 at 16:00; Stop 11/13/18 at 15:59; Status UNV Morphine Sulfate (Morphine Sulfate) 4 mg STK-MED ONCE .ROUTE ; Start 11/12/18 at 15:55; Stop 11/12/18 at 15:57; Status DC Ringer's Solution 1,000 ml @ 100 mls/hr Q10H IV Last administered on at 17:31; Start 11/12/18 at 12:00; Stop 11/13/18 at 11:31; Status DC Oxycodone/ Acetaminophen (Percocet 7.5/ 325) 1 tab PRN Q4HRS PRN PO MODERATE PAIN Last administered on 11/13/18at 20:30; Start 11/13/18 at 12:00; Stop at 09:38; Status DC Oxycodone/ Acetaminophen (Percocet 7.5/ 325) 2 tab PRN Q4HRS PRN PO SEVERE PAIN Last administered on 11/15/18at 09:32; Start 11/13/18 at 12:00; Stop at 09:38; Status DC Ketorolac Tromethamine (Toradol 30mg Vial) 30 mg PRN Q8HRS PRN IV MODERATE PAIN Last administered on 11/15/18at 13:54; Start 11/13/18 at 20:00; Stop at 16:14 Lorazepam (Ativan) 1 mg PRN Q12HR PRN PO ANXIETY / AGITATION Last administered on 11/15/18at 00:31; Start 11/14/18 at 02:45 Morphine Sulfate (Ms Contin) 30 mg BID PO Last administered on 11/15/18at 08:30 ; Start 11/14/18 at 10:30 Potassium Chloride (Klor-Con) 40 meq 1X ONCE PO Last administered on at 13:18; Start 11/14/18 at 11:30; Stop 11/14/18 at 11:31; Status DC Oxycodone HCl (Roxicodone) 10 mg PRN Q4HRS PRN PO PAIN; Start 11/15/18 at 09:45 ; Stop 11/15/18 at 09:45; Status DC Oxycodone HCl (Roxicodone) 20 mg PRN Q4HRS PRN PO PAIN; Start 11/15/18 at 09:45 Oxycodone HCl (Roxicodone) 10 mg PRN Q4HRS PRN PO PAIN Last administered on at 12:03; Start 11/15/18 at 09:45 Active Scripts Active Morphine Sulfate Er (Morphine Sulfate) 30 Mg Tablet.er 30 Mg PO BID 10 Days Bisacodyl 5 Mg Tablet. 5 Mg PO PRN DAILY PRN 10 Days Senna-Time S Tablet (Sennosides/Docusate Sodium) 1 Each Tablet 1 Tab PO BID 10 Days Oxycodone Hcl Immed.release (Oxycodone Hcl) 5 Mg Tablet 10 Mg PO PRN Q4HRS PRN 10 Days Reported Chantix (Varenicline Tartrate) 1 Mg Tablet 1 Mg PO BID Robaxin (Methocarbamol) 500 Mg Tablet 2 Tab PO BID Hydrocodone-Apap 7.5-325 (Hydrocodone Bit/Acetaminophen) 1 Tab Tablet 1-2 Tab PO PRN Q6HRS PRN Diclofenac Sodium 50 Mg Tablet.dr 1 Tab PO BID Tablet (Pnv Cmb#95/Ferrous Fumarate/Fa) 1 Each Tablet 1 Tab PO DAILY Metformin Hcl Er (Metformin Hcl) 500 Mg Tab.er.24h 500 Mg PO BIDWMEALS Simvastatin 10 Mg Tablet 1 Tab PO QHS Lisinopril 40 Mg Tablet 1 Tab PO DAILY Vitals/I & O Vital Sign - Last 24 Hours 11/14/18 11/14/18 11/14/18 11/14/18 15:00 16:03 18:52 19:00 Temp 98.9 99.1 98.9 99.1 Pulse 84 81 Resp 18 18 B/P (MAP) 134/81 (98) 156/50 (85) Pulse Ox 95 93 O2 Delivery Room Air Room Air Room Air Room Air 11/14/18 11/14/18 11/15/18 11/15/18 20:05 23:00 03:00 07:00 Temp 97.9 98.1 98.1 97.9 98.1 98.1 Pulse 70 78 95 Resp 18 18 16 B/P (MAP) 136/69 (91) 128/60 (82) 108/51 (70) Pulse Ox 95 95 96 O2 Delivery Room Air Room Air Room Air Room Air 11/15/18 11/15/18 11/15/18 11/15/18 08:20 08:30 09:32 11:00 Temp 97.8 97.8 Pulse 86 Resp 18 B/P (MAP) 110/61 (77) Pulse Ox 96 O2 Delivery Room Air Room Air Room Air Room Air 11/15/18 11/15/18 11/15/18 12:00 12:03 13:57 Pulse Ox 96 O2 Delivery Room Air Room Air Room Air O2 Flow Rate 2.0 Intake and Output 11/14/18 11/14/18 11/15/18 15:00 23:00 07:00 Intake Total 700 ml 450 ml Balance 700 ml 450 ml MESFIN LEVINE APRN Nov 15, 2018 15:04
--- NOTE | 2018-11-15 15:47 | NUR ---
SW following. Discussed with RN. Pt needing a walker, SW faxed script and notes to [facility] (ph: [phone], f:[phone]). Pt will likely be responsible for $13-$20 upon delivery of walker to her home (per Eliana at [facility]). RN notified. No further SW needs.
--- NOTE | 2018-11-15 16:02 | NUR ---
Discharge instructions and prescriptions given to pt. Answered questions and concerns. Belongings with pt at time of dc, pt dc by wc to main entrance accompanied by mother.
--- NOTE | 2018-11-15 16:07 | PATHOLOGY ---
[facility] Accession Number: [id number] . 01 Material submitted: . LUMBAR DISC AND DECOMPRESSION . 01 Clinical history: . None provided . 02 Diagnosis: Segments of fibrocartilaginous, adipose and skeletal muscle tissue and bone, lumbar disc and decompression: - Degenerative changes of fibrocartilaginous tissue. P/11/15/2018 . 02 Comment: There is no evidence of an acute inflammatory process of malignancy. ([facility] 11/15/2018) . 02 Electronically signed: . Phoenix Burnette MD, Pathologist NPI- [id number] . 01 Gross description: . Received in formalin labeled "Fevurly, Susie, lumbar disc and decompression," are several pieces of glistening, fibrous tissue measuring 4.5 x 4.3 x 1.9 cm in aggregate dimensions, containing small fragments of possible bone. The tissue submitted representatively in cassette A1, following decalcification. (TSD; 11/13/2018) TOB/TOB . 02 Pathologist provided ICD-10: M51.36 . 02 CPT . 467737 Specimen Comment: A courtesy copy of this report has been sent to Specimen Comment: [phone], . Specimen Comment: Report sent to / DR MANZANARES Specimen Comment: A duplicate report has been generated due to demographic updates. Performed at: 01 [facility] [address], [place] [id number] MD Onel Huerta MD Phone: [phone] Performed at: 02 [facility] [address] [place], [place] [id number] MD Phoenix Burnette MD Phone: [phone]
== END 2018-11-15 16:00 | disposition home or self-care (01) | DRG 519 ==
LOC: 4 NORTH 13:18
PROVIDERS: ADMIT Internal Medicine; ATTEND Internal Medicine
PROC: 0SB20ZZ Excision of Lumbar Vertebral Disc, Open Approach (ICD-10-PCS; 2018-11-12)
PROC: 4A11X4G Monitoring of Peripheral Nervous Electrical Activity, Intraoperative, External Approach (ICD-10-PCS; 2018-11-12)
PROC: 01NB0ZZ Release Lumbar Nerve, Open Approach (ICD-10-PCS; principal; 2018-11-12 10:30)
DX: M47.26 Other spondylosis with radiculopathy, lumbar region (principal); M51.06 Intervertebral disc disorders with myelopathy, lumbar region; M48.061 Spinal stenosis, lumbar region without neurogenic claudication; M51.16 Intervertebral disc disorders with radiculopathy, lumbar region; E11.9 Type 2 diabetes mellitus without complications; E28.2 Polycystic ovarian syndrome; E66.9 Obesity, unspecified; E78.5 Hyperlipidemia, unspecified; G89.29 Other chronic pain; I10 Essential (primary) hypertension; K59.00 Constipation, unspecified; Z88.8 Allergy status to other drugs, medicaments and biological substances; Z79.899 Other long term (current) drug therapy
CPT/HCPCS: 36415; 71045; 72158; 76000; 80048; 80053; 81001; 81025; 82962; 84484; 85025; 87086; 88304; 88311; 93005; A7015; A9585; J0780; J1100; J1170; J1644; J1815; J1885; J2001; J2250; J2270; J2405; J2704; J3010; J3490; J7030; J7120; J7509; Q0163; 97110; 97116; 97530

== ENCOUNTER → 2019-03-04 | Outpatient (CLI) | payer OTHER ==
[~2019-03-04] MED LIST changes: +BISA5TAB4 PO; +DICL50TA4 PO; +GADOBUTROL 7.5 MMOL/7.5 ML VIAL IV ONE; +HYDR-2765 PO; +LISI-130 PO; +MORP30TA3 PO; +OXYC5TAB4 PO; +PNV1TABL25 PO; +SENN-22 PO; +SIMV10TA3 PO; +VARE1TAB21 PO
--- NOTE | 2019-03-04 11:52 | KCIC ---
MRI of the lumbar spine without and with contrast 03/04/2019 CLINICAL HISTORY: Low back pain which radiates down both legs. History of lumbar spine surgery in November of this year. TECHNIQUE: Unenhanced T1-weighted and T2-weighted sagittal and axial and inversion recovery sagittal images the lumbar spine were obtained. After the intravenous administration of 10 cc of Gadavist, enhanced T1-weighted sagittal and axial images of the lumbar spine were obtained. FINDINGS: Comparison study is dated 11/09/2018. Minimal S-shaped curvature of the thoracolumbar spine is seen. Degenerative signal changes are seen involving the L3-4, L4-5 and L5-S1 discs. Degenerative signal changes are seen within the marrow surrounding these discs. Loss of height of the L4-5 disc is noted. The conus medullaris is normal morphology, position, and signal characteristics. The L1-2 and L2-3 disc spaces are within normal limits. At the L3-4 disc space there is a mild generalized disc bulge. Superimposed on this disc bulge is a focal central disc protrusion. This measures 2.5 mm in AP diameter. Degenerative changes are seen involving the facet joints bilaterally. There is mild ligamentum flavum hypertrophy bilaterally. There is prominence of the posterior epidural fat. These findings when combined result in very mild central spinal canal stenosis. No neural foraminal stenosis is seen. At the L4-5 disc space, the patient is post laminectomy. The large focal disc herniation seen on the previous examination has been resected. No recurrent disc herniation is seen. There is a mild generalized disc bulge. Degenerative changes are seen involving the facet joints bilaterally. These findings do not result in significant central spinal canal or neural foraminal stenosis. At the L5-S1 disc space there is a mild generalized disc bulge. Superimposed on this disc bulge is a focal central/left paracentral disc protrusion. This measures 3 mm in AP diameter. Degenerative changes are seen involving the facet joints bilaterally. There is mild ligamentum flavum hypertrophy bilaterally. These findings do not result in significant central spinal canal or neural foraminal stenosis. IMPRESSION: 1. Post laminectomy at L4-5. The large focal disc herniation seen on the previous examination has been resected. The central spinal canal stenosis has resolved. No focal recurrent disc herniation is seen. 2. The changes of degenerative disc disease are seen involving the mid and lower lumbar spine. These findings result in very mild central spinal canal stenosis at L3-4. No neural foraminal stenosis is seen. Electronically signed by: Kwan Soto MD (03/04/2019 11:49 AM) [id number]
== END | disposition home or self-care (01) ==
LOC: KCIC MRI 02-28 07:41
PROVIDERS: ATTEND Neurological Surgery
DX: M51.16 Intervertebral disc disorders with radiculopathy, lumbar region (principal); M48.061 Spinal stenosis, lumbar region without neurogenic claudication; M89.38 Hypertrophy of bone, other site; I10 Essential (primary) hypertension; G43.909 Migraine, unspecified, not intractable, without status migrainosus; Z79.899 Other long term (current) drug therapy; Z87.891 Personal history of nicotine dependence
CPT/HCPCS: 72158; A9585

== ENCOUNTER → 2019-04-01 | Outpatient (CLI) | payer OTHER ==
[~2019-04-01] MED LIST changes: -GADOBUTROL 7.5 MMOL/7.5 ML VIAL IV ONE; +IOHEXOL 180 MG/ML 10 ML VIAL. ONE; +methylPREDNISolone ACETATE 40 MG/ML VIAL. ONE; +methylPREDNISolone ACETATE 80 MG/ML VIAL. ONE
--- NOTE | 2019-04-01 14:09 | PAIN ---
DATE OF SERVICE: 04/01/2019 DIAGNOSES: Lumbar radiculopathy with lumbar degenerative disk disease, lumbar spondylosis and post-lumbar laminectomy syndrome. HISTORY OF PRESENT ILLNESS: The patient is a 34-year-old female who returns for followup status post lumbar epidural steroid injections, last seen 01/2018. The patient did well, but new intervention, had surgery for L4-L5 diskectomy. The patient reports she was doing quite well until some physical therapy which was being performed with some lifting, bending activities when the pain returned in the low back and now is across the low back into the right posterior hip, left posterior hip, left lateral thigh as well as the anterior thigh and posterior thigh on the left side and the right posterior in the back and the groin as well. The patient reports it is a 9 on a scale of 10 at its worst, 5 on average, and 3 at its least in the past week. The patient describes the pain as aching and sharp, constant, severe, worse with activity, standing, especially walking, changing positions, better with sitting or lying down, does not awaken her from sleep at night. The patient reports no new motor or sensory deficits, no new bowel or bladder incontinence or other complaints. The patient has new MRI scan, which shows post-laminectomy at L4-L5, large focal disk herniation resected, degenerative disk disease L3-L4 as well as L5-S1 as noted. The patient reports no new motor or sensory deficits, no bowel or bladder incontinence, but significant pain in the leg on the right as well as the left, mostly with standing and weightbearing. PHYSICAL EXAMINATION: VITAL SIGNS: Today, blood pressure 142/113, pulse 91, respirations 16, temperature 98.0 degrees Fahrenheit, the patient's weight is 272 pounds. GENERAL: The patient is awake, alert, oriented, appropriate, very pleasant demeanor. HEENT: Head shows normocephalic, atraumatic. Extraocular movements intact and symmetrical. Oral cavity: Mucous membranes moist and pink. Dentition is intact. NECK: Shows anterior throat supple without palpable lymphadenopathy noted. Swallow reflex symmetrical. CHEST: Shows normal with inspection. Breath sounds clear to auscultation bilaterally. HEART: Shows S1, S2 clear. No murmurs auscultated. ABDOMEN: Soft, obese, nontender, nondistended. BACK: Shows spine grossly in the midline, normal appearing thoracic kyphosis and minor flattening of lumbar lordotic curvature. There is a well-healed surgical scar noted, also tattooing again noted. The patient's paraspinous muscle shows symmetrical on inspection, on palpation shows some moderate tenderness diffusely bilaterally, but only diffusely without radiation. The patient has good rotational motion of lumbar spine without significant pain, right and left lateral as well as extension and flexion. EXTREMITIES: Lower extremities show deep tendon reflexes at 2+ in the patellar, 1+ tendo-calcaneus tendons. Motor exam is strong with 5/5 dorsiflexion, extension, quadriceps and hamstring flexion and symmetrical. Peripheral pulses are 1+ posterior tibia. No peripheral edema is noted. Options were discussed with the patient. The patient's old chart was reviewed as her current medication regimen updated. Current review of systems updated today as well. We will proceed with the first in a series of lumbar epidural steroid injection today with fluoroscopic guidance. Risks were again discussed including, but not limited to bleeding, infection, possibility of epidural hematoma, subsequent neurologic compromise, dural puncture headaches, spinal cord and/or nerve damage, side effects of steroid medication and poor results regarding pain control. The patient understands and wished to proceed. The patient will return to clinic in approximately 2 weeks for followup. She was counseled on return appointment, activity level and side effects to be aware of. DIAGNOSES: Lumbar radiculopathy with lumbar degenerative disk disease, lumbar spondylosis. PROCEDURE: Lumbar epidural steroid injection, translaminar approach at L5-S1 level using C-arm fluoroscopic guidance under sterile prep and drape using local anesthetic. MEDICATION INJECTED: A total of 120 mg Depo-Medrol plus 10 mL of preservative-free normal saline and 2 mL of contrast. CONDITION AT DISCHARGE: Stable. The patient tolerated the procedure well, had no complications. AKSHAT GARNER MD DR: ARELI/francois JOB#: [id number] / [id number]
== END ==
LOC: PNCL 07:43
PROVIDERS: ATTEND Anesthesiology
DX: M51.16 Intervertebral disc disorders with radiculopathy, lumbar region (principal); M96.1 Postlaminectomy syndrome, not elsewhere classified; M47.816 Spondylosis without myelopathy or radiculopathy, lumbar region
CPT/HCPCS: 62323; J1030; J1040; Q9965

== ENCOUNTER → 2019-04-25 | Outpatient (CLI) | payer OTHER ==
[~2019-04-25] MED LIST changes: +NALT1TAB PO
--- NOTE | 2019-04-25 08:39 | PAIN ---
DATE OF SERVICE: 04/25/2019 PROGRESS NOTE FOR PAIN CLINIC DIAGNOSES: Lumbar radiculopathy with lumbar degenerative disk disease, lumbar spondylosis and post-lumbar laminectomy syndrome. HISTORY OF PRESENT ILLNESS: The patient is a 34-year-old female who returns for followup status post lumbar epidural steroid injection x 1, 04/01/2019, the patient did very well with about 40% improvement in the low back and left lower extremity. The patient reports her left hip and leg is doing much better. Still pain in the low back, right and left side. The patient reports tingling, aching, occasional shooting into the left lower extremity, mostly in the groin and anterolateral thigh as well as the posterior gluteus, posterior thigh. The patient reports it is 7 on a scale of 10 at its worst in the past week, 4 on average and a 3 at its least and is a 3 today. The patient reports no new motor or sensory deficit with issues increasing her distance walking and work activity. She is doing light duty and household activities as well. Sleeps well at night, does not bother her when she is sitting or lying down for the most part. PHYSICAL EXAMINATION: VITAL SIGNS: The patient's blood pressure 143/105, pulse 79, respirations 18, temperature 97.9 degrees Fahrenheit, height 5 feet 10 inches, weight is 269 pounds. GENERAL: The patient is awake, alert, oriented, appropriate, very pleasant demeanor. HEENT: Head shows normocephalic, atraumatic. Extraocular movements are intact and symmetrical. Oral cavity: Mucous membranes moist and pink. Dentition is intact. NECK: Shows anterior throat supple without palpable lymphadenopathy noted. Swallow reflex symmetrical. CHEST: Shows normal on inspection. Breath sounds clear to auscultation bilaterally. HEART: Shows S1, S2 clear. No murmurs auscultated. ABDOMEN: Soft, nontender, nondistended. No palpable organomegaly is noted. No rebound or guarding demonstrated. BACK: The patient's back shows spine grossly in the midline. Normal-appearing thoracic kyphosis and minor flattening of lumbar lordotic curvature with well-healed surgical scar noted. Lumbar paraspinous muscle shows symmetrical on inspection, with palpation shows some moderate tenderness diffusely bilaterally, but only diffusely without radiation. EXTREMITIES: The patient's lower extremities show deep tendon reflexes at 2+ in the patellar, 1+ tendo-calcaneus tendons. Motor exam is strong with 5/5 dorsiflexion, extension, quadriceps and hamstring flexion. Peripheral pulses are 1+ posterior tibia. No peripheral edema is noted. Options were discussed with the patient. The patient's old chart was reviewed as her current medication regimen updated. Current review of systems updated today as well. We will proceed with a second in the series of lumbar epidural steroid injection today with fluoroscopic guidance. Risks were again discussed including, but not limited to bleeding, infection, possibility of epidural hematoma, subsequent neurologic compromise, dural puncture, headaches, spinal cord and/or nerve damage, side effects of steroid medication and poor results regarding pain control. The patient understands and wished to proceed. The patient will return to clinic in approximately 2 weeks for followup, was counseled on return appointment, activity level and side effects to be aware of. DIAGNOSES: Lumbar radiculopathy with lumbar degenerative disk disease, lumbar spondylosis and post-lumbar laminectomy syndrome. PROCEDURES: Lumbar epidural steroid injection, translaminar approach at L5-S1 level using C-arm fluoroscopic guidance under sterile prep and drape using local anesthetic. MEDICATION INJECTED: A total of 120 mg Depo-Medrol plus 10 mL of preservative-free saline and 2 mL of contrast. CONDITION AT DISCHARGE: Stable. The patient tolerated the procedure well, had no complications. AKSHAT GARNER MD DR: ARELI/francois JOB#: [id number] / [id number]
== END ==
LOC: PNCL 07:39
PROVIDERS: ATTEND Anesthesiology
DX: M51.16 Intervertebral disc disorders with radiculopathy, lumbar region (principal); M47.816 Spondylosis without myelopathy or radiculopathy, lumbar region; M96.1 Postlaminectomy syndrome, not elsewhere classified
CPT/HCPCS: 62323; J1030; J1040; Q9965

== ENCOUNTER → 2020-01-28 | Outpatient (CLI) | payer OTHER ==
[~2020-01-28] MED LIST changes: +ASCO500C9 PO; +CHOL40003 PO; +HYDR-2769 PO; +METF500T11 PO; +METF500T16 PO; -METF500T9 PO; +MORP-16 PO; -MORP30TA3 PO; +MULT-245 PO; +OMEG100021 PO; +SIMV10TA15 PO; -SIMV10TA3 PO
--- NOTE | 2020-01-28 12:31 | PAIN ---
DATE OF SERVICE: 01/28/2020 PROGRESS NOTE FOR PAIN CLINIC DIAGNOSES: Lumbar radiculopathy with lumbar degenerative disk disease, lumbar spondylosis and post-lumbar laminectomy syndrome. HISTORY OF PRESENT ILLNESS: The patient is a 34-year-old female who returns for followup status post lumbar epidural steroid injections x 2, most recently 04/25/2019, patient did very well with about an 80% improvement overall. The patient reports the pain was gone until about a month ago. The patient reports that she has been increasing activity. 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 She has been on her feet quite a bit lately over the past month with pain now radiating to the low back into the posterior left lower extremity, posterior lateral thigh, anterior thigh, posterior calf on the left side. The patient reports no loss of motor function, but significant pain in the back and leg. The patient rates it as 9 on a scale of 10 at its worst over the past week, 5 on average, 3 at its least and is a 3 today. The patient reports it is worse with walking, standing, changing positions, better with sitting or lying down, generally does not awaken her from sleep but occasionally has over the past month or so. The patient reports no new motor or sensory deficits, no bowel or bladder incontinence or other complaints. The patient's old chart was reviewed as her current medication regimen updated. Current review of systems updated today as well and MRI scans reviewed as well. PHYSICAL EXAMINATION: VITAL SIGNS: The patient's blood pressure is 135/92, pulse 90, respirations are 16, temperature 98.0 degrees Fahrenheit, height is 5 feet 10 inches, weight is 273 pounds. GENERAL: The patient is awake, alert, oriented, appropriate, very pleasant demeanor. HEENT: Head shows normocephalic, atraumatic. Extraocular movements are intact and symmetrical. Oral cavity: Mucous membranes moist and pink. Dentition is intact. NECK: Shows anterior throat supple without palpable lymphadenopathy noted. Swallow reflex symmetrical. CHEST: Shows normal on inspection. Breath sounds are clear bilaterally. HEART: Shows S1, S2 clear. No murmurs auscultated. ABDOMEN: Soft, obese, nontender, nondistended. BACK: Shows spine grossly in the midline. Normal appearing thoracic kyphosis and minor flattening of lumbar lordotic curvature. Well-healed surgical scar noted in the lumbar distribution, has some tattooing in place. Lumbar paraspinous muscle shows symmetrical on inspection, on palpation shows some moderate tenderness diffusely bilaterally, but only diffusely without significant radiation. EXTREMITIES: The patient's lower extremities show deep tendon reflexes at 2+ in the patellar, 1+ tendo-calcaneus tendons. Motor exam is strong with 5/5 dorsiflexion, extension, quadriceps and hamstring flexion symmetrical. Peripheral pulses are 1+ posterior tibia. No peripheral edema bilaterally. Options were discussed with the patient. The patient's old chart was reviewed as her current medication regimen updated. Current review of systems updated today as well. We will proceed with a lumbar epidural steroid injection today with fluoroscopic guidance. Risks were again discussed including, but not limited to bleeding, infection, possibility of epidural hematoma, subsequent neurological compromise, dural puncture, headaches, spinal cord and/or nerve damage, side effects of steroid medication and poor results regarding pain control. The patient understands and wished to proceed. The patient will return to clinic in approximately 2 weeks for followup. She was counseled on return appointment, activity level and side effects to be aware of. DIAGNOSES: Lumbar radiculopathy with lumbar degenerative disk disease and lumbar spondylosis, lumbar post-laminectomy syndrome. PROCEDURE: Lumbar epidural steroid injection, translaminar approach L5-S1 level using C-arm fluoroscopic guidance under sterile prep and drape using local anesthetic. MEDICATION INJECTED: A total of 120 mg Depo-Medrol plus 10 mL preservative-free normal saline and 2 mL of contrast. CONDITION AT DISCHARGE: Stable. The patient tolerated the procedure well, had no complications. AKSHAT GARNER MD DR: ARELI/francois JOB#: [id number] / [id number]
== END ==
LOC: PNCL 11:09
PROVIDERS: ATTEND Anesthesiology
DX: M51.16 Intervertebral disc disorders with radiculopathy, lumbar region (principal); M47.816 Spondylosis without myelopathy or radiculopathy, lumbar region; M96.1 Postlaminectomy syndrome, not elsewhere classified
CPT/HCPCS: 62323; J1030; J1040; Q9965

== ENCOUNTER → 2020-02-11 | Outpatient (CLI) | payer OTHER ==
[~2020-02-11] MED LIST changes: +PHEN37.53 PO
--- NOTE | 2020-02-11 12:44 | PAIN ---
DATE OF SERVICE: 02/11/2020 PROGRESS NOTE FOR PAIN CLINIC DIAGNOSES: Lumbar radiculopathy with lumbar degenerative disk disease, lumbar spondylosis and post-lumbar laminectomy syndrome. HISTORY OF PRESENT ILLNESS: The patient is a 34-year-old female who returns for followup status post lumbar epidural steroid injection x 1 on 01/28/2020. The patient reports she did very well with about 60% improvement overall, initially about 75%, but now about 60%. 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 The left side was doing much better however. The left leg is almost 100% improved. Still pain across the low back and the right hip and leg. The patient describes it as cramping, aching and tight, becoming more constant with activity, walking and standing. Initially, she was doing much better with walking and doing greater distances, doing work activities, household activities, bending over, etc. The patient reports it does not awaken her from sleep at night. Rates her pain as an 8 on a scale of 10 at its worst over the past week, 4-5 on an average, 3 at its least and is a 5 today. The patient reports no new motor or sensory deficits, no bowel or bladder incontinence or other complaints. PHYSICAL EXAMINATION: VITAL SIGNS: The patient's blood pressure is 124/92, pulse 93, respirations 16, temperature 98.2 degrees Fahrenheit, height is 5 feet 11 inches, weight is 263 pounds. GENERAL: The patient is awake, alert, oriented, appropriate, very pleasant demeanor. HEENT: Shows normocephalic, atraumatic. Extraocular movements are intact and symmetrical. Oral cavity: Mucous membranes moist and pink. Dentition is intact. NECK: Shows anterior throat supple without palpable lymphadenopathy noted. Swallow reflex symmetrical. CHEST: Shows normal on inspection. Breath sounds clear bilaterally. HEART: Shows S1, S2 clear. No murmurs auscultated. ABDOMEN: Soft, nontender, nondistended. No palpable organomegaly is noted. No rebound or guarding demonstrated. BACK: Shows spine grossly in the midline. Normal appearing thoracic kyphosis and lumbar lordotic curvature slightly flattened with well-healed surgical scarring noted. Lumbar paraspinous muscle shows symmetrical on inspection, on palpation shows some moderate tenderness diffusely bilaterally, but only diffusely without significant radiation. The patient has good rotational motion of lumbar spine, both laterally as well as extension and flexion without significant difficulty. EXTREMITIES: Lower extremities show deep tendon reflexes 2+ in the patellar, 1+ tendo-calcaneus tendons. Motor exam is strong with 5/5 dorsiflexion, extension, quadriceps, and hamstring flexion. Peripheral pulses are 1+ posterior tibial without edema bilaterally. Options were discussed with the patient. The patient's old chart was reviewed as her current medication regimen updated. Current review of systems updated today as well. We will proceed with a second in a series of lumbar epidural steroid injection today with fluoroscopic guidance. Risks were again discussed including, but not limited to bleeding, infection, possibility of epidural hematoma, subsequent neurological compromise, dural puncture, headaches, spinal cord and/or nerve damage, side effects of steroid medication and poor results regarding pain control. The patient understands and wished to proceed. The patient will return to clinic in approximately 2 weeks for followup. She was counseled on return appointment, activity level and side effects to be aware of. DIAGNOSIS: Lumbar radiculopathy with lumbar degenerative disk disease, lumbar spondylosis and post-lumbar laminectomy syndrome. PROCEDURE: Lumbar epidural steroid injection, translaminar approach L5-S1 level using C-arm fluoroscopic guidance under sterile prep and drape using local anesthetic. MEDICATIONS INJECTED: Total of 120 mg Depo-Medrol plus 10 mL of preservative-free normal saline and 2 mL of contrast. CONDITION AT DISCHARGE: Stable. The patient tolerated procedure well, had no complications. AKSHAT GARNER MD DR: ARELI/francois JOB#: [id number] / [id number]
== END ==
LOC: PNCL 09:39
PROVIDERS: ATTEND Anesthesiology
DX: M51.16 Intervertebral disc disorders with radiculopathy, lumbar region (principal); M96.1 Postlaminectomy syndrome, not elsewhere classified; M47.816 Spondylosis without myelopathy or radiculopathy, lumbar region
CPT/HCPCS: 62323; J1030; J1040; Q9965